=== PATIENT | female | born 1985 | race Caucasian/White ===

== ENCOUNTER 2016-11-19 19:35 | Inpatient (IN) | payer OTHER ==
--- NOTE | 2016-11-19 20:31 | PDOC ---
History of Present Illness - General Chief Complaint: Pain Stated Complaint: LT ARM NUMB/RIGHT WRIST ABCESS/KIDNEY INFECTION Time Seen by Provider: 11/19/16 19:55 History Source: Patient Exam Limitations: No Limitations - History of Present Illness Initial Comments: 11/19/16 22:08 31yo Female patient w/ history of poly substance abuse, Epilepsy, CVA, Recurrent UTI w/ admission, IV drug use w/ abscess formation presents to ED c/o abscess to right wrist x 5 days getting worse, and Lt arm weakness today. Patient currently on Methadone treatment: 100mg daily. Last IV drug use reported 6 months ago, Last drug use Tuesday (Heroin-intra nasally). Patient reports she had normal ROM to Lt arm 4 days ago, when she woke up today with weakness. She told Methadone clinic staff about her symptoms and was directed to ED for evaluation. Patient reports night sweats and chills. Patient reports 8 /10 right wrist pain at this time. Last admission to this hospital Oct 12 for UTI. LNMP: "1.5 years." Denies blurred vision, vision changes, n/v/d, fever, back pain, dysuria, hematuria, CP, Abd pain, Diff breathing, rash, difficulty walking or any other complaints. Patient denies recent trauma, injury, fall to left shoulder. Timing/Duration: getting worse Severity: moderate Modifying Factors: worse with: cold therapy, eating, immobilization, medication , movement, rest, other Associated Symptoms: reports: fever/chills, weakness. denies: chest pain, cough , diaphoresis, headaches, loss of appetite, malaise, nausea/vomiting, rash, seizure, shortness of breath, syncope NIH Stroke Scale - Last Known Well Date/Time & Onset Date Last Known Well: 11/18/16 Time Last Known Well: 21:00 - Initial Evaluation Level of consciousness: Alert Ask patient the month and their age: Answers both correctly Ask patient to open & close eyes; make fist and let go: Obeys both correctly Best gaze (horizontal eye movement): Normal Visual field testing: No visual field loss Facial paresis (Show teeth/raise eyebrows/close eyes tight): Normal symmetrical movement Motor Function: Left Arm: No effort against gravity Motor Function: Right Arm: Normal (extends arm 90 (or 45) degrees for 10 seconds without drift Motor Function: Left Leg: Normal (extends leg 30 degrees for 5 seconds without drift) Motor Function: Right Leg: Normal (extends leg 30 degrees for 5 seconds without drift) Limb Ataxia: No ataxia Sensory(Use pinprick test arms,legs,trunk,face/side to side): Normal Best language (Describe picture, name items, read sentences): No Aphasia Dysarthria (read several words): Normal articulation Extinction and Inattention: No abnormality - Total Score NIH Stroke Scale Score: 3 Past History - Travel Traveled outside of the country in the last 30 days: No Close contact w/someone who was outside of country & ill: No - Past Medical History Allergies/Adverse Reactions: Allergies Allergy/AdvReac Type Severity Reaction Status Date / Time metoclopramide HCl Allergy Severe Swelling Verified 11/19/16 19:41 [From Reglan] Sulfa (Sulfonamide Allergy Intermediate Rash Verified 11/19/16 19:41 Antibiotics) Home Medications: Ambulatory Orders Gabapentin [Neurontin] 800 mg PO TID 05/21/15 Lamotrigine [Lamictal -] 50 mg PO BID #60 tablet 12/11/15 Methadone [Dolophine -] 100 mg PO DAILY 04/09/16 Alprazolam [Xanax] 2 mg PO QID PRN #12 tablet MDD 4 04/19/16 Clonidine HCl [Catapres -] 0.2 mg PO BID tablet 10/12/16 Lurasidone HCl [Latuda -] 40 mg PO DAILY #30 tablet 10/12/16 Mirtazapine [Remeron -] 45 mg PO HS tablet 10/12/16 Anemia: No Asthma: No Cancer: No Cardiac Disorders: No CVA: Yes (2012) COPD: No CHF: No Dementia: No Diabetes: No GI Disorders: No Disorders: No HTN: Yes Hypercholesterolemia: Yes Kidney Stones: No Liver Disease: No Suicide Attempt (Hx): Yes (DRUG OVER DOSE) Seizures: Yes Thyroid Disease: Yes (HYPOTHYRODISM) - Surgical History Abdominal Surgery: No Appendectomy: Yes Cardiac Surgery: No Cholecystectomy: No Lung Surgery: No Neurologic Surgery: No Orthopedic Surgery: No - Reproductive History PID: No - Immunization History Immunization Up to Date: Yes - Psycho/Social/Smoking Cessation Hx Anxiety: No Suicidal Ideation: No Smoking Status: Yes Smoking History: Current every day smoker Have you smoked in the past 12 months: Yes Number of Cigarettes Smoked Daily: 20 Information on smoking cessation initiated: No 'Breaking Loose' booklet given: 12/10/15 Hx Alcohol Use: No Drug/Substance Use Hx: Yes (PRESCRIBED) Substance Use Type: None Hx Substance Use Treatment: Yes Review of Systems - Review of Systems Able to Perform ROS?: Yes Is the patient limited Mongolian proficient: No Constitutional: Yes: Chills, Night Sweats. No: Fever, Loss of Appetite, Malaise , Weakness HEENTM: No: Blurred Vision, Recent change in vision, Double Vision, Nose Congestion, Nose Bleeding, Dental Problems Respiratory: No: Cough, Orthopnea, Shortness of Breath, SOB at Rest, Stridor, Wheezing, Productive cough Cardiac (ROS): No: Chest Pain, Edema, Irregular Heart Rate, Lightheadedness, Palpitations, Syncope, Chest Tightness ABD/GI: No: Constipated, Diarrhea, Difficulty Swallowing, Nausea, Poor Appetite , Poor Fluid Intake, Rectal Bleeding, Vomiting, Abdominal cramping, Tarry Stools : No: Burning, Dysuria, Discharge, Frequency, Flank Pain, Hematuria, Pain, Urgency Musculoskeletal: Yes: Muscle Weakness. No: Back Pain, Joint Pain, Joint Swelling, Neck Pain, Joint Stiffness Integumentary: Yes: Erythema, Lumps (Abscess to right wrist.). No: Bruising, Dryness, Pruritus, Rash, Sweating Neurological: Yes: Weakness. No: Headache, Numbness, Paresthesia, Seizure, Tingling, Tremors, Unsteady Gait, Ataxia, Dizziness Psychiatric: No: Anxiety, Depression, Sleep Pattern Change Hematologic/Lymphatic: No: Blood Clots, Easy Bleeding All Other Systems: Reviewed and Negative *Physical Exam - Vital Signs Last Vital Signs Temp Pulse Resp BP Pulse Ox 97.8 F 98 H 20 116/70 95 11/19/16 19:43 11/19/16 19:43 11/19/16 19:43 11/19/16 19:43 11/19/16 19:43 - Physical Exam General Appearance: Yes: Nourished, Disheveled. No: Mild Distress, Moderate Distress, Severe Distress HEENT: positive: EOMI, UBALDO, Normal ENT Inspection, Normal Voice, Symmetrical, TMs Normal, Pharynx Normal, Other (Poor Dentition). negative: Nasal Congestion , Rhinorrhea, Sinus Tenderness, TM Bulging, TM Dull, TM Erythema, Excessive drooling Neck: positive: Trachea midline, Supple. negative: Tender, Decreased range of motion, Stridor, Lymphadenopathy (R), Lymphadenopathy (L) Respiratory/Chest: positive: Lungs Clear, Normal Breath Sounds. negative: Respiratory Distress, Accessory Muscle Use, Labored Respiration, Rapid RR, Rhonchi, Stridor, Wheezing, Hyperresonant, Dullness Cardiovascular: positive: Regular Rhythm, Regular Rate. negative: Edema, JVD, Murmur Vascular Pulses: Femoral (R): 2+ (Wrist), Femoral (L): 2+ (Wrist) Gastrointestinal/Abdominal: positive: Normal Bowel Sounds, Soft. negative: Increased Bowel Sounds, Distended, Guarding, Rebound, Tenderness Lymphatic: negative: Adenopathy Musculoskeletal: positive: Normal Inspection. negative: CVA Tenderness, CVA Tenderness (R), CVA Tenderness (L), Decreased Range of Motion Extremity: positive: Normal Capillary Refill, Normal Inspection. negative: Normal Range of Motion (Decrease ROM to Lt arm), Pedal Edema, Swelling, Erythema , Inflammation Integumentary: positive: Normal Color, Dry, Warm, Erythema, Other (Abscess to right wrist). negative: Hives, Petechiae, Rash, Swelling Neurologic: positive: internal revenue service agent II-XII NML intact, Fully Oriented, Alert, Normal Mood/ Affect, Normal Response. negative: Motor Strength 5/5 (Decreased strength to Lt Arm.) Heart Score/ECG Review - ECG Impressions Normal ECG: Yes Non-specific ST Elevation: No Ischemic Changes: No Bradycardia: No Torsades saima Pointes: No WPW: No ED Treatment Course - LABORATORY CBC & Chemistry Diagram: 11/19/16 20:45 11/19/16 20:45 - RADIOLOGY Radiology Studies Ordered: Category Date Time Status HEAD CT WITHOUT CONTRAST [CT] Stat CT Scan 11/19/16 20:28 Ordered CHEST PA & LAT [RAD] Stat Radiology 11/19/16 20:28 Ordered SHOULDER-LEFT [RAD] Stat Radiology 11/19/16 20:28 Ordered *DC/Admit/Observation/Transfer Diagnosis at time of Disposition: Transient cerebral ischemia Qualifiers: Transient cerebral ischemia type: unspecified Qualified Code(s): G45.9 - Transient cerebral ischemic attack, unspecified - Discharge Dispostion Condition at time of disposition: Fair Admit: Yes
[2016-11-19 20:37] LABS: URINE APPEARANCE SLCLOUDY; URINE BILIRUBIN NEGATIVE (NEGATIVE); URINE BLOOD NEGATIVE (NEGATIVE); URINE COLOR YELLOW; URINE GLUCOSE (UA) NEGATIVE (NEGATIVE); URINE KETONE NEGATIVE (NEGATIVE); URINE NITRITE NEGATIVE (NEGATIVE); URINE UROBILINOGEN 4.0 E.U/dl E.U./dl (0.2-1.0)
[2016-11-19] MEDS ORDERED: LIDOCAINE HCL 1%, 10 MG/ML (50 mL VIAL) INF ONE (20:37)
[2016-11-19 20:39] LABS: URINE LEUK ESTERASE TRACE (NEGATIVE); URINE PROTEIN 1+ (NEGATIVE)
[2016-11-19 20:42] LABS: URINE MARIJUANA THC POSITIVE ng/ml (CUTOFF=50)
[2016-11-19] MEDS ORDERED: LIDOCAINE HCL/PF 1% SDV 5ML VIAL ONE (20:43)
[2016-11-19 20:46] LABS: URINE BACTERIA FEW /hpf (NONE SEEN); URINE HYALINE CAST 1 /lpf; URINE MUCUS RARE; URINE RBC 1 /hpf (0-3); URINE WBC 5 /hpf (3-5)
--- NOTE | 2016-11-19 21:04 | PDOC ---
*Physical Exam - Vital Signs Last Vital Signs Temp Pulse Resp BP Pulse Ox 97.8 F 98 H 20 116/70 95 11/19/16 19:43 11/19/16 19:43 11/19/16 19:43 11/19/16 19:43 11/19/16 19:43 ED Treatment Course - LABORATORY CBC & Chemistry Diagram: 11/23/16 08:55 11/21/16 08:10 - ADDITIONAL ORDERS Additional order review: Laboratory Results 11/19/16 11/19/16 19:45 19:45 Urine Color Yellow Urine Appearance Slcloudy Urine pH 6.0 Ur Specific Lawrence 1.011 Urine Protein 1+ H Urine Glucose (UA) Negative Urine Ketones Negative Urine Blood Negative Urine Nitrite Negative Urine Bilirubin Negative Urine Urobilinogen 4.0 e.u/dl H Ur Leukocyte Esterase Trace H D Urine RBC 1 Urine WBC 5 Ur Epithelial Cells Few Urine Bacteria Few Hyaline Casts 1 Urine Mucus Rare Urine HCG, Qual Negative Opiates Screen Positive Methadone Screen Positive Barbiturate Screen Negative Phencyclidine Screen Negative Ur Amphetamines Screen Negative MDMA (Ecstasy) Screen Negative Benzodiazepines Screen Positive Cocaine Screen Negative U Marijuana (THC) Screen Positive - Medications Given in the ED: ED Medications Discontinued Medications Generic Name Dose Route Start Last Admin Trade Name Freq PRN Reason Stop Dose Admin Lidocaine HCl 10 ml 11/19/16 20:37 11/19/16 20:54 Xylocaine 1% INF 11/19/16 20:38 10 ml ONCE ONE Administration Medical Decision Making - Medical Decision Making 11/19/16 21:04 Pt seen by the Advanced Practice Provider under my direct supervision Ancillary studies reviewed I agree with plan as outlined by the Advanced Practice Provider CYNTHIA Engel *DC/Admit/Observation/Transfer Diagnosis at time of Disposition: TIA (transient ischemic attack) - Discharge Dispostion Condition at time of disposition: Fair
[2016-11-19 21:43] LABS: BASOPHIL 0.4 % (0-2.0); EOSINOPHIL 1.1 % (0-4.5); MCH 27.1 pg (25.7-33.7); MCHC 33.9 g/dl (32.0-36.0); MEAN CELL VOLUME 80.1 fl (80-96); MEAN PLT VOLUME 8.1 fl (7.5-11.1); PLATELET COUNT 236 K/MM3 (134-434); RDW 17.7 % (11.6-15.6); WHITE BLOOD COUNT 5.3 K/mm3 (4.0-10.0)
[2016-11-19 21:58] LABS: INR 1.22 (0.82-1.09); PROTHROMBIN TIME (PATIENT) 13.5 SEC (9.98-11.88)
[2016-11-19 22:09] LABS: ALBUMIN 3.6 g/dl (3.4-5.0); ANION GAP 11 (8-16); CALCIUM 8.9 mg/dL (8.5-10.1); CO2 28 mmol/L (21-32); CREATININE 0.9 mg/dL (0.55-1.02)
[2016-11-19 22:11] LABS: ALK PHOS 303 U/L (45-117); BILIRUBIN,TOTAL 0.5 mg/dL (0.2-1.0); SGOT/AST 52 U/L (15-37); SGPT/ALT 28 U/L (12-78); TOT PROT 8.3 g/dl (6.4-8.2)
[2016-11-19 22:13] LABS: GLUCOSE,RANDOM 102 mg/dL (74-106)
[2016-11-19 22:56] LABS: TROPONIN I < 0.02 ng/ml (0.00-0.05)
[2016-11-20] MEDS ORDERED: SODIUM CHLORIDE 1,000 ML IV STA (00:13)
[2016-11-20] MEDS ORDERED: ceFAZolin 2 GRAM PREMIX BAG IVPB ONE (00:30)
--- NOTE | 2016-11-20 02:37 | HP ---
<Tonia Mauricio - Last Filed: 11/20/16 02:37> Visit type - Emergency Visit Emergency Visit: Yes Care time: The patient presented to the Emergency Department on the above date and was hospitalized for further evaluation of their emergent condition. - New Patient This patient is new to me today: Yes Date on this admission: 11/20/16 - Critical Care Critical Care patient: No <Keri Ahuja - Last Filed: 11/20/16 04:07> CHIEF COMPLAINT: L arm and L shoulder pain PCP: HISTORY OF PRESENT ILLNESS: The patient is a 31 yo F with a PMHx of TIA (w R sided facial droop and slurred speech) who presented to the ED with L arm pain and R arm wound. The patient reports that her arm pain began 4 days ago while getting up from bed. The patient reports she has never felt this pain before and is concerned for possible stroke. The patient also reports R arm wound, that has been increasingly erythematous for the past 2 days. The patient states when she relapses, she intranasally snorts heroin and however denies using this arm for injection. She denies chest pain, headache and dizziness. She denies fever, chills, nausea, vomit, diarrhea and constipation. She denies dysuria, frequency , urgency and hematuria. PMHx: HTN, Hypothyroidism, HLD, IVDA Recent Travel: No PAST MEDICAL HISTORY: See above PAST SURGICAL HISTORY: None Social History: Smoking: Daily Cigarette smoker (5 daily) Alcohol: None Drugs: Heroin, Methadone, Marijuana, Benzos Family History: Grandfather and Grandmother- CVA/TIA Allergies metoclopramide HCl [From Reglan] Allergy (Severe, Verified 11/19/16 19:41) Swelling Sulfa (Sulfonamide Antibiotics) Allergy (Intermediate, Verified 11/19/16 19:41) Rash HOME MEDICATIONS: Medication Instructions Recorded Gabapentin [Neurontin] 800 mg PO TID 05/21/15 Lamotrigine [Lamictal -] 50 mg PO BID #60 tablet 12/11/15 Methadone [Dolophine -] 100 mg PO DAILY 04/09/16 Alprazolam [Xanax] 2 mg PO QID PRN #12 tablet MDD 4 04/19/16 Clonidine HCl [Catapres -] 0.2 mg PO BID tablet 10/12/16 Lurasidone HCl [Latuda -] 40 mg PO DAILY #30 tablet 10/12/16 Mirtazapine [Remeron -] 45 mg PO HS tablet 10/12/16 REVIEW OF SYSTEMS CONSTITUTIONAL: Absent: fever, chills, diaphoresis, generalized weakness, malaise, loss of appetite, weight change HEENT: Absent: rhinorrhea, nasal congestion, throat pain, throat swelling, difficulty swallowing, mouth swelling, ear pain, eye pain, visual changes CARDIOVASCULAR: Absent: chest pain, syncope, palpitations, irregular heart rate, lightheadedness , peripheral edema RESPIRATORY: Absent: cough, shortness of breath, dyspnea with exertion, orthopnea, wheezing, stridor, hemoptysis GASTROINTESTINAL: Absent: abdominal pain, abdominal distension, nausea, vomiting, diarrhea, constipation, melena, hematochezia GENITOURINARY: Absent: dysuria, frequency, urgency, hesitancy, hematuria, flank pain, genital pain MUSCULOSKELETAL: + L arm pain + L shoulder pain. Absent: myalgia, arthralgia, joint swelling, back pain, neck pain SKIN: + abscess and swelling to the R hand Absent: rash, itching, pallor HEMATOLOGIC/IMMUNOLOGIC: Absent: easy bleeding, easy bruising, lymphadenopathy, frequent infections ENDOCRINE: Absent: unexplained weight gain, unexplained weight loss, heat intolerance, cold intolerance NEUROLOGIC: Absent: headache, focal weakness or paresthesias, dizziness, unsteady gait, seizure, mental status changes, bladder or bowel incontinence PSYCHIATRIC: Absent: anxiety, depression, suicidal or homicidal ideation, hallucinations. PHYSICAL EXAMINATION GENERAL: Awake, alert, and fully oriented, in no acute distress. HEAD: Normal with no signs of trauma. EYES: Pupils equal, round and reactive to light, extraocular movements intact, sclera anicteric, conjunctiva clear. No lid lag. EARS, NOSE, THROAT: Poor oral hygiene. Missing multiple teeth. Ears normal, nares patent, oropharynx clear without exudates. Moist mucous membranes. NECK: Normal range of motion, supple without lymphadenopathy, JVD, or masses. LUNGS: Breath sounds equal, clear to auscultation bilaterally. No wheezes, and no crackles. No accessory muscle use. HEART: Regular rate and rhythm, normal S1 and S2 without murmur, rub or gallop. ABDOMEN: Soft, nontender, not distended, normoactive bowel sounds, no guarding, no rebound, no masses. No hepatomegaly or splenomegaly. MUSCULOSKELETAL: L arm with limited ROM to 30 degrees on extension. Normal tone and hand prenatal genetic counselor 5/5. Motor function 3/5. Normal range of motion at all joints. No bony deformities or tenderness. No CVA tenderness. UPPER EXTREMITIES: 2+ pulses, warm, well-perfused. No cyanosis. No clubbing. Cap refill <2 seconds. No peripheral edema. LOWER EXTREMITIES: 2+ pulses, warm, well-perfused. No calf tenderness. No peripheral edema. NEUROLOGICAL: Cranial nerves II-XII intact. Normal speech. Normal gait. PSYCHIATRIC: Cooperative. Good eye contact. Appropriate mood and affect. SKIN: + R hand multiple abscesses and erythema at wrist. + Multiple track frazier. Warm, dry, normal turgor. ASSESSMENT/PLAN: The patient is a 31 yo F with TIA, HTN, Hypothyroidism, HLD who presents with L arm pain and R wrist wound. 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
[2016-11-20] MEDS: GABAPENTIN 400 MG CAPSULE (FP) PO SCH ×3 (06:44→22:14)
[2016-11-20] MEDS: HEPARIN NA (PORCINE) 5,000 UNITS/ML 1ML VIAL SQ SCH ×3 (06:44→22:15)
[2016-11-20] MEDS ORDERED: HEPARIN NA (PORCINE) 5,000 UNITS/ML 1ML VIAL ONE ×2 (06:46→14:05)
[2016-11-20] MEDS ORDERED: GABAPENTIN 100 MG CAPSULE (FP) ONE (06:46)
--- NOTE | 2016-11-20 09:26 | EKG ---
Test Reason : Blood Pressure : / mmHG Vent. Rate : 090 BPM Atrial Rate : 090 BPM P-R Int : 160 ms QRS Dur : 086 ms QT Int : 394 ms P-R-T Axes : 047 039 043 degrees QTc Int : 481 ms POOR DATA QUALITY, INTERPRETATION MAY BE ADVERSELY AFFECTED NORMAL SINUS RHYTHM POSSIBLE LEFT ATRIAL ENLARGEMENT WHEN COMPARED WITH ECG OF 08-OCT-2016 04:53, NO SIGNIFICANT CHANGE WAS FOUND Confirmed by SAVANNAH HUTCHISON MD ([id number]) on 11/20/2016 9:26:30 AM Referred By: Confirmed By:SAVANNAH HUTCHISON MD
[2016-11-20] MEDS: LURASIDONE HCL 40 MG TABLET PO SCH (09:50)
[2016-11-20] MEDS: ASPIRIN COATED 81 MG TABLET.EC PO SCH (09:50)
[2016-11-20] MEDS: lamoTRIgine 25 MG TABLET PO SCH ×2 (09:50→22:14)
[2016-11-20] MEDS: cloNIDine HCL 0.1 MG TABLET PO SCH ×2 (09:50→22:18)
[2016-11-20] MEDS: METHADONE 80 MG, METHADONE 20 MG PO SCH (09:50)
[2016-11-20] MEDS ORDERED: METHADONE HCL 40 MG DISPERSABLE TABLET ONE (09:51)
[2016-11-20] MEDS ORDERED: METHADONE HCL 10 MG TABLET ONE (09:51)
[2016-11-20] MEDS ORDERED: cloNIDine HCL 0.1 MG TABLET ONE (09:52)
[2016-11-20] MEDS ORDERED: METHADONE HCL 40 MG DISPERSABLE TABLET PO SCH (10:00)
[2016-11-20] MEDS: NICOTINE 7 MG/24 HOURS TOPICAL PATCH TD SCH (10:03)
--- NOTE | 2016-11-20 11:10 | PN ---
Physical Exam: SUBJECTIVE: Patient seen and examined Since tuesday has been having left arm weakness, felt she may have slept on it incorrectly and thought it would go away. After having complained about it to nurses at [facility], she was referred to ED for further evaluation. Has been having difficulty sleeping for past few nights, unable to sleep last night. Oct 15 2013, says she had a stroke, woke up on vent after being transferred at that time from [facility]. since then has had slurred speech and flattened left nasolabial fold. OBJECTIVE: Vital Signs Period Temp Pulse Resp BP Sys/Nash Pulse Ox Last 24 Hr 76-89 18-20 122-148/72-78 96-98 GENERAL: The patient is awake, wavering alertness, and fully oriented, in no acute distress. HEAD: Normal with no signs of trauma. EYES: PERRL, extraocular movements intact, sclera anicteric, conjunctiva clear. No ptosis. ENT: Ears normal, nares patent, oropharynx clear without exudates, moist mucous membranes. poor dentition. flattening of nasolabial fold of left side. no facial droop. NECK: Trachea midline, full range of motion, supple. LUNGS: Breath sounds equal, clear to auscultation bilaterally, no wheezes, no crackles, no accessory muscle use. HEART: Regular rate and rhythm, S1, S2 without murmur, rub or gallop. ABDOMEN: Soft, nontender, nondistended, normoactive bowel sounds EXTREMITIES: 2+ pulses, warm, well-perfused, no edema. NEUROLOGICAL: Right UE: 2+ pulse, dorsum of wrist with erythematous, nonfluctuating raised swelling extending across wrist, smaller area on ulnar medial side. no discharge , mild tenderness. strength 4/5 on landscape artist, decreased ROM with extension at shoulder. sensation and motor at hand/fingers intact. unable to illicit biceps or brachoradialis reflex. Left UE: shoulder with small area of erythema, ttp, unable to shrug, unable to adduct or extend at shoulder. strength 4/5 on landscape artist. sensation decreased on forearm, anterior and lateral part of upper arm, axiall and medial upper arm sensation intact, sensation in hand intact. Right LE: sensation intact throughout leg, patellar reflex 2+, strength intact at hip, knee and foot on extension and flexion. DP 2+ pulse Left LE: sensation intact throughout leg, patellar reflex 2+, strength intact at hip, knee and foot on extension and flexion. DP 2+ pulse PSYCH: Normal mood, normal affect., cooperative Active Medications Generic Name Dose Route Start Last Admin Trade Name Narinder PRN Reason Stop Dose Admin Alprazolam 2 mg 11/20/16 03:45 Xanax - PO QID PRN ANXIETY Aspirin 81 mg 11/20/16 10:00 11/20/16 09:50 Ecotrin - PO 81 mg DAILY JAMEEL Administration Clonidine 0.2 mg 11/20/16 10:00 11/20/16 09:50 Catapres - PO 0.2 mg BID JAMEEL Administration Gabapentin 800 mg 11/20/16 06:00 11/20/16 06:44 Neurontin - PO 800 mg TID JAMEEL Administration Heparin Sodium (Porcine) 5,000 unit 11/20/16 06:00 11/20/16 06:44 Heparin - SQ 5,000 unit TID JAMEEL Administration Lamotrigine 50 mg 11/20/16 10:00 11/20/16 09:50 Lamictal - PO 50 mg BID JAMEEL Administration Lurasidone HCl 40 mg 11/20/16 10:00 11/20/16 09:50 Latuda - PO 40 mg DAILY JAMEEL Administration Methadone HCl 80 mg/ Methadone 100 mg 11/20/16 09:45 11/20/16 09:50 HCl 20 mg PO 100 mg DAILY@0600 JAMEEL Administration Mirtazapine 45 mg 11/20/16 22:00 Remeron - PO HS JAMEEL Nicotine 7 mg 11/20/16 10:00 11/20/16 10:03 Nicoderm Patch - TD Not Given DAILY JAMEEL ASSESSMENT/PLAN: 31 yr old woman with hx of polysubstance abuse, IVDU, hx of recurrent UTI, on methadone maintenance, seizure disorder, MRSA postive cellulitis, presented with left shoulder weakness for 6 days and right hand cellutitis. #Left arm weakness with neurological deficits - MRI of cervical spine to r/o nerve impingement - MRI w/o contrast to r/o lesion - HbA1c to r/o DM neuropathy - lyme titer given deer in [place] - consider monospot test if repeat CBC with continued elevated monocytosis to r/ o EBV #Right wrist cellulitis - Dr. muller consulted - Vanco 1gm daily -- start 11/20 - bld cx pending #hx of recurrent UTI, u/a with trace leuc +, however to complaints of dysuria, no indication for treatment at this time #Polysubstance abuse - on methadone maintenance 100mg daily - cautious with pain medications #seizure d/o - remeron 45mg po - lamictal 50mg #Current everyday smoker - 7mg nicotine patch TP daily - will provide counseling and information on cessation at discharge if amenable continue home medications, clonidine 0.2mg bid, latuda 40mg po bid #Diet: low sodium #DVT: heparin TID Visit type - Emergency Visit Emergency Visit: No - New Patient This patient is new to me today: Yes Date on this admission: 11/20/16 - Critical Care Critical Care patient: No
--- NOTE | 2016-11-20 11:14 | PN ---
Teaching Attending Note Name of Resident: Aida Olmedo ATTENDING PHYSICIAN STATEMENT I saw and evaluated the patient. I reviewed the resident's note and discussed the case with the resident. I agree with the resident's findings and plan as documented. SUBJECTIVE: Reports chills and sweats at home , reports nasal heroin use 3 days ago. denies abd pain or backpain . has weakness in L shoulder x 5 days ago. with loss of sensation in upper arm. denies any BRIZUELA , or visual changes. OBJECTIVE: AND , AAOx3 HEENT: MMM, poor dentition, nl oropharynx . no facial droop, EOMI, round equal pupils, reactive to light . no LAP in neck CV: RRR, no MRG Lungs : CATB Ext : no edema or erythema over LE . enduration /erythema /tenderness noted on dorsum of R wrist , with no discharge ( 5x5 cm ) . small similar lesion ( 1x1 cm ) seen on dorsum or same hand. old scars at IV injection sites . erythema and TTP over L shoulder ( Lateral clavicular process) Neuro : no facial droop, EOMI, round equal pupils, reactive to light , uvula and tongue at mid line, nl facial sensation . no nystagmus . strength : LUE: 1/5 shoulder abduction , 2/5 shoulder adduction, 4/5 biceps , 5/5 triceps , 4/5 hand cash clerk , 4/5 at wrist RUE : 5/5 shoulder abduction , 5/5 shoulder adduction,5/5 biceps , 5/5 triceps , 5/5 hand cash clerk , 5/5 at wrist LLE, RLE: 5/5 proximally and distally . Sensation to light touch : decrease over posterior L upper arm, absent over lateral and anterior L arm, upper shoulder and upper lateral corner of chest wall . normal sensation otherwise A/P 31 y/o lady with h/o IVDU, on methadone , seizure disorder, cellulitis , HTN, possible fatty liver , recent admission for lower Ext cellulitis , who presented with L upper ext proximal weakness and was found to have R wrist cellulitis. 1- L upper extremity proximal weakness, and sensory loss. likely from brachial plexus pathology ( compression , neuritis , inflammation . ...) . unlikely stroke. Of note , she reported having stroke in 2013 in this hospital, but there is no report of that in our records . - check L shoulder xray due to tenderness and erythema over the shoulder - MRI of C spine - might need EMG - neuro c/s pending - check A1c - MRI of brain ( last MRI in 10/08 no abnormality ) 2- cellulitis of the R wrist : has h/o MRSA from L wrist wound cx before. will start vanco . was given one dose of cefazolin in ER blood 2- h/o IVDU , now nasal heroin 3 days ago . cont methadone . dose confirmed 3- HTN ; cont clonidine 4- h/o seizures. cont home meds dispo : HLOC .
[2016-11-20] MEDS ORDERED: VANCOMYCIN 1 GRAM (PRE-DOCKED) 1,000 MG/250 ML BAG IVPB ONE (12:30)
--- NOTE | 2016-11-20 12:49 | CONSULT ---
Consult Consult Specialty:: Neurology Reason for Consultation:: Stroke versus cervical radiculopathy - History of Present Illness History of Present Illness: 31 year old woman with history of drug abuse, TIA (right side facial droop and dysarthria), presents to ED with left arm pain and right arm wound. She reports four days ago noting left arm pain and numbness. Discussed her findings at methadone clinic and was told to be evaluated. She is concerned for stroke and would like stroke ruled out. Reports some neck pain. Denies weakness other than left arm, dysarthria or vision changes. 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 Unable to obtain surgical history.) - Alcohol/Substance Use Hx Alcohol Use: No History of Substance Use: reports: Cocaine, Heroin, Marijuana, Tranquilizers Date of Last Use: 09/14/16 (also crystal meth. 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 History of Recent Travel: No Home Medications - Allergies Allergies/Adverse Reactions: Allergies Allergy/AdvReac Type Severity Reaction Status Date / Time metoclopramide HCl Allergy Severe Swelling Verified 11/19/16 19:41 [From Reglan] Sulfa (Sulfonamide Allergy Intermediate Rash Verified 11/19/16 19:41 Antibiotics) - Home Medications Home Medications: Ambulatory Orders Gabapentin [Neurontin] 800 mg PO TID 05/21/15 Lamotrigine [Lamictal -] 50 mg PO BID #60 tablet 12/11/15 Methadone [Dolophine -] 100 mg PO DAILY 04/09/16 Alprazolam [Xanax] 2 mg PO QID PRN #12 tablet MDD 4 04/19/16 Clonidine HCl [Catapres -] 0.2 mg PO BID tablet 10/12/16 Lurasidone HCl [Latuda -] 40 mg PO DAILY #30 tablet 10/12/16 Mirtazapine [Remeron -] 45 mg PO HS tablet 10/12/16 Family Disease History - Family Disease History Family Disease History: Diabetes: Mother (HTN,DM), Heart Disease: Father (HTN, etoh, cocaine), Mother, Other: Father, Brother (drug use, HCV) Review of Systems - Review of Systems Constitutional: reports: No Symptoms Eyes: reports: No Symptoms Cardiovascular: reports: No Symptoms Respiratory: reports: No Symptoms Neurological: reports: Other (left arm pain) Physical Exam Vital Signs: Vital Signs Temperature 97.8 F 11/19/16 19:43 Pulse Rate 76 11/20/16 09:19 Respiratory Rate 20 11/20/16 09:19 Blood Pressure 148/78 11/20/16 09:19 O2 Sat by Pulse Oximetry (%) 96 11/20/16 09:19 Constitutional: Yes: No Distress Eyes: Yes: Conjunctiva Clear, EOM Intact HENT: Yes: Atraumatic, Normocephalic Neurological: Yes: Alert, Oriented, Cran Nerves II-XII Intact (left arm 4/5 deltoid, bicep, tricep remainder 5/5 left arm sensory loss no particular nerve distribution) Assessment/Plan 31 year old woman with history of drug abuse, TIA (right side facial droop and dysarthria), presents to ED with left arm pain and right arm wound. She reports four days ago noting left arm pain and numbness. Discussed her findings at methadone clinic and was told to be evaluated. She is concerned for stroke and would like stroke ruled out. Reports some neck pain. Denies weakness other than left arm, dysarthria or vision changes. Left arm limited movement, unable to lift above head Recommend MRI brain without contrast MRI Cervical spine to rule out radiculopathy
[2016-11-20] MEDS ORDERED: SODIUM CHLORIDE 500 ML IV STA (15:29)
[2016-11-20 16:07] LABS: THYROID STIMULATING HORMONE 4.24 uIU/ml (0.358-3.74)
[2016-11-20] MEDS ORDERED: SODIUM CHLORIDE 1,000 ML IV SCH (16:30)
--- NOTE | 2016-11-20 17:55 | CONSULT ---
Consult Consult Specialty:: infectious diseases Referred by:: Reason for Consultation:: shoulder and hand swelling - History of Present Illness Chief Complaint: pain in the left shoulder,inability to lift the hand up History of Present Illness: The patient is a 31 yo F with a PMHx of TIA (w R sided facial droop and slurred speech) who presented to the ED with L arm pain and R arm wound. The patient reports that her arm pain began 4 days ago while getting up from bed. The patient reports she has never felt this pain before and is concerned for possible stroke. The patient also reports R arm wound, that has been increasingly erythematous for the past 2 days. The patient states when she relapses, she intranasally snorts heroin and however denies using this arm for injection. She denies chest pain, headache and dizziness. She denies fever, chills, nausea, vomit, diarrhea and constipation. She denies dysuria, frequency , urgency and hematuria. 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 Unable to obtain surgical history.) - Alcohol/Substance Use Hx Alcohol Use: No History of Substance Use: reports: Cocaine, Heroin, Marijuana, Tranquilizers Date of Last Use: 09/14/16 (also crystal meth. 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 History of Recent Travel: No Home Medications - Allergies Allergies/Adverse Reactions: Allergies Allergy/AdvReac Type Severity Reaction Status Date / Time metoclopramide HCl Allergy Severe Swelling Verified 11/19/16 19:41 [From Reglan] Sulfa (Sulfonamide Allergy Intermediate Rash Verified 11/19/16 19:41 Antibiotics) - Home Medications Home Medications: Ambulatory Orders Gabapentin [Neurontin] 800 mg PO TID 05/21/15 Lamotrigine [Lamictal -] 50 mg PO BID #60 tablet 12/11/15 Methadone [Dolophine -] 100 mg PO DAILY 04/09/16 Alprazolam [Xanax] 2 mg PO QID PRN #12 tablet MDD 4 04/19/16 Clonidine HCl [Catapres -] 0.2 mg PO BID tablet 10/12/16 Lurasidone HCl [Latuda -] 40 mg PO DAILY #30 tablet 10/12/16 Mirtazapine [Remeron -] 45 mg PO HS tablet 10/12/16 Family Disease History - Family Disease History Family Disease History: Diabetes: Mother (HTN,DM), Heart Disease: Father (HTN, etoh, cocaine), Mother, Other: Father, Brother (drug use, HCV) Review of Systems - Review of Systems Constitutional: reports: No Symptoms Eyes: reports: No Symptoms HENT: reports: No Symptoms Neck: reports: No Symptoms Cardiovascular: reports: No Symptoms Respiratory: reports: No Symptoms Gastrointestinal: reports: No Symptoms Genitourinary: reports: No Symptoms Musculoskeletal: reports: Joint Swelling, Muscle Pain, Muscle Weakness, Other ( unable to lift up the left hand) Neurological: reports: No Symptoms Endocrine: reports: No Symptoms Hematology/Lymphatic: reports: No Symptoms Physical Exam Vital Signs: Vital Signs Temperature 97.5 F L 11/20/16 15:29 Pulse Rate 54 L 11/20/16 16:40 Respiratory Rate 19 11/20/16 16:40 Blood Pressure 116/72 11/20/16 17:00 O2 Sat by Pulse Oximetry (%) 96 11/20/16 16:40 Constitutional: Yes: Well Nourished, No Distress, Calm Eyes: Yes: Conjunctiva Clear HENT: Yes: Atraumatic Neck: Yes: Supple, Trachea Midline Cardiovascular: Yes: Regular Rate and Rhythm Respiratory: Yes: Regular, CTA Bilaterally Gastrointestinal: Yes: Normal Bowel Sounds, Soft Musculoskeletal: Yes: Other (cannot lift up the shoulder) Extremities: Yes: Erythema (small area of erythema left shoulder swelling of the rt hand) Integumentary: Yes: Erythema, Other Wound/Incision: Yes: Open to air Neurological: Yes: Alert, Oriented Psychiatric: Yes: Alert, Oriented Imaging - Results Chest X-ray: Report Reviewed, Image Reviewed X-ray: Report Reviewed, Image Reviewed Cat Scan: Report Reviewed, Image Reviewed Assessment/Plan The patient is a 31 yo F with TIA, HTN, Hypothyroidism, HLD who presents with L arm pain and R wrist wound. 1.) Abcsess secondary to IVDA 2.) L arm radiculopathy vs CVA 3.) Tobacco dependance methadone dependance the swelling on the right hand was tried to be drained but it seems only blood was obtained plan will start on vanco and zosyn continue as per neuro do not know why patient cannot lift the shoulder await for mri of the spine and shoulder i think we should get physio to prevent frozen shoulder
[2016-11-20] MEDS: PIPERACILLIN/TAZOB 3.375 GM 50 ML IVPB SCH (18:17)
[2016-11-20 18:33] VITALS: BMI 26.4
[2016-11-20] MEDS: MIRTAZAPINE 15 MG TABLET (FP) PO SCH (22:15)
[2016-11-21] MEDS ORDERED: VANCOMYCIN 1 GRAM (PRE-DOCKED) 250 ML IVPB SCH (01:00)
[2016-11-21] MEDS: PIPERACILLIN/TAZOB 3.375 GM 50 ML IVPB SCH ×3 (01:32→18:13)
[2016-11-21] MEDS ORDERED: METHADONE HCL 10 MG TABLET ONE (05:48)
[2016-11-21] MEDS ORDERED: METHADONE HCL 40 MG DISPERSABLE TABLET ONE (05:49)
[2016-11-21] MEDS ORDERED: METHADONE 80 MG, METHADONE 20 MG PO SCH (06:00)
[2016-11-21] MEDS: GABAPENTIN 400 MG CAPSULE (FP) PO SCH ×3 (06:47→22:06)
[2016-11-21] MEDS: HEPARIN NA (PORCINE) 5,000 UNITS/ML 1ML VIAL SQ SCH ×4 (06:48→22:14)
[2016-11-21] MEDS: ALPRAZolam 2 MG TABLET PO PRN ×3 (06:52→22:09)
[2016-11-21] MEDS: METHADONE 80 MG, METHADONE 20 MG PO SCH (06:56)
[2016-11-21 08:31] LABS: BASOPHIL 0.6 % (0-2.0); EOSINOPHIL 2.7 % (0-4.5); MCH 27.1 pg (25.7-33.7); MCHC 33.5 g/dl (32.0-36.0); MEAN CELL VOLUME 80.7 fl (80-96); MEAN PLT VOLUME 7.5 fl (7.5-11.1); NEUTROPHILS 38.8 % (42.8-82.8); PLATELET COUNT 190 K/MM3 (134-434); RDW 17.3 % (11.6-15.6); WHITE BLOOD COUNT 3.4 K/mm3 (4.0-10.0)
[2016-11-21 08:58] LABS: ANION GAP 8 (8-16); BILIRUBIN,TOTAL 0.3 mg/dL (0.2-1.0); CALCIUM 8.4 mg/dL (8.5-10.1); CO2 24 mmol/L (21-32); CREATININE 0.9 mg/dL (0.55-1.02); GLUCOSE,RANDOM 106 mg/dL (74-106); SGOT/AST 41 U/L (15-37); SGPT/ALT 26 U/L (12-78)
[2016-11-21 08:59] LABS: ALK PHOS 252 U/L (45-117)
[2016-11-21] MEDS ORDERED: PT OWN MED DRAWER 7, Y5N ONE ×3 (09:23→23:05)
[2016-11-21] MEDS: ASPIRIN COATED 81 MG TABLET.EC PO SCH (09:30)
[2016-11-21] MEDS: cloNIDine HCL 0.1 MG TABLET PO SCH ×3 (09:30→22:14)
[2016-11-21] MEDS: lamoTRIgine 25 MG TABLET PO SCH ×2 (09:30→22:06)
[2016-11-21] MEDS: LURASIDONE HCL 40 MG TABLET PO SCH (09:31)
[2016-11-21] MEDS: SODIUM CHLORIDE 1,000 ML IV SCH (09:40)
[2016-11-21] MEDS: NICOTINE 7 MG/24 HOURS TOPICAL PATCH TD SCH (12:02)
--- NOTE | 2016-11-21 12:32 | PN ---
Progress Note (short form) - Note Progress Note: History of Present Illness: 11/21 Denies any new complaints Continues to experience numbness and weakness of the left arm Underwent MRI C spine and MRI Upper extremity 31 year old woman with history of drug abuse, TIA (right side facial droop and dysarthria), presents to ED with left arm pain and right arm wound. She reports four days ago noting left arm pain and numbness. Discussed her findings at methadone clinic and was told to be evaluated. She is concerned for stroke and would like stroke ruled out. Reports some neck pain. Denies weakness other than left arm, dysarthria or vision changes. 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 Unable to obtain surgical history.) - Alcohol/Substance Use Hx Alcohol Use: No History of Substance Use: reports: Cocaine, Heroin, Marijuana, Tranquilizers Date of Last Use: 09/14/16 (also crystal meth. 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 History of Recent Travel: No Home Medications - Allergies Allergies/Adverse Reactions: Allergies Allergy/AdvReac Type Severity Reaction Status Date / Time metoclopramide HCl Allergy Severe Swelling Verified 11/19/16 19:41 [From Reglan] Sulfa (Sulfonamide Allergy Intermediate Rash Verified 11/19/16 19:41 Antibiotics) - Home Medications Home Medications: Ambulatory Orders Gabapentin [Neurontin] 800 mg PO TID 05/21/15 Lamotrigine [Lamictal -] 50 mg PO BID #60 tablet 12/11/15 Methadone [Dolophine -] 100 mg PO DAILY 04/09/16 Alprazolam [Xanax] 2 mg PO QID PRN #12 tablet MDD 4 04/19/16 Clonidine HCl [Catapres -] 0.2 mg PO BID tablet 12/20/16 Lurasidone HCl [Latuda -] 40 mg PO DAILY #30 tablet 10/12/16 Mirtazapine [Remeron -] 45 mg PO HS tablet 10/12/16 Family Disease History - Family Disease History Family Disease History: Diabetes: Mother (HTN,DM), Heart Disease: Father (HTN, etoh, cocaine), Mother, Other: Father, Brother (drug use, HCV) Review of Systems - Review of Systems Constitutional: reports: No Symptoms Eyes: reports: No Symptoms Cardiovascular: reports: No Symptoms Respiratory: reports: No Symptoms Neurological: reports: Other (left arm pain) Physical Exam Constitutional: Yes: No Distress Eyes: Yes: Conjunctiva Clear, EOM Intact HENT: Yes: Atraumatic, Normocephalic Neurological: Yes: Alert, Oriented, Cran Nerves II-XII Intact (left arm 4/5 deltoid, bicep, tricep remainder 5/5 left arm sensory loss no particular nerve distribution) Assessment/Plan 31 year old woman with history of drug abuse, TIA (right side facial droop and dysarthria), presents to ED with left arm pain and right arm wound. She reports four days ago noting left arm pain and numbness. Discussed her findings at methadone clinic and was told to be evaluated. She is concerned for stroke and would like stroke ruled out. Reports some neck pain. Denies weakness other than left arm, dysarthria or vision changes. Left arm limited movement, unable to lift above head, same as yesterday MRI C spine no disc herniation MRI UE- proximal humeral hyperintensity, hyperplastic marrow? MRI brain pending MRI upper extremity findings as per medicine Will follow
[2016-11-21] MEDS: VANCOMYCIN 1 GRAM (PRE-DOCKED) 250 ML IVPB SCH (12:37)
--- NOTE | 2016-11-21 14:25 | PN ---
Progress Note (short form) - Note Progress Note: Subjective: No fever or chills. still has L shoulder weakness. and L upper arm numbness . no fever or chills Objective: Vital Signs: Last Vital Signs Temp Pulse Resp BP Pulse Ox 97.5 F L 67 20 99/56 98 11/21/16 10:00 11/21/16 10:00 11/21/16 10:00 11/21/16 10:00 11/20/16 23:00 Laboratory Results - last 24 hr 11/20/16 11/20/16 11/20/16 15:00 15:00 15:00 WBC RBC Hgb Hct MCV MCHC RDW Plt Count MPV Neutrophils % Lymphocytes % Monocytes % Eosinophils % Basophils % ESR 40 H Sodium Potassium Chloride Carbon Dioxide Anion Gap BUN Creatinine Creat Clearance w eGFR Random Glucose Hemoglobin A1c % 5.1 Calcium Total Bilirubin AST ALT Alkaline Phosphatase Total Protein Albumin Triglycerides 200 H Cholesterol 110 Total LDL Cholesterol 70 HDL Cholesterol 22 L TSH 4.24 H D 11/20/16 11/21/16 11/21/16 15:00 08:10 08:10 WBC 3.4 L D RBC 4.03 Hgb 10.9 D Hct 32.5 MCV 80.7 MCHC 33.5 RDW 17.3 H Plt Count 190 MPV 7.5 Neutrophils % 38.8 L D Lymphocytes % 46.0 H D Monocytes % 11.9 H Eosinophils % 2.7 D Basophils % 0.6 ESR Sodium 139 Potassium 3.8 Chloride 107 Carbon Dioxide 24 Anion Gap 8 BUN 9 D Creatinine 0.9 Creat Clearance w eGFR > 60 Random Glucose 106 Hemoglobin A1c % Calcium 8.4 L Total Bilirubin 0.3 D AST 41 H D ALT 26 Alkaline Phosphatase 252 H Total Protein 7.0 Albumin 3.0 L Triglycerides Cancelled Cholesterol Cancelled Total LDL Cholesterol Cancelled HDL Cholesterol Cancelled TSH Physical Exam: AND , AAOx3 HEENT: MMM, poor dentition. CV: RRR, no MRG Lungs: CATB Ext : no edema or erythema over LE . Enduration /erythema /tenderness noted on dorsum of R wrist , with no discharge ( 5x5 cm ) . small similar lesion ( 1x1 cm ) seen on dorsum or same hand. Old scars at IV injection sites . Erythema and TTP over L shoulder ( Lateral clavicular process) Neuro : no facial droop, EOMI, round equal pupils, reactive to light , uvula and tongue at mid line, nl facial sensation . no nystagmus . strength : LUE: 1/5 shoulder abduction , 2/5 shoulder adduction, 4/5 biceps , 5/5 triceps , 4/5 hand manager managed backup services , 4/5 at wrist RUE : 5/5 shoulder abduction , 5/5 shoulder adduction,5/5 biceps , 5/5 triceps , 5/5 hand manager managed backup services , 5/5 at wrist LLE, RLE: 5/5 proximally and distally . Sensation to light touch : decrease over posterior L upper arm, absent over lateral and anterior L arm, upper shoulder and upper lateral corner of chest wall . normal sensation otherwise A/P 31 y/o lady with h/o IVDU, on methadone , seizure disorder, cellulitis , HTN, possible fatty liver , recent admission for lower Ext cellulitis , who presented with L upper ext proximal weakness and was found to have R wrist cellulitis. 1- L upper extremity proximal weakness, and sensory loss. Likely from brachial plexus pathology ( compression , neuritis , inflammation . ...) . unlikely stroke. I did not appreciate any extra rib on xrays to indicate thoracic outlet syndrome . MRI of the C spine with no etiology . The picture does not fit Dx of myositis or dermatomyositis - MRI of brain is pending . my suspicion for a stroke is low. - MRI of shoulder showed increased BM signal in L humerus head, indicating probably OM . This might or might not be contributing to her presentation - might need EMG and nerve conduction studies - lyme pending - check ALdolase 2- Cellulitis of the R wrist : Improved. - cont vanco and zosyn. - follow blood cx . - vanco trough before 4th dose ( on Tuesday ) 3- Possible OM of L Humerus head. - cont vanco and zosyn. - need PT of shoulder. - echo pending 4- h/o IVDU , now nasal heroin 3 days prior to presentation . cont methadone . 5- HTN ; cont clonidine 6- h/o seizures. cont home meds dispo : HLOC . Visit type - Emergency Visit Emergency Visit: Yes ED Registration Date: 11/20/16 Care time: The patient presented to the Emergency Department on the above date and was hospitalized for further evaluation of their emergent condition. - New Patient This patient is new to me today: No - Critical Care Critical Care patient: No
--- NOTE | 2016-11-21 16:44 | PN ---
Progress Note, Physician History of Present Illness: patients erythema has definitely improved from the shoulder hand still swollen on the right patient still cannot lift her left hand up no findings noted - Current Medication List Current Medications: Active Medications Alprazolam (Xanax -) 2 mg PO QID PRN PRN Reason: ANXIETY Last Admin: 11/21/16 16:25 Dose: 2 mg Aspirin (Ecotrin -) 81 mg PO DAILY [facility] Last Admin: 11/21/16 09:30 Dose: 81 mg Clonidine (Catapres -) 0.2 mg PO BID [facility] Last Admin: 11/21/16 15:33 Dose: 0.2 mg Gabapentin (Neurontin -) 800 mg PO TID [facility] Last Admin: 11/21/16 15:33 Dose: 800 mg Heparin Sodium (Porcine) (Heparin -) 5,000 unit SQ TID [facility] Last Admin: 11/21/16 15:33 Dose: 5,000 unit Vancomycin HCl (Vancomycin (Pre-Docked)) 250 mls @ 250 mls/hr IVPB DAILY@1300 [facility] Last Admin: 11/21/16 12:37 Dose: 250 mls/hr Piperacillin Sod/Tazobactam Sod (Zosyn 3.375gm Ivpb (Pre-Docked)) 50 mls @ 100 mls/hr IVPB Q8H-IV [facility] Last Admin: 11/21/16 09:39 Dose: 100 mls/hr Sodium Chloride (Normal Saline -) 1,000 mls @ 75 mls/hr IV ASDIR [facility] Last Admin: 11/21/16 09:40 Dose: 75 mls/hr Lamotrigine (Lamictal -) 50 mg PO BID [facility] Last Admin: 11/21/16 09:30 Dose: 50 mg Lurasidone HCl (Latuda -) 40 mg PO DAILY [facility] Last Admin: 11/21/16 09:31 Dose: 40 mg Methadone HCl 80 mg/ Methadone (HCl 20 mg) 100 mg PO DAILY@0600 [facility] Last Admin: 11/21/16 06:56 Dose: 100 mg Mirtazapine (Remeron -) 45 mg PO [facility] Last Admin: 11/20/16 22:15 Dose: 45 mg Nicotine (Nicoderm Patch -) 7 mg TD DAILY [facility] Last Admin: 11/21/16 12:02 Dose: 7 mg - Objective Vital Signs: Vital Signs Temperature 98.4 F 11/21/16 14:22 Pulse Rate 82 11/21/16 14:22 Respiratory Rate 18 11/21/16 14:22 Blood Pressure 123/58 11/21/16 14:22 O2 Sat by Pulse Oximetry (%) 98 11/20/16 23:00 Constitutional: Yes: No Distress, Calm Cardiovascular: Yes: Regular Rate and Rhythm Respiratory: Yes: Regular, CTA Bilaterally Gastrointestinal: Yes: Normal Bowel Sounds, Soft Musculoskeletal: Yes: Other Extremities: Yes: Erythema (minimal on the shoulder) Wound/Incision: Yes: Clean/Dry, Open to air (on the hand) Neurological: Yes: Alert, Oriented Psychiatric: Yes: Alert Labs: CBC, BMP 11/21/16 08:10 11/21/16 08:10 INR, PTT INR 1.22 (0.82-1.09) H 11/19/16 20:45 - ....Imaging MRI: Report Reviewed, Image Reviewed (images) Assessment/Plan The patient is a 31 yo F with TIA, HTN, Hypothyroidism, HLD who presents with L arm pain and R wrist wound. 1.) Abcsess secondary to IVDA 2.) L arm radiculopathy vs CVA 3.) Tobacco dependance methadone dependance the swelling on the right hand was tried to be drained but it seems only blood was obtained plan continue abx for now will check what is neurology opinion physio rest continue monitoring
[2016-11-21] MEDS: MIRTAZAPINE 15 MG TABLET (FP) PO SCH (22:06)
[2016-11-22] MEDS: PIPERACILLIN/TAZOB 3.375 GM 50 ML IVPB SCH ×3 (01:33→17:25)
[2016-11-22] MEDS: SODIUM CHLORIDE 1,000 ML IV SCH ×2 (01:34→09:46)
[2016-11-22] MEDS ORDERED: METHADONE HCL 40 MG DISPERSABLE TABLET ONE (05:46)
[2016-11-22] MEDS ORDERED: METHADONE HCL 10 MG TABLET ONE (05:46)
[2016-11-22] MEDS ORDERED: PT OWN MED DRAWER 7, Y5N ONE ×4 (05:47→14:07)
[2016-11-22] MEDS: METHADONE 80 MG, METHADONE 20 MG PO SCH (06:06)
[2016-11-22] MEDS: HEPARIN NA (PORCINE) 5,000 UNITS/ML 1ML VIAL SQ SCH ×3 (06:07→21:53)
[2016-11-22] MEDS: GABAPENTIN 400 MG CAPSULE (FP) PO SCH ×3 (06:07→21:53)
[2016-11-22 09:08] LABS: BASOPHIL 0.8 % (0-2.0); EOSINOPHIL 2.1 % (0-4.5); MCH 26.9 pg (25.7-33.7); MCHC 33.3 g/dl (32.0-36.0); MEAN CELL VOLUME 80.7 fl (80-96); MEAN PLT VOLUME 7.5 fl (7.5-11.1); NEUTROPHILS 33.7 % (42.8-82.8); PLATELET COUNT 172 K/MM3 (134-434); RDW 17.2 % (11.6-15.6); WHITE BLOOD COUNT 2.8 K/mm3 (4.0-10.0)
[2016-11-22] MEDS: lamoTRIgine 25 MG TABLET PO SCH ×2 (09:47→21:53)
[2016-11-22] MEDS: ASPIRIN COATED 81 MG TABLET.EC PO SCH (09:47)
[2016-11-22] MEDS: cloNIDine HCL 0.1 MG TABLET PO SCH ×2 (09:47→21:53)
[2016-11-22] MEDS: LURASIDONE HCL 40 MG TABLET PO SCH (09:48)
[2016-11-22] MEDS: NICOTINE 7 MG/24 HOURS TOPICAL PATCH TD SCH (09:48)
[2016-11-22] MEDS: ALPRAZolam 2 MG TABLET PO PRN ×3 (09:49→21:53)
[2016-11-22 12:14] LABS: HIV 1 & 2 AB NEGATIVE; HIV 1 AGp24 NEGATIVE
[2016-11-22] MEDS: VANCOMYCIN 1 GRAM (PRE-DOCKED) 250 ML IVPB SCH (13:45)
--- NOTE | 2016-11-22 13:52 | PN ---
Progress Note, Physician History of Present Illness: doing well still not bale to lift the shoulder - Current Medication List Current Medications: Active Medications Alprazolam (Xanax -) 2 mg PO QID PRN PRN Reason: ANXIETY Last Admin: 11/22/16 09:49 Dose: 2 mg Aspirin (Ecotrin -) 81 mg PO DAILY [facility] Last Admin: 11/22/16 09:47 Dose: 81 mg Clonidine (Catapres -) 0.2 mg PO BID [facility] Last Admin: 11/22/16 09:47 Dose: 0.2 mg Gabapentin (Neurontin -) 800 mg PO TID [facility] Last Admin: 11/22/16 06:07 Dose: 800 mg Heparin Sodium (Porcine) (Heparin -) 5,000 unit SQ TID [facility] Last Admin: 11/22/16 06:07 Dose: 5,000 unit Vancomycin HCl (Vancomycin (Pre-Docked)) 250 mls @ 250 mls/hr IVPB DAILY@1300 [facility] Last Admin: 11/21/16 12:37 Dose: 250 mls/hr Piperacillin Sod/Tazobactam Sod (Zosyn 3.375gm Ivpb (Pre-Docked)) 50 mls @ 100 mls/hr IVPB Q8H-IV [facility] Last Admin: 11/22/16 09:48 Dose: 100 mls/hr Sodium Chloride (Normal Saline -) 1,000 mls @ 75 mls/hr IV ASDIR [facility] Last Admin: 11/22/16 09:46 Dose: Not Given Lamotrigine (Lamictal -) 50 mg PO BID [facility] Last Admin: 11/22/16 09:47 Dose: 50 mg Lurasidone HCl (Latuda -) 40 mg PO DAILY [facility] Last Admin: 11/22/16 09:48 Dose: 40 mg Methadone HCl 80 mg/ Methadone (HCl 20 mg) 100 mg PO DAILY@0600 [facility] Last Admin: 11/22/16 06:06 Dose: 100 mg Mirtazapine (Remeron -) 45 mg PO HS [facility] Last Admin: 11/21/16 22:06 Dose: 45 mg Nicotine (Nicoderm Patch -) 7 mg TD DAILY [facility] Last Admin: 11/22/16 09:48 Dose: 7 mg - Objective Vital Signs: Vital Signs Temperature 97.8 F 11/22/16 10:00 Pulse Rate 92 H 11/22/16 10:00 Respiratory Rate 20 01/30/17 10:00 Blood Pressure 109/70 11/22/16 10:00 O2 Sat by Pulse Oximetry (%) 96 11/22/16 07:00 Constitutional: Yes: No Distress, Calm HENT: Yes: Atraumatic Cardiovascular: Yes: Regular Rate and Rhythm Respiratory: Yes: Regular, CTA Bilaterally Gastrointestinal: Yes: Normal Bowel Sounds, Soft Extremities: Yes: Other (redness has definately decreased on the rt hand erythema of the shoulder also better) Integumentary: Yes: Erythema Wound/Incision: Yes: Dressing Dry and Intact Neurological: Yes: Alert, Oriented Labs: CBC, BMP 11/22/16 08:15 11/21/16 08:10 INR, PTT INR 1.22 (0.82-1.09) H 11/19/16 20:45 Assessment/Plan The patient is a 31 yo F with TIA, HTN, Hypothyroidism, HLD who presents with L arm pain and R wrist wound. 1.) Abcsess secondary to IVDA 2.) L arm radiculopathy vs CVA 3.) Tobacco dependance methadone dependance the swelling on the right hand has decreased plan continue current abx patient is improving movement still not present neurology on case
--- NOTE | 2016-11-22 14:50 | PN ---
Teaching Attending Note Name of Resident: Aida Olmedo ATTENDING PHYSICIAN STATEMENT I saw and evaluated the patient. I reviewed the resident's note and discussed the case with the resident. I agree with the resident's findings and plan as documented. SUBJECTIVE: no fever or chills , no abd pain , still has weakness in L shoulder which she thinks is worse . decreased sensation in L upper arm is still the same OBJECTIVE: AND , AAOx3 HEENT: MMM, poor dentition. CV: RRR, no MRG Lungs: CATB Ext: no edema or erythema over LE . Enduration /erythema /tenderness noted on dorsum of R wrist getting better. improved small lesion on dorsum of same hand. Old scars at IV injection sites . Erythema and TTp over L distal clavicular end Neuro : no facial droop, EOMI, round equal pupils, reactive to light , uvula and tongue at mid line, nl facial sensation . no nystagmus . Strength : LUE: 1/5 shoulder abduction , 2/5 shoulder adduction, 3/5 biceps , 4/5 triceps , 4/5 hand appliance tester , 4/5 at wrist RUE : 5/5 shoulder abduction , 5/5 shoulder adduction,5/5 biceps , 5/5 triceps , 5/5 hand appliance tester , 5/5 at wrist LLE, RLE: 5/5 proximally and distally . Sensation to light touch : decrease over posterior L upper arm, absent over lateral and anterior L arm, upper shoulder and upper lateral corner of chest wall . normal sensation otherwise Reflexes: 2+ bicpes triceps on both sides . 2+ knee jerk b/l A/P 31 y/o lady with h/o IVDU, on methadone , seizure disorder, cellulitis , HTN, possible fatty liver , recent admission for lower Ext cellulitis , who presented with L upper ext proximal weakness and was found to have R wrist cellulitis. 1- L upper extremity proximal weakness, and sensory loss. Likely from brachial plexus pathology ( compression , neuritis , inflammation . ...) . MRI of the C spine with no etiology. The picture does not fit Dx of myositis or dermatomyositis. no findings to suggest thoracic outlet syndrome. - MRI of shoulder showed increased intensity of BM in humerus head,this finding was discussed with radiologist ( Dr. Valadez), hype-intensity of BM is not specific and does not mean OM - might need EMG and nerve conduction studies - lyme pending , Aldolase pending 2- Cellulitis of the R wrist : Improved. - cont vanco and zosyn. - follow blood cx . - vanco trough before 4th dose ( on Tuesday ) 3-New mild -MOd TR on echo : - need to obtain ILANA to r/o endocarditis . NO bacteremia or fever . - will ask card opinion 4- h/o IVDU , now nasal heroin 3 days prior to presentation . cont methadone . 5- HTN ; cont clonidine 6- h/o seizures. cont home meds dispo : HLOC .
--- NOTE | 2016-11-22 15:22 | PN ---
Progress Note, Physician Chief Complaint: numbness left shoulder History of Present Illness: 31 year old woman with history of drug abuse, TIA (right side facial droop and dysarthria), admitted for four days left arm pain , numbness, right arm abscess continues to complain of numbness left arm. Reports some neck pain. Denies weakness other than left arm, dysarthria or vision changes. - Current Medication List Current Medications: Active Medications Alprazolam (Xanax -) 2 mg PO QID PRN PRN Reason: ANXIETY Last Admin: 11/22/16 09:49 Dose: 2 mg Aspirin (Ecotrin -) 81 mg PO DAILY [facility] Last Admin: 11/22/16 09:47 Dose: 81 mg Clonidine (Catapres -) 0.2 mg PO BID [facility] Last Admin: 11/22/16 09:47 Dose: 0.2 mg Gabapentin (Neurontin -) 800 mg PO TID [facility] Last Admin: 11/22/16 13:46 Dose: 800 mg Heparin Sodium (Porcine) (Heparin -) 5,000 unit SQ TID [facility] Last Admin: 11/22/16 13:45 Dose: 5,000 unit Vancomycin HCl (Vancomycin (Pre-Docked)) 250 mls @ 250 mls/hr IVPB DAILY@1300 [facility] Last Admin: 11/22/16 13:45 Dose: 250 mls/hr Piperacillin Sod/Tazobactam Sod (Zosyn 3.375gm Ivpb (Pre-Docked)) 50 mls @ 100 mls/hr IVPB Q8H-IV [facility] Last Admin: 11/22/16 09:48 Dose: 100 mls/hr Sodium Chloride (Normal Saline -) 1,000 mls @ 75 mls/hr IV ASDIR [facility] Last Admin: 11/22/16 09:46 Dose: Not Given Lamotrigine (Lamictal -) 50 mg PO BID [facility] Last Admin: 11/22/16 09:47 Dose: 50 mg Lurasidone HCl (Latuda -) 40 mg PO DAILY [facility] Last Admin: 11/22/16 09:48 Dose: 40 mg Methadone HCl 80 mg/ Methadone (HCl 20 mg) 100 mg PO DAILY@0600 [facility] Last Admin: 11/22/16 06:06 Dose: 100 mg Mirtazapine (Remeron -) 45 mg PO HS [facility] Last Admin: 11/21/16 22:06 Dose: 45 mg Nicotine (Nicoderm Patch -) 7 mg TD DAILY [facility] Last Admin: 11/22/16 09:48 Dose: 7 mg - Objective Vital Signs: Vital Signs Temperature 98.6 F 11/22/16 14:05 Pulse Rate 80 11/22/16 14:05 Respiratory Rate 16 11/22/16 14:05 Blood Pressure 130/78 11/22/16 14:05 O2 Sat by Pulse Oximetry (%) 96 11/22/16 07:00 Constitutional: Yes: No Distress, Calm Eyes: Yes: Conjunctiva Clear, EOM Intact, PERRL, Ptosis HENT: Yes: Atraumatic, Normocephalic Neck: Yes: Supple, Trachea Midline Cardiovascular: Yes: Regular Rate and Rhythm, S1, S2 Respiratory: Yes: Regular, CTA Bilaterally Gastrointestinal: Yes: Normal Bowel Sounds, Soft Genitourinary: Yes: WNL Breast(s): Yes: WNL Musculoskeletal: Yes: WNL, Joint Swelling (abscess right wrist, right hand) Extremities: Yes: Erythema (RUE) Edema: Yes Edema: LUE: 1+, RUE: 2+ Peripheral Pulses WNL: Yes Peripheral Pulses: Left Radial: 1+, Right Radial: 1+ Integumentary: Yes: Erythema Neurological: Yes: Alert, Oriented, Ataxia, Cran Nerves II-XII Intact, Dysarthria, Pre-Existing Deficit, Tremors ...Motor Strength: WNL, LUE (give away weakness left shoulder abduction.subjective numbness left deltoid, biceps.) Psychiatric: Yes: WNL, Alert, Oriented Labs: INR, PTT INR 1.22 (0.82-1.09) H 11/19/16 20:45 - ....Imaging MRI: Report Reviewed, Image Reviewed Problem List - Problems (1) Cellulitis and abscess of hand Code(s): L03.119 - CELLULITIS OF UNSPECIFIED PART OF LIMB L02.519 - CUTANEOUS ABSCESS OF UNSPECIFIED HAND (2) TIA (transient ischemic attack) Code(s): G45.9 - TRANSIENT CEREBRAL ISCHEMIC ATTACK, UNSPECIFIED Qualifiers: Transient cerebral ischemia type: unspecified Qualified Code(s): G45.9 - Transient cerebral ischemic attack, unspecified (3) Drug-induced mood disorder Code(s): F19.94 - OTH PSYCHOACTIVE SUBSTANCE USE, UNSP W MOOD DISORDER (4) Overdose Code(s): T50.901A - POISONING BY UNSP DRUG/MEDS/BIOL SUBST, ACCIDENTAL, INIT (5) Drug abuse and dependence Code(s): F19.20 - OTHER PSYCHOACTIVE SUBSTANCE DEPENDENCE, UNCOMPLICATED Assessment/Plan 31 year old woman with history of drug abuse, TIA (right side facial droop and dysarthria), admitted for four days left arm pain , numbness, right arm abscess continues to complain of numbness left arm. Reports some neck pain. Denies weakness other than left arm, dysarthria or vision changes. At the neurological exam there is subjective numbness left shoulder and give away weakness in the left shoulder abduction. She also has bilateral eye ptosis , eyes fluttering/myoclonus and asterixis. MRI brain is negative for acute stroke MRI C spine shows mild disc bulging C4-C7. Echocardiogram is wnl. Impression: possible anoxic brain injury in the past -patient has ptosis eyes, myoclonus bilaterally, cervicalgia, cervical radiculopathy. drug abuse. Wernicke Korsakoff sdr. Left radial nerve palsy. Plan: - start NSAIDS Meloxicam 7.5mg. po daily, - start baby ASA daily for her TIA. stroke counseling and education. - to do carotid doppler for complete stroke work up. However in this patient the mechanism of stroke would be embolic infectious most probable. - PT/OT for cervical radiculopathy, stretching exercise. - continues Methadone program. The patient states she didn't use any drug in the last three years, after 10min. she states she used drugs six months ago. To another physician she states she had recently snorted heroin. I suspect she is still using drugs and injecting drugs as her skin abscess and blood cultures results suggest. - consider addiction medicine consult, psychiatry consult - check vit. B12 level, folate level. - banana bag. iv one time - continues ab. iv for abscess per infectious disease. - follow up as outpatient in the Neurology office for EMG/NCV UE testing to rule out radial nerve palsy. Thank you for this consult.
--- NOTE | 2016-11-22 19:37 | PN ---
Physical Exam: SUBJECTIVE: Patient seen and examined Feels that her left arm weakness had gotten worse. she is unable to lift it above the table to cut her pancakes, yesterday she was able. Says her father thinks her speech has gotten more slurred during the last week. Denies vision changes, chest pain, difficulty breathing, headache. OBJECTIVE: Vital Signs Period Temp Pulse Resp BP Sys/Nash Pulse Ox Last 24 Hr 98.6 F 80 16 130/78 GENERAL: The patient is awake, alert, and fully oriented, in no acute distress. HEAD: Normal with no signs of trauma. EYES: PERRL, extraocular movements intact, sclera anicteric, conjunctiva clear. ENT: Ears normal, nares patent, oropharynx clear without exudates, moist mucous membranes. NECK: Trachea midline, full range of motion, supple. LUNGS: Breath sounds equal, clear to auscultation bilaterally, no wheezes, no crackles, no accessory muscle use. HEART: Regular rate and rhythm, S1, S2 without murmur, rub or gallop. ABDOMEN: Soft, nontender, nondistended, normoactive bowel sounds, no guarding, no rebound EXTREMITIES: 2+ pulses, warm, well-perfused, no edema. NEUROLOGICAL: Cranial nerves II-X grossly intact, XI weak on left shoulder, XII intact. slurred speech, gait normal Right UE: 2+ pulse, dorsum of wrist with erythematous, nonfluctuating raised swelling extending across wrist, smaller area on ulnar medial side, nontender, improved. no discharge. strength 4/5 on broth setter, sensation and motor at arm/hand/ fingers intact. Left UE: shoulder with small area of erythema, ttp, unable to shrug, unable to abduct,adduct or extend at shoulder. strength 3/5 on broth setter. sensation decreased on forearm, anterior and lateral part of upper arm, axilla and medial upper arm sensation intact, sensation in hand intact. Right LE: sensation intact throughout leg, patellar reflex 2+, strength intact at hip, knee and foot on extension and flexion. DP 2+ pulse Left LE: sensation intact throughout leg, patellar reflex 2+, strength intact at hip, knee and foot on extension and flexion. DP 2+ pulse PSYCH: Normal mood, normal affect. calm cooperative. SKIN: Warm, dry, normal turgor, no rashes or lesions noted Active Medications Generic Name Dose Route Start Last Admin Trade Name Freq PRN Reason Stop Dose Admin Alprazolam 2 mg 11/20/16 03:45 11/22/16 17:25 Xanax - PO 2 mg QID PRN Administration ANXIETY Aspirin 81 mg 11/20/16 10:00 11/22/16 09:47 Ecotrin - PO 81 mg DAILY [facility] Administration Clonidine 0.2 mg 11/20/16 10:00 11/22/16 09:47 Catapres - PO 0.2 mg BID [facility] Administration Gabapentin 800 mg 11/20/16 06:00 11/22/16 13:46 Neurontin - PO 800 mg TID [facility] Administration Heparin Sodium (Porcine) 5,000 unit 11/20/16 06:00 11/22/16 13:45 Heparin - SQ 5,000 unit TID [facility] Administration Vancomycin HCl 250 mls @ 250 mls/hr 11/21/16 13:00 11/22/16 13:45 Vancomycin (Pre-Docked) IVPB 250 mls/hr DAILY@1300 [facility] Administration Piperacillin Sod/Tazobactam Sod 50 mls @ 100 mls/hr 11/20/16 18:00 11/22/16 17: 25 Zosyn 3.375gm Ivpb (Pre-Docked) IVPB 100 mls/hr Q8H-IV [facility] Administration Lamotrigine 50 mg 11/20/16 10:00 11/22/16 09:47 Lamictal - PO 50 mg BID [facility] Administration Lurasidone HCl 40 mg 11/20/16 10:00 11/22/16 09:48 Latuda - PO 40 mg DAILY [facility] Administration Methadone HCl 80 mg/ Methadone 100 mg 11/20/16 09:45 11/22/16 06:06 HCl 20 mg PO 100 mg DAILY@0600 [facility] Administration Mirtazapine 45 mg 11/20/16 22:00 11/21/16 22:06 Remeron - PO 45 mg HS [facility] Administration Nicotine 7 mg 11/20/16 10:00 11/22/16 09:48 Nicoderm Patch - TD 7 mg DAILY [facility] Administration ASSESSMENT/PLAN: 31 yr old woman with hx of polysubstance abuse, IVDU, hx of recurrent UTI, on methadone maintenance, seizure disorder, MRSA postive cellulitis, presented with left shoulder weakness for 6 days and right hand cellutitis. #r/o valvular vegetations via ILANA, Dr. Villagran consulted - echo with new tricuspid regurg, not present on previous echo 09/2016 #Neutropenia (white bld count 2.8, trending down, neutrophils 33%) - monitor - HIV test pending - will require droplet precautions if continues to trend down #Left arm weakness with neurological deficits - lyme titer given [place] in [place], pending - aldolase to r/o dermatomyosities pending - MRI of cervical spine with mild disc bulge c4-c7 - MRI brain w/o contrast without acute pathology - MRI left shoulder with hyperintense marrow - HbA1c normal, 5.1, unlikely neuropathy. - unlikely to be TIA as head ct, mri negative - Dr. Vazquez/Dr. Gutierrez consulted for neurology. #Right wrist cellulitis - Dr. muller consulted - Vanco 1gm daily -- start 11/20 - bld cx pending #hx of recurrent UTI, u/a with trace leuc +, however to complaints of dysuria, no indication for treatment at this time #Polysubstance abuse - on methadone maintenance 100mg daily - cautious with pain medications #seizure d/o - remeron 45mg po - lamictal 50mg #Current everyday smoker - 7mg nicotine patch TP daily - will provide counseling and information on cessation at discharge if amenable continue home medications, clonidine 0.2mg bid, latuda 40mg po bid #Diet: low sodium #DVT: heparin TID Visit type - Emergency Visit Emergency Visit: No - New Patient This patient is new to me today: No - Critical Care Critical Care patient: No - Discharge Referral Referred to [facility] No
[2016-11-22] MEDS: MIRTAZAPINE 15 MG TABLET (FP) PO SCH (21:53)
[2016-11-23] MEDS: PIPERACILLIN/TAZOB 3.375 GM 50 ML IVPB SCH ×3 (01:58→17:47)
[2016-11-23] MEDS ORDERED: METHADONE HCL 10 MG TABLET ONE (06:36)
[2016-11-23] MEDS ORDERED: METHADONE HCL 40 MG DISPERSABLE TABLET ONE (06:37)
[2016-11-23] MEDS: METHADONE 80 MG, METHADONE 20 MG PO SCH (06:40)
[2016-11-23] MEDS: HEPARIN NA (PORCINE) 5,000 UNITS/ML 1ML VIAL SQ SCH ×3 (06:41→21:48)
[2016-11-23] MEDS: GABAPENTIN 400 MG CAPSULE (FP) PO SCH ×3 (06:41→21:48)
--- NOTE | 2016-11-23 08:57 | PN ---
Physical Exam: SUBJECTIVE: Patient seen and examined no improvement in arm function. denies headache, chest/neck/back pain, sob. OBJECTIVE: Vital Signs Period Temp Pulse Resp BP Sys/Nash Pulse Ox Last 24 Hr 97.5 F-98.6 F 65-80 16-20 103-133/64-78 96 GENERAL: The patient is awake, alert, and fully oriented, in no acute distress. HEAD: Normal with no signs of trauma. EYES: PERRL, extraocular movements intact NECK: Trachea midline, full range of motion, supple. LUNGS: Breath sounds equal, clear to auscultation bilaterally, no wheezes, no crackles, no accessory muscle use. HEART: Regular rate and rhythm, S1, S2 without murmur, rub or gallop. ABDOMEN: Soft, nontender, nondistended, normoactive bowel sounds, no guarding, no rebound EXTREMITIES: 2+ pulses, warm, well-perfused, no edema. NEUROLOGICAL: Cranial nerves II-X grossly intact, XI weak on left shoulder, XII intact. slurred speech, gait normal Right UE: 2+ pulse, dorsum of wrist with erythematous, nonfluctuating raised swelling extending across wrist, smaller area on ulnar medial side, tender on dorsum improved. no discharge. strength 4/5 on computer network specialist, sensation and motor at arm /hand/fingers intact. Left UE: shoulder with small area of erythema, ttp, able to shrug, unable to abduct past 30 degrees, or extend at shoulder. strength 3/5 on computer network specialist. sensation decreased on anterior and lateral part of upper arm, sensation returned on left upper chest, axilla and medial upper arm sensation intact, sensation in hand intact. triceps 5/5, reflex intact. Right LE: sensation intact throughout leg, patellar reflex 2+, strength intact at hip, knee and foot on extension and flexion. DP 2+ pulse Left LE: sensation intact throughout leg, patellar reflex 2+, strength intact at hip, knee and foot on extension and flexion. DP 2+ pulse PSYCH: Normal mood, normal affect. calm cooperative. SKIN: Warm, dry, normal turgor, no rashes or lesions noted Active Medications Generic Name Dose Route Start Last Admin Trade Name Freq PRN Reason Stop Dose Admin Alprazolam 2 mg 11/23/16 08:28 Xanax - PO QID PRN ANXIETY Aspirin 81 mg 11/20/16 10:00 11/22/16 09:47 Ecotrin - PO 81 mg DAILY [facility] Administration Clonidine 0.2 mg 11/20/16 10:00 11/22/16 21:53 Catapres - PO 0.2 mg BID [facility] Administration Gabapentin 800 mg 11/20/16 06:00 11/23/16 06:41 Neurontin - PO 800 mg TID [facility] Administration Heparin Sodium (Porcine) 5,000 unit 11/20/16 06:00 11/23/16 06:41 Heparin - SQ 5,000 unit TID [facility] Administration Vancomycin HCl 250 mls @ 250 mls/hr 11/21/16 13:00 11/22/16 13:45 Vancomycin (Pre-Docked) IVPB 250 mls/hr DAILY@1300 [facility] Administration Piperacillin Sod/Tazobactam Sod 50 mls @ 100 mls/hr 11/20/16 18:00 11/23/16 01: 58 Zosyn 3.375gm Ivpb (Pre-Docked) IVPB 100 mls/hr Q8H-IV [facility] Administration Lamotrigine 50 mg 11/20/16 10:00 11/22/16 21:53 Lamictal - PO 50 mg BID [facility] Administration Lurasidone HCl 40 mg 11/20/16 10:00 11/22/16 09:48 Latuda - PO 40 mg DAILY [facility] Administration Methadone HCl 80 mg/ Methadone 100 mg 11/20/16 09:45 11/23/16 06:40 HCl 20 mg PO 100 mg DAILY@0600 [facility] Administration Mirtazapine 45 mg 11/20/16 22:00 11/22/16 21:53 Remeron - PO 45 mg HS [facility] Administration Nicotine 7 mg 11/20/16 10:00 11/22/16 09:48 Nicoderm Patch - TD 7 mg DAILY [facility] Administration ASSESSMENT/PLAN: 11 yr old woman with hx of polysubstance abuse, IVDU, hx of recurrent UTI, on methadone maintenance, seizure disorder, MRSA postive cellulitis, presented with left shoulder weakness for 6 days and right hand cellutitis. #r/o valvular vegetations via ILANA, Dr. Villagran consulted. ILANA likely , patient drank milk with coffee this AM and could not be sent for ILANA - echo with new tricuspid regurg, not present on previous echo 09/2016 #Neutropenia improved today - monitor - HIV test negative #Left arm weakness with neurological deficits - axillary radiculopathy vs C5 radiculopathy as she has weakness of the deltoid and teres minor, in the distribution of these nerves --EMG to isolate mononeuropathy - aldolase to r/o dermatomyosities pending - MRI of cervical spine with mild disc bulge c4-c7 - MRI brain w/o contrast without acute pathology - MRI left shoulder with hyperintense marrow - HbA1c normal, 5.1, unlikely neuropathy. - unlikely to be TIA as head ct, mri negative - Dr. Vazquez/Dr. Gutierrez consulted for neurology. - lyme titer given deer in [place] negative #Right wrist cellulitis - improving - Dr. muller consulted - Vanco 1gm daily -- start 11/20 - bld cx pending #hx of recurrent UTI, u/a with trace leuc +, however to complaints of dysuria, no indication for treatment at this time #Polysubstance abuse - on methadone maintenance 100mg daily - cautious with pain medications #seizure d/o -stable no seizure for 1 yr - remeron 45mg po - lamictal 50mg - lamictal level in the am, increase dose to 100mg BID for seizure prophylaxis #Current everyday smoker - 7mg nicotine patch TP daily - will provide counseling and information on cessation at discharge if amenable continue home medications, clonidine 0.2mg bid, latuda 40mg po bid #Diet: low sodium #DVT: heparin TID Visit type - Emergency Visit Emergency Visit: No - New Patient This patient is new to me today: No - Critical Care Critical Care patient: No - Discharge Referral Referred to [facility] No
[2016-11-23 08:58] LABS: BASOPHIL 0.3 % (0-2.0); EOSINOPHIL 1.4 % (0-4.5); MCH 27.2 pg (25.7-33.7); MCHC 34.1 g/dl (32.0-36.0); MEAN PLT VOLUME 7.7 fl (7.5-11.1); NEUTROPHILS 43.2 % (42.8-82.8); PLATELET COUNT 222 K/MM3 (134-434); WHITE BLOOD COUNT 4.1 K/mm3 (4.0-10.0)
[2016-11-23] MEDS: cloNIDine HCL 0.1 MG TABLET PO SCH ×2 (09:11→21:46)
[2016-11-23] MEDS: ASPIRIN COATED 81 MG TABLET.EC PO SCH (09:11)
[2016-11-23] MEDS: lamoTRIgine 25 MG TABLET PO SCH ×2 (09:12→21:48)
[2016-11-23] MEDS: NICOTINE 7 MG/24 HOURS TOPICAL PATCH TD SCH (09:12)
[2016-11-23] MEDS: LURASIDONE HCL 40 MG TABLET PO SCH (09:12)
[2016-11-23] MEDS: ALPRAZolam 2 MG TABLET PO PRN ×3 (09:13→23:01)
[2016-11-23] MEDS ORDERED: PT OWN MED DRAWER 7, Y5N ONE ×2 (09:28→14:20)
--- NOTE | 2016-11-23 12:37 | PN ---
Progress Note, Physician History of Present Illness: doing well no issues erythema has decreased - Current Medication List Current Medications: Active Medications Alprazolam (Xanax -) 2 mg PO QID PRN PRN Reason: ANXIETY Last Admin: 11/23/16 09:13 Dose: 2 mg Aspirin (Ecotrin -) 81 mg PO DAILY [facility] Last Admin: 11/23/16 09:11 Dose: 81 mg Clonidine (Catapres -) 0.2 mg PO BID [facility] Last Admin: 11/23/16 09:11 Dose: 0.2 mg Gabapentin (Neurontin -) 800 mg PO TID [facility] Last Admin: 11/23/16 06:41 Dose: 800 mg Heparin Sodium (Porcine) (Heparin -) 5,000 unit SQ TID [facility] Last Admin: 11/23/16 06:41 Dose: 5,000 unit Vancomycin HCl (Vancomycin (Pre-Docked)) 250 mls @ 250 mls/hr IVPB DAILY@1300 [facility] Last Admin: 11/22/16 13:45 Dose: 250 mls/hr Piperacillin Sod/Tazobactam Sod (Zosyn 3.375gm Ivpb (Pre-Docked)) 50 mls @ 100 mls/hr IVPB Q8H-IV [facility] Last Admin: 11/23/16 09:13 Dose: 100 mls/hr Lamotrigine (Lamictal -) 50 mg PO BID [facility] Last Admin: 11/23/16 09:12 Dose: 50 mg Lurasidone HCl (Latuda -) 40 mg PO DAILY [facility] Last Admin: 11/23/16 09:12 Dose: 40 mg Methadone HCl 80 mg/ Methadone (HCl 20 mg) 100 mg PO DAILY@0600 [facility] Last Admin: 11/23/16 06:40 Dose: 100 mg Mirtazapine (Remeron -) 45 mg PO HS [facility] Last Admin: 11/22/16 21:53 Dose: 45 mg Nicotine (Nicoderm Patch -) 7 mg TD DAILY [facility] Last Admin: 11/23/16 09:12 Dose: 7 mg - Objective Vital Signs: Vital Signs Temperature 98.0 F 11/23/16 08:39 Pulse Rate 80 11/23/16 08:39 Respiratory Rate 20 11/23/16 08:39 Blood Pressure 133/74 11/23/16 08:39 O2 Sat by Pulse Oximetry (%) 96 11/23/16 10:00 Constitutional: Yes: No Distress, Calm Cardiovascular: Yes: Regular Rate and Rhythm Respiratory: Yes: Regular, CTA Bilaterally Gastrointestinal: Yes: Normal Bowel Sounds, Soft Musculoskeletal: Yes: Other (still not able to lift her left hand) Neurological: Yes: Alert, Oriented, Other (unable to lift the left hand) Labs: CBC, BMP 11/23/16 08:55 INR, PTT INR 1.22 (0.82-1.09) H 11/19/16 20:45 Assessment/Plan The patient is a 31 yo F with TIA, HTN, Hypothyroidism, HLD who presents with L arm pain and R wrist wound. 1.) Abcsess secondary to IVDA 2.) L arm radiculopathy vs CVA 3.) Tobacco dependance methadone dependance the swelling on the right hand has decreased plan will stop vanco patient is improving movement still not present neurology on case
--- NOTE | 2016-11-23 18:14 | PN ---
Teaching Attending Note Name of Resident: Aida Olmedo ATTENDING PHYSICIAN STATEMENT I saw and evaluated the patient. I reviewed the resident's note and discussed the case with the resident. I agree with the resident's findings and plan as documented. SUBJECTIVE: no fever or chills , no increased weakness, no BRIZUELA , visual changes , or change in speech ( slurred at base line ) OBJECTIVE: AND , AAOx3 HEENT: MMM, poor dentition. CV: RRR, no MRG Lungs: CATB Ext: no edema or erythema over LE . enduration /erythema /tenderness on dorsum of R wrist getting better. Old scars at IV injection sites . Erythema and TTp over L distal clavicular end Neuro : No facial droop, EOMI, round equal pupils, reactive to light , uvula and tongue at mid line, nl facial sensation . no nystagmus . slurred speech Strength : LUE: 1/5 shoulder abduction , 2/5 shoulder adduction, 3/5 biceps , 4/5 triceps , 4/5 hand screen printer , 4/5 at wrist RUE : 5/5 shoulder abduction , 5/5 shoulder adduction,5/5 biceps , 5/5 triceps , 5/5 hand screen printer , 5/5 at wrist LLE, RLE: 5/5 proximally and distally . Sensation to light touch : decrease over posterior L upper arm, and lateral and anterior L arm( improved form Yesterday's exam ) , upper shoulder and upper lateral corner of chest wall . normal sensation otherwise Reflexes: 2+ bicpes on R , 0 on L . 2+ triceps on both sides . 2+ knee jerk b/ l A/P 31 y/o lady with h/o IVDU, on methadone , seizure disorder, cellulitis , HTN, possible fatty liver , recent admission for lower Ext cellulitis , who presented with L upper ext proximal weakness and was found to have R wrist cellulitis. 1- L upper extremity proximal weakness, and sensory loss. Likely from brachial plexus pathology ( compression , neuritis , inflammation . ...) . MRI of the C spine with no etiology. The picture does not fit Dx of myositis or dermatomyositis. no findings to suggest thoracic outlet syndrome. - might need EMG and nerve conduction studies as out pt - lyme Neg , Aldolase pending - No more investigation as in pt - Neuro exam is improving ( sensation improved , motor still the same ) 2- Cellulitis of the R wrist : Improved. - stop vanco , cont zosyn 3-New mild -MOd TR on echo : - plan for ILANA on to r/o endocarditis in setting of IVDU 4- h/o IVDU , now nasal heroin 3 days prior to presentation . cont methadone . 5- HTN ; cont clonidine 6- h/o seizures. cont home meds dispo : HLOC .
[2016-11-23] MEDS: MIRTAZAPINE 15 MG TABLET (FP) PO SCH (21:48)
[2016-11-24] MEDS: PIPERACILLIN/TAZOB 3.375 GM 50 ML IVPB SCH ×3 (01:31→19:36)
[2016-11-24] MEDS ORDERED: METHADONE HCL 10 MG TABLET ONE (05:48)
[2016-11-24] MEDS ORDERED: METHADONE HCL 40 MG DISPERSABLE TABLET ONE (05:48)
[2016-11-24] MEDS: HEPARIN NA (PORCINE) 5,000 UNITS/ML 1ML VIAL SQ SCH ×3 (06:47→21:50)
[2016-11-24] MEDS: METHADONE 80 MG, METHADONE 20 MG PO SCH (06:48)
[2016-11-24] MEDS: GABAPENTIN 400 MG CAPSULE (FP) PO SCH ×3 (06:52→21:48)
[2016-11-24 08:38] LABS: FREE T4 1.43 ng/dl (0.76-1.46)
[2016-11-24 08:41] LABS: FREE T4 1.37 ng/dl (0.76-1.46)
--- NOTE | 2016-11-24 09:24 | PN ---
Teaching Attending Note Name of Resident: Aida Olmedo ATTENDING PHYSICIAN STATEMENT I saw and evaluated the patient. I reviewed the resident's note and discussed the case with the resident. I agree with the resident's findings and plan as documented. SUBJECTIVE: Patient is looking very lethargic states that she is like that every morning since she takes all her meds in am. OBJECTIVE: Vital Signs Temperature 97.4 F L 11/24/16 06:00 Pulse Rate 45 L 11/24/16 06:00 Respiratory Rate 20 11/24/16 06:00 Blood Pressure 97/50 11/24/16 06:00 O2 Sat by Pulse Oximetry (%) 96 11/23/16 22:00 GENERAL: The patient is lying in bed in no acute distress. AAOX3, HEAD: Normal with no signs of trauma. EYES: PERRL, extraocular movements intact NECK: Trachea midline, full range of motion, supple. LUNGS: Breath sounds equal,CTABL, no wheezes, no crackles, no accessory muscle use. HEART: Regular rate and rhythm, S1, S2 without murmur, rub or gallop. ABDOMEN: Soft, nontender, nondistended, normoactive bowel sounds, no guarding, no rebound EXTREMITIES: 2+ pulses, warm, well-perfused, no edema. cellulitis of right wrists NEUROLOGICAL: Cranial nerves II-X grossly intact, Cn2-12 grossly intact. slurred speech, gait normal PSYCH: Normal mood, normal affect. calm cooperative. SKIN: Warm, dry, normal turgor, right wrist cellulitis improving. CBCD WBC 4.1 K/mm3 (4.0-10.0) D 11/23/16 08:55 RBC 4.38 M/mm3 (3.60-5.2) 11/23/16 08:55 Hgb 11.9 GM/dL (10.7-15.3) D 11/23/16 08:55 Hct 35.0 % (32.4-45.2) 11/23/16 08:55 MCV 80.0 fl (80-96) 11/23/16 08:55 MCHC 34.1 g/dl (32.0-36.0) 11/23/16 08:55 RDW 17.0 % (11.6-15.6) H 11/23/16 08:55 Plt Count 222 K/MM3 (134-434) D 11/23/16 08:55 MPV 7.7 fl (7.5-11.1) 11/23/16 08:55 CMP Sodium 139 mmol/L (136-145) 11/21/16 08:10 Potassium 3.8 mmol/L (3.5-5.1) 11/21/16 08:10 Chloride 107 mmol/L (98-107) 11/21/16 08:10 Carbon Dioxide 24 mmol/L (21-32) 11/21/16 08:10 Anion Gap 8 (8-16) 11/21/16 08:10 BUN 9 mg/dL (7-18) D 11/21/16 08:10 Creatinine 0.9 mg/dL (0.55-1.02) 11/21/16 08:10 Creat Clearance w eGFR > 60 (>60) 11/21/16 08:10 Random Glucose 106 mg/dL (74-106) 11/21/16 08:10 Calcium 8.4 mg/dL (8.5-10.1) L 11/21/16 08:10 Total Bilirubin 0.3 mg/dL (0.2-1.0) D 11/21/16 08:10 AST 41 U/L (15-37) H D 11/21/16 08:10 ALT 26 U/L (12-78) 11/21/16 08:10 Alkaline Phosphatase 252 U/L (45-117) H 11/21/16 08:10 Total Protein 7.0 g/dl (6.4-8.2) 11/21/16 08:10 Albumin 3.0 g/dl (3.4-5.0) L 11/21/16 08:10 CARDIAC ENZYMES Creatine Kinase 202 IU/L (26-192) H D 11/19/16 20:45 Troponin I < 0.02 ng/ml (0.00-0.05) 11/19/16 20:45 Current Medications Generic Name Dose Route Start Last Admin Trade Name Freq PRN Reason Stop Dose Admin Alprazolam 2 mg 11/23/16 08:28 11/23/16 23:01 Xanax - PO 2 mg QID PRN Administration ANXIETY Aspirin 81 mg 11/20/16 10:00 11/23/16 09:11 Ecotrin - PO 81 mg DAILY JAMEEL Administration Clonidine 0.2 mg 11/20/16 10:00 11/23/16 21:46 Catapres - PO 0.2 mg BID JAMEEL Administration Gabapentin 800 mg 11/20/16 06:00 11/24/16 06:52 Neurontin - PO 800 mg TID JAMEEL Administration Heparin Sodium (Porcine) 5,000 unit 11/20/16 06:00 11/24/16 06:47 Heparin - SQ Not Given TID JAMEEL Piperacillin Sod/Tazobactam Sod 50 mls @ 100 mls/hr 11/20/16 18:00 11/24/16 01: 31 Zosyn 3.375gm Ivpb (Pre-Docked) IVPB 100 mls/hr Q8H-IV JAMEEL Administration Lamotrigine 50 mg 11/20/16 10:00 11/23/16 21:48 Lamictal - PO 50 mg BID JAMEEL Administration Lurasidone HCl 40 mg 11/20/16 10:00 11/23/16 09:12 Latuda - PO 40 mg DAILY JAME[facility] Administration Methadone HCl 80 mg/ Methadone 100 mg 11/20/16 09:45 11/24/16 06:48 HCl 20 mg PO 100 mg DAILY@0600 JAMEEL Administration Mirtazapine 45 mg 11/20/16 22:00 11/23/16 21:48 Remeron - PO 45 mg HS JAMEEL Administration Nicotine 7 mg 11/20/16 10:00 11/23/16 09:12 Nicoderm Patch - TD 7 mg DAILY JAMEEL Administration Medication Instructions Recorded Gabapentin [Neurontin] 800 mg PO TID 05/21/15 Lamotrigine [Lamictal -] 50 mg PO BID #60 tablet 12/11/15 Methadone [Dolophine -] 100 mg PO DAILY 04/09/16 Alprazolam [Xanax] 2 mg PO QID PRN #12 tablet MDD 4 04/19/16 Clonidine HCl [Catapres -] 0.2 mg PO BID tablet 10/12/16 Lurasidone HCl [Latuda -] 40 mg PO DAILY #30 tablet 10/12/16 Mirtazapine [Remeron -] 45 mg PO HS tablet 10/12/16 ASSESSMENT AND PLAN: The patient is a 31 yo F with TIA, HTN, Hypothyroidism, HLD who presents with L arm pain and R wrist wound. # New mild -Mod TR on echo but no vegetation noted : plan for ILANA on to r/o endocarditis in setting of IVDU #Right wrist Abscess secondary to IVDA on IV antibiotic Zosyn s/p vancomycin ID on the case # L upper extremity proximal weakness, with sensory loss.possible brachial plexus pathology , as per neuro would like to get MRI of brachial plexus to r/o any pathology , EMG and nerve conduction . Neuro on the case # hx of Xanax Dependency on xanax # Hx of Bipolar Patient is on Latuda continue # Tobacco dependance # methadone dependance with h/o IVDU on methadone continue # HTN ; cont clonidine # h/o seizures. cont home meds
[2016-11-24] MEDS: ASPIRIN COATED 81 MG TABLET.EC PO SCH (09:29)
[2016-11-24] MEDS: cloNIDine HCL 0.1 MG TABLET PO SCH ×2 (09:29→21:43)
[2016-11-24] MEDS: LURASIDONE HCL 40 MG TABLET PO SCH (09:29)
[2016-11-24] MEDS: NICOTINE 7 MG/24 HOURS TOPICAL PATCH TD SCH (09:30)
[2016-11-24] MEDS: lamoTRIgine 25 MG TABLET PO SCH ×2 (09:30→21:49)
[2016-11-24] MEDS: ALPRAZolam 2 MG TABLET PO PRN ×3 (09:49→21:52)
[2016-11-24 10:02] LABS: FREE T4 1.09 ng/dl (0.76-1.46); THYROID STIMULATING HORMONE 2.06 uIU/ml (0.358-3.74)
--- NOTE | 2016-11-24 15:07 | PN ---
Progress Note, Physician History of Present Illness: stable no complaints - Current Medication List Current Medications: Active Medications Alprazolam (Xanax -) 2 mg PO QID PRN PRN Reason: ANXIETY Last Admin: 11/24/16 09:49 Dose: 2 mg Aspirin (Ecotrin -) 81 mg PO DAILY [facility] Last Admin: 11/24/16 09:29 Dose: 81 mg Clonidine (Catapres -) 0.2 mg PO BID [facility] Last Admin: 11/24/16 09:29 Dose: 0.2 mg Gabapentin (Neurontin -) 800 mg PO TID [facility] Last Admin: 11/24/16 06:52 Dose: 800 mg Heparin Sodium (Porcine) (Heparin -) 5,000 unit SQ TID [facility] Last Admin: 11/24/16 06:47 Dose: Not Given Piperacillin Sod/Tazobactam Sod (Zosyn 3.375gm Ivpb (Pre-Docked)) 50 mls @ 100 mls/hr IVPB Q8H-IV [facility] Last Admin: 11/24/16 09:29 Dose: 100 mls/hr Lamotrigine (Lamictal -) 50 mg PO BID [facility] Last Admin: 11/24/16 09:30 Dose: 50 mg Lurasidone HCl (Latuda -) 40 mg PO DAILY [facility] Last Admin: 11/24/16 09:29 Dose: 40 mg Methadone HCl 80 mg/ Methadone (HCl 20 mg) 100 mg PO DAILY@0600 [facility] Last Admin: 11/24/16 06:48 Dose: 100 mg Mirtazapine (Remeron -) 45 mg PO HS [facility] Last Admin: 11/23/16 21:48 Dose: 45 mg Nicotine (Nicoderm Patch -) 7 mg TD DAILY [facility] Last Admin: 11/24/16 09:30 Dose: 7 mg - Objective Vital Signs: Vital Signs Temperature 98.0 F 11/24/16 14:07 Pulse Rate 65 11/24/16 14:07 Respiratory Rate 16 11/24/16 14:07 Blood Pressure 100/50 11/24/16 14:07 O2 Sat by Pulse Oximetry (%) 96 11/24/16 10:00 Constitutional: Yes: No Distress, Calm Eyes: Yes: Conjunctiva Clear HENT: Yes: Atraumatic Neck: Yes: Supple Cardiovascular: Yes: Regular Rate and Rhythm Respiratory: Yes: Regular, CTA Bilaterally Gastrointestinal: Yes: Normal Bowel Sounds, Soft Extremities: Yes: Other (improvement in the monility of the arm) Integumentary: Yes: Other (erythema and swelling improvin) Neurological: Yes: Alert, Oriented Psychiatric: Yes: Alert, Oriented Labs: CBC, BMP 11/23/16 08:55 INR, PTT INR 1.22 (0.82-1.09) H 11/19/16 20:45 Assessment/Plan The patient is a 31 yo F with TIA, HTN, Hypothyroidism, HLD who presents with L arm pain and R wrist wound. 1.) Abcsess secondary to IVDA 2.) L arm radiculopathy vs CVA 3.) Tobacco dependance methadone dependance the swelling on the right hand has decreased plan continue abx patient going for karen tomorrow
--- NOTE | 2016-11-24 20:48 | PN ---
Physical Exam: SUBJECTIVE: Patient seen and examined feels that sensation is improving. described the left upper chest sensation as pins and needles where it was absent previously OBJECTIVE: Vital Signs Period Temp Pulse Resp BP Sys/Nash Pulse Ox Last 24 Hr 97.4 F-98.4 F 45-80 16-20 97-120/45-70 96-96 GENERAL: The patient is awake, alert, and fully oriented, in no acute distress. HEAD: Normal with no signs of trauma. EYES: PERRL, extraocular movements intact NECK: Trachea midline, full range of motion, supple. LUNGS: Breath sounds equal, clear to auscultation bilaterally, no wheezes, no crackles, no accessory muscle use. HEART: Regular rate and rhythm, S1, S2 without murmur, rub or gallop. ABDOMEN: Soft, nontender, nondistended, normoactive bowel sounds EXTREMITIES: 2+ pulses, warm, well-perfused, no edema. NEUROLOGICAL: Cranial nerves II-XII intact. slurred speech, gait normal Right UE: 2+ pulse, dorsum of wrist with erythematous, nonfluctuating raised swelling extending across wrist, smaller area on ulnar medial side, tender on dorsum improved. no discharge. strength 4/5 on baler operator, sensation and motor at arm/hand/fingers intact. Left UE: shoulder with small area of erythema, ttp, able to shrug, unable to abduct past 30 degrees, or extend at shoulder. strength 3/5 on baler operator. sensation decreased on anterior and lateral part of upper arm, sensation returned on left upper chest, axilla and medial upper arm sensation intact, sensation in hand intact. triceps 5/5, reflex intact. Right LE: sensation intact throughout leg, patellar reflex 2+, strength intact at hip, knee and foot on extension and flexion. DP 2+ pulse Left LE: sensation intact throughout leg, patellar reflex 2+, strength intact at hip, knee and foot on extension and flexion. DP 2+ pulse PSYCH: Normal mood, normal affect. calm cooperative. SKIN: Warm, dry, normal turgor, no rashes or lesions noted Laboratory Results - last 24 hr 11/24/16 11/24/16 08:05 08:05 ESR 55 H TSH 2.06 D Free T4 1.09 D Active Medications Generic Name Dose Route Start Last Admin Trade Name Freq PRN Reason Stop Dose Admin Alprazolam 2 mg 11/23/16 08:28 11/24/16 15:56 Xanax - PO 2 mg QID PRN Administration ANXIETY Aspirin 81 mg 11/20/16 10:00 11/24/16 09:29 Ecotrin - PO 81 mg DAILY JAMEEL Administration Clonidine 0.2 mg 11/20/16 10:00 11/24/16 09:29 Catapres - PO 0.2 mg BID JAMEEL Administration Gabapentin 800 mg 11/20/16 06:00 11/24/16 15:27 Neurontin - PO 800 mg TID JAMEEL Administration Heparin Sodium (Porcine) 5,000 unit 11/20/16 06:00 11/24/16 15:27 Heparin - SQ 5,000 unit TID JAMEEL Administration Piperacillin Sod/Tazobactam Sod 50 mls @ 100 mls/hr 11/20/16 18:00 11/24/16 19: 36 Zosyn 3.375gm Ivpb (Pre-Docked) IVPB 100 mls/hr Q8H-IV [facility] Administration Lamotrigine 50 mg 11/20/16 10:00 11/24/16 09:30 Lamictal - PO 50 mg BID JAMEEL Administration Lurasidone HCl 40 mg 11/20/16 10:00 11/24/16 09:29 Latuda - PO 40 mg DAILY JAMEEL Administration Methadone HCl 80 mg/ Methadone 100 mg 11/25/16 05:00 HCl 20 mg PO DAILY@0500 JAMEEL Mirtazapine 45 mg 11/20/16 22:00 11/23/16 21:48 Remeron - PO 45 mg HS JAMEEL Administration Nicotine 7 mg 11/20/16 10:00 11/24/16 09:30 Nicoderm Patch - TD 7 mg DAILY JAMEEL Administration ASSESSMENT/PLAN: 31 yr old woman with hx of polysubstance abuse, IVDU, hx of recurrent UTI, on methadone maintenance, seizure disorder, MRSA postive cellulitis, presented with left shoulder weakness for 6 days and right hand cellutitis. #r/o valvular vegetations via ILANA, Dr. Villagran consulted. ILANA likely tomorrow - NPO after midnight - methadone to be given earlier with sip of water. - avoid xanax prior to procedure to avoid over sedation - echo with new tricuspid regurg, not present on previous echo 09/2016 #Left arm weakness with neurological deficits - further imaging ordered: MRI of brachial plexus - axillary radiculopathy vs C5 radiculopathy as she has weakness of the deltoid and teres minor, in the distribution of these nerves. --EMG to isolate mononeuropathy - Dr. Espinoza consulted for EMG as inpatient. - aldolase normal - MRI of cervical spine with mild disc bulge c4-c7 unlikely to be cause of symptoms. - MRI brain w/o contrast without acute pathology - MRI left shoulder with hyperintense marrow - HbA1c normal, 5.1, unlikely neuropathy. - unlikely to be TIA as head ct, mri negative - Dr. Vazquez/Dr. Gutierrez consulted for neurology. - lyme titer negative #Right wrist cellulitis - improving - Dr. muller consulted - zosyn 3.375 q8h - start 11/20 - Vanco 1gm daily -- start 11/20 - 11/22 - bld cx NGTD #hx of recurrent UTI, u/a with trace leuc +, however to complaints of dysuria, no indication for treatment at this time. UCx neg for growth #Polysubstance abuse - on methadone maintenance 100mg daily - cautious with pain medications #seizure d/o -stable no seizure for 1 yr - remeron 45mg po - lamictal 50mg - lamictal level pending increase dose to 100mg BID for seizure prophylaxis #Current everyday smoker - 7mg nicotine patch TP daily - will provide counseling and information on cessation at discharge if amenable #HTN - clonidine 0.2mg bid, #Bipolar d/o - latuda 40mg po bid #Diet: low sodium #DVT: heparin TID Visit type - Emergency Visit Emergency Visit: No - New Patient This patient is new to me today: No - Critical Care Critical Care patient: No - Discharge Referral Referred to [facility] Med [facility] No
[2016-11-24] MEDS ORDERED: PT OWN MED DRAWER 7, Y5N ONE (21:40)
[2016-11-24] MEDS: MIRTAZAPINE 15 MG TABLET (FP) PO SCH (21:44)
[2016-11-25] MEDS: PIPERACILLIN/TAZOB 3.375 GM 50 ML IVPB SCH ×2 (02:04→09:59)
[2016-11-25] MEDS ORDERED: METHADONE HCL 10 MG TABLET ONE (04:54)
[2016-11-25] MEDS ORDERED: METHADONE HCL 40 MG DISPERSABLE TABLET ONE (04:55)
[2016-11-25] MEDS ORDERED: METHADONE 80 MG, METHADONE 20 MG PO SCH (05:00)
[2016-11-25] MEDS: GABAPENTIN 400 MG CAPSULE (FP) PO SCH ×2 (06:05→14:23)
[2016-11-25] MEDS: HEPARIN NA (PORCINE) 5,000 UNITS/ML 1ML VIAL SQ SCH ×2 (06:05→14:25)
[2016-11-25] MEDS ORDERED: PROPOFOL 20 ML ONE ×6 (11:33)
[2016-11-25] MEDS ORDERED: LIDOCAINE HCL/PF 1% SDV 5ML VIAL ONE (11:33)
[2016-11-25] MEDS ORDERED: ePHEDrine SULFATE 50 MG/1 ML AMPULE ONE (11:34)
[2016-11-25] MEDS ORDERED: PHENYLEPHRINE HCL 10 MG/1 ML SINGLE DOSE VIAL ONE (11:34)
[2016-11-25] MEDS ORDERED: LIDOCAINE VISCOUS 2% ORAL/TOP 100 ML BOTTLE MM ONE (11:45)
[2016-11-25 12:29] VITALS: BP 94/50
[2016-11-25] MEDS ORDERED: PT OWN MED DRAWER 7, Y5N ONE (12:35)
[2016-11-25 12:37] VITALS: PULSE 62; TEMP 98.3
--- NOTE | 2016-11-25 12:58 | CON.CARD ---
Cardiology Consult (text) - Consultation Consultation Note: ILANA (Procedure Note): Risks including, but not limited to esophageal injury discussed. Consent obtained. Preliminary result as follows: 1. Overall normal left ventricular systolic function with normal chamber dimension 2. Trace to mild mitral valve regurgitation 3. Mild to moderate tricuspid valve regurgitation 4. No obvious vegetation 5. No mass or thrombus in left atrial appendage 6. No evidence of intracardiac shunt via color Doppler or agitated saline injection 7. No evidence of atherosclerotic plaque in thoracic aorta or aortic arch 8. No pericardial effusion Official report to follow Esvin Armas MD
[2016-11-25] MEDS: ASPIRIN COATED 81 MG TABLET.EC PO SCH (14:23)
[2016-11-25] MEDS: cloNIDine HCL 0.1 MG TABLET PO SCH (14:23)
[2016-11-25] MEDS: lamoTRIgine 25 MG TABLET PO SCH (14:23)
[2016-11-25] MEDS: NICOTINE 7 MG/24 HOURS TOPICAL PATCH TD SCH (14:24)
[2016-11-25] MEDS: LURASIDONE HCL 40 MG TABLET PO SCH (14:24)
[2016-11-25] MEDS: ALPRAZolam 2 MG TABLET PO PRN (14:35)
--- NOTE | 2016-11-25 14:42 | PN ---
Progress Note, Physician History of Present Illness: patient stable no new issues hand movement improving - Current Medication List Current Medications: Active Medications Alprazolam (Xanax -) 2 mg PO QID PRN PRN Reason: ANXIETY Last Admin: 11/25/16 14:35 Dose: 2 mg Aspirin (Ecotrin -) 81 mg PO DAILY [facility] Last Admin: 11/25/16 14:23 Dose: 81 mg Clonidine (Catapres -) 0.2 mg PO BID [facility] Last Admin: 11/25/16 14:23 Dose: 0.2 mg Gabapentin (Neurontin -) 800 mg PO TID [facility] Last Admin: 11/25/16 14:23 Dose: 800 mg Heparin Sodium (Porcine) (Heparin -) 5,000 unit SQ TID [facility] Last Admin: 11/25/16 14:25 Dose: 5,000 unit Piperacillin Sod/Tazobactam Sod (Zosyn 3.375gm Ivpb (Pre-Docked)) 50 mls @ 100 mls/hr IVPB Q8H-IV [facility] Last Admin: 11/25/16 09:59 Dose: 100 mls/hr Lamotrigine (Lamictal -) 50 mg PO BID [facility] Last Admin: 11/25/16 14:23 Dose: 50 mg Lurasidone HCl (Latuda -) 40 mg PO DAILY [facility] Last Admin: 11/25/16 14:24 Dose: 40 mg Methadone HCl 80 mg/ Methadone (HCl 20 mg) 100 mg PO DAILY@0500 [facility] Last Admin: 11/25/16 04:59 Dose: 100 mg Mirtazapine (Remeron -) 45 mg PO HS [facility] Last Admin: 11/24/16 21:44 Dose: 45 mg Nicotine (Nicoderm Patch -) 7 mg TD DAILY [facility] Last Admin: 11/25/16 14:24 Dose: 7 mg - Objective Vital Signs: Vital Signs Temperature 98.3 F 11/25/16 12:29 Pulse Rate 62 11/25/16 12:29 Respiratory Rate 18 11/25/16 12:29 Blood Pressure 94/50 11/25/16 12:29 O2 Sat by Pulse Oximetry (%) 92 L 11/25/16 12:29 Constitutional: Yes: No Distress, Calm Neck: Yes: Supple, Trachea Midline Cardiovascular: Yes: Regular Rate and Rhythm Respiratory: Yes: Regular, CTA Bilaterally Gastrointestinal: Yes: Normal Bowel Sounds, Soft Musculoskeletal: Yes: Other Extremities: Yes: Other (swelling and erythema of the hand rt resolving) Integumentary: Yes: Erythema (minimal) Wound/Incision: Yes: Clean/Dry Neurological: Yes: Alert, Oriented Psychiatric: Yes: Alert Labs: CBC, BMP 11/23/16 08:55 INR, PTT INR 1.22 (0.82-1.09) H 11/19/16 20:45 Assessment/Plan The patient is a 31 yo F with TIA, HTN, Hypothyroidism, HLD who presents with L arm pain and R wrist wound. 1.) Abcsess secondary to IVDA 2.) L arm radiculopathy vs CVA 3.) Tobacco dependance methadone dependance the swelling on the right hand has decreased plan patient can be switched to oral clind 300mg q6hrly for another 7 days rest as per the teams
--- NOTE | 2016-11-25 16:08 | PN ---
Progress Note, Physician Chief Complaint: numbness left shoulder History of Present Illness: 31 year old woman with history of drug abuse, TIA (right side facial droop and dysarthria), admitted for four days left arm pain , numbness, right arm abscess continues to complain of numbness left arm. Reports some neck pain. Denies weakness other than left arm, dysarthria or vision changes. - Current Medication List Current Medications: Active Medications Alprazolam (Xanax -) 2 mg PO QID PRN PRN Reason: ANXIETY Last Admin: 11/25/16 14:35 Dose: 2 mg Aspirin (Ecotrin -) 81 mg PO DAILY [facility] Last Admin: 11/25/16 14:23 Dose: 81 mg Clonidine (Catapres -) 0.2 mg PO BID [facility] Last Admin: 11/25/16 14:23 Dose: 0.2 mg Gabapentin (Neurontin -) 800 mg PO TID [facility] Last Admin: 11/25/16 14:23 Dose: 800 mg Heparin Sodium (Porcine) (Heparin -) 5,000 unit SQ TID [facility] Last Admin: 11/25/16 14:25 Dose: 5,000 unit Piperacillin Sod/Tazobactam Sod (Zosyn 3.375gm Ivpb (Pre-Docked)) 50 mls @ 100 mls/hr IVPB Q8H-IV [facility] Last Admin: 11/25/16 09:59 Dose: 100 mls/hr Lamotrigine (Lamictal -) 50 mg PO BID [facility] Last Admin: 11/25/16 14:23 Dose: 50 mg Lurasidone HCl (Latuda -) 40 mg PO DAILY [facility] Last Admin: 11/25/16 14:24 Dose: 40 mg Methadone HCl 80 mg/ Methadone (HCl 20 mg) 100 mg PO DAILY@0500 [facility] Last Admin: 11/25/16 04:59 Dose: 100 mg Mirtazapine (Remeron -) 45 mg PO HS [facility] Last Admin: 11/24/16 21:44 Dose: 45 mg Nicotine (Nicoderm Patch -) 7 mg TD DAILY [facility] Last Admin: 11/25/16 14:24 Dose: 7 mg - Objective Vital Signs: Vital Signs Temperature 98.3 F 11/25/16 12:29 Pulse Rate 62 11/25/16 12:29 Respiratory Rate 18 11/25/16 12:29 Blood Pressure 94/50 11/25/16 12:29 O2 Sat by Pulse Oximetry (%) 92 L 11/25/16 12:29 Constitutional: Yes: No Distress, Calm Eyes: Yes: Conjunctiva Clear, EOM Intact, PERRL HENT: Yes: Atraumatic, Normocephalic Neck: Yes: Supple, Trachea Midline Cardiovascular: Yes: Regular Rate and Rhythm, S1, S2 Respiratory: Yes: Regular, CTA Bilaterally Gastrointestinal: Yes: Normal Bowel Sounds, Soft Genitourinary: Yes: WNL Edema: Yes Edema: LUE: 1+, RUE: 1+, LLE: Trace, RLE: Trace Peripheral Pulses WNL: Yes Peripheral Pulses: Left Radial: 1+, Right Radial: 1+ Integumentary: Yes: Erythema, Laceration, Rash, Other (skin abscesse) Wound/Incision: Yes: Open to air Neurological: Yes: Alert, Oriented, Cran Nerves II-XII Intact (ptosis eyes bilaterally), Pre-Existing Deficit ...Motor Strength: LUE (mild 4/5 elbow flexion/extension, mild 4+/5 shoulder abduction, adduction), LLE (5/5), RUE (5/5), RLE (5/5) Psychiatric: Yes: Alert, Oriented Labs: CBC, BMP 11/23/16 08:55 INR, PTT INR 1.22 (0.82-1.09) H 11/19/16 20:45 - ....Imaging Cat Scan: Report Reviewed, Image Reviewed Ultrasound: Report Reviewed, Image Reviewed MRI: Report Reviewed, Image Reviewed Problem List - Problems (1) Cellulitis and abscess of hand Code(s): L03.119 - CELLULITIS OF UNSPECIFIED PART OF LIMB L02.519 - CUTANEOUS ABSCESS OF UNSPECIFIED HAND (2) TIA (transient ischemic attack) Code(s): G45.9 - TRANSIENT CEREBRAL ISCHEMIC ATTACK, UNSPECIFIED Qualifiers: Transient cerebral ischemia type: unspecified Qualified Code(s): G45.9 - Transient cerebral ischemic attack, unspecified (3) Drug-induced mood disorder Code(s): F19.94 - OTH PSYCHOACTIVE SUBSTANCE USE, UNSP W MOOD DISORDER (4) Overdose Code(s): T50.901A - POISONING BY UNSP DRUG/MEDS/BIOL SUBST, ACCIDENTAL, INIT (5) Drug abuse and dependence Code(s): F19.20 - OTHER PSYCHOACTIVE SUBSTANCE DEPENDENCE, UNCOMPLICATED (6) Overuse of medication Code(s): Z91.14 - PATIENT'S OTHER NONCOMPLIANCE WITH MEDICATION REGIMEN (7) Mononeuritis arm Code(s): G56.90 - UNSPECIFIED MONONEUROPATHY OF UNSPECIFIED UPPER LIMB (8) Biceps muscle strain Code(s): S46.119A - STRAIN OF MUSC/FASC/TEND LONG HEAD OF BICEPS, UNSP ARM, INIT Assessment/Plan 31 year old woman with history of drug abuse, TIA (right side facial droop and dysarthria), admitted for four days left arm pain , numbness, right arm abscess continues to complain of numbness left arm. Reports some neck pain. Denies weakness other than left arm, dysarthria or vision changes. At the neurological exam there is subjective numbness left shoulder, left arm and very mild weakness left shoulder 4+/5 and left elbow F/E 4+/5, give away weakness in the left shoulder abduction. She also has bilateral eye ptosis, eyes fluttering/myoclonus and asterixis. MRI brain is negative for acute stroke MRI C spine shows mild disc bulging C4-C7. Echocardiogram is wnl. Ultrasound arterial and venous left arm is negative for embolism. MRI left brachial plexus is negative. Impression: possible anoxic brain injury in the past -patient has ptosis eyes, myoclonus bilaterally, cervicalgia, cervical radiculopathy. drug abuse. Wernicke Korsakoff sdr. Possible mononeuropathy left arm Plan: - PT/OT as outpatient - continues Methadone program. The patient states she didn't use any drug in the last three years, after 10min. she states she used drugs six months ago. To another physician she states she had recently snorted heroin. I suspect she is still using drugs and injecting drugs as her skin abscess and blood cultures results suggest. - consider addiction medicine consult, psychiatry consult. This is a chronic drug abuse iv. and overuse heroin patient. - check vit. B12 level, folate level. - banana bag. iv one time - continues ab. for abscess per infectious disease. - follow up as outpatient in the Neurology office for EMG/NCV UE testing to rule out radial nerve palsy or left arm neuropathy. Thank you for this consult.
--- NOTE | 2016-11-25 16:15 | DS ---
Physical Exam: SUBJECTIVE: Patient seen and examined some improvement in motor and sensation of left arm. Requesting xanax presciption and all medications to be refilled as her home medications were all lost. Discussed with PCP's office for follow-up tomorrow at 1pm with Dr. Zacarias for prescription refills. She was provided with one day supply until appointment tomorrow. As medication list from PCP's office did not include xanax, no xanax prescription was given. She received 2mg of xanax in the afternoon prior to discharge. OBJECTIVE: Vital Signs Period Temp Pulse Resp BP Sys/Nash Pulse Ox Last 24 Hr 97.3 F-98.4 F 47-63 18-22 94-147/45-81 90-99 PHYSICAL EXAM GENERAL: The patient is awake, alert, and fully oriented, in no acute distress. HEAD: Normal with no signs of trauma. EYES: PERRL, extraocular movements intact NECK: Trachea midline, full range of motion, supple. LUNGS: Breath sounds equal, clear to auscultation bilaterally, no wheezes, no crackles, no accessory muscle use. HEART: Regular rate and rhythm, S1, S2 without murmur, rub or gallop. ABDOMEN: Soft, nontender, nondistended, normoactive bowel sounds EXTREMITIES: 2+ pulses, warm, well-perfused, no edema. NEUROLOGICAL: Cranial nerves II-XII intact. slurred speech, gait normal Right UE: 2+ pulse, dorsum of wrist with erythematous, nonfluctuating raised swelling extending across wrist, smaller area on ulnar medial side, tender on dorsum improved. no discharge. strength 4/5 on mineral surveyor, sensation and motor at arm/hand/fingers intact. Left UE: shoulder with small area of erythema, ttp, able to shrug, unable to abduct past 30 degrees, or extend at shoulder. strength 3/5 on mineral surveyor. sensation decreased on anterior and lateral part of upper arm, sensation returned on left upper chest, axilla and medial upper arm sensation intact, sensation in hand intact. triceps 5/5, reflex intact. Right LE: sensation intact throughout leg, patellar reflex 2+, strength intact at hip, knee and foot on extension and flexion. DP 2+ pulse Left LE: sensation intact throughout leg, patellar reflex 2+, strength intact at hip, knee and foot on extension and flexion. DP 2+ pulse PSYCH: Normal mood, normal affect. calm cooperative. SKIN: Warm, dry, normal turgor, no rashes or lesions noted LABS Laboratory Tests 11/19/16 11/19/16 11/20/16 20:45 20:45 15:00 ESR 40 H Alkaline Phosphatase 303 H Creatine Kinase 202 H D 11/20/16 11/20/16 11/21/16 15:00 15:00 08:10 Hemoglobin A1c % 5.1 Alkaline Phosphatase 252 H Lyme Screen IgG & IgM <0.91 Lyme IgM (Western Blot) Not Reportable 11/21/16 11/22/16 11/22/16 16:40 07:50 08:15 C-Reactive Protein 0.4 H D Aldolase 9.6 HIV 1&2 Antibody Screen Negative HIV P24 Antigen Negative 11/23/16 11/24/16 11/24/16 08:55 08:05 08:05 WBC 4.1 D Hgb 11.9 D Hct 35.0 Plt Count 222 D ESR 55 H TSH 2.06 D Free T4 1.09 D 11/24/16 11/24/16 08:05 08:05 Lamotrigine Pending PARTH Screen Pending Microbiology 11/19/16 20:45 Blood - Peripheral Venous Blood Culture - Final NO GROWTH AFTER 5 DAYS INCUBATION 11/19/16 20:45 Blood - Peripheral Venous Blood Culture - Final NO GROWTH AFTER 5 DAYS INCUBATION 11/20/16 04:10 Urine - Urine Clean Catch Urine Culture - Final NO GROWTH OBTAINED IMAGIN/1 duplex scan upper extremity: Normal duplex arterial study of the left upper extremity. No evidence of deep venous thrombosis. 11/24 brachial plexuc MRi w, w/o contrast: Limited study, the entire sequences could not be completed patient was unable to continue examination. Symmetrical paraspinal supraclavicular soft tissues. No abnormal signal intensity, or enhancement is seen in the course of the brachioplexus bilaterally. No evidence of paraspinal, epidural enhancing process. Normal signal intensity of the spinal cord without intramedullary enhancement. 11/21 Brain MRI w/o contrast: negative exam. No discrete abnormality is identified. Incidental note is made of mild to moderate mucosal thickening within the left maxillary sinus. There is no MRI evidence of infarction. 11/20 Cervical spine MRI w/o contrast: No discrete disc herniation is seen. Mild disc bulging is noted at levels C4-C7. There is no central or foraminal canal stenosis. No intramedullary or intradural abnormality is seen. The craniocervical junction appears unremarkable. There is no pathologic marrow signal alteration. No vertebral body compression fracture is identified. IMPRESSION: No disc herniation or canal stenosis is visualized. There is a mild reversal of the cervical lordosis 11/20 Upper extremity MRI w/o contrast: No discrete rotator cuff tendon tear or tendinopathy is visualized. A trace amount of fluid is seen within the glenohumeral joint which is probably physiologic in volume. The proximal humerus demonstrates a nonspecific mildly hyperintense marrow appearance which could be on the basis of hyperplastic marrow. Clinical/laboratory correlation is suggested. There is equivocal partial imaging of an enlarged lymph node within the left axilla. Correlate clinically. 11/[address]: Normal CT scan of the head. No evidence of acute intracranial pathology. 11/19 Shoulder xray: no sign of fracture, subluxation bone destruction. The AC joint, scapula, upper ribs and upper humerus are intact. 127 Chest xray: Since 10/08/2016, the congestive changes have cleared. There is some atelectatic changes at the bases with prominent mediastinum. Follow-up recommended. Echo: EF 68.7%, normal LV function, mild to moderate tricuspid regurgitation. right ventricular systolic pressure is elevated to 30-40mmHg, no pericardial effusion ILANA: no thrombus in left atria, normal LV function, trace to mild mitral regurg , mild to moderate tricuspid regurg, normal aortic valve, no atherosclerortic plaque. no obvious vegetations seen. HOSPITAL COURSE: Date of Admission:11/22/16 - Date of Discharge: 11/25/16 31 yr old woman with hx of polysubstance abuse, hx of IVDU, hx of recurrent UTI , on methadone maintenance(100mg daily), seizure disorder(seizure free for 1 year), MRSA postive cellulitis, presented with left shoulder weakness for 6 days and right hand cellutitis. Consideration was given for orthopedic, musculoskeletal, infectious, endocrinological, vascular and neurological causes of left arm weakness. Imaging and laboratory work above. MRI brain w/o contrast without acute pathology, MRI left shoulder with hyperintense marrow with intact rotator cuff, HbA1c normal, 5.1, unlikely neuropathy, unlikely to be TIA as head ct and brain mri negative, lyme titer negative. MRI of the brachial plexus was negative for lesions. Given distribution of sensory and motor function deficit is in the distribution of C5 vs axillary nerve, EMG was ordered to differentiate between the two, however patient refused testing. Physical therapy worked with patient for therapy and patient was shown home exercises to be continued daily and she was encouraged to attempt regular daily activities with both arms. Sensation and motor function improved during the last two days of stay and she was stable for outpatient follow-up with neurology for outpatient EMG study and surveyor's assistant for need of continued physical therapy. Sling was provided to used prn to prevent swing injury, continuous use not needed. Her right dorsum wrist cellulitis was treated with zosyn 3.375 q8h 11/20 - 11/25 and discharged with cleocin 300mg TID for 7 days. On echo she was found to have a new triscuspid regurgitation, not found on previous echo. ILANA was negative for vegetations. She remained afebrile and normotensive during stay. At time of discharge, her mother and son were present. She requested all home prescriptions to be refilled, including xanax, as apparently her brother was recently jailed and her father's car was impounded with her medications lost. Explained to patient that she would need to follow up with PCP, arrangements made for 1pm appointment with Dr. Zacarias 11/26/2016 with one day supply of anti- seizure and bipolar medications provided. Medication list with office staff did not include xanax. Information shared with patient and recommended to clarify with PCP regarding xanax precription. At time of discharge Lamotragine level and PARTH screen were pending. Minutes to complete discharge: 55 Discharge Summary Reason For Visit: TIA Current Active Problems Drug abuse and dependence (Acute) Overdose (Acute) TIA (transient ischemic attack) (Acute) Condition: Stable - Instructions Diet, Activity, Other Instructions: Take Clindamyocin 300mg every 6 hours for 7 days for the infection of your wrist. Drink plenty of water. Follow-up with the neurologist in one week regarding further management of your left arm weakness. Contact information for both and have been provided, or your can return to your own neurologist, it is up to you who you choose to go to. Make an appointment with Dr. Gutierrez/ [facility] to have an EMG study for your arm as an outpatient within 2 week period or follow up with ;call his office # [phone] in 2 weeks to set up an appointment. Continue your left arm exercises at home everyday and use the sling as necessary. Resume your home medications. You can have your primary care physician follow- up regarding labs still pending including your lamotragine level and PARTH screen. Continue not smoking and speak to your doctor about continuing to use the nicotine patch to help you quit. You have prescriptions of your home medications sent to the pharmacy for tonight and tomorrow, take as directed. You have appointment with Dr. Zacarias at 1pm, follow-up for refills of your medications. Referrals: Yuliet Gutierrez MD [Staff Physician] - (EMG study) Steven Lucas MD [Staff Physician] - Mookie Brown MD [Staff Physician] - 1 Week Martínez Bradley MD [Staff Physician] - 2 Weeks (physical therapy) Disposition: HOME - Home Medications Comprehensive Discharge Medication List: Ambulatory Orders Gabapentin [Neurontin] 800 mg PO TID 05/21/15 Lamotrigine [Lamictal -] 50 mg PO BID #60 tablet 12/11/15 Methadone [Dolophine -] 100 mg PO DAILY 04/09/16 Alprazolam [Xanax] 2 mg PO QID PRN #12 tablet MDD 4 04/19/16 Clonidine HCl [Catapres -] 0.2 mg PO BID tablet 10/12/16 Lurasidone HCl [Latuda -] 40 mg PO DAILY #30 tablet 10/12/16 Mirtazapine [Remeron -] 45 mg PO HS tablet 10/12/16 Clindamycin [Cleocin -] 300 mg PO Q6HPO #28 capsule 11/25/16 This patient is new to me today: No Emergency Visit: No Critical Care patient: No - Discharge Referral Referred to [facility] No
--- NOTE | 2016-11-25 16:47 | PN ---
Teaching Attending Note Name of Resident: Aida Olmedo ATTENDING PHYSICIAN STATEMENT I saw and evaluated the patient. I reviewed the resident's note and discussed the case with the resident. I agree with the resident's findings and plan as documented. SUBJECTIVE: Patient is feeling better, sensation of the arm is better, Mother and her son is at bedside. OBJECTIVE: Vital Signs Temperature 98.3 F 11/25/16 12:29 Pulse Rate 62 11/25/16 12:29 Respiratory Rate 18 11/25/16 12:29 Blood Pressure 94/50 11/25/16 12:29 O2 Sat by Pulse Oximetry (%) 92 L 11/25/16 12:29 CBCD WBC 4.1 K/mm3 (4.0-10.0) D 11/23/16 08:55 RBC 4.38 M/mm3 (3.60-5.2) 11/23/16 08:55 Hgb 11.9 GM/dL (10.7-15.3) D 11/23/16 08:55 Hct 35.0 % (32.4-45.2) 11/23/16 08:55 MCV 80.0 fl (80-96) 11/23/16 08:55 MCHC 34.1 g/dl (32.0-36.0) 11/23/16 08:55 RDW 17.0 % (11.6-15.6) H 11/23/16 08:55 Plt Count 222 K/MM3 (134-434) D 11/23/16 08:55 MPV 7.7 fl (7.5-11.1) 11/23/16 08:55 CMP Sodium 139 mmol/L (136-145) 11/21/16 08:10 Potassium 3.8 mmol/L (3.5-5.1) 11/21/16 08:10 Chloride 107 mmol/L (98-107) 11/21/16 08:10 Carbon Dioxide 24 mmol/L (21-32) 11/21/16 08:10 Anion Gap 8 (8-16) 11/21/16 08:10 BUN 9 mg/dL (7-18) D 11/21/16 08:10 Creatinine 0.9 mg/dL (0.55-1.02) 11/21/16 08:10 Creat Clearance w eGFR > 60 (>60) 11/21/16 08:10 Random Glucose 106 mg/dL (74-106) 11/21/16 08:10 Calcium 8.4 mg/dL (8.5-10.1) L 11/21/16 08:10 Total Bilirubin 0.3 mg/dL (0.2-1.0) D 11/21/16 08:10 AST 41 U/L (15-37) H D 11/21/16 08:10 ALT 26 U/L (12-78) 11/21/16 08:10 Alkaline Phosphatase 252 U/L (45-117) H 11/21/16 08:10 Total Protein 7.0 g/dl (6.4-8.2) 11/21/16 08:10 Albumin 3.0 g/dl (3.4-5.0) L 11/21/16 08:10 CARDIAC ENZYMES Creatine Kinase 202 IU/L (26-192) H D 11/19/16 20:45 Troponin I < 0.02 ng/ml (0.00-0.05) 11/19/16 20:45 Current Medications Generic Name Dose Route Start Last Admin Trade Name Freq PRN Reason Stop Dose Admin Alprazolam 2 mg 11/23/16 08:28 11/25/16 14:35 Xanax - PO 2 mg QID PRN Administration ANXIETY Aspirin 81 mg 11/20/16 10:00 11/25/16 14:23 Ecotrin - PO 81 mg DAILY JAMEEL Administration Clonidine 0.2 mg 11/20/16 10:00 11/25/16 14:23 Catapres - PO 0.2 mg BID JAMEEL Administration Gabapentin 800 mg 11/20/16 06:00 11/25/16 14:23 Neurontin - PO 800 mg TID JAMEEL Administration Heparin Sodium (Porcine) 5,000 unit 11/20/16 06:00 11/25/16 14:25 Heparin - SQ 5,000 unit TID JAMEEL Administration Piperacillin Sod/Tazobactam Sod 50 mls @ 100 mls/hr 11/20/16 18:00 11/25/16 09: 59 Zosyn 3.375gm Ivpb (Pre-Docked) IVPB 100 mls/hr Q8H-IV JAMEEL Administration Lamotrigine 50 mg 11/20/16 10:00 11/25/16 14:23 Lamictal - PO 50 mg BID JAMEEL Administration Lurasidone HCl 40 mg 11/20/16 10:00 11/25/16 14:24 Latuda - PO 40 mg DAILY JAMEEL Administration Methadone HCl 80 mg/ Methadone 100 mg 11/25/16 05:00 11/25/16 04:59 HCl 20 mg PO 100 mg DAILY@0500 JAMEEL Administration Mirtazapine 45 mg 11/20/16 22:00 11/24/16 21:44 Remeron - PO 45 mg HS JAMEEL Administration Nicotine 7 mg 11/20/16 10:00 11/25/16 14:24 Nicoderm Patch - TD 7 mg DAILY JAMEEL Administration Home Medications Medication Instructions Recorded Gabapentin [Neurontin] 800 mg PO TID 05/21/15 Lamotrigine [Lamictal -] 50 mg PO BID #60 tablet 12/11/15 Methadone [Dolophine -] 100 mg PO DAILY 04/09/16 Alprazolam [Xanax] 2 mg PO QID PRN #12 tablet MDD 4 04/19/16 Clonidine HCl [Catapres -] 0.2 mg PO BID tablet 10/12/16 Lurasidone HCl [Latuda -] 40 mg PO DAILY #30 tablet 10/12/16 Mirtazapine [Remeron -] 45 mg PO HS tablet 10/12/16 Clindamycin [Cleocin -] 300 mg PO Q6HPO #28 capsule 11/25/16 PE per resident. ASSESSMENT AND PLAN: The patient is a 31 yo F with TIA, HTN, Hypothyroidism, HLD who presents with L arm pain and R wrist wound. # New mild -Mod TR on echo but no vegetation noted : ILANA is negative for any vegetation. #Right wrist Abscess secondary to IVDA on IV antibiotic Zosyn s/p vancomycin ID on the case will discharge he on po Clindamycin x 7 days discussed with i d since by Felix Pope # L upper extremity proximal weakness, with sensory loss improving .possible brachial plexus pathology , MRI of brachial plexus is negative for any lesions # hx of Xanax Dependency on xanax # Hx of Bipolar Patient is on Latuda continue # Tobacco dependance # methadone dependance with h/o IVDU on methadone continue # HTN ; cont clonidine # h/o seizures. cont home meds Follow with neurologist for further follow up and w/u as an outpatient. Echo is negative.
--- NOTE | 2016-11-26 09:52 | PN ---
S Progress Note Note: Occurred on 11/25/16 I was asked to see pt. because she is on methadone maintenance. The dose was verified & pt. has been receiving methadone since admission.
--- NOTE | 2016-11-29 12:02 | CONS ---
DATE OF CONSULTATION: 11/25/2016 DATE OF ADMISSION: 11/20/2016 PHYSICAL MEDICINE REHABILITATION CONSULTATION HISTORY OF PRESENT ILLNESS: The patient is a 31-year-old woman who was referred for consultation and possible diagnostic studies after admission with left upper limb weakness, numbness, and pain. Patient evidently is a heroin addict and awoke 4 days prior to admission with left upper extremity weakness, numbness, and pain. She presented to the emergency room and has undergone extensive workup including neurologic evaluation. Most of the history is taken from her medical record as well as the studies that were done on this inpatient stay. She apparently had an MRI of the brain which showed no acute intracranial pathology, MRI of the left shoulder which showed hyperintense marrow, MRI of the cervical spine done here which showed some mild disk bulging but no stenosis. Patient was seen by neurology, Dr. Lucas, on rounds who recommended electrodiagnostic studies; however, the patient was not willing to undergo electrodiagnostic studies. She is improving with both strength and sensation in the left upper extremity and also has been undergoing evaluation for infection involving the right upper extremity; however, she has been cleared for oral antibiotics. She underwent transesophageal echocardiogram which demonstrated no pathology such as vegetations. Chemistry within normal limits last done November 21, except for her albumin was low at 3.0, alkaline phosphatase elevated at 252. CBC showed normal WBCs 4.1, hemoglobin 11.9, platelet count 222 as of November 23. Patient is able to ambulate independently, has been undergoing therapy but has no sling for support of the left upper extremity. Again, she was seen for consideration of electrodiagnostic studies but declined current study. PAST MEDICAL AND SURGICAL HISTORY: As above. Patient has a history of heroin abuse, hypertension, hypothyroidism, hyperlipidemia, IV drug abuse, and possible TIA. SOCIAL HISTORY: Patient is tobacco user, used multiple illicit drugs including heroin, methadone, marijuana, benzodiazepines. REVIEW OF SYSTEMS: No headache. No lightheadedness or dizziness. No blurry vision, double vision. No chest pain, shortness of breath. No fever or chills. No bowel/ bladder incontinence. No gait instability, numbness, tingling, pain involving the left upper extremity proximal more than distal, no left lower extremity involvement, no bowel/bladder dysfunction. PHYSICAL EXAMINATION: General: Patient is seen by sitting, standing, ambulating. HEENT: Normocephalic, atraumatic. Extraocular muscles appear intact. Neck: Supple. Good range of motion. Extremities: She has weakness in the left proximal upper extremity 2/5, distal strength is much improved, 4+/5, normal sensation to pinprick. Good strength and range in the right upper and bilateral lower extremity. Skin: Multiple track frazier involving the right upper extremity. OVERALL IMPRESSION: 1. Left proximal upper extremity weakness more than distal with subjective numbness, tingling. Rule out axillary neuropathy, brachial plexopathy, less likely cervical radiculopathy. 2. Abscess or cellulitis, right upper extremity, on oral antibiotic. 3. History of polysubstance abuse including intravenous drug abuse. 4. Hypoalbuminemia. 5. History of hypertension. 6. Possible bipolar disorder. 7. Tobacco user. PLAN/SUGGESTIONS: 1. Discussed with Dr. Fisher and would recommend sling to the left shoulder. 2. EMG as an outpatient in 1-1/2 to 2 weeks. 3. Outpatient physical therapy. 4. Continue gabapentin 800 mg 3 times a day for pain control. 5. Smoking cessation. 6. Drug rehabilitation. Thank you for this consultation. SEN ALVAREZ M.D. 1 [id number] MTDD
--- NOTE | 2017-01-03 19:07 | HOSP ---
Subjective - Review of Symptoms Events since last encounter: On review of patient MRI of shoulder, an enlarged lymph node was seen in L axilla. I instructed her she needs to see her primary care doctor for breast exam/mammo/US to r/o breast cancer . Pt stated she had nodule in L breast which was removed and pathology was benign. she now had gained most of the function in L UE and the numbness almost resolved. Physical Examination Vital Signs: Vital Signs Temperature 98.3 F 11/25/16 12:29 Pulse Rate 62 11/25/16 12:29 Respiratory Rate 18 11/25/16 12:29 Blood Pressure 94/50 11/25/16 12:29 O2 Sat by Pulse Oximetry (%) 92 L 11/25/16 12:29 Labs: CBC, BMP 11/23/16 08:55
== END 2016-11-25 17:13 | disposition home or self-care (01) | DRG 47 ==
LOC: JER 19:35 → JERBED 11-20 02:50 → J8W 11-20 17:41 → OBSVTOIN 11-22 13:24
PROVIDERS: ADMIT Internal Medicine; ATTEND Internal Medicine
PROC: B245ZZ4 Ultrasonography of Left Heart, Transesophageal (ICD-10-PCS; principal; 2016-11-25 11:00)
DX: G45.9 Transient cerebral ischemic attack, unspecified (principal); L03.113 Cellulitis of right upper limb; I10 Essential (primary) hypertension; F11.20 Opioid dependence, uncomplicated; E03.9 Hypothyroidism, unspecified; E78.5 Hyperlipidemia, unspecified; F17.210 Nicotine dependence, cigarettes, uncomplicated; F19.94 Other psychoactive substance use, unspecified with psychoactive substance-induced mood disorder; F31.9 Bipolar disorder, unspecified; D70.9 Neutropenia, unspecified; R29.703 NIHSS score 3
CPT/HCPCS: 36415; 70450-TC; 70551-TC; 71020-TC; 72141-TC; 72156-TC; 73030-TC-LT; 73218-TC; 80053; 80061; 80175; 80307; 81003; 81015; 82085; 82550; 82553; 83036; 83721; 84439; 84443; 84484; 84703; 85025; 85610; 85651; 86038; 86140; 86618; 87040; 87086; 87389; 93005; 93010; 93306-TC; 93312; 93325; 93931; 93971; 97161-GP; 99284-25; A9576; G0378; G0480; J1644

== ENCOUNTER 2017-05-12 23:12 | Inpatient (IN) | payer OTHER ==
[2017-05-12 23:31] VITALS: BMI 25.0
--- NOTE | 2017-05-12 23:43 | PDOC ---
Attending Attestation - Resident Resident Name: Mack Stokes <Dick Rueda - Last Filed: 05/12/17 23:43> - HPI HPI: 05/13/17 00:37 Patient is a 31 year old female with a significant past medical history of IV drug user, TIA (w R sided facial droop and slurred speech), HTN, Hypothyroidism , HLD who presents to the ED with R arm erythema and edema. Patient states that she relapsed and started using heroin again and reports redness to the right arm for 2 weeks. She denies chest pain, headache and dizziness. She denies fever, chills, nausea , vomit, diarrhea and constipation. She denies dysuria, frequency, urgency and hematuria. - Physicial Exam PE: 05/13/17 00:37 GENERAL: Awake, alert, and fully oriented, in no acute distress HEAD: No signs of trauma EYES: PERRLA, EOMI, sclera anicteric, conjunctiva clear ENT: Auricles normal inspection, hearing grossly normal, nares patent, oropharynx clear without exudates. Moist mucosa NECK: Normal ROM, supple, no lymphadenopathy, JVD, or masses LUNGS: Breath sounds equal, clear to auscultation bilaterally. No wheezes, and no crackles HEART: Regular rate and rhythm, normal S1 and S2, no murmurs, rubs or gallops ABDOMEN: Soft, nontender, normoactive bowel sounds. No guarding, no rebound. No masses EXTREMITIES: Normal range of motion, no edema. No clubbing or cyanosis. No cords, erythema, or tenderness NEUROLOGICAL: Cranial nerves II through XII grossly intact. Normal speech, normal gait SKIN: (+)Multiple track frazier, redness of the right forearm up to the wrist. Warm, Dry, normal turgor, no rashes or lesions noted. - Medical Decision Making 05/13/17 00:38 Plan -Septic work up -IVF -ECG -Vanco IV -Drug screen Documentation prepared by ROMA Lyle, acting as medical delivery driver for Dick Rueda DO. <Mckenna Langston - Last Filed: 05/13/17 00:40>
[2017-05-13] MEDS ORDERED: SODIUM CHLORIDE 0.9% 1000 ML INFUS.BAG IV ONE (00:16)
[2017-05-13] MEDS ORDERED: ONDANSETRON 4 MG/2 ML VIAL IVPUSH ONE (00:25)
--- NOTE | 2017-05-13 00:46 | PDOC ---
History of Present Illness - General Chief Complaint: Redness To Affected Area Stated Complaint: INFECTION Time Seen by Provider: 05/12/17 23:40 History Source: Patient Exam Limitations: No Limitations - History of Present Illness Initial Comments: 05/13/17 00:38 Patient is a 31F with history of IVDA, MRSA cellulitis and tricuspid regurg here today complaining of redness in her right hand for the past 5 days. She also reports that she had a bout of cellulitis in her left arm started two weeks ago, but resolved a few days ago. She reports fevers, chills, nausea and decreased PO intake. She says that she took amoxicillin and doxycycline leftover from a bout of cellulitis in October, without improvement. She also complains of shortness of breath with exertion, and is unable to go up a flight of stairs without being very short of breath. She also complains of burning with urination, dysuria, and blood in her urination. She denies chest pain and abdominal pain. She states that she last used heroin two days ago, intranasally. She states that she tried to use intravenously, but failed to find a vein. She also reports taking alprazolam, methadone and marijuana. She denies alcohol use and smoking. Past History - Past Medical History Allergies/Adverse Reactions: Allergies Allergy/AdvReac Type Severity Reaction Status Date / Time metoclopramide HCl Allergy Severe Swelling Verified 05/12/17 23:27 [From Reglan] Sulfa (Sulfonamide Allergy Intermediate Rash Verified 05/12/17 23:27 Antibiotics) Home Medications: Ambulatory Orders Gabapentin [Neurontin] 800 mg PO TID 05/21/15 Methadone [Dolophine -] 100 mg PO DAILY 04/09/16 Lurasidone HCl [Latuda -] 40 mg PO DAILY #30 tablet 10/12/16 Clonidine HCl [Catapres] 0.2 mg PO BID #2 tablet 11/25/16 Mirtazapine [Remeron -] 30 mg PO HS #1 tablet 11/25/16 Alprazolam [Xanax] 2 mg PO QID PRN 05/13/17 Clonazepam 2 mg PO BID PRN 05/13/17 Clonidine HCl 0.2 mg PO BID 05/13/17 Levothyroxine [Synthroid -] 75 mcg PO DAILY 05/13/17 Quetiapine Fumarate [Seroquel -] 50 mg PO DAILY 05/13/17 Quetiapine Fumarate [Seroquel] 100 mg PO HS 05/13/17 Anemia: No Asthma: No Cancer: No Cardiac Disorders: Yes 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) COPD: No CHF: No Dementia: No Diabetes: No GI Disorders: No Disorders: Yes (UTI) HTN: Yes Hypercholesterolemia: Yes Kidney Stones: No Liver Disease: Yes (LIVER SWOLLEN) Suicide Attempt (Hx): Yes (DRUG OVER DOSE) Seizures: Yes Thyroid Disease: Yes (HYPOTHYRODISM) - Surgical History Abdominal Surgery: No Appendectomy: Yes Cardiac Surgery: No Cholecystectomy: No Lung Surgery: No Neurologic Surgery: No Orthopedic Surgery: No - Reproductive History PID: No - Immunization History Immunization Up to Date: Yes - Psycho/Social/Smoking Cessation Hx Anxiety: No Suicidal Ideation: No Smoking Status: Yes Smoking History: Current every day smoker Have you smoked in the past 12 months: Yes Number of Cigarettes Smoked Daily: 6 Information on smoking cessation initiated: No 'Breaking Loose' booklet given: 11/20/16 Hx Alcohol Use: No Drug/Substance Use Hx: Yes (IV heroin) Substance Use Type: None Hx Substance Use Treatment: Yes Review of Systems - Review of Systems Constitutional: Yes: Chills, Diaphoresis, Fever HEENTM: No: Blurred Vision, Recent change in vision Respiratory: Yes: Cough, Shortness of Breath, SOB with Exertion Cardiac (ROS): Yes: Edema. No: Chest Pain ABD/GI: Yes: Diarrhea, Nausea. No: Constipated, Vomiting : Yes: Burning, Dysuria, Flank Pain, Hematuria Musculoskeletal: Yes: Back Pain, Muscle Pain Integumentary: Yes: Flushing, Rash, Sweating Neurological: Yes: Headache. No: Seizure Endocrine: Yes: Intolerance to Cold. No: Increased Thirst, Increased Urine *Physical Exam - Vital Signs Last Vital Signs Temp Pulse Resp BP Pulse Ox 98.8 F 94 H 20 118/70 97 05/12/17 23:28 05/12/17 23:28 05/12/17 23:28 05/12/17 23:28 05/12/17 23:28 - Physical Exam Comments: 05/13/17 00:47 Gen: Well nourished, mild distress HEENT: Atraumatic normocephalic Mouth: Poor dentition, multiple missing teeth with large defects in remaining teeth CV: RRR, no murmurs rubs or gallops Lungs: Clear to auscultation bilaterally Abd: Soft, nontender, normal bowel sounds L arm/hand: Multiple wounds in various stages of healing from R AC to fingertips. No areas of erythema or warmth. Normal cap refill R hand: Erythematous lesion on right hand (4x4cm) taking up most of posterior hand. Pain with flexion and extension. Tender and warm to touch. Normal cap refill R arm: Erythematous lesion on ventral aspect of right wrist (3x3cm). Tender, warm to the touch. 2+ radial pulse Legs: 2+ pulses in both lower extremities, no wounds noted on leg Back: Tender to palpation in paraspinal areas bilaterally. No midline tenderness. Neuro: Alert, oriented, CN2-12 intact, no focal neuro deficits ED Treatment Course - LABORATORY CBC & Chemistry Diagram: 05/13/17 00:25 05/13/17 00:25 Medical Decision Making - Medical Decision Making 05/13/17 01:05 31F with history of active IVDA, MRSA cellulitis, and tricuspid regurgitation here today complaining of right arm redness. Meets sepsis criteria for suspected source plus SIRS (RR 20, HR 94), will do septic workup. Differential includes, but is not limited to: cellulitis, endocarditis, and UTI. 05/13/17 04:13 CBC normal, UA shows possible UTI, CRP of 1.5. Admitted to medicine for cellulitis. *DC/Admit/Observation/Transfer Diagnosis at time of Disposition: Cellulitis and abscess of hand, UTI (urinary tract infection), Cellulitis - Discharge Dispostion Admit: Yes - Transfer to Acute Care Facility Accepting Physician:: Jessi - Attestations Physician Attestion: 05/13/17 04:16 I, Dr. Mack Stokes, attest that this document has been prepared under my direction and personally reviewed by me in its entirety. I further attest, that it accurately reflects all work, treatment, procedures and medical decision -making performed by me.
[2017-05-13 01:16] LABS: URINE APPEARANCE CLOUDY; URINE BILIRUBIN NEGATIVE (NEGATIVE); URINE BLOOD NEGATIVE (NEGATIVE); URINE COLOR YELLOW; URINE GLUCOSE (UA) NEGATIVE (NEGATIVE); URINE KETONE NEGATIVE (NEGATIVE); URINE NITRITE POSITIVE (NEGATIVE); URINE PROTEIN NEGATIVE (NEGATIVE); URINE UROBILINOGEN NEGATIVE mg/dL (0.2-1.0)
[2017-05-13 01:19] LABS: URINE LEUK ESTERASE 1+ (NEGATIVE)
[2017-05-13 01:21] LABS: URINE BACTERIA MODERATE /hpf (NONE SEEN); URINE RBC 1 /hpf (0-3); URINE WBC 6 /hpf (3-5)
[2017-05-13 01:34] LABS: URINE MARIJUANA THC POSITIVE ng/ml (CUTOFF=50)
[2017-05-13 01:42] LABS: BASOPHIL 0.5 % (0-2.0); EOSINOPHIL 1.6 % (0-4.5); MCH 26.8 pg (25.7-33.7); MCHC 33.5 g/dl (32.0-36.0); MEAN CELL VOLUME 79.8 fl (80-96); NEUTROPHILS 57.7 % (42.8-82.8); PLATELET COUNT 207 K/MM3 (134-434); RDW 13.7 % (11.6-15.6); WHITE BLOOD COUNT 8.9 K/mm3 (4.0-10.0)
[2017-05-13 01:56] LABS: INR 1.24 (0.82-1.09); PROTHROMBIN TIME (PATIENT) 13.7 SEC (9.98-11.88)
[2017-05-13 01:58] LABS: ACTIVATED PTT 40.2 SECONDS (26.9-34.4)
[2017-05-13 02:04] LABS: VENOUS PH 7.42 (7.32-7.42)
[2017-05-13 02:05] LABS: VENOUS BLOOD GAS HCO3 31.4 meq/L (19-25)
[2017-05-13 02:08] LABS: ALBUMIN 3.7 g/dl (3.4-5.0); ANION GAP 6 (8-16); BILIRUBIN,TOTAL 0.3 mg/dL (0.2-1.0); CO2 32 mmol/L (21-32); CREATININE 0.7 mg/dL (0.55-1.02); GLUCOSE,RANDOM 90 mg/dL (74-106); SGOT/AST 22 U/L (15-37); SGPT/ALT 25 U/L (12-78); TOT PROT 7.9 g/dl (6.4-8.2)
[2017-05-13 02:11] LABS: ALK PHOS 139 U/L (45-117); TROPONIN I < 0.02 ng/ml (0.00-0.05)
[2017-05-13] MEDS ORDERED: ONDANSETRON 4 MG/2 ML VIAL ONE (02:21)
--- NOTE | 2017-05-13 02:23 | PDOC ---
*Physical Exam - Vital Signs Last Vital Signs Temp Pulse Resp BP Pulse Ox 98.8 F 94 H 20 118/70 97 05/12/17 23:28 05/12/17 23:28 05/12/17 23:28 05/12/17 23:28 05/12/17 23:28 ED Treatment Course - LABORATORY CBC & Chemistry Diagram: 05/13/17 00:25 05/13/17 00:25 - ADDITIONAL ORDERS Additional order review: Laboratory Results 05/13/17 05/13/17 05/13/17 02:00 00:25 00:25 INR PTT (Actin FS) VBG pH 7.42 POC VBG pCO2 48.9 POC VBG pO2 49.7 H Mixed VBG HCO3 31.4 H Sodium Potassium Chloride Carbon Dioxide Anion Gap BUN Creatinine Creat Clearance w eGFR Random Glucose Lactic Acid Calcium Total Bilirubin AST ALT Alkaline Phosphatase Creatine Kinase Troponin I C-Reactive Protein 1.5 H D Total Protein Albumin Urine Color Urine Appearance Urine pH Urine Protein Urine Glucose (UA) Urine Ketones Urine Blood Urine Nitrite Urine Bilirubin Urine Urobilinogen Ur Leukocyte Esterase Urine RBC Urine WBC Ur Epithelial Cells Urine Bacteria Opiates Screen Positive Methadone Screen Positive Barbiturate Screen Negative Phencyclidine Screen Negative Ur Amphetamines Screen Negative MDMA (Ecstasy) Screen Negative Benzodiazepines Screen Positive Cocaine Screen Negative U Marijuana (THC) Screen Positive 05/13/17 05/13/17 05/13/17 00:25 00:25 00:25 INR PTT (Actin FS) VBG pH POC VBG pCO2 POC VBG pO2 Mixed VBG HCO3 Sodium 134 L Potassium 3.8 Chloride 96 L D Carbon Dioxide 32 D Anion Gap 6 L BUN 13 D Creatinine 0.7 D Creat Clearance w eGFR > 60 Random Glucose 90 Lactic Acid 0.9 Calcium 9.0 Total Bilirubin 0.3 AST 22 D ALT 25 Alkaline Phosphatase 139 H D Creatine Kinase 90 Troponin I < 0.02 C-Reactive Protein Total Protein 7.9 Albumin 3.7 D Urine Color Yellow Urine Appearance Cloudy Urine pH 7.0 Urine Protein Negative Urine Glucose (UA) Negative Urine Ketones Negative Urine Blood Negative Urine Nitrite Positive Urine Bilirubin Negative Urine Urobilinogen Negative Ur Leukocyte Esterase 1+ H Urine RBC 1 Urine WBC 6 Ur Epithelial Cells Rare Urine Bacteria Moderate Opiates Screen Methadone Screen Barbiturate Screen Phencyclidine Screen Ur Amphetamines Screen MDMA (Ecstasy) Screen Benzodiazepines Screen Cocaine Screen U Marijuana (THC) Screen 05/13/17 00:25 INR 1.24 H PTT (Actin FS) 40.2 H D VBG pH POC VBG pCO2 POC VBG pO2 Mixed VBG HCO3 Sodium Potassium Chloride Carbon Dioxide Anion Gap BUN Creatinine Creat Clearance w eGFR Random Glucose Lactic Acid Calcium Total Bilirubin AST ALT Alkaline Phosphatase Creatine Kinase Troponin I C-Reactive Protein Total Protein Albumin Urine Color Urine Appearance Urine pH Urine Protein Urine Glucose (UA) Urine Ketones Urine Blood Urine Nitrite Urine Bilirubin Urine Urobilinogen Ur Leukocyte Esterase Urine RBC Urine WBC Ur Epithelial Cells Urine Bacteria Opiates Screen Methadone Screen Barbiturate Screen Phencyclidine Screen Ur Amphetamines Screen MDMA (Ecstasy) Screen Benzodiazepines Screen Cocaine Screen U Marijuana (THC) Screen 05/13/17 00:25 RBC 4.56 MCV 79.8 L MCHC 33.5 RDW 13.7 D MPV 8.0 Neutrophils % 57.7 D Lymphocytes % 31.0 D Monocytes % 9.2 Eosinophils % 1.6 Basophils % 0.5 *DC/Admit/Observation/Transfer Diagnosis at time of Disposition: Cellulitis and abscess of hand, UTI (urinary tract infection) - Discharge Dispostion Condition at time of disposition: Stable Admit: Yes
[2017-05-13] MEDS ORDERED: VANCOMYCIN 2,000 MG in DEXTROSE 5%-WATER - 500 ML IVPB ONE (02:30)
--- NOTE | 2017-05-13 03:43 | HP ---
CHIEF COMPLAINT: Right wrist red and swllen PCP: HISTORY OF PRESENT ILLNESS: This is a 31 year old female with significant medical history for IVDA, MRSA cellulitis who presented to the ED with redness and pain to right posterior wrist. Pt reports the redness started 2 days ago but became much worse upon awakening this am. She also reports absscess to left antecubital area 2 weeks ago which "popped" after she took a shower. She self treated with amoxicillin and clindamycin that she had at home. Pt also c/o "kidney pain" with burning on urination. She describes the pain along both sides of her spine, mid/lower back. The pain in her right wrist feels like "3 rats moved in and all have heart beats". She denies chest pain but reports SOB especially on exertion. + nausea but denies abdominal pain or diarrhea. Pt reports that she attempted to use heroin IV but was unable to find a vein. She reports she doesn't share needles but does not use a clean needle every time. She denies licking the needles for lubrication. She reports she did not attempt to find a vein in her right arm, only her left inner arm. ER course was notable for: (1) WBC 8.9, CRP 1.5, Lactic acid 0.9 Recent Travel: pt denies PAST MEDICAL HISTORY: HTN HLD Tricuspid regurg on recent ILANA hypothyroid CVA 2012 MRSA cellulitis seizure disorder bipolar d/o, anxiety PAST SURGICAL HISTORY: Appendectomy 2004 Social History: Smokin-7 cig/day Alcohol: pt denies Drugs: heroin 2 days ago intranasally, marijuana daily Family History: father: skin CA, bipolar, prior ETOH, clean x 20 years Mother: alive and well Brother: IV heroin user, current son: 10yo, healthy Allergies metoclopramide HCl [From Reglan] Allergy (Severe, Verified 05/12/17 23:27) Swelling Sulfa (Sulfonamide Antibiotics) Allergy (Intermediate, Verified 05/12/17 23:27) Rash HOME MEDICATIONS: 3 Medication Instructions Recorded clonazepam 2mg PO BID PRN Gabapentin [Neurontin] 800 mg PO TID 05/21/15 Lamotrigine [Lamictal -] 100mg PO BID 12/11/15 Methadone [Dolophine -] 100 mg PO DAILY 04/09/16 Alprazolam [Xanax] 2 mg PO QID PRN #12 tablet MDD 4 04/19/16 Lurasidone HCl [Latuda -] 40 mg PO DAILY 10/12/16 Clonidine HCl [Catapres] 0.2 mg PO BID 11/25/16 Mirtazapine [Remeron -] 30 mg PO HS #1 tablet 11/25/16 SEROQUEL 50mg QAM, 100mg QHS synthroid 75mcg po QAM REVIEW OF SYSTEMS CONSTITUTIONAL: Present: fever, chills Absent: diaphoresis, generalized weakness, malaise, loss of appetite, weight change HEENT: Absent: rhinorrhea, nasal congestion, throat pain, throat swelling, difficulty swallowing, mouth swelling, ear pain, eye pain, visual changes CARDIOVASCULAR: Absent: chest pain, syncope, palpitations, irregular heart rate, lightheadedness , peripheral edema RESPIRATORY: Present: shortness of breath, dyspnea with exertion Absent: cough, orthopnea, wheezing, stridor, hemoptysis GASTROINTESTINAL: Absent: abdominal pain, abdominal distension, nausea, vomiting, diarrhea, constipation, melena, hematochezia GENITOURINARY: Present: dysuria, flank pain Absent: frequency, urgency, hesitancy, hematuria, genital pain MUSCULOSKELETAL: Absent: myalgia, arthralgia, joint swelling, back pain, neck pain SKIN: Present: redness right wrist Absent: rash, itching, pallor HEMATOLOGIC/IMMUNOLOGIC: Absent: easy bleeding, easy bruising, lymphadenopathy, frequent infections ENDOCRINE: Absent: unexplained weight gain, unexplained weight loss, heat intolerance, cold intolerance NEUROLOGIC: Absent: headache, focal weakness or paresthesias, dizziness, unsteady gait, seizure, mental status changes, bladder or bowel incontinence PSYCHIATRIC: Absent: anxiety, depression, suicidal or homicidal ideation, hallucinations. PHYSICAL EXAMINATION 3 05/12/17 23:28 Temperature 98.8 F Pulse Rate 94 H Respiratory 20 Rate Blood Pressure 118/70 O2 Sat by Pulse 97 Oximetry (%) GENERAL: Awake, alert, and fully oriented, in no acute distress. HEAD: Normal with no signs of trauma. EYES: Pupils equal, round and reactive to light, extraocular movements intact, sclera anicteric, conjunctiva clear. No lid lag. EARS, NOSE, THROAT: Ears normal, nares patent, oropharynx clear without exudates. Moist mucous membranes. Poor dentition NECK: Normal range of motion, supple without lymphadenopathy, JVD, or masses. LUNGS: Breath sounds equal, clear to auscultation bilaterally. No wheezes, and no crackles. No accessory muscle use. HEART: Regular rate and rhythm, normal S1 and S2 without murmur, rub or gallop. ABDOMEN: Soft, nontender, not distended, normoactive bowel sounds, no guarding, no rebound, no masses. No hepatomegaly or splenomegaly. MUSCULOSKELETAL: Normal range of motion at all joints. No bony deformities or tenderness. No CVA tenderness. UPPER EXTREMITIES: 2+ pulses, warm, well-perfused. No cyanosis. No clubbing. No peripheral edema. LOWER EXTREMITIES: 2+ pulses, warm, well-perfused. No calf tenderness. No peripheral edema. NEUROLOGICAL: Cranial nerves II-XII intact. Normal speech. Normal gait. PSYCHIATRIC: Cooperative. Good eye contact. Appropriate mood and affect. SKIN: Warm, dry, normal turgor, no rashesnoted, normal capillary refill. right posterior hand/wrist noted with large area erythema, + induration, not fluctuant , patchy erythema noted to inner forearm streaking up to inner upper arm. multiple needle frazier noted left inner arm, abrasion noted to right inner wrist. ECG NSR, vent rate 81, QTC 450 Inverted T wave lead 3, flattened, aVF ASSESSMENT/PLAN: 31yF with PMH IVDA, MRSA cellulitis, hypothyroidism, HTN, HLD, CVA 2012, seizure sdisorder, bipolar disease, anxiety presented to the ED with swelling and redness to right posterior hand/wrist. She is being admitted for cellulitis. Cellulitis to right hand and wrist - xray ordered - vanco given in ED, unasyn ordered x 1 - ID consult ordered. - poor IV access, may need central line or us guided access. HTN/HLD - cont home clonidine - pt reports she previoulsy was on gemfibrozil for elevated triglycerides but her doctors told her she didnt need it anymore Hypothyroidism - cont home syntroid. Bipolar D/O and anxiety - cont home gabapentin, latuda, seroquel, remeron and Clonazepam DVT PPX - heparin 5000u TID FEN - tolerating po fluids - BMP tomorrow am - low sodium diet Dispo: pt currently requires inpatient management of her emergent condition. Visit type - Emergency Visit Emergency Visit: Yes ED Registration Date: 05/12/17 Care time: The patient presented to the Emergency Department on the above date and was hospitalized for further evaluation of their emergent condition. - New Patient This patient is new to me today: Yes Date on this admission: 05/13/17 - Critical Care Critical Care patient: No
[2017-05-13] MEDS ORDERED: PROCHLORPERAZINE MALEATE 25 MG SUPP.RECT PR PRN (03:49)
[2017-05-13] MEDS: QUEtiapine FUMARATE 100 MG TABLET (FP) PO SCH ×2 (03:59→22:04)
[2017-05-13] MEDS ORDERED: AMPICILLIN NA/SULBACTAM NA 100 ML IVPB SCH (04:15)
[2017-05-13] MEDS: GABAPENTIN 400 MG CAPSULE (FP) PO SCH ×3 (06:04→22:03)
[2017-05-13] MEDS: LEVOTHYROXINE NA 75 MCG TABLET (FP) PO SCH (06:04)
[2017-05-13] MEDS: HEPARIN NA (PORCINE) 5,000 UNITS/ML 1ML VIAL SQ SCH ×3 (06:04→22:03)
[2017-05-13] MEDS ORDERED: LEVOTHYROXINE NA 25 MCG TABLET (FP) ONE (06:10)
[2017-05-13] MEDS ORDERED: HEPARIN NA (PORCINE) 5,000 UNITS/ML 1ML VIAL ONE (06:10)
[2017-05-13] MEDS ORDERED: GABAPENTIN 100 MG CAPSULE (FP) ONE (06:10)
[2017-05-13] MEDS ORDERED: METHADONE HCL 40 MG DISPERSABLE TABLET PO SCH (08:15)
[2017-05-13] MEDS ORDERED: METHADONE HCL 10 MG TABLET ONE (09:27)
[2017-05-13] MEDS ORDERED: METHADONE HCL 40 MG DISPERSABLE TABLET ONE (09:27)
[2017-05-13] MEDS: METHADONE 40 MG, METHADONE 30 MG PO SCH (09:33)
[2017-05-13] MEDS: cloNIDine HCL 0.1 MG TABLET PO SCH ×2 (09:34→22:02)
[2017-05-13] MEDS: AMPICILLIN NA/SULBACTAM NA 3 GM in SODIUM CHLORIDE 100 ML IVPB SCH ×2 (09:35→18:04)
[2017-05-13] MEDS ORDERED: VANCOMYCIN 2,000 MG in DEXTROSE 5%-WATER - 500 ML IVPB SCH (10:00)
[2017-05-13] MEDS ORDERED: PATIENT'S OWN MEDICATION (NON-FORMULARY) (Clonidine Hcl [Catapres] 0.2 MG) PO SCH (10:00)
[2017-05-13] MEDS ORDERED: PATIENT'S OWN MEDICATION (NON-FORMULARY) (Clonidine Hcl [Clonidine Hcl] 0.2 MG) PO SCH (10:00)
[2017-05-13] MEDS ORDERED: QUEtiapine FUMARATE 25 MG TABLET (FP) ONE ×2 (10:11→10:20)
[2017-05-13] MEDS ORDERED: PT OWN MED DRAWER 7, Y5N ONE ×3 (10:13→17:59)
--- NOTE | 2017-05-13 10:16 | EKG ---
Test Reason : Blood Pressure : / mmHG Vent. Rate : 081 BPM Atrial Rate : 081 BPM P-R Int : 166 ms QRS Dur : 092 ms QT Int : 388 ms P-R-T Axes : 061 066 031 degrees QTc Int : 450 ms NORMAL SINUS RHYTHM POSSIBLE LEFT ATRIAL ENLARGEMENT BORDERLINE ECG WHEN COMPARED WITH ECG OF 19-NOV-2016 21:15, NO SIGNIFICANT CHANGE WAS FOUND Confirmed by MD KELY, JALEN ([id number]) on 05/13/2017 10:15:35 AM Referred By: Confirmed By:JALEN EDGE MD
[2017-05-13] MEDS: ALPRAZolam 2 MG TABLET PO PRN ×2 (10:17→23:05)
[2017-05-13] MEDS: QUEtiapine FUMARATE 50 MG TABLET PO SCH (10:18)
[2017-05-13] MEDS: lamoTRIgine 100 MG TABLET (FP) PO SCH ×2 (11:22→22:03)
[2017-05-13] MEDS: LURASIDONE HCL 40 MG TABLET PO SCH (11:22)
[2017-05-13 14:43] LABS: HIV 1 & 2 AB NEGATIVE; HIV 1 AGp24 NEGATIVE
--- NOTE | 2017-05-13 14:43 | CONSULT ---
Consult Consult Specialty:: infectious diseases Reason for Consultation:: cellulitis of the rt hand - History of Present Illness Chief Complaint: pain and swelling of the rt hand History of Present Illness: 31 year old female with significant medical history for IVDA, MRSA cellulitis who presented to admitted with redness and pain to right posterior wrist. Pt reports the redness started 2 days ago but became much worse upon awakening this am. She also reports absscess to left antecubital area 2 weeks ago which "popped" after she took a shower. She self treated with amoxicillin and clindamycin that she had at home. she attempted to use heroin IV but was unable to find a vein. She reports she doesn't share needles but does not use a clean needle every time. She denies licking the needles for lubrication. She reports she did not attempt to find a vein in her right arm, only her left inner arm. This patient is known to me from previous admissions - History Source History Provided By: Patient, Medical Record Limitations to Obtaining History: Other (groggy) - Past Medical History [employer]: Yes: Seizure Cardio/Vascular: Yes: HTN, Hyperlipdemia Hepatobiliary: Yes: Other (fatty liver) ...LMP: 05/12/15 ...LMP Comment: no period for 2 yrs ...: No Infectious Disease: Yes: MRSA (UE IVDA infection site ), Other (recurrent UTIs) Endocrine: Yes: Hypothyroidism - Past Surgical History Past Surgical History: Yes: None (Patient intubated and sedated. Unable to obtain surgical history.) - Alcohol/Substance Use Hx Alcohol Use: No History of Substance Use: reports: Cocaine, Heroin, Marijuana, Tranquilizers Date of Last Use: 09/14/16 (also crystal meth. 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 History of Recent Travel: No Home Medications - Allergies Allergies/Adverse Reactions: Allergies Allergy/AdvReac Type Severity Reaction Status Date / Time metoclopramide HCl Allergy Severe Swelling Verified 05/12/17 23:27 [From Reglan] Sulfa (Sulfonamide Allergy Intermediate Rash Verified 05/12/17 23:27 Antibiotics) - Home Medications Home Medications: Ambulatory Orders Gabapentin [Neurontin] 800 mg PO TID 05/21/15 Methadone [Dolophine -] 70 mg PO DAILY 04/09/16 Lurasidone HCl [Latuda -] 40 mg PO DAILY #30 tablet 10/12/16 Mirtazapine [Remeron -] 30 mg PO HS #1 tablet 11/25/16 Alprazolam [Xanax] 2 mg PO QID PRN 05/13/17 Clonidine HCl 0.2 mg PO BID 05/13/17 Levothyroxine [Synthroid -] 75 mcg PO DAILY 05/13/17 Quetiapine Fumarate [Seroquel -] 50 mg PO DAILY 05/13/17 Quetiapine Fumarate [Seroquel] 100 mg PO HS 05/13/17 Family Disease History - Family Disease History Family Disease History: Diabetes: Mother (HTN,DM), Heart Disease: Father (HTN, etoh, cocaine), Mother, Other: Father, Brother (drug use, HCV) Review of Systems - Review of Systems Constitutional: reports: Chills, Fever Eyes: reports: No Symptoms HENT: reports: No Symptoms Neck: reports: No Symptoms Cardiovascular: reports: No Symptoms Respiratory: reports: No Symptoms Gastrointestinal: reports: No Symptoms Genitourinary: reports: Dysuria Musculoskeletal: reports: Back Pain Integumentary: reports: Change in Color, Erythema, Lesions Neurological: reports: Dizziness Endocrine: reports: No Symptoms Hematology/Lymphatic: reports: No Symptoms Psychiatric: reports: No Symptoms Physical Exam Vital Signs: Vital Signs Temperature 97.5 F L 05/13/17 08:18 Pulse Rate 102 H 05/13/17 08:18 Respiratory Rate 18 05/13/17 08:18 Blood Pressure 114/78 05/13/17 08:18 O2 Sat by Pulse Oximetry (%) 97 05/13/17 08:32 Constitutional: Yes: Well Nourished, Mild Distress, Obese, Poor Hygeine Eyes: Yes: Conjunctiva Clear HENT: Yes: Atraumatic, Normocephalic Neck: Yes: Supple, Trachea Midline Cardiovascular: Yes: Regular Rate and Rhythm, S1, S2 Respiratory: Yes: Regular, CTA Bilaterally Gastrointestinal: Yes: Normal Bowel Sounds, Soft Musculoskeletal: Yes: Other Extremities: Yes: Other ( erythema and swelling noted to rt wrist and hand inner forearm streaking up to inner upper arm. multiple needle frazier noted left inner arm, abrasion noted to right inner wrist.) Integumentary: Yes: Erythema, Other Neurological: Yes: Alert Psychiatric: Yes: Alert Imaging - Results X-ray: Report Reviewed, Image Reviewed Assessment/Plan 31yF with PMH IVDA, MRSA cellulitis, hypothyroidism, HTN, HLD, CVA 2012, seizure disorder, bipolar disease, coming to [facility] with cellulitits of the hand and wrist on the right hand Cellulitis to right hand and wrist HTN/HLD Hypothyroidism Bipolar this patient had a recent karen which had TR. patient does come n with fever and all cx have been send we will continue to monitor the patient give abx also we will get a tte on the patient as she continues to be a high risk patient if the swelling increases we should also get hand surgeon involved follow wbc and fevers
[2017-05-13] MEDS: VANCOMYCIN 1,250 MG in DEXTROSE 5%-WATER - 250 ML IVPB SCH (18:05)
[2017-05-13] MEDS ORDERED: MIRTAZAPINE 15 MG TABLET (FP) ONE (20:43)
[2017-05-13] MEDS: MIRTAZAPINE 30 MG TABLET (FP) PO SCH (22:04)
[2017-05-14] MEDS: AMPICILLIN NA/SULBACTAM NA 3 GM in SODIUM CHLORIDE 100 ML IVPB SCH ×4 (01:38→18:21)
[2017-05-14] MEDS ORDERED: METHADONE HCL 10 MG TABLET ONE (05:56)
[2017-05-14] MEDS ORDERED: METHADONE HCL 40 MG DISPERSABLE TABLET ONE (05:56)
[2017-05-14] MEDS: METHADONE 40 MG, METHADONE 30 MG PO SCH (06:24)
[2017-05-14] MEDS: HEPARIN NA (PORCINE) 5,000 UNITS/ML 1ML VIAL SQ SCH ×3 (06:25→21:40)
[2017-05-14] MEDS: GABAPENTIN 400 MG CAPSULE (FP) PO SCH ×3 (06:25→21:39)
[2017-05-14] MEDS: LEVOTHYROXINE NA 75 MCG TABLET (FP) PO SCH (06:26)
[2017-05-14 08:01] LABS: BASOPHIL 0.7 % (0-2.0); EOSINOPHIL 3.3 % (0-4.5); MCH 27.6 pg (25.7-33.7); MEAN CELL VOLUME 81.1 fl (80-96); MEAN PLT VOLUME 8.4 fl (7.5-11.1); NEUTROPHILS 41.9 % (42.8-82.8); PLATELET COUNT 192 K/MM3 (134-434); RDW 13.8 % (11.6-15.6); WHITE BLOOD COUNT 5.4 K/mm3 (4.0-10.0)
[2017-05-14 08:30] LABS: ANION GAP 7 (8-16); CALCIUM 9.3 mg/dL (8.5-10.1); CO2 29 mmol/L (21-32); CREATININE 0.7 mg/dL (0.55-1.02); GLUCOSE,RANDOM 76 mg/dL (74-106)
[2017-05-14 08:31] LABS: MAGNESIUM 2.2 mg/dL (1.8-2.4); PHOSPHOROUS 3.8 mg/dL (2.5-4.9)
[2017-05-14] MEDS ORDERED: PT OWN MED DRAWER 7, Y5N ONE ×4 (09:11→21:02)
[2017-05-14] MEDS ORDERED: QUEtiapine FUMARATE 25 MG TABLET (FP) ONE (09:11)
[2017-05-14] MEDS: lamoTRIgine 100 MG TABLET (FP) PO SCH ×2 (09:14→21:40)
[2017-05-14] MEDS: cloNIDine HCL 0.1 MG TABLET PO SCH ×2 (09:14→21:39)
[2017-05-14] MEDS: LURASIDONE HCL 40 MG TABLET PO SCH (09:14)
[2017-05-14] MEDS: QUEtiapine FUMARATE 50 MG TABLET PO SCH (09:15)
[2017-05-14] MEDS: ALPRAZolam 2 MG TABLET PO PRN ×2 (10:07→21:38)
[2017-05-14] MEDS: VANCOMYCIN 1,250 MG in DEXTROSE 5%-WATER - 250 ML IVPB SCH (15:24)
--- NOTE | 2017-05-14 16:42 | PN ---
Physical Exam: SUBJECTIVE: Patient seen and examined. She has no complaints. She said she expressed some pus from her hand today. No fevers recorded OBJECTIVE: Vital Signs Period Temp Pulse Resp BP Sys/Nash Pulse Ox Last 24 Hr 97.6 F-99 F 70-100 18-20 101-120/63-75 97 PE Neuro: alert, awake, cn -12 intact Pulm: diffuse course rhonchi, otherwise clear CV: s1s2 rrr no mrg Abd: s nt nd + bs Ext: R hand erythema, swelling, no le edema Laboratory Results - last 24 hr 05/14/17 05/14/17 06:00 06:00 WBC 5.4 D RBC 4.53 Hgb 12.5 Hct 36.8 MCV 81.1 MCH 27.6 MCHC 34.0 RDW 13.8 Plt Count 192 MPV 8.4 Neutrophils % 41.9 L D Lymphocytes % 44.4 H D Monocytes % 9.7 Eosinophils % 3.3 D Basophils % 0.7 Sodium 137 Potassium 3.9 Chloride 101 Carbon Dioxide 29 Anion Gap 7 L BUN 10 D Creatinine 0.7 Random Glucose 76 Calcium 9.3 Phosphorus 3.8 D Magnesium 2.2 Active Medications Generic Name Dose Route Start Last Admin Trade Name Freq PRN Reason Stop Dose Admin Alprazolam 2 mg 05/13/17 03:53 05/14/17 10:07 Xanax - PO 2 mg Q12H PRN Administration ANXIETY Clonidine 0.2 mg 05/13/17 10:00 05/14/17 09:14 Catapres - PO 0.2 mg BID JAMEEL Administration Gabapentin 800 mg 05/13/17 06:00 05/14/17 14:16 Neurontin - PO 800 mg TID JAMEEL Administration Heparin Sodium (Porcine) 5,000 unit 05/13/17 06:00 05/14/17 14:16 Heparin - SQ 5,000 unit TID JAMEEL Administration Ampicillin Sodium/Sulbactam 100 mls @ 200 mls/hr 05/13/17 10:00 05/14/17 09:15 Sodium 3 gm/ Sodium Chloride IVPB 200 mls/hr Q8H-IV JAMEEL Administration Vancomycin HCl 1,250 mg/ 250 mls @ 166.667 mls/hr 05/13/17 16:00 05/14/17 15:24 Dextrose IVPB 166.667 mls/hr Q24H JAMEEL Administration Protocol Lamotrigine 100 mg 05/13/17 10:00 05/14/17 09:14 Lamictal - PO 100 mg BID JAMEEL Administration Levothyroxine Sodium 75 mcg 05/13/17 07:00 05/14/17 06:26 Synthroid - PO 75 mcg DAILY@0700 JAMEEL Administration Lurasidone HCl 40 mg 05/13/17 10:00 05/14/17 09:14 Latuda - PO 40 mg DAILY JAMEEL Administration Methadone HCl 40 mg/ Methadone 70 mg 05/13/17 08:45 05/14/17 06:24 HCl 30 mg PO 70 mg DAILY@0600 JAMEEL Administration Mirtazapine 30 mg 05/13/17 22:00 05/13/17 22:04 Remeron - PO 30 mg HS JAMEEL Administration Nicotine 14 mg 05/14/17 16:45 Nicoderm Patch - TD DAILY [facility] Prochlorperazine Maleate 25 mg 05/13/17 03:49 Compazine Suppository - ID BID PRN NAUSEA AND/OR VOMITING Quetiapine Fumarate 100 mg 05/13/17 04:00 05/13/17 22:04 Seroquel - PO 100 mg HS JAMEEL Administration Quetiapine Fumarate 50 mg 05/13/17 10:00 05/14/17 09:15 Seroquel - PO 50 mg DAILY JAMEEL Administration Microbiology 05/13/17 10:26 Cellulitis Gram Stain - Final 05/13/17 10:26 Cellulitis Wound Culture - Preliminary Presumptive Mrsa (Pbp2a Pos) Pending Organism 05/13/17 00:25 Urine - Urine Clean Catch Urine Culture - Preliminary Non Lactose Fermenting Gnb 05/13/17 00:25 Blood - Peripheral Venous Blood Culture - Preliminary Pending Organism 05/13/17 00:25 Blood - Peripheral Venous Blood Culture - Preliminary NO GROWTH OBTAINED AFTER 24 HOURS, INCUBATION TO CONTINUE FOR 4 DAYS. Assessment: 31 year old female with PMH IVDA, MRSA cellulitis, hypothyroidism, HTN, HLD (no longer on gemfibrozil), CVA 2012, seizure sdisorder, bipolar disease, anxiety admitted with cellulitis to right posterior hand/wrist. Plan: 1. Cellulitis to right hand and wrist - Xray negative for soft tissue air - Continue Unysan (day 2) - Continue Vancomycin (day 2) - If worsens consult hand surgeon 2. UTI - Cx prelim NLFgnb - abx as above 3. IVDU - Will need repeat echo 4. HTN - Cont clonidine 5. Hypothyroidism - Continue synthroid 6. Bipolar D/O and anxiety - Gabapentin 800mg tid - Latuda 40mg qd - Seroquel 50mg daily - Seroquel 100mg HS - Remeron 30mg hs - Clonazepam 7. Smoking cessation - Nicotine patch 8. DVT PPX - Heparin q8 Visit type - Emergency Visit Emergency Visit: Yes ED Registration Date: 05/13/17 Care time: The patient presented to the Emergency Department on the above date and was hospitalized for further evaluation of their emergent condition. - New Patient This patient is new to me today: Yes Date on this admission: 05/14/17 - Critical Care Critical Care patient: No
[2017-05-14] MEDS: NICOTINE 14 MG/24 HOURS TOPICAL PATCH TD SCH (17:49)
--- NOTE | 2017-05-14 18:25 | HOSP ---
Physical Examination Vital Signs: Vital Signs Temperature 97.5 F L 05/14/17 17:24 Pulse Rate 58 L 05/14/17 17:24 Respiratory Rate 18 05/14/17 17:24 Blood Pressure 92/52 05/14/17 17:24 O2 Sat by Pulse Oximetry (%) 97 05/14/17 09:00 Labs: CBC, BMP 05/14/17 06:00 05/14/17 06:00 Hospitalist Encounter Assessment: Called to bedside for infiltrated IV site with whole bag of vancomycin RUE is red, warm, tender and swollen PIV removed Cold pack placed due to burning sensation and pain Start oral clinda 300mg q6 Will need EJ placement Monitor site for worsening erythema and swelling, obtain US as needed
--- NOTE | 2017-05-14 19:03 | PN ---
Progress Note, Physician History of Present Illness: Events noted Lab/radiology results noted Pt with no current IV access RUE erythema/warmth Rt hand/wrist swelling improved c/o dysuria No fever/chills - Current Medication List Current Medications: Active Medications Alprazolam (Xanax -) 2 mg PO TID PRN PRN Reason: ANXIETY Clindamycin HCl (Cleocin -) 300 mg PO Q6HPO [facility] Clonidine (Catapres -) 0.2 mg PO BID [facility] Last Admin: 05/14/17 09:14 Dose: 0.2 mg Gabapentin (Neurontin -) 800 mg PO TID [facility] Last Admin: 05/14/17 14:16 Dose: 800 mg Heparin Sodium (Porcine) (Heparin -) 5,000 unit SQ TID [facility] Last Admin: 05/14/17 14:16 Dose: 5,000 unit Ampicillin Sodium/Sulbactam (Sodium 3 gm/ Sodium Chloride) 100 mls @ 200 mls/ hr IVPB Q8H-IV [facility] Last Admin: 05/14/17 18:21 Dose: Not Given Vancomycin HCl 1,250 mg/ (Dextrose) 250 mls @ 166.667 mls/hr IVPB Q24H JAMEEL PRN Reason: Protocol Last Admin: 05/14/17 15:24 Dose: 166.667 mls/hr Lamotrigine (Lamictal -) 100 mg PO BID [facility] Last Admin: 05/14/17 09:14 Dose: 100 mg Levothyroxine Sodium (Synthroid -) 75 mcg PO DAILY@0700 [facility] Last Admin: 05/14/17 06:26 Dose: 75 mcg Lurasidone HCl (Latuda -) 40 mg PO DAILY [facility] Last Admin: 05/14/17 09:14 Dose: 40 mg Methadone HCl 40 mg/ Methadone (HCl 30 mg) 70 mg PO DAILY@0600 [facility] Last Admin: 05/14/17 06:24 Dose: 70 mg Mirtazapine (Remeron -) 30 mg PO HS [facility] Last Admin: 05/13/17 22:04 Dose: 30 mg Nicotine (Nicoderm Patch -) 14 mg TD DAILY [facility] Last Admin: 05/14/17 17:49 Dose: 14 mg Prochlorperazine Maleate (Compazine Suppository -) 25 mg [place] BID PRN PRN Reason: NAUSEA AND/OR VOMITING Quetiapine Fumarate (Seroquel -) 100 mg PO [facility] Last Admin: 05/13/17 22:04 Dose: 100 mg Quetiapine Fumarate (Seroquel -) 50 mg PO DAILY [facility] Last Admin: 05/14/17 09:15 Dose: 50 mg - Objective Vital Signs: Vital Signs Temperature 97.5 F L 05/14/17 17:24 Pulse Rate 58 L 05/14/17 17:24 Respiratory Rate 18 05/14/17 17:24 Blood Pressure 92/52 05/14/17 17:24 O2 Sat by Pulse Oximetry (%) 97 05/14/17 09:00 Constitutional: Yes: No Distress Genitourinary: Yes: Other (mild suprapubic discomfort with palpation) Extremities: Yes: Erythema (Rt wrist/hand mild swelling/tenderness, erythema RUE erythema/mild induration) Peripheral Pulses WNL: Yes Labs: CBC, BMP 05/14/17 06:00 05/14/17 06:00 INR, PTT INR 1.24 (0.82-1.09) H 05/13/17 00:25 Problem List - Problems (1) Cellulitis and abscess of hand Code(s): L03.119 - CELLULITIS OF UNSPECIFIED PART OF LIMB L02.519 - CUTANEOUS ABSCESS OF UNSPECIFIED HAND (2) UTI (urinary tract infection) Code(s): N39.0 - URINARY TRACT INFECTION, SITE NOT SPECIFIED (3) Drug abuse and dependence Code(s): F19.20 - OTHER PSYCHOACTIVE SUBSTANCE DEPENDENCE, UNCOMPLICATED Assessment/Plan No IV access, switched to clindamycin po Add levaquin 250 mg po for now, follow up urine culture result follow up wound culture follow up TTE cold compress to RUE pt currently afebrile/stable
[2017-05-14] MEDS ORDERED: MIRTAZAPINE 15 MG TABLET (FP) ONE (21:02)
[2017-05-14] MEDS: LEVOFLOXACIN 250 MG TABLET (FP) PO SCH (21:38)
[2017-05-14] MEDS: MIRTAZAPINE 30 MG TABLET (FP) PO SCH (21:39)
[2017-05-14] MEDS: QUEtiapine FUMARATE 100 MG TABLET (FP) PO SCH (21:40)
[2017-05-15] MEDS: CLINDAMYCIN HCL 150 MG CAPSULE (FP) PO SCH ×3 (00:05→12:03)
[2017-05-15] MEDS: AMPICILLIN NA/SULBACTAM NA 3 GM in SODIUM CHLORIDE 100 ML IVPB SCH ×3 (01:23→12:04)
[2017-05-15] MEDS ORDERED: METHADONE HCL 10 MG TABLET ONE (06:08)
[2017-05-15] MEDS ORDERED: METHADONE HCL 40 MG DISPERSABLE TABLET ONE (06:08)
[2017-05-15] MEDS: HEPARIN NA (PORCINE) 5,000 UNITS/ML 1ML VIAL SQ SCH ×3 (06:26→22:04)
[2017-05-15] MEDS: ALPRAZolam 2 MG TABLET PO PRN ×3 (06:27→22:03)
[2017-05-15] MEDS: GABAPENTIN 400 MG CAPSULE (FP) PO SCH ×3 (06:27→22:03)
[2017-05-15] MEDS: LEVOTHYROXINE NA 75 MCG TABLET (FP) PO SCH (06:27)
[2017-05-15] MEDS: METHADONE 40 MG, METHADONE 30 MG PO SCH (06:28)
[2017-05-15] MEDS ORDERED: QUEtiapine FUMARATE 25 MG TABLET (FP) ONE (09:10)
[2017-05-15] MEDS ORDERED: PT OWN MED DRAWER 7, Y5N ONE ×3 (09:10→13:48)
[2017-05-15] MEDS: cloNIDine HCL 0.1 MG TABLET PO SCH ×2 (09:15→22:03)
[2017-05-15] MEDS: LURASIDONE HCL 40 MG TABLET PO SCH (09:15)
[2017-05-15] MEDS: lamoTRIgine 100 MG TABLET (FP) PO SCH ×2 (09:16→22:03)
[2017-05-15] MEDS: LEVOFLOXACIN 250 MG TABLET (FP) PO SCH (09:16)
[2017-05-15] MEDS: NICOTINE 14 MG/24 HOURS TOPICAL PATCH TD SCH (09:16)
[2017-05-15] MEDS: QUEtiapine FUMARATE 50 MG TABLET PO SCH (09:17)
--- NOTE | 2017-05-15 10:36 | PN ---
Physical Exam: SUBJECTIVE: Patient seen and examined. Requesting EJ placement. Pain to right upper arm at extravasation site. Denies f/c. OBJECTIVE: Vital Signs 3 Period Temp Pulse Resp BP Sys/Nash Pulse Ox Last 24 Hr 97.5 F-98.3 F 58-88 18-20 92-102/52-68 97 GENERAL: The patient is awake, alert, and fully oriented, in no acute distress. LUNGS: Breath sounds equal, clear to auscultation bilaterally, no wheezes, no crackles, no accessory muscle use. HEART: Regular rate and rhythm, S1, S2 without murmur. ABDOMEN: Soft, nontender, nondistended, normoactive bowel sounds, no guarding. EXTREMITIES: 2+ pulses, warm, well-perfused, no edema. NEUROLOGICAL: Cranial nerves II through XII grossly intact. Normal speech, gait steady. PSYCH: Normal mood, normal affect. SKIN: Warm, dry, normal turgor, no rashes or lesions noted Active Medications 3 Generic Name Dose Route Start Last Admin Trade Name Freq PRN Reason Stop Dose Admin Alprazolam 2 mg 05/14/17 18:21 05/15/17 06:27 Xanax - PO 2 mg TID PRN Administration ANXIETY Clindamycin HCl 300 mg 05/15/17 00:00 05/15/17 06:27 Cleocin - PO 300 mg Q6HPO JAMEEL Administration Clonidine 0.2 mg 05/13/17 10:00 05/15/17 09:15 Catapres - PO 0.2 mg BID JAMEEL Administration Gabapentin 800 mg 05/13/17 06:00 05/15/17 06:27 Neurontin - PO 800 mg TID JAMEEL Administration Heparin Sodium (Porcine) 5,000 unit 05/13/17 06:00 05/15/17 06:26 Heparin - SQ 5,000 unit TID JAMEEL Administration Ampicillin Sodium/Sulbactam 100 mls @ 200 mls/hr 05/13/17 10:00 05/15/17 09:08 Sodium 3 gm/ Sodium Chloride IVPB Not Given Q8H-IV JAMEEL Vancomycin HCl 1,250 mg/ 250 mls @ 166.667 mls/hr 05/13/17 16:00 05/14/17 15:24 Dextrose IVPB 166.667 mls/hr Q24H JAMEEL Administration Protocol Lamotrigine 100 mg 05/13/17 10:00 05/15/17 09:16 Lamictal - PO 100 mg BID JAMEEL Administration Levofloxacin 250 mg 05/14/17 19:15 05/15/17 09:16 Levaquin - PO 05/17/17 19:14 250 mg DAILY JAMEEL Administration Levothyroxine Sodium 75 mcg 05/13/17 07:00 05/15/17 06:27 Synthroid - PO 75 mcg DAILY@0700 [facility] Administration Lurasidone HCl 40 mg 05/13/17 10:00 05/15/17 09:15 Latuda - PO 40 mg DAILY JAMEEL Administration Methadone HCl 40 mg/ Methadone 70 mg 05/13/17 08:45 05/15/17 06:28 HCl 30 mg PO 70 mg DAILY@0600 [facility] Administration Mirtazapine 30 mg 05/13/17 22:00 05/14/17 21:39 Remeron - PO 30 mg HS [facility] Administration Nicotine 14 mg 05/14/17 16:45 05/15/17 09:16 Nicoderm Patch - TD 14 mg DAILY [facility] Administration Prochlorperazine Maleate 25 mg 05/13/17 03:49 Compazine Suppository - MS BID PRN NAUSEA AND/OR VOMITING Quetiapine Fumarate 100 mg 05/13/17 04:00 05/14/17 21:40 Seroquel - PO 100 mg HS [facility] Administration Quetiapine Fumarate 50 mg 05/13/17 10:00 05/15/17 09:17 Seroquel - PO 50 mg DAILY JAMEEL Administration Microbiology 05/13/17 18:00 Nares - Mrsa Screen - Left MRSA Screen - Final Mr S Aureus 05/13/17 10:26 Cellulitis Gram Stain - Final 05/13/17 10:26 Cellulitis Wound Culture - Final Mr S Aureus Pending Organism 05/13/17 00:25 Urine - Urine Clean Catch Urine Culture - Final Escherichia Coli 05/13/17 00:25 Blood - Peripheral Venous Blood Culture - Preliminary Staphylococcus Coagulase Neg 05/13/17 00:25 Blood - Peripheral Venous Blood Culture - Preliminary NO GROWTH OBTAINED AFTER 48 HOURS, INCUBATION TO CONTINUE FOR 3 DAYS. ASSESSMENT/PLAN: A: 31 yo woman with PMH multiple MRSA infections s/p IVDA with MRSA cellulitis and E. coli UTI. COWS-0 P: 1. - wound cx- MRSA with resistance to clindamycin - EJ placed for IV Vancomycin - continue Vanco 2. Extravasation of vesicant - erythema improved with no ulceration present - continue cold packs prn - monitor 3. MRSA- nares - mupirocin IN 4. UTI - urine cx- E. coli - stop Unasyn - continue Levaquin 5. IVDA - repeat echo - Methadone 6. Hypothyroidism -Synthroid 7. Bipolar d/o - Seroquel - Remeron - Latuda - Klonopin - Neurontin 8. Smoking cessation - Counseling offered and refused - nicotine patch 9. F/E/N - Low Na diet - replete PRN 10. PPX - Sqh Dispo- requires continued inpatient care of her acute medical conditions. Will need new PMD on d/c. Visit type - Emergency Visit Emergency Visit: Yes ED Registration Date: 05/13/17 Care time: The patient presented to the Emergency Department on the above date and was hospitalized for further evaluation of their emergent condition. - New Patient This patient is new to me today: Yes Date on this admission: 05/17/17 - Critical Care Critical Care patient: No
[2017-05-15] MEDS: VANCOMYCIN 1,250 MG in DEXTROSE 5%-WATER - 250 ML IVPB SCH (15:19)
--- NOTE | 2017-05-15 15:23 | PN ---
Progress Note, Physician Chief Complaint: INFECTIOUS DISEASE PROGRESS NOTE History of Present Illness: Pt. complains of less dysuria Afebrile, no chills, decreased Rt wrist /RUE pain IV access obtained - Current Medication List Current Medications: Active Medications Alprazolam (Xanax -) 2 mg PO TID PRN PRN Reason: ANXIETY Last Admin: 05/15/17 12:09 Dose: 2 mg Clonidine (Catapres -) 0.2 mg PO BID [facility] Last Admin: 05/15/17 09:15 Dose: 0.2 mg Gabapentin (Neurontin -) 800 mg PO TID [facility] Last Admin: 05/15/17 13:52 Dose: 800 mg Heparin Sodium (Porcine) (Heparin -) 5,000 unit SQ TID [facility] Last Admin: 05/15/17 13:53 Dose: 5,000 unit Vancomycin HCl 1,250 mg/ (Dextrose) 250 mls @ 166.667 mls/hr IVPB Q24H [facility] PRN Reason: Protocol Last Admin: 05/14/17 15:24 Dose: 166.667 mls/hr Lamotrigine (Lamictal -) 100 mg PO BID [facility] Last Admin: 05/15/17 09:16 Dose: 100 mg Levofloxacin (Levaquin -) 250 mg PO DAILY [facility] Stop: 05/17/17 19:14 Last Admin: 05/15/17 09:16 Dose: 250 mg Levothyroxine Sodium (Synthroid -) 75 mcg PO DAILY@0700 [facility] Last Admin: 05/15/17 06:27 Dose: 75 mcg Lurasidone HCl (Latuda -) 40 mg PO DAILY [facility] Last Admin: 05/15/17 09:15 Dose: 40 mg Methadone HCl 40 mg/ Methadone (HCl 30 mg) 70 mg PO DAILY@0600 [facility] Last Admin: 05/15/17 06:28 Dose: 70 mg Mirtazapine (Remeron -) 30 mg PO [facility] Last Admin: 05/14/17 21:39 Dose: 30 mg Nicotine (Nicoderm Patch -) 14 mg TD DAILY [facility] Last Admin: 05/15/17 09:16 Dose: 14 mg Prochlorperazine Maleate (Compazine Suppository -) 25 mg MD BID PRN PRN Reason: NAUSEA AND/OR VOMITING Quetiapine Fumarate (Seroquel -) 100 mg PO [facility] Last Admin: 05/14/17 21:40 Dose: 100 mg Quetiapine Fumarate (Seroquel -) 50 mg PO DAILY [facility] Last Admin: 05/15/17 09:17 Dose: 50 mg - Objective Vital Signs: Vital Signs Temperature 98.0 F 05/15/17 08:47 Pulse Rate 86 05/15/17 08:47 Respiratory Rate 20 05/15/17 08:47 Blood Pressure 102/68 05/15/17 08:47 O2 Sat by Pulse Oximetry (%) 97 05/14/17 21:00 Constitutional: Yes: No Distress Wound/Incision: Yes: Other (Rt hand/wrist edema decreased, less erythema, less d /c) Labs: CBC, BMP 05/14/17 06:00 05/14/17 06:00 INR, PTT INR 1.24 (0.82-1.09) H 05/13/17 00:25 Problem List - Problems (1) Cellulitis and abscess of hand Code(s): L03.119 - CELLULITIS OF UNSPECIFIED PART OF LIMB L02.519 - CUTANEOUS ABSCESS OF UNSPECIFIED HAND (2) UTI (urinary tract infection) Code(s): N39.0 - URINARY TRACT INFECTION, SITE NOT SPECIFIED Assessment/Plan CBC, BMP 05/14/17 06:00 05/14/17 06:00 Microbiology 05/13/17 18:00 Nares - Mrsa Screen - Right MRSA Screen - Final NO MRSA ISOLATED 05/13/17 10:26 Cellulitis Gram Stain - Final 05/13/17 10:26 Cellulitis Wound Culture - Final Mr S Aureus 05/13/17 18:00 Nares - Mrsa Screen - Left MRSA Screen - Final Mr S Aureus 05/13/17 00:25 Urine - Urine Clean Catch Urine Culture - Final Escherichia Coli 05/13/17 00:25 Blood - Peripheral Venous Blood Culture - Preliminary Staphylococcus Coagulase Neg 05/13/17 00:25 Blood - Peripheral Venous Blood Culture - Preliminary NO GROWTH OBTAINED AFTER 48 HOURS, INCUBATION TO CONTINUE FOR 3 DAYS. Rt hand/wrist MRSA cellulitis UTI - symptoms improving - resume Vancomycin IV, plan switch to p.o. - contact precautions, dressing intact - continue levaquin pt stable
[2017-05-15] MEDS: QUEtiapine FUMARATE 100 MG TABLET (FP) PO SCH (22:04)
[2017-05-15] MEDS: MIRTAZAPINE 30 MG TABLET (FP) PO SCH (22:04)
[2017-05-16] MEDS ORDERED: METHADONE HCL 10 MG TABLET ONE (06:25)
[2017-05-16] MEDS ORDERED: METHADONE HCL 40 MG DISPERSABLE TABLET ONE (06:25)
[2017-05-16] MEDS: LEVOTHYROXINE NA 75 MCG TABLET (FP) PO SCH (06:36)
[2017-05-16] MEDS: ALPRAZolam 2 MG TABLET PO PRN ×3 (06:36→22:06)
[2017-05-16] MEDS: GABAPENTIN 400 MG CAPSULE (FP) PO SCH ×3 (06:36→22:07)
[2017-05-16] MEDS: METHADONE 40 MG, METHADONE 30 MG PO SCH (06:36)
[2017-05-16] MEDS: HEPARIN NA (PORCINE) 5,000 UNITS/ML 1ML VIAL SQ SCH ×3 (06:37→22:07)
[2017-05-16 08:20] LABS: EOSINOPHIL 2.5 % (0-4.5); MCH 27.7 pg (25.7-33.7); MCHC 34.2 g/dl (32.0-36.0); MEAN CELL VOLUME 80.8 fl (80-96); MEAN PLT VOLUME 8.5 fl (7.5-11.1); NEUTROPHILS 47.7 % (42.8-82.8); PLATELET COUNT 206 K/MM3 (134-434); RDW 13.8 % (11.6-15.6)
[2017-05-16 08:40] LABS: ANION GAP 7 (8-16); CALCIUM 9.3 mg/dL (8.5-10.1); CO2 29 mmol/L (21-32); CREATININE 0.8 mg/dL (0.55-1.02); GLUCOSE,RANDOM 80 mg/dL (74-106)
[2017-05-16] MEDS ORDERED: QUEtiapine FUMARATE 25 MG TABLET (FP) ONE ×2 (10:31→10:34)
[2017-05-16] MEDS: lamoTRIgine 100 MG TABLET (FP) PO SCH ×2 (10:40→22:05)
[2017-05-16] MEDS: LEVOFLOXACIN 250 MG TABLET (FP) PO SCH (10:40)
[2017-05-16] MEDS: NICOTINE 14 MG/24 HOURS TOPICAL PATCH TD SCH (10:41)
[2017-05-16] MEDS: cloNIDine HCL 0.1 MG TABLET PO SCH ×2 (10:41→22:07)
[2017-05-16] MEDS: QUEtiapine FUMARATE 50 MG TABLET PO SCH (10:42)
[2017-05-16] MEDS: LURASIDONE HCL 40 MG TABLET PO SCH (11:57)
--- NOTE | 2017-05-16 12:46 | PN ---
Physical Exam: SUBJECTIVE: Patient seen and examined. She denies fever. She has a new area erythema and flutuance to LA. Pt said IV was attempted to area, OBJECTIVE: Vital Signs Period Temp Pulse Resp BP Sys/Nash Pulse Ox Last 24 Hr 97.9 F-98.5 F 73-88 18-20 101-122/54-64 98 PE Neuro: alert, awake, cn -12 intact Pulm: CTAB CV: s1s2 rrr no mrg Abd: s nt nd + bs Skin: RUE swelling less, erythema resolved, L AC with reddened blood draw site with proximal fluctuate fluid collection + tenderness : buttock pustuals, dry, not draining, mildly reddened Laboratory Results - last 24 hr 05/16/17 05/16/17 06:00 06:00 WBC 5.0 RBC 4.63 Hgb 12.8 Hct 37.4 MCV 80.8 MCH 27.7 MCHC 34.2 RDW 13.8 Plt Count 206 MPV 8.5 Neutrophils % 47.7 Lymphocytes % 41.2 H Monocytes % 7.6 Eosinophils % 2.5 Basophils % 1.0 Sodium 137 Potassium 4.0 Chloride 101 Carbon Dioxide 29 Anion Gap 7 L BUN 12 Creatinine 0.8 Random Glucose 80 Calcium 9.3 Active Medications Generic Name Dose Route Start Last Admin Trade Name Narinder PRN Reason Stop Dose Admin Alprazolam 2 mg 05/14/17 18:21 05/16/17 06:36 Xanax - PO 2 mg TID PRN Administration ANXIETY Bacitracin 1 applic 05/16/17 12:30 Bacitracin - TP DAILY JAMEEL Clonidine 0.2 mg 05/13/17 10:00 05/16/17 10:41 Catapres - PO 0.2 mg BID JAMEEL Administration Gabapentin 800 mg 05/13/17 06:00 05/16/17 06:36 Neurontin - PO 800 mg TID JAMEEL Administration Heparin Sodium (Porcine) 5,000 unit 05/13/17 06:00 05/16/17 06:37 Heparin - SQ Not Given TID JAMEEL Vancomycin HCl 1,250 mg/ 250 mls @ 166.667 mls/hr 05/13/17 16:00 05/15/17 15:19 Dextrose IVPB 166.667 mls/hr Q24H JAMEEL Administration Protocol Lamotrigine 100 mg 05/13/17 10:00 05/16/17 10:40 Lamictal - PO 100 mg BID JAMEEL Administration Levofloxacin 250 mg 05/14/17 19:15 05/16/17 10:40 Levaquin - PO 05/17/17 19:14 250 mg DAILY [facility]EL Administration Levothyroxine Sodium 75 mcg 05/13/17 07:00 05/16/17 06:36 Synthroid - PO 75 mcg DAILY@0700 J[facility]EL Administration Lurasidone HCl 40 mg 05/13/17 10:00 05/16/17 11:57 Latuda - PO 40 mg DAILY [facility] Administration Methadone HCl 40 mg/ Methadone 70 mg 05/13/17 08:45 05/16/17 06:36 HCl 30 mg PO 70 mg DAILY@0600 [facility] Administration Mirtazapine 30 mg 05/13/17 22:00 05/15/17 22:04 Remeron - PO 30 mg HS JAMEEL Administration Nicotine 14 mg 05/14/17 16:45 05/16/17 10:41 Nicoderm Patch - TD 14 mg DAILY [facility] Administration Prochlorperazine Maleate 25 mg 05/13/17 03:49 Compazine Suppository - MD BID PRN NAUSEA AND/OR VOMITING Quetiapine Fumarate 100 mg 05/13/17 04:00 05/15/17 22:04 Seroquel - PO 100 mg HS JAMEEL Administration Quetiapine Fumarate 50 mg 05/13/17 10:00 05/16/17 10:42 Seroquel - PO 50 mg DAILY JAMEEL Administration Microbiology 05/13/17 00:25 Blood - Peripheral Venous Blood Culture - Final Staphylococcus Epidermidis 05/13/17 00:25 Blood - Peripheral Venous Blood Culture - Preliminary NO GROWTH OBTAINED AFTER 72 HOURS, INCUBATION TO CONTINUE FOR 2 DAYS. 05/13/17 18:00 Nares - Mrsa Screen - Right MRSA Screen - Final NO MRSA ISOLATED 05/13/17 10:26 Cellulitis Gram Stain - Final 05/13/17 10:26 Cellulitis Wound Culture - Final Mr S Aureus 05/13/17 18:00 Nares - Mrsa Screen - Left MRSA Screen - Final Mr S Aureus 05/13/17 00:25 Urine - Urine Clean Catch Urine Culture - Final Escherichia Coli Assessment: 31 year old female with PMH IVDA, MRSA cellulitis, hypothyroidism, HTN, HLD (no longer on gemfibrozil), CVA 2012, seizure sdisorder, bipolar disease, anxiety admitted with cellulitis to right posterior hand/wrist. Plan: 1. MRSA Cellulitis to right hand and wrist - Repeat BC negative - Will need vanco trough before todays dose - Vancomycin (day 4) 2. RUE extravasation - Improved, continue hot compress 3. L AC fluctuance - Due to blood draw/PIV insertion - Elevate with hot compress - Monitor closely 4. E. coli UTI - Stop levaquin - Start augmentin 5. IVDU - Will need repeat echo 6. HTN - Cont clonidine 7. Hypothyroidism - Continue synthroid 8. Bipolar D/O and anxiety - Gabapentin 800mg tid - Latuda 40mg qd - Seroquel 50mg daily - Seroquel 100mg HS - Remeron 30mg hs - Clonazepam 9. Smoking cessation - Nicotine patch 10. DVT PPX - Heparin q8 Visit type - Emergency Visit Emergency Visit: Yes ED Registration Date: 05/13/17 Care time: The patient presented to the Emergency Department on the above date and was hospitalized for further evaluation of their emergent condition. - New Patient This patient is new to me today: No - Critical Care Critical Care patient: No
--- NOTE | 2017-05-16 15:13 | PN ---
Progress Note, Physician History of Present Illness: patient again very sleepy looks like her partner in the room patient cx report noted - Current Medication List Current Medications: Active Medications Alprazolam (Xanax -) 2 mg PO TID PRN PRN Reason: ANXIETY Last Admin: 05/16/17 13:41 Dose: 2 mg Amoxicillin/Clavulanate Potassium (Augmentin - 875mg Tablet) 1 tab PO BID@0800, 1730 [facility] Bacitracin (Bacitracin -) 1 applic TP DAILY [facility] Clonidine (Catapres -) 0.2 mg PO BID [facility] Last Admin: 05/16/17 10:41 Dose: 0.2 mg Gabapentin (Neurontin -) 800 mg PO TID [facility] Last Admin: 05/16/17 06:36 Dose: 800 mg Heparin Sodium (Porcine) (Heparin -) 5,000 unit SQ TID [facility] Last Admin: 05/16/17 06:37 Dose: Not Given Vancomycin HCl 1,250 mg/ (Dextrose) 250 mls @ 166.667 mls/hr IVPB Q24H [facility] PRN Reason: Protocol Last Admin: 05/15/17 15:19 Dose: 166.667 mls/hr Lamotrigine (Lamictal -) 100 mg PO BID [facility] Last Admin: 05/16/17 10:40 Dose: 100 mg Levothyroxine Sodium (Synthroid -) 75 mcg PO DAILY@0700 [facility] Last Admin: 05/16/17 06:36 Dose: 75 mcg Lurasidone HCl (Latuda -) 40 mg PO DAILY [facility] Last Admin: 05/16/17 11:57 Dose: 40 mg Methadone HCl 40 mg/ Methadone (HCl 30 mg) 70 mg PO DAILY@0600 [facility] Last Admin: 05/16/17 06:36 Dose: 70 mg Mirtazapine (Remeron -) 30 mg PO [facility] Last Admin: 05/15/17 22:04 Dose: 30 mg Nicotine (Nicoderm Patch -) 14 mg TD DAILY [facility] Last Admin: 05/16/17 10:41 Dose: 14 mg Prochlorperazine Maleate (Compazine Suppository -) 25 mg RI BID PRN PRN Reason: NAUSEA AND/OR VOMITING Quetiapine Fumarate (Seroquel -) 100 mg PO [facility] Last Admin: 05/15/17 22:04 Dose: 100 mg Quetiapine Fumarate (Seroquel -) 50 mg PO DAILY [facility] Last Admin: 05/16/17 10:42 Dose: 50 mg - Objective Vital Signs: Vital Signs Temperature 98.3 F 05/16/17 14:16 Pulse Rate 89 05/16/17 14:16 Respiratory Rate 18 05/16/17 14:16 Blood Pressure 107/58 05/16/17 14:16 O2 Sat by Pulse Oximetry (%) 98 05/15/17 21:00 Constitutional: Yes: No Distress, Calm Cardiovascular: Yes: Regular Rate and Rhythm Respiratory: Yes: Regular, CTA Bilaterally Gastrointestinal: Yes: Normal Bowel Sounds, Soft Musculoskeletal: Yes: WNL Extremities: Yes: WNL Neurological: Yes: Alert, Other Labs: CBC, BMP 05/16/17 06:00 05/16/17 06:00 INR, PTT INR 1.24 (0.82-1.09) H 05/13/17 00:25 Assessment/Plan 31yF with PMH IVDA, MRSA cellulitis, hypothyroidism, HTN, HLD, CVA 2012, seizure disorder, bipolar disease, coming [facility] with cellulitits of the hand and wrist on the right hand Cellulitis to right hand and wrist HTN/HLD Hypothyroidism Bipolar uti patients echo results noted plan continue vanco check vanco trough stopped levaquin and switched to augmentin rest continue current mgmt
[2017-05-16] MEDS: AMOX TR/POT CLAV 875MG/125MG TABLETS (FP) PO SCH (16:52)
[2017-05-16] MEDS: BACITRACIN 15 GM TUBE TOPICAL OINTMENT TP SCH (16:54)
[2017-05-16] MEDS ORDERED: PT OWN MED DRAWER 7, Y5N ONE ×2 (17:18→21:25)
[2017-05-16] MEDS: VANCOMYCIN 1,250 MG in DEXTROSE 5%-WATER - 250 ML IVPB SCH (17:22)
[2017-05-16] MEDS ORDERED: MIRTAZAPINE 15 MG TABLET (FP) ONE (21:24)
[2017-05-16] MEDS: MIRTAZAPINE 30 MG TABLET (FP) PO SCH (22:06)
[2017-05-16] MEDS: QUEtiapine FUMARATE 100 MG TABLET (FP) PO SCH (22:06)
[2017-05-16] MEDS: DOXYCYCLINE HYCLATE 100 MG CAPSULE PO SCH (22:06)
[2017-05-17] MEDS ORDERED: METHADONE HCL 10 MG TABLET ONE (06:23)
[2017-05-17] MEDS ORDERED: METHADONE HCL 40 MG DISPERSABLE TABLET ONE (06:23)
[2017-05-17] MEDS: METHADONE 40 MG, METHADONE 30 MG PO SCH (06:45)
[2017-05-17] MEDS: LEVOTHYROXINE NA 75 MCG TABLET (FP) PO SCH (06:45)
[2017-05-17] MEDS: GABAPENTIN 400 MG CAPSULE (FP) PO SCH ×3 (06:45→23:23)
[2017-05-17] MEDS: HEPARIN NA (PORCINE) 5,000 UNITS/ML 1ML VIAL SQ SCH ×3 (06:46→23:24)
[2017-05-17] MEDS: ALPRAZolam 2 MG TABLET PO PRN ×3 (06:46→20:41)
[2017-05-17] MEDS ORDERED: QUEtiapine FUMARATE 25 MG TABLET (FP) ONE (09:25)
[2017-05-17] MEDS ORDERED: PT OWN MED DRAWER 7, Y5N ONE (09:25)
[2017-05-17] MEDS: cloNIDine HCL 0.1 MG TABLET PO SCH ×2 (09:32→23:24)
[2017-05-17] MEDS: NICOTINE 14 MG/24 HOURS TOPICAL PATCH TD SCH (09:34)
[2017-05-17] MEDS: DOXYCYCLINE HYCLATE 100 MG CAPSULE PO SCH ×2 (09:34→19:07)
[2017-05-17] MEDS: AMOX TR/POT CLAV 875MG/125MG TABLETS (FP) PO SCH ×2 (09:35→17:06)
[2017-05-17] MEDS: LURASIDONE HCL 40 MG TABLET PO SCH (09:39)
[2017-05-17] MEDS: QUEtiapine FUMARATE 50 MG TABLET PO SCH (09:40)
[2017-05-17] MEDS: lamoTRIgine 100 MG TABLET (FP) PO SCH ×2 (09:42→23:26)
[2017-05-17] MEDS: BACITRACIN 15 GM TUBE TOPICAL OINTMENT TP SCH (09:43)
--- NOTE | 2017-05-17 13:46 | PN ---
Progress Note, Physician History of Present Illness: patient stable lost iv access again wound starting to dry though has some intermittent drainage patient keeps on scratching - Current Medication List Current Medications: Active Medications Alprazolam (Xanax -) 2 mg PO TID PRN PRN Reason: ANXIETY Last Admin: 05/17/17 06:46 Dose: 2 mg Amoxicillin/Clavulanate Potassium (Augmentin - 875mg Tablet) 1 tab PO BID@0800, 1730 [facility] Last Admin: 05/17/17 09:35 Dose: 1 tab Bacitracin (Bacitracin -) 1 applic TP DAILY [facility] Last Admin: 05/17/17 09:43 Dose: 1 applic Clonidine (Catapres -) 0.2 mg PO BID [facility] Last Admin: 05/17/17 09:32 Dose: 0.2 mg Doxycycline Hyclate (Vibramycin -) 100 mg PO BID@1000,1800 [facility] Last Admin: 05/17/17 09:34 Dose: 100 mg Gabapentin (Neurontin -) 800 mg PO TID [facility] Last Admin: 05/17/17 06:45 Dose: 800 mg Heparin Sodium (Porcine) (Heparin -) 5,000 unit SQ TID [facility] Last Admin: 05/17/17 06:46 Dose: Not Given Vancomycin HCl 1,250 mg/ (Dextrose) 250 mls @ 166.667 mls/hr IVPB Q24H [facility] PRN Reason: Protocol Last Admin: 05/16/17 17:22 Dose: 166.667 mls/hr Lamotrigine (Lamictal -) 100 mg PO BID [facility] Last Admin: 05/17/17 09:42 Dose: 100 mg Levothyroxine Sodium (Synthroid -) 75 mcg PO DAILY@0700 [facility] Last Admin: 05/17/17 06:45 Dose: 75 mcg Lurasidone HCl (Latuda -) 40 mg PO DAILY [facility] Last Admin: 05/17/17 09:39 Dose: 40 mg Methadone HCl 40 mg/ Methadone (HCl 30 mg) 70 mg PO DAILY@0600 [facility] Last Admin: 05/17/17 06:45 Dose: 70 mg Mirtazapine (Remeron -) 30 mg PO HS [facility] Last Admin: 05/16/17 22:06 Dose: 30 mg Nicotine (Nicoderm Patch -) 14 mg TD DAILY [facility] Last Admin: 05/17/17 09:34 Dose: 14 mg Ondansetron HCl (Zofran -) 4 mg PO Q6H PRN PRN Reason: NAUSEA Prochlorperazine Maleate (Compazine Suppository -) 25 mg MD BID PRN PRN Reason: NAUSEA AND/OR VOMITING Quetiapine Fumarate (Seroquel -) 100 mg PO HS [facility] Last Admin: 05/16/17 22:06 Dose: 100 mg Quetiapine Fumarate (Seroquel -) 50 mg PO DAILY [facility] Last Admin: 05/17/17 09:40 Dose: 50 mg - Objective Vital Signs: Vital Signs Temperature 98.0 F 05/17/17 09:08 Pulse Rate 76 05/17/17 09:08 Respiratory Rate 20 05/17/17 09:08 Blood Pressure 94/67 05/17/17 09:08 O2 Sat by Pulse Oximetry (%) 95 05/16/17 21:00 Constitutional: Yes: No Distress, Calm Cardiovascular: Yes: Regular Rate and Rhythm Respiratory: Yes: Regular, CTA Bilaterally Gastrointestinal: Yes: Normal Bowel Sounds, Soft Musculoskeletal: Yes: Other Extremities: Yes: Other (cellulitits of the hand improving wound drying minimal draiange) Wound/Incision: Yes: Open to air, Other Neurological: Yes: Alert, Oriented Psychiatric: Yes: Alert Labs: CBC, BMP 05/16/17 06:00 05/16/17 06:00 INR, PTT INR 1.24 (0.82-1.09) H 05/13/17 00:25 Assessment/Plan 31yF with PMH IVDA, MRSA cellulitis, hypothyroidism, HTN, HLD, CVA 2012, seizure disorder, bipolar disease, coming to [facility] with cellulitits of the hand and wrist on the right hand Cellulitis to right hand and wrist HTN/HLD Hypothyroidism Bipolar uti plan changed abx to doxy also continue augmentin incentive janey patient very drowsy
--- NOTE | 2017-05-17 15:02 | PN ---
Physical Exam: SUBJECTIVE: Patient seen and examined. She is lethargic appearing, and vigorously itching her R hand wound site. Events: - Infiltrated L leg PIV site, no erythema noted OBJECTIVE: Vital Signs Period Temp Pulse Resp BP Sys/Nash Pulse Ox Last 24 Hr 97.8 F-98.3 F 59-80 18-20 90-127/50-73 95 PE Neuro: lethargic, awake, cn 2-12intact HEENT: poor dentition Pulm: CTAB CV: s1 s2 rrr no mrg Abd: s nt nd +bs Skin: R hand cellulitis drying, swelling less, mild erythema RUE swelling- improved, no raised skin L AC: reddness improved at site/scar tissue with proximal fluid collection indurated, swelling improved Laboratory Results - last 24 hr 05/16/17 15:00 Vancomycin Pre-Dose 3.687 L* Active Medications Generic Name Dose Route Start Last Admin Trade Name Freq PRN Reason Stop Dose Admin Alprazolam 2 mg 05/14/17 18:21 05/17/17 14:51 Xanax - PO 2 mg TID PRN Administration ANXIETY Amoxicillin/Clavulanate Potassium 1 tab 05/16/17 17:30 05/17/17 09:35 Augmentin - 875mg Tablet PO 1 tab BID@0800,1730 JAMEEL Administration Bacitracin 1 applic 05/16/17 12:30 05/17/17 09:43 Bacitracin - TP 1 applic DAILY [facility] Administration Clonidine 0.2 mg 05/13/17 10:00 05/17/17 09:32 Catapres - PO 0.2 mg BID JAME[facility] Administration Doxycycline Hyclate 100 mg 05/16/17 21:00 05/17/17 09:34 Vibramycin - PO 100 mg BID@1000,1800 J[facility] Administration Gabapentin 800 mg 05/13/17 06:00 05/17/17 06:45 Neurontin - PO 800 mg TID JAMEEL Administration Heparin Sodium (Porcine) 5,000 unit 05/13/17 06:00 05/17/17 14:51 Heparin - SQ Not Given TID JAMEEL Lamotrigine 100 mg 05/13/17 10:00 05/17/17 09:42 Lamictal - PO 100 mg BID [facility] Administration Levothyroxine Sodium 75 mcg 05/13/17 07:00 05/17/17 06:45 Synthroid - PO 75 mcg DAILY@0700 J[facility] Administration Lurasidone HCl 40 mg 05/13/17 10:00 05/17/17 09:39 Latuda - PO 40 mg DAILY [facility] Administration Methadone HCl 40 mg/ Methadone 70 mg 05/13/17 08:45 05/17/17 06:45 HCl 30 mg PO 70 mg DAILY@0600 [facility] Administration Mirtazapine 30 mg 05/13/17 22:00 05/16/17 22:06 Remeron - PO 30 mg HS [facility] Administration Nicotine 14 mg 05/14/17 16:45 05/17/17 09:34 Nicoderm Patch - TD 14 mg DAILY [facility] Administration Ondansetron HCl 4 mg 05/17/17 12:14 Zofran - PO Q6H PRN NAUSEA Prochlorperazine Maleate 25 mg 05/13/17 03:49 Compazine Suppository - [place] BID PRN NAUSEA AND/OR VOMITING Quetiapine Fumarate 100 mg 05/13/17 04:00 05/16/17 22:06 Seroquel - PO 100 mg HS JAMEEL Administration Quetiapine Fumarate 50 mg 05/13/17 10:00 05/17/17 09:40 Seroquel - PO 50 mg DAILY [facility] Administration Abx: - Vancomycin: 4 days Assessment: 31 year old female with PMH IVDA, MRSA cellulitis, hypothyroidism, HTN, HLD (no longer on gemfibrozil), CVA 2012, seizure sdisorder, bipolar disease, anxiety admitted with cellulitis to right posterior hand/wrist. Plan: 1. MRSA Cellulitis to right hand and wrist - IV access lost - Started on doxy 100mg BID - Continue Augmentin 875mg BID 2. RUE extravasation - Resolved 3. L AC fluctuance - Improving - Elevate with hot compress - Obtain US if worsening 4. E. coli UTI - Continue Augmentin BID (day 1) 5. IVDU - Will need repeat echo 6. HTN - Continue clonidine 7. Hypothyroidism - Continue synthroid 8. Bipolar D/O and anxiety - Gabapentin 800mg tid, consider decreasing to 600 if lethargy persists - Latuda 40mg qd - Seroquel 50mg daily - Seroquel 100mg HS - Remeron 30mg hs - Lamictal 100mg BID - xanax 2mg TID PRN 9. Smoking cessation - Nicotine patch 10. DVT PPX - Heparin q8 Visit type - Emergency Visit Emergency Visit: Yes ED Registration Date: 05/13/17 Care time: The patient presented to the Emergency Department on the above date and was hospitalized for further evaluation of their emergent condition. - New Patient This patient is new to me today: No - Critical Care Critical Care patient: No
[2017-05-17] MEDS: ONDANSETRON 4 MG TABLET PO PRN (17:10)
[2017-05-17] MEDS ORDERED: ALPRAZolam 2 MG TABLET PO ONE (19:15)
[2017-05-17] MEDS ORDERED: MIRTAZAPINE 15 MG TABLET (FP) ONE (20:38)
[2017-05-17] MEDS: QUEtiapine FUMARATE 100 MG TABLET (FP) PO SCH (23:23)
[2017-05-17] MEDS: MIRTAZAPINE 30 MG TABLET (FP) PO SCH (23:24)
[2017-05-18] MEDS ORDERED: METHADONE HCL 10 MG TABLET ONE (05:55)
[2017-05-18] MEDS ORDERED: METHADONE HCL 40 MG DISPERSABLE TABLET ONE (05:56)
[2017-05-18] MEDS: GABAPENTIN 400 MG CAPSULE (FP) PO SCH ×2 (06:12→14:51)
[2017-05-18] MEDS: METHADONE 40 MG, METHADONE 30 MG PO SCH (06:12)
[2017-05-18] MEDS: LEVOTHYROXINE NA 75 MCG TABLET (FP) PO SCH (06:13)
[2017-05-18] MEDS: HEPARIN NA (PORCINE) 5,000 UNITS/ML 1ML VIAL SQ SCH ×2 (06:13→14:51)
[2017-05-18] MEDS: ONDANSETRON 4 MG TABLET PO PRN ×2 (06:21→12:57)
[2017-05-18] MEDS: ALPRAZolam 2 MG TABLET PO PRN ×2 (06:39→12:57)
[2017-05-18] MEDS: AMOX TR/POT CLAV 875MG/125MG TABLETS (FP) PO SCH (08:15)
[2017-05-18] MEDS ORDERED: QUEtiapine FUMARATE 25 MG TABLET (FP) ONE (08:49)
[2017-05-18] MEDS ORDERED: PT OWN MED DRAWER 7, Y5N ONE (08:50)
[2017-05-18] MEDS: lamoTRIgine 100 MG TABLET (FP) PO SCH (09:08)
[2017-05-18] MEDS: NICOTINE 14 MG/24 HOURS TOPICAL PATCH TD SCH (09:08)
[2017-05-18] MEDS: cloNIDine HCL 0.1 MG TABLET PO SCH (09:08)
[2017-05-18] MEDS: DOXYCYCLINE HYCLATE 100 MG CAPSULE PO SCH (09:08)
[2017-05-18] MEDS: LURASIDONE HCL 40 MG TABLET PO SCH (09:09)
[2017-05-18] MEDS: QUEtiapine FUMARATE 50 MG TABLET PO SCH (09:09)
--- NOTE | 2017-05-18 13:29 | PN ---
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 pain noted no discharge - Current Medication List Current Medications: Active Medications Alprazolam (Xanax -) 2 mg PO TID PRN PRN Reason: ANXIETY Last Admin: 05/18/17 12:57 Dose: 2 mg Amoxicillin/Clavulanate Potassium (Augmentin - 875mg Tablet) 1 tab PO BID@0800, 1730 [facility] Last Admin: 05/18/17 08:15 Dose: 1 tab Bacitracin (Bacitracin -) 1 applic TP DAILY [facility] Last Admin: 05/17/17 09:43 Dose: 1 applic Clonidine (Catapres -) 0.2 mg PO BID [facility] Last Admin: 05/18/17 09:08 Dose: 0.2 mg Doxycycline Hyclate (Vibramycin -) 100 mg PO BID@1000,1800 [facility] Last Admin: 05/18/17 09:08 Dose: 100 mg Gabapentin (Neurontin -) 800 mg PO TID [facility] Last Admin: 05/18/17 06:12 Dose: 800 mg Heparin Sodium (Porcine) (Heparin -) 5,000 unit SQ TID [facility] Last Admin: 05/18/17 06:13 Dose: Not Given Lamotrigine (Lamictal -) 100 mg PO BID [facility] Last Admin: 05/18/17 09:08 Dose: 100 mg Levothyroxine Sodium (Synthroid -) 75 mcg PO DAILY@0700 [facility] Last Admin: 05/18/17 06:13 Dose: 75 mcg Lurasidone HCl (Latuda -) 40 mg PO DAILY [facility] Last Admin: 05/18/17 09:09 Dose: 40 mg Methadone HCl 40 mg/ Methadone (HCl 30 mg) 70 mg PO DAILY@0600 [facility] Last Admin: 05/18/17 06:12 Dose: 70 mg Mirtazapine (Remeron -) 30 mg PO HS [facility] Last Admin: 05/17/17 23:24 Dose: 30 mg Nicotine (Nicoderm Patch -) 14 mg TD DAILY [facility] Last Admin: 05/18/17 09:08 Dose: 14 mg Ondansetron HCl (Zofran -) 4 mg PO Q6H PRN PRN Reason: NAUSEA Last Admin: 05/18/17 12:57 Dose: 4 mg Prochlorperazine Maleate (Compazine Suppository -) [address] BID PRN PRN Reason: NAUSEA AND/OR VOMITING Quetiapine Fumarate (Seroquel -) 100 mg PO HS [facility] Last Admin: 05/17/17 23:23 Dose: 100 mg Quetiapine Fumarate (Seroquel -) 50 mg PO DAILY [facility] Last Admin: 05/18/17 09:09 Dose: 50 mg - Objective Vital Signs: Vital Signs Temperature 98.7 F 05/18/17 06:00 Pulse Rate 99 H 05/18/17 06:00 Respiratory Rate 20 05/18/17 06:00 Blood Pressure 141/67 05/18/17 06:00 O2 Sat by Pulse Oximetry (%) 95 05/17/17 10:00 Constitutional: Yes: No Distress, Calm Neck: Yes: Supple, Trachea Midline Cardiovascular: Yes: Regular Rate and Rhythm, Murmur, S1, S2 Respiratory: Yes: Regular, CTA Bilaterally Gastrointestinal: Yes: Normal Bowel Sounds, Soft Musculoskeletal: Yes: Other Extremities: Yes: Erythema (resolving), Other Wound/Incision: Yes: Clean/Dry, Open to air Neurological: Yes: Alert, Oriented Psychiatric: Yes: Alert, Oriented Labs: CBC, BMP 05/16/17 06:00 05/16/17 06:00 INR, PTT INR 1.24 (0.82-1.09) H 05/13/17 00:25 Assessment/Plan 31yF with PMH IVDA, MRSA cellulitis, hypothyroidism, HTN, HLD, CVA 2012, seizure disorder, bipolar disease, coming to [facility] with cellulitits of the hand and wrist on the right hand Cellulitis to right hand and wrist HTN/HLD Hypothyroidism Bipolar uti plan continue doxy 100 mg twice a day for 2 weeks monitor the hand avoidance of drugs rest as per primary
--- NOTE | 2017-05-18 13:38 | DS ---
Physical Exam: SUBJECTIVE: Patient seen and examined. She is has no complaints. The antibiotics makes her nauseous. Denies fever. OBJECTIVE: Vital Signs Period Temp Pulse Resp BP Sys/Nash Pulse Ox Last 24 Hr 98.0 F-98.7 F 70-99 16-20 103-141/58-67 PE Neuro: awake, alert, cn 2-12intact HEENT: poor dentition Pulm: CTAB CV: s1 s2 rrr no mrg Abd: s nt nd +bs Skin: R hand cellulitis drying, swelling less, mild erythema, no further drainage L AC: mild redness w/ scar tissue with proximal fluid collection indurated- no changes HOSPITAL COURSE: Date of Admission:05/13/17 Date of Discharge: 05/18/17 Minutes to complete discharge: 36 Discharge Summary Reason For Visit: UTI CELLULITIS AND ABSCESS OF HAND Current Active Problems Cellulitis and abscess of hand (Acute) Mononeuritis arm (Acute) UTI (urinary tract infection) (Acute) Hospital Course: Initial Hospital Course: Briefly, this 31 year old female with significant medical history for IVDA, MRSA cellulitis presented with redness and pain to right posterior wrist. Redness started 2 days. She also reports abscess to left antecubital area 2 weeks ago which "popped" after she took a shower. She self treated with amoxicillin and clindamycin from home. Pt also c/o "kidney pain" with burning on urination. She described the pain along both sides of her spine, mid/lower back. The pain in her right wrist feels like "3 rats moved in and all have heart beats". She denied chest pain but reports SOB especially on exertion. + nausea but denies abdominal pain or diarrhea. She attempted to use heroin IV but was unable to find a vein. She does not share needles but does not use a clean needle every time. She denies licking the needles for lubrication. She reports she did not attempt to find a vein in her right arm, only her left inner arm. Subsequent Hospital Course/Progress Note/Discharge Summary by a/p: Assessment: 31 year old female with PMH IVDA, MRSA cellulitis, hypothyroidism, HTN, HLD (no longer on gemfibrozil), CVA 2012, seizure sdisorder, bipolar disease, anxiety admitted with cellulitis to right posterior hand/wrist. Plan: 1. MRSA Cellulitis to right hand and wrist - IV access lost - Vanco x4 days - Xray negative for free air - Home doxy 100mg BID x14 days 2. RUE extravasation 05/14 - Resolved 3. L AC fluctuance - Improved 4. E. coli UTI - Treated with augmentin and levaquin as inpt 5. IVDU - Methadone 70mg daily 6. HTN - Continue clonidine 7. Hypothyroidism - Continue synthroid 8. Bipolar D/O and anxiety - Gabapentin 800mg tid, consider decreasing to 600 if lethargy persists - Latuda 40mg qd - Seroquel 50mg daily - Seroquel 100mg HS - Remeron 30mg hs - Lamictal 100mg BID - xanax 2mg TID PRN Dispo: - Home with above antibiotics, called insurance for pre approval - To keep appt with psychitrist tomorrow 05/19 @1pm Condition: Stable - Instructions Diet, Activity, Other Instructions: Please return to the ED for any new, persistent, or worsening symptoms. Follow up with your PCP in 1 week Keep scheduled appt with psychiatrist Dr. Jimenez on 05/19 they are expecting you 1pm Continue medications as listed on home medication list Continue antibiotics as directed and until completed Refrain from excessive itching to wound sites and use of needles Disposition: HOME - Home Medications Comprehensive Discharge Medication List: Ambulatory Orders Gabapentin [Neurontin] 800 mg PO TID 05/21/15 Methadone [Dolophine -] 70 mg PO DAILY 04/09/16 Lurasidone HCl [Latuda -] 40 mg PO DAILY #30 tablet 10/12/16 Mirtazapine [Remeron -] 30 mg PO HS #1 tablet 11/25/16 Clonidine HCl 0.2 mg PO BID 05/13/17 Levothyroxine [Synthroid -] 75 mcg PO DAILY 05/13/17 Quetiapine Fumarate [Seroquel -] 50 mg PO DAILY 05/13/17 Quetiapine Fumarate [Seroquel] 100 mg PO HS 05/13/17 Alprazolam [Xanax] 2 mg PO TID PRN #0 tab 05/18/17 Doxycycline Hyclate [Vibramycin -] 100 mg PO BID #14 cap 05/18/17 Problem List - Problems (1) MRSA (methicillin resistant staph aureus) culture positive Code(s): Z22.322 - CARRIER OR SUSPECTED CARRIER OF METHICILLIN RESIS STAPH This patient is new to me today: No Emergency Visit: Yes ED Registration Date: 05/13/17 Care time: The patient presented to the Emergency Department on the above date and was hospitalized for further evaluation of their emergent condition. Critical Care patient: No - Discharge Referral Referred to [facility] Med [facility] No
[2017-05-18 14:38] VITALS: BP 100/64; PULSE 84; TEMP 97.8
[2017-05-18] MEDS: BACITRACIN 15 GM TUBE TOPICAL OINTMENT TP SCH (14:53)
== END 2017-05-18 15:33 | disposition home or self-care (01) | DRG 383 ==
LOC: JER 23:12 → JERBED 05-13 02:23 → UNDOADMIN 05-13 02:32 → J8W 05-13 07:38
PROVIDERS: ADMIT Internal Medicine; ATTEND Nurse Practitioner Acute Care
DX: L03.113 Cellulitis of right upper limb (principal); T80.89XA Other complications following infusion, transfusion and therapeutic injection, initial encounter; L02.519 Cutaneous abscess of unspecified hand; I07.1 Rheumatic tricuspid insufficiency; E03.9 Hypothyroidism, unspecified; F17.210 Nicotine dependence, cigarettes, uncomplicated; I10 Essential (primary) hypertension; E78.5 Hyperlipidemia, unspecified; G40.802 Other epilepsy, not intractable, without status epilepticus; F31.89 Other bipolar disorder; F41.8 Other specified anxiety disorders; K76.0 Fatty (change of) liver, not elsewhere classified; F14.10 Cocaine abuse, uncomplicated; F12.10 Cannabis abuse, uncomplicated; F19.20 Other psychoactive substance dependence, uncomplicated; A49.02 Methicillin resistant Staphylococcus aureus infection, unspecified site; N39.0 Urinary tract infection, site not specified; B96.29 Other Escherichia coli [E. coli] as the cause of diseases classified elsewhere; Z86.73 Personal history of transient ischemic attack (TIA), and cerebral infarction without residual deficits
CPT/HCPCS: 36415; 73110-TC-RT; 73130-TC-RT; 80048; 80053; 80307; 81003; 81015; 82550; 82803; 83605; 83735; 84100; 84484; 84703; 85025; 85610; 85651; 85730; 86140; 86850; 86900; 86901; 87040; 87070; 87081; 87086; 87186; 87205; 87389; 93005; 93010; 93306-TC; 99284-25; G0480; J1644

== ENCOUNTER 2017-10-09 06:42 | Emergency (ER) | payer OTHER ==
--- NOTE | 2017-10-09 07:15 | PDOC ---
History of Present Illness - General Chief Complaint: Nausea/Vomiting Stated Complaint: VOMITING Time Seen by Provider: 10/09/17 07:14 - History of Present Illness Initial Comments: Assessment: 31 year old female with PMH IVDA (on Methadone 70 daily), MRSA cellulitis, hypothyroidism, HTN, HLD (no longer on gemfibrozil), CVA 2012, seizure disorder, bipolar disease, anxiety (on Xanax), and MRSA cellulitis to right posterior hand/wrist presenting with N/V/D for the past 5 days. Patient states that she started having these symptoms after her Xanax and other medications were impound in her father's vehicle. Describes the vomiting as NBNB (2-3 episodes per day) and diarrhea (2-3 episodes per day) as non bloody. She also admits to subjective warmth (none actually measured) but denies new rashes or skin lesions. Although she is on Methadone, she did try to inject heroin a few days prior but had difficulty finding veins and then snorted it for the past few days because she was feeling anxious without her Xanax. Patient also mentioned some having endocarditis in the past but recent notes and recent echocardiogram only demonstrated mild MR, TR, and AR. Denies chest pain, SOB, joint pain, cough, or recent sick contacts. She was recently admitted from 05/12/17-05/18/17 for left antecubatal abscess that was positive for MRSA and treated with Vanc IV. 10/09/17 07:26 Past History - Past Medical History Allergies/Adverse Reactions: Allergies Allergy/AdvReac Type Severity Reaction Status Date / Time metoclopramide HCl Allergy Severe Swelling Verified 10/09/17 07:07 [From Reglan] Sulfa (Sulfonamide Allergy Intermediate Rash Verified 10/09/17 07:07 Antibiotics) Home Medications: Ambulatory Orders Alprazolam [Xanax] 2 mg PO QID 10/09/17 Clonidine HCl 0.2 mg PO BID 10/09/17 Dextroamphetamine/Amphetamine [Adderall Xr 30 mg Capsule] 60 mg PO DAILY Gabapentin [Neurontin] 600 mg PO TID 10/09/17 Methadone [Dolophine -] 70 mg PO DAILY 10/09/17 Ondansetron [Zofran Odt -] 4 mg SL TID PRN #21 od.tablet 10/09/17 Anemia: No Asthma: No Cancer: No Cardiac Disorders: No 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) COPD: No CHF: No Dementia: No Diabetes: No GI Disorders: No Disorders: Yes (UTI) HTN: Yes Hypercholesterolemia: Yes Kidney Stones: No Liver Disease: Yes (LIVER SWOLLEN) Seizures: Yes Thyroid Disease: Yes (HYPOTHYRODISM) - Surgical History Abdominal Surgery: Yes Appendectomy: Yes Cardiac Surgery: No Cholecystectomy: No Lung Surgery: No Neurologic Surgery: No Orthopedic Surgery: No - Reproductive History PID: No - Immunization History Immunization Up to Date: Yes - Suicide/Smoking/Psychosocial Hx Smoking Status: Yes Smoking History: Current every day smoker Have you smoked in the past 12 months: Yes Number of Cigarettes Smoked Daily: 10 Information on smoking cessation initiated: No 'Breaking Loose' booklet given: 05/13/17 Hx Alcohol Use: No Drug/Substance Use Hx: No Substance Use Type: None Hx Substance Use Treatment: Yes Review of Systems - Review of Systems Constitutional: Yes: Loss of Appetite. No: Chills HEENTM: No: Recent change in vision Respiratory: No: Cough, Shortness of Breath Cardiac (ROS): No: Chest Pain, Lightheadedness, Palpitations, Syncope ABD/GI: Yes: Diarrhea, Nausea, Vomiting. No: Constipated : No: Burning, Dysuria, Discharge Musculoskeletal: No: Back Pain, Joint Pain, Joint Swelling, Muscle Pain Integumentary: Yes: Lesions Neurological: Yes: Headache. No: Numbness Psychiatric: Yes: Anxiety, Stressors *Physical Exam - Vital Signs Last Vital Signs Temp Pulse Resp BP Pulse Ox 98.0 F 63 20 135/74 98 10/09/17 07:04 10/09/17 07:04 10/09/17 07:04 10/09/17 07:04 10/09/17 07:04 - Physical Exam General Appearance: Yes: Nourished, Appropriately Dressed. No: Apparent Distress HEENT: positive: EOMI, UBALDO, Normal ENT Inspection, Normal Voice, Pharynx Normal Neck: positive: Trachea midline, Normal Thyroid, Supple. negative: Tender, Rigid Respiratory/Chest: positive: Lungs Clear, Normal Breath Sounds. negative: Chest Tender, Respiratory Distress, Accessory Muscle Use Cardiovascular: positive: Regular Rhythm, Regular Rate. negative: Murmur Gastrointestinal/Abdominal: positive: Normal Bowel Sounds, Flat, Soft. negative : Tender Musculoskeletal: positive: Normal Inspection. negative: CVA Tenderness Extremity: positive: Normal Capillary Refill, Normal Inspection, Normal Range of Motion. negative: Tender Integumentary: positive: Dry, Warm. negative: Normal Color (scars and track frazier in bilateral antecubitals and old scarring on the backs of her hands. No erythema or warmth indicating new infection.), Erythema Neurologic: positive: Fully Oriented, Alert, Normal Mood/Affect, Normal Response ED Treatment Course - LABORATORY CBC & Chemistry Diagram: 10/09/17 08:00 10/09/17 08:00 Medical Decision Making - Medical Decision Making 32 year odl female with PMH of heroin abuse (on methadone but still abusing) and anxiety presenting for N/V/D due to "not using her medications" over the last 5 days. States that her medications were impounded in her father's vehicle. Per the [employer] search she had refills of her Xanax and Adderall on . She states that she attempted to call her psychiatrist (Dr. Yang) who is on vacation and unable re-prescribe her medications. This is likely an episode of infectious gastroenteritis vs. withdrawal vs. drug seeking behavior as her story is slightly suspicious. Furthermore, she has not vomited once without a health child care associate teacher in the room. Her mention of endocarditis is not corroborated by two echos (including one ILANA) performed this year both evidencing mild MR, TR, and AR but no prolapse or evidence of infectious thrombi / nidus. Regardless, given her subjective warmth (although afebrile here) and history of MRSA skin infection + recent IV drug use, some basic screening labs should be sent for endocarditis. The only of the Cervantes criteria that she meets currently is IV drug use as she has no obvious signs of thromboembolic phenomena. I suspect all this workup to return negative and this to be a one of the initial diagnoses. Will get CBC, CMP, RF, CRP, ESR, UA, Upreg, and Lipase. We confirmed her dose of methadone with Brenda Doss at [facility] methadone clinic. 10/09/17 08:14 CBC, CMP, and inflammatory markers all roughly WNL with the exception of serum glucose indicating possible diabetes. Pending Upreg, UA, and xanax/ methadone administration 10/09/17 10:06 Upreg and UA negtive for preg or infection. Toelrated methadone PO and xanax PO. Feels better after 1 NS. No N/V/D noticed in ED after initial two episodes when provider was in the room. Will send home with Zofran SLT. 10/09/17 11:17 *DC/Admit/Observation/Transfer Diagnosis at time of Disposition: Nausea & vomiting Qualifiers: Vomiting type: unspecified Vomiting Intractability: non-intractable Qualified Code(s): R11.2 - Nausea with vomiting, unspecified - Discharge Dispostion Disposition: HOME Condition at time of disposition: Improved Admit: No - Prescriptions Prescriptions: Ondansetron [Zofran Odt -] 4 mg SL TID PRN #21 od.tablet PRN Reason: Nausea And/Or Vomiting - Referrals - Patient Instructions Additional Instructions: You don't have any sign of liver, gallbladder, or other infection. Your urine is clean and you are not . Please take Zofran as needed for nausea/ vomiting. Please avoid using drugs. We gave you your Xanax and Methadone here. Please contact your psychiatrist for a new prescription of your medication. Please return if you ahve new or worsening symptoms. - Post Discharge Activity
[2017-10-09 07:17] VITALS: TEMP 98; BMI 21.9
[2017-10-09] MEDS ORDERED: SODIUM CHLORIDE 0.9% 1000 ML INFUS.BAG IV ONE (07:33)
[2017-10-09] MEDS ORDERED: ONDANSETRON 4 MG/2 ML VIAL IVPUSH ONE (07:35)
[2017-10-09] MEDS ORDERED: ONDANSETRON 4 MG/2 ML VIAL ONE (08:06)
[2017-10-09 08:21] LABS: BASOPHIL 0.6 % (0-2.0); EOSINOPHIL 0.4 % (0-4.5); MCH 27.4 pg (25.7-33.7); MCHC 33.1 g/dl (32.0-36.0); MEAN PLT VOLUME 7.8 fl (7.5-11.1); NEUTROPHILS 67.9 % (42.8-82.8); PLATELET COUNT 282 K/MM3 (134-434); RDW 14.6 % (11.6-15.6); WHITE BLOOD COUNT 10.2 K/mm3 (4.0-10.0)
[2017-10-09 08:42] LABS: ALBUMIN 4.3 g/dl (3.4-5.0); ANION GAP 7 (8-16); BILIRUBIN,TOTAL 0.7 mg/dL (0.2-1.0); CALCIUM 9.4 mg/dL (8.5-10.1); CO2 27 mmol/L (21-32); CREATININE 0.7 mg/dL (0.55-1.02); GLUCOSE,RANDOM 142 mg/dL (74-106); SGOT/AST 16 U/L (15-37); SGPT/ALT 29 U/L (12-78); TOT PROT 8.6 g/dl (6.4-8.2)
[2017-10-09 08:43] LABS: ALK PHOS 104 U/L (45-117)
[2017-10-09] MEDS ORDERED: METHADONE HCL 10 MG TABLET PO ONE (09:51)
[2017-10-09] MEDS ORDERED: ALPRAZolam 2 MG TABLET PO ONE (09:52)
[2017-10-09 10:09] LABS: URINE APPEARANCE SLCLOUDY; URINE BILIRUBIN NEGATIVE (NEGATIVE); URINE BLOOD NEGATIVE (NEGATIVE); URINE COLOR DKYELLOW; URINE GLUCOSE (UA) NEGATIVE (NEGATIVE); URINE KETONE TRACE (NEGATIVE); URINE LEUK ESTERASE TRACE (NEGATIVE); URINE NITRITE NEGATIVE (NEGATIVE); URINE UROBILINOGEN NEGATIVE mg/dL (0.2-1.0)
[2017-10-09] MEDS ORDERED: METHADONE HCL 10 MG TABLET ONE (10:11)
[2017-10-09] MEDS ORDERED: METHADONE HCL 40 MG DISPERSABLE TABLET ONE (10:11)
[2017-10-09] MEDS ORDERED: ALPRAZolam 2 MG TABLET ONE (10:11)
[2017-10-09 10:15] LABS: URINE PROTEIN 1+ (NEGATIVE)
[2017-10-09 10:24] LABS: URINE MUCUS RARE; URINE RBC 9 /hpf (0-3); URINE WBC 2 /hpf (3-5)
--- NOTE | 2017-10-09 10:39 | PDOC ---
Attending Attestation - Resident Resident Name: Williams Bowen - ED Attending Attestation I have performed the following: I have examined & evaluated the patient, The case was reviewed & discussed with the resident, I agree w/resident's findings & plan, Exceptions are as noted - HPI HPI: 10/09/17 10:41 32yo F PMH IVDA (on Methadone 70 daily), hypothyroidism, HTN, HLD, CVA 2013, seizure disorder, bipolar disease, anxiety (on Xanax), and MRSA cellulitis p/w N /V/D after running out of her xanax 1 week ago. Pt also reports diffuse abdominal discomfort. Patient states that she called her psychiatrist who prescribes her Xanax and Ritalin however she is on vacation. She reports she had similar symptoms in the past when she's withdrawn from her Xanax. Denies fevers, chills, chest pain, shortness of breath, headache, focal weakness or numbness, dysuria, urinary frequency or urgency. - Physicial Exam PE: 10/09/17 10:44 GENERAL: Awake, alert, and fully oriented, appears uncomfortable HEAD: No signs of trauma EYES: PERRLA, EOMI, sclera anicteric, conjunctiva clear ENT: Auricles normal inspection, hearing grossly normal, nares patent, oropharynx clear without exudates. Moist mucosa NECK: Normal ROM, supple, no lymphadenopathy, JVD, or masses LUNGS: Breath sounds equal, clear to auscultation bilaterally. No wheezes, and no crackles HEART: Regular rate and rhythm, normal S1 and S2, no murmurs, rubs or gallops ABDOMEN: Soft, nontender, normoactive bowel sounds. No guarding, no rebound. No masses EXTREMITIES: Normal range of motion, no edema. No clubbing or cyanosis. No cords, erythema, or tenderness NEUROLOGICAL: Normal speech, cranial nerves intact, negative pronator drift, 5/ 5 strength in all 4 extremities, normal sensation to light touch in all 4 extremities, normal cerebellar exam, normal gait, normal reflexes and tone SKIN: Warm, Dry, normal turgor, no rashes or lesions noted. - Medical Decision Making 10/09/17 10:45 32-year-old female with multiple medical problems presents to the emergency department with nausea vomiting and diarrhea and abdominal discomfort after running out of her Xanax 1 week ago. Vitals are unremarkable. Exam is unremarkable. Patient does not have any tenderness to palpation in her abdomen. Patient likely has withdrawal symptoms after running out of her Xanax. She states that she was actually able to get a prescription while here in the emergency department. Will give the patient a dose of her Xanax (istop confirmed ) and her daily methadone and provide symptomatic control. Will also check UPT. 10/09/17 11:20 UPT neg. Labs unremarkable. Pt with no vomiting in ED during 4+ hours of observation after initial episode of vomiting on arrival. Pt able to get a refill of her prescriptions. Tolerating PO meds. Tolerated PO chall. Will DC patient to f/u with PMD. Pt initially reluctant to go home as she states she is worried she will vomit again. We reassured the patient that we have sent a prescription for zofran to her pharmacy. We discussed with the patient that her symptoms were likely due to withdrawal from xanax and now that she has a refill of her meds, she should take them as prescribed for her anxiety to avoid withdrawal symptoms. She expressed understanding. I discussed the physical exam findings, ancillary test results and final diagnoses with the patient. I answered all of the patient's questions. The patient was satisfied with the care received and felt comfortable with the discharge plan and treatment plan. The patient will call their primary care physician within 24 hours to arrange follow-up and will return to the Emergency Department with any new, persistent or worsening symptoms.
[2017-10-09] MEDS ORDERED: ONDANSETRON *ODT* 4 MG TABLET SL ONE (10:56)
[2017-10-09] MEDS ORDERED: ONDANSETRON *ODT* 4 MG TABLET ONE (11:01)
[2017-10-09 11:53] VITALS: BP 127/82; PULSE 42
[2017-10-09 19:10] LABS: URINE LEUK ESTERASE Negative (NEGATIVE)
--- NOTE | 2017-10-11 01:37 | EKG ---
Test Reason : Blood Pressure : / mmHG Vent. Rate : 047 BPM Atrial Rate : 047 BPM P-R Int : 156 ms QRS Dur : 088 ms QT Int : 526 ms P-R-T Axes : 026 064 038 degrees QTc Int : 465 ms SINUS BRADYCARDIA MINIMAL VOLTAGE CRITERIA FOR LVH, MAY BE NORMAL VARIANT T WAVE ABNORMALITY, CONSIDER ANTERIOR ISCHEMIA ABNORMAL ECG WHEN COMPARED WITH ECG OF 13-MAY-2017 02:12, VENT. RATE HAS DECREASED BY 34 BPM T WAVE INVERSION NOW EVIDENT IN ANTERIOR LEADS T WAVE AMPLITUDE HAS INCREASED IN LATERAL LEADS Confirmed by AIDAN RAY MD ([id number]) on 10/11/2017 1:37:00 AM Referred By: Confirmed By:AIDAN RAY MD
--- NOTE | 2017-10-11 07:58 | PDOC ---
Patient Follow-up (Call Back) - Post ED Follow - Up Condition at time of discharge: Improved Disposition at time of original discharge: HOME Reason for Call Back: Abnwl. Microbiology (Pt seen on 10/09. u cx + lactose fermenting - bacilli. Pt on no abx. Will await final report.)
== END 2017-10-09 12:00 | disposition home or self-care (01) ==
LOC: JER 06:42
DX: R11.2 Nausea with vomiting, unspecified (principal); I10 Essential (primary) hypertension; E78.00 Pure hypercholesterolemia, unspecified; E03.9 Hypothyroidism, unspecified; G40.909 Epilepsy, unspecified, not intractable, without status epilepticus; F31.9 Bipolar disorder, unspecified; F41.9 Anxiety disorder, unspecified; I69.892 Facial weakness following other cerebrovascular disease; Z86.69 Personal history of other diseases of the nervous system and sense organs; Z86.14 Personal history of Methicillin resistant Staphylococcus aureus infection
CPT/HCPCS: 36415; 80053; 81003; 81015; 83690; 84703; 85025; 85651; 86140; 86431; 87086; 87186; 93005; 93010; 99283-25

== ENCOUNTER 2017-10-25 16:26 | Inpatient (IN) | payer OTHER ==
--- NOTE | 2017-10-25 16:35 | PDOC ---
Rapid Medical Evaluation Chief Complaint: Burn Time Seen by Provider: 10/25/17 16:30 Medical Evaluation: Allergies Allergy/AdvReac Type Severity Reaction Status Date / Time metoclopramide HCl Allergy Severe Swelling Verified 10/25/17 16:29 [From Reglan] Sulfa (Sulfonamide Allergy Intermediate Rash Verified 10/25/17 16:29 Antibiotics) 10/25/17 16:32 I have performed a brief in-person evaluation of this patient. The patient presents with a chief complaint of: Infected sanford to RUE. States she fell in bathroom yesterday and struck R arm against "heating pole". H/o anxiety, bipolar, ADHD, on methadone but relapsed and snorted heroin today 2/2 pain, HTN, CVA. States tetanus UTD Pertinent physical exam findings:Large burn wounds w/ surrounding erythema to RLE I have ordered the following:labs The patient will proceed to the ED for further evaluation.
[2017-10-25 16:36] VITALS: BMI 23.5
--- NOTE | 2017-10-25 17:39 | PDOC ---
Attending Attestation - Resident Resident Name: Eduin Gaines - ED Attending Attestation I have performed the following: I have examined & evaluated the patient, The case was reviewed & discussed with the resident, I agree w/resident's findings & plan, Exceptions are as noted - HPI HPI: 32 yo F history IVDA, hypothyroid, HTN, HL, CVA, seizure disorder, bipolar , anxiety presents with burn to R arm. She states the burn occurred 2 days ago, she had a mechanical fall onto a steam pipe in her bathroom. She states she was on it for 2 minutes before she got off of the pole. She sustained sanford to RUE and R forearm. She started having pain the next day and has been using heroin for her pain. - Physicial Exam PE: GENERAL: Awake, alert, and fully oriented, in no acute distress HEAD: No signs of trauma EYES: PERRLA, EOMI, sclera anicteric, conjunctiva clear ENT: Auricles normal inspection, hearing grossly normal, nares patent, oropharynx clear without exudates. Moist mucosa NECK: Normal ROM, supple, no lymphadenopathy, JVD, or masses LUNGS: Breath sounds equal, clear to auscultation bilaterally. No wheezes, and no crackles HEART: Regular rate and rhythm, normal S1 and S2, no murmurs, rubs or gallops ABDOMEN: Soft, nontender, normoactive bowel sounds. No guarding, no rebound. No masses EXTREMITIES: Normal range of motion, no edema. No clubbing or cyanosis. No cords, erythema, or tenderness NEUROLOGICAL: Cranial nerves II through XII grossly intact. Normal speech, normal gait SKIN: Warm, Dry. +Multiple sanford to RUE with brown eschar formation. Sanford are dry with no drainage. +Surrounding erythema. - Medical Decision Making Pt appears intoxicated in ED, and her sanford appear older than her stated history would suggest. Will treat for cellulitis, admit based on history of IVDA with MRSA.
[2017-10-25] MEDS ORDERED: VANCOMYCIN 1,000 MG in DEXTROSE 5%-WATER - 250 ML IVPB ONE (17:49)
--- NOTE | 2017-10-25 18:05 | PDOC ---
History of Present Illness - General Chief Complaint: Burn Stated Complaint: BURN Time Seen by Provider: 10/25/17 16:30 History Source: Patient Exam Limitations: Clinical Condition - History of Present Illness Initial Comments: 10/25/17 17:52 The patient is a 32F with a PMH of IVDA (on Methadone 70 daily), MRSA cellulitis , hypothyroidism, HTN, HLD (no longer on gemfibrozil), CVA 2012, seizure disorder, bipolar disease, anxiety (on Xanax), and MRSA cellulitis who presents to the ED with complaints of a burn on her R arm. The patient states that she was getting out of the shower 2 nights ago and tripped on a rug in her bathroom , then hit a heat pole in her bathroom and stayed on there for 2 minutes. She burned her RUE, arm and forearm. She says there was no initial pain but the pain started today and she relapsed to doing heroine to relieve the pain. She states that it quickly healed but the outside of the burn still hurts. She denies any other symptoms of fever, chills, nausea, vomiting, CP, SOB, numbness , tingling, weakness, or other areas of burn. Past History - Past Medical History Allergies/Adverse Reactions: Allergies Allergy/AdvReac Type Severity Reaction Status Date / Time metoclopramide HCl Allergy Severe Swelling Verified 10/25/17 16:29 [From Reglan] Sulfa (Sulfonamide Allergy Intermediate Rash Verified 10/25/17 16:29 Antibiotics) Home Medications: Ambulatory Orders Gabapentin [Neurontin] 600 mg PO TID 10/09/17 Clonazepam [Klonopin] 2 mg PO TID PRN 10/26/17 Lamotrigine 200 mg PO DAILY 10/26/17 Lurasidone HCl [Latuda] 40 mg PO BID 10/26/17 Mirtazapine 30 mg PO HS 10/26/17 Quetiapine Fumarate [Seroquel] 100 mg PO HS 10/26/17 Acetaminophen [Tylenol .Regular Strength -] 650 mg PO Q4H PRN tablet 10/28/17 Amox-Tr/K Cl [Augmentin 875-125mg Tablet -] 1 tab PO Q12H #22 tablet 10/28/17 Clindamycin [Cleocin -] 300 mg PO Q8H #33 capsule 10/28/17 Collagenase Clostridium Hist. 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) COPD: No CHF: No DVT: No Dementia: No Diabetes: No GI Disorders: No Disorders: Yes (UTI) HTN: Yes Hypercholesterolemia: Yes Kidney Stones: No Liver Disease: Yes (LIVER SWOLLEN) Psychiatric Problems: Yes (adhd,anxeity,bipolar) Seizures: Yes Thyroid Disease: Yes (HYPOTHYRODISM) - Surgical History Abdominal Surgery: Yes Appendectomy: Yes Cardiac Surgery: No Cholecystectomy: No Lung Surgery: No Neurologic Surgery: No Orthopedic Surgery: No - Reproductive History PID: No - Immunization History Immunization Up to Date: Yes - Suicide/Smoking/Psychosocial Hx Smoking Status: Yes Smoking History: Current every day smoker Have you smoked in the past 12 months: Yes Number of Cigarettes Smoked Daily: 10 Information on smoking cessation initiated: Yes 'Breaking Loose' booklet given: 10/25/17 Hx Alcohol Use: No Drug/Substance Use Hx: Yes (heroin) Substance Use Type: Heroin, Marijuana Hx Substance Use Treatment: Yes Review of Systems - Review of Systems Able to Perform ROS?: Yes Comments:: 10/25/17 18:05 GENERAL/CONSTITUTIONAL: No fever or chills. No weakness. HEAD, EYES, EARS, NOSE AND THROAT: No change in vision. No ear pain or discharge. No sore throat. GASTROINTESTINAL: No nausea, vomiting, diarrhea, constipation, or abdominal pain. GENITOURINARY: No dysuria, frequency, hematuria, or change in urination. CARDIOVASCULAR: No chest pain, palpitations, or lightheadedness. RESPIRATORY: No cough, wheezing, shortness of breath, or hemoptysis. MUSCULOSKELETAL: No joint or muscle swelling or pain. No neck or back pain. SKIN: Positive for burn on R arm. No rash or lesions. NEUROLOGIC: No headache, numbness, tingling, weakness, loss of consciousness, or change in strength/sensation. ENDOCRINE: No increased thirst. No abnormal weight change. HEMATOLOGIC/LYMPHATIC: No anemia, easy bleeding, or history of blood clots. ALLERGIC/IMMUNOLOGIC: No hives or skin allergy. Is the patient limited Kenyan proficient: No *Physical Exam - Vital Signs Last Vital Signs Temp Pulse Resp BP Pulse Ox 98.7 F 90 18 119/73 100 10/25/17 16:31 10/25/17 16:31 10/25/17 16:31 10/25/17 16:31 10/25/17 16:31 - Physical Exam Comments: 10/25/17 18:05 GENERAL: Well developed, well nourished. Awake and alert. No acute distress. HEENT: Normocephalic, atraumatic. Hearing grossly normal. Moist mucous membranes. NECK: Supple. Full ROM. No JVD. CARDIOVASCULAR: Regular rate and rhythm. No murmurs, rubs, or gallops. PULMONARY: No evidence of respiratory distress. Lungs clear to auscultation bilaterally. No wheezing, rales or rhonchi. ABDOMINAL: Soft. Non-tender. Non-distended. No rebound or guarding. GENITOURINARY: No CVA tenderness bilaterally. MUSCULOSKELETAL: Normal range of motion at all joints. No bony deformities or tenderness. EXTREMITIES: 5 cm x 3 cm burn in R arm, cellulitic on edges and eschar well formed in the middle. [id number] burn with cellulitis and eschar on distal elbow. 1cmx.5cm burn, scabbed with cellulitis on edge. No cyanosis. No clubbing. No edema. No calf tenderness. SKIN: Warm and dry. Normal capillary refill. No rashes. No jaundice. NEUROLOGICAL: Alert, awake, appropriate. Cranial nerves 2-12 intact. Neurovascularly intact in UE. Differences in sensation in arms (R is tingling/ pricks and L is normal). No motor deficits in the in face, upper extremities and lower extremities. Normal speech. Gait is normal without ataxia. PSYCHIATRIC: Cooperative. Good eye contact. Appropriate mood and affect. ED Treatment Course - LABORATORY CBC & Chemistry Diagram: 10/28/17 06:00 10/28/17 06:00 Medical Decision Making - Medical Decision Making 10/25/17 18:09 The patient is a 32F with an extensive PMH which includes IVDA who used heroine today and is presenting with a 1 day history of a burn. The patient's burn is well healed with an eschar and cellulitis forming around it. Will do blood cultures, CBC, CMP, and administer antibiotics. 10/25/17 19:16 Patient signed out to Dr. Stokes, [facility] team. *DC/Admit/Observation/Transfer Diagnosis at time of Disposition: Cellulitis Qualifiers: Site of cellulitis: unspecified site Qualified Code(s): L03.90 - Cellulitis, unspecified - Discharge Dispostion Disposition: HOME Condition at time of disposition: Stable - Prescriptions - Referrals - Patient Instructions - Post Discharge Activity
[2017-10-25] MEDS ORDERED: VANCOMYCIN 1 GRAM (PRE-DOCKED) 1,000 MG/250 ML BAG IVPB ONE (19:09)
[2017-10-25] MEDS ORDERED: CEFEPIME HCL 2 GM VIAL (RESTRICTED TO ID) IVPB ONE (20:30)
--- NOTE | 2017-10-25 20:35 | PDOC ---
*Physical Exam - Vital Signs Last Vital Signs Temp Pulse Resp BP Pulse Ox 98.7 F 90 18 119/73 100 10/25/17 16:31 10/25/17 16:31 10/25/17 16:31 10/25/17 16:31 10/25/17 16:31 - Physical Exam Comments: 10/25/17 20:31 GENERAL: Awake, alert, and fully oriented, in no acute distress HEAD: No signs of trauma, normocephalic, atraumatic EYES: PERRLA, EOMI, sclera anicteric, conjunctiva clear ENT: Auricles normal inspection, hearing grossly normal, nares patent, oropharynx clear without exudates. Moist mucosa NEUROLOGICAL: Cranial nerves II through XII grossly intact. Normal speech, normal gait, no focal sensorimotor deficits SKIN: 12x8cm skin defect with surrounding erythema, 3x9cm skin defect with surrounding erythema, on right arm. ED Treatment Course - LABORATORY CBC & Chemistry Diagram: 10/25/17 21:00 10/25/17 22:10 - ADDITIONAL ORDERS Additional order review: 10/25/17 20:00 RBC Cancelled MCV Cancelled MCHC Cancelled RDW Cancelled MPV Cancelled Neutrophils % Cancelled Lymphocytes % Cancelled Monocytes % Cancelled Eosinophils % Cancelled Basophils % Cancelled - Medications Given in the ED: ED Medications Discontinued Medications Generic Name Dose Route Start Last Admin Trade Name Narinder PRN Reason Stop Dose Admin Vancomycin HCl 1,000 mg/ 250 mls @ 250 mls/hr 10/25/17 17:49 10/25/17 20:06 Dextrose IVPB 10/25/17 18:48 250 mls/hr ONCE ONE Administration Protocol Medical Decision Making - Medical Decision Making 10/25/17 20:[address] Gaines. Patient is 32F with history of heroin IVDA here today with cellulitis of right arm. EJ placed, labs pending to be drawn. Patient has been nearly impossible to draw blood from, as right arm is not available for use and left arm has seen heavy iv drug use. One set of cultures drawn, unable to obtain second. Will expand treatment from vanc to vanc/ cefepime for better coverage. Patient does not appear toxic. Will admit. 10/25/17 23:22 Dr Bowen accepted admission to [facility]. *DC/Admit/Observation/Transfer Diagnosis at time of Disposition: Cellulitis - Discharge Dispostion Condition at time of disposition: Stable Admit: Yes - Referrals - Patient Instructions - Post Discharge Activity
[2017-10-25 21:11] LABS: URINE APPEARANCE CLOUDY; URINE BILIRUBIN NEGATIVE (NEGATIVE); URINE BLOOD NEGATIVE (NEGATIVE); URINE COLOR YELLOW; URINE GLUCOSE (UA) NEGATIVE (NEGATIVE); URINE KETONE NEGATIVE (NEGATIVE); URINE NITRITE NEGATIVE (NEGATIVE); URINE PROTEIN NEGATIVE (NEGATIVE)
[2017-10-25 21:19] LABS: URINE LEUK ESTERASE 1+ (NEGATIVE)
[2017-10-25 21:38] LABS: BASO % 0.6 % (0-2.0); EOS % 1.9 % (0-4.5); HEMATOCRIT 33.9 % (32.4-45.2); HEMOGLOBIN 11.3 GM/dL (10.7-15.3); LYMPH % 40.6 % (8-40); MCH 27.9 pg (25.7-33.7); MCHC 33.4 g/dl (32.0-36.0); MEAN CELL VOLUME 83.6 fl (80-96); MEAN PLT VOLUME 8.6 fl (7.5-11.1); MONO % 15.3 % (3.8-10.2); NEUT % 41.6 % (42.8-82.8); PLATELET COUNT 194 K/MM3 (134-434); RBC 4.05 M/mm3 (3.60-5.2); RDW 13.8 % (11.6-15.6); WHITE BLOOD COUNT 6.3 K/mm3 (4.0-10.0)
[2017-10-25 21:48] LABS: EPI CELLS MANY /HPF (FEW); URINE BACTERIA RARE /hpf (NONE SEEN); URINE MUCUS RARE; YEAST RARE
[2017-10-25 22:54] LABS: ALBUMIN 3.5 g/dl (3.4-5.0); ALK PHOS 120 U/L (45-117); ANION GAP 6 (8-16); BILIRUBIN,TOTAL 0.5 mg/dL (0.2-1.0); BLOOD UREA NITROGEN 9 mg/dL (7-18); CALCIUM 8.3 mg/dL (8.5-10.1); CHLORIDE 104 mmol/L (98-107); CO2 27 mmol/L (21-32); CREATININE 0.7 mg/dL (0.55-1.02); GLUCOSE,RANDOM 114 mg/dL (74-106); POTASSIUM 4.1 mmol/L (3.5-5.1); SGOT/AST 27 U/L (15-37); SGPT/ALT 34 U/L (12-78); SODIUM 137 mmol/L (136-145); TOT PROT 6.9 g/dl (6.4-8.2)
[2017-10-25] MEDS ORDERED: CEFEPIME 2 GM/100 ML BAG IVPB ONE (22:57)
[2017-10-26] MEDS ORDERED: SODIUM CHLORIDE 1,000 ML IV SCH (01:45)
--- NOTE | 2017-10-26 02:03 | PN ---
Teaching Attending Note Name of Resident: Samuel Contreras ATTENDING PHYSICIAN STATEMENT I saw and evaluated the patient. I reviewed the resident's note and discussed the case with the resident. I agree with the resident's findings and plan as documented. SUBJECTIVE: 41 F with hx of herion abuse who states she fell in the bathroom while taking a hot shower and landed on a hot pipe. States she was on Methadone, but took heroin to help her with the pain. Pmhx HTN HLD Tricuspid regurg on recent ILANA hypothyroid CVA 2012 MRSA cellulitis seizure disorder bipolar d/o, anxiety OBJECTIVE: Physical: VS: Vital Signs Period Temp Pulse Resp BP Sys/Nash Pulse Ox Last 24 Hr 98.7 F 90 18 119/73 100 GEN: NAD, Resting in bed, AA0X3 HEENT: Poor Dentition, NCAT, PERRL, Throat without erythema or exudates CARD: RRR S1, S2 RESP: CTAB ABD: BSx4, NTD to palpation EXT: RUE 12X8 cm lesions with eschar surrounding oval lesions, surrounding lesions with erythema and warmth, CBCD WBC 6.3 K/mm3 (4.0-10.0) D 10/25/17 21:00 RBC 4.05 M/mm3 (3.60-5.2) 10/25/17 21:00 Hgb 11.3 GM/dL (10.7-15.3) D 10/25/17 21:00 Hct 33.9 % (32.4-45.2) D 10/25/17 21:00 MCV 83.6 fl (80-96) 10/25/17 21:00 MCHC 33.4 g/dl (32.0-36.0) 10/25/17 21:00 RDW 13.8 % (11.6-15.6) 10/25/17 21:00 Plt Count 194 K/MM3 (134-434) D 10/25/17 21:00 MPV 8.6 fl (7.5-11.1) D 10/25/17 21:00 CMP Sodium 137 mmol/L (136-145) 10/25/17 22:10 Potassium 4.1 mmol/L (3.5-5.1) 10/25/17 22:10 Chloride 104 mmol/L (98-107) 10/25/17 22:10 Carbon Dioxide 27 mmol/L (21-32) 10/25/17 22:10 Anion Gap 6 (8-16) L 10/25/17 22:10 BUN 9 mg/dL (7-18) D 10/25/17 22:10 Creatinine 0.7 mg/dL (0.55-1.02) 10/25/17 22:10 Creat Clearance w eGFR > 60 (>60) 10/25/17 22:10 Random Glucose 114 mg/dL (74-106) H 10/25/17 22:10 Calcium 8.3 mg/dL (8.5-10.1) L 10/25/17 22:10 Total Bilirubin 0.5 mg/dL (0.2-1.0) D 10/25/17 22:10 AST 27 U/L (15-37) D 10/25/17 22:10 ALT 34 U/L (12-78) 10/25/17 22:10 Alkaline Phosphatase 120 U/L (45-117) H 10/25/17 22:10 Total Protein 6.9 g/dl (6.4-8.2) 10/25/17 22:10 Albumin 3.5 g/dl (3.4-5.0) 10/25/17 22:10 ASSESSMENT AND PLAN: 41 F with hx of herion abuse who states she fell in the bathroom while taking a hot shower and landed on a hot pipe, who presents with RUE erythema and warmth being admitted for cellulitis 1.) RUE Cellulitis - Hx. OF MRSA - C/W Vanco/Cefepime - ID consult - Blood cx - Wound care for burn 2.) Heroin Abuse - C/W Methadone in Am, after dose confirmation - Monitor QtC - Chk. EKG 3.) HTN - C/W home meds 4.) Hypothyriodism - C/W Synthroid 5.) Dvt Ppx - Heparin [address] in Obs
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
[2017-10-26] MEDS ORDERED: HEPARIN NA (PORCINE) 5,000 UNITS/ML 1ML VIAL SQ SCH (06:00)
[2017-10-26] MEDS ORDERED: GABAPENTIN 300 MG CAPSULE (FP) PO SCH (06:00)
[2017-10-26] MEDS ORDERED: HEPARIN NA (PORCINE) 5,000 UNITS/ML 1ML VIAL ONE (06:08)
[2017-10-26] MEDS ORDERED: CEFEPIME 2 GM in DEXTROSE 5%-WATER - 100 ML IVPB ONE (08:00)
[2017-10-26] MEDS ORDERED: CEFEPIME HCL 2 GM VIAL (RESTRICTED TO ID) IVPB ONE (08:00)
[2017-10-26] MEDS ORDERED: CEFEPIME 2 GM/100 ML BAG IVPB ONE (08:16)
[2017-10-26] MEDS ORDERED: VANCOMYCIN 1 GRAM (PRE-DOCKED) 1,000 MG/250 ML BAG IVPB ONE (08:16)
[2017-10-26] MEDS: VANCOMYCIN 1,000 MG in DEXTROSE 5%-WATER - 250 ML IVPB ONE ×2 (08:29→09:53)
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
[2017-10-26 10:15] LABS: INR 1.1 (0.82-1.09); PROTHROMBIN TIME (PATIENT) 12.4 SEC (9.98-11.88)
[2017-10-26] MEDS ORDERED: METHADONE HCL 10 MG TABLET PO ONE (10:17)
[2017-10-26 10:31] LABS: ANION GAP 6 (8-16); BILIRUBIN,TOTAL 0.7 mg/dL (0.2-1.0); BLOOD UREA NITROGEN 7 mg/dL (7-18); CALCIUM 9.1 mg/dL (8.5-10.1); CHLORIDE 103 mmol/L (98-107); CO2 28 mmol/L (21-32); CREATININE 0.8 mg/dL (0.55-1.02); GLUCOSE,RANDOM 96 mg/dL (74-106); SGOT/AST 31 U/L (15-37); SGPT/ALT 40 U/L (12-78); SODIUM 137 mmol/L (136-145)
[2017-10-26] MEDS ORDERED: MIDAZOLAM HCL 2 MG/2 ML SINGLE DOSE VIAL ONE ×2 (10:32)
[2017-10-26] MEDS ORDERED: ceFAZolin SODIUM 1 GM VIAL IVPB ONE (10:35)
[2017-10-26 10:39] LABS: ALK PHOS 130 U/L (45-117)
[2017-10-26] MEDS ORDERED: PROPOFOL 20 ML ONE (10:39)
[2017-10-26] MEDS ORDERED: SUCCINYLCHOLINE CHLORIDE 200 MG/10 ML VIAL ONE (10:40)
[2017-10-26] MEDS ORDERED: LIDOCAINE HCL 2% 100 MG/5 ML DISP.SYRIN ONE (10:40)
[2017-10-26] MEDS ORDERED: ceFAZolin SODIUM 1 GM VIAL ONE (10:48)
[2017-10-26] MEDS ORDERED: LIDOCAINE HCL 1%, 10 MG/ML (20ML VIAL) INF ONE (11:00)
[2017-10-26] MEDS ORDERED: METHADONE 40 MG, METHADONE 30 MG PO ONE ×3 (11:00→15:00)
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
[2017-10-26] MEDS ORDERED: ONDANSETRON 4 MG/2 ML VIAL IVPUSH PRN (12:34)
[2017-10-26] MEDS ORDERED: LACTATED RINGERS SOLUTION 1,000 ML IV SCH (12:45)
--- NOTE | 2017-10-26 13:19 | EKG ---
Test Reason : Blood Pressure : / mmHG Vent. Rate : 066 BPM Atrial Rate : 066 BPM P-R Int : 000 ms QRS Dur : 096 ms QT Int : 454 ms P-R-T Axes : 000 128 127 degrees QTc Int : 475 ms NORMAL SINUS RHYTHM INCOMPLETE RIGHT BUNDLE BRANCH BLOCK LEFT POSTERIOR FASCICULAR BLOCK NONSPECIFIC ST ABNORMALITY ABNORMAL ECG WHEN COMPARED WITH ECG OF 09-OCT-2017 08:14, LEFT POSTERIOR FASCICULAR BLOCK IS NOW PRESENT Confirmed by ANTONI FULTON MD ([id number]) on 10/26/2017 1:18:47 PM Referred By: Confirmed By:ANTONI FULTON MD
[2017-10-26] MEDS: SODIUM CHLORIDE 1,000 ML IV SCH (13:22)
[2017-10-26] MEDS: HEPARIN NA (PORCINE) 5,000 UNITS/ML 1ML VIAL SQ SCH ×3 (13:55→21:29)
[2017-10-26] MEDS: GABAPENTIN 300 MG CAPSULE (FP) PO SCH ×3 (14:57→21:27)
[2017-10-26] MEDS ORDERED: METHADONE HCL 10 MG TABLET ONE (15:00)
[2017-10-26] MEDS ORDERED: METHADONE HCL 40 MG DISPERSABLE TABLET ONE (15:01)
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
[2017-10-26] MEDS ORDERED: ONDANSETRON *ODT* 4 MG TABLET SL PRN (16:53)
[2017-10-26] MEDS ORDERED: clonazePAM 2 MG TABLET PO PRN (16:53)
--- NOTE | 2017-10-26 16:59 | PN ---
Physical Exam: SUBJECTIVE: Patient seen and examined at bedside. Patient is agitated but answers questions. Patient denies pain in the area of the burn but states that the surrounding area causes her pain. OBJECTIVE: Vital Signs Period Temp Pulse Resp BP Sys/Nash Pulse Ox Last 24 Hr 98.9 F-99.2 F 72-83 14-20 91-109/51-66 95-100 GENERAL: Somnolent. Intermittently conscious. A&Ox3 HEAD: Normal with no signs of trauma. EYES: Pinpoint pupils, poorly reactive to light. L eye w/ lateral deviation at rest. Otherwise EOMI. sclera anicteric, conjunctiva clear. No lid lag. EARS, NOSE, THROAT: Poor dentition. Ears normal, nares patent, oropharynx clear without exudates. Moist mucous membranes. NECK: Normal range of motion, supple without lymphadenopathy, JVD, or masses. LUNGS: Breath sounds equal, clear to auscultation bilaterally. No wheezes, and no crackles. No accessory muscle use. HEART: Regular rate and rhythm, normal S1 and S2 without murmur, rub or gallop. ABDOMEN: Soft, nontender, not distended, normoactive bowel sounds, no guarding, no rebound, no masses. No hepatomegaly or splenomegaly. MUSCULOSKELETAL: Normal range of motion at all joints. No bony deformities or tenderness. No CVA tenderness. UPPER EXTREMITIES: Large, circular burn on R shoulder with healing eschar and surround erythema. Smaller well-healing burn on distal lateral elbow with eschar and surrounding erythema. Additional small burn on lateral forearm, same appearance as others. BL track frazier on forearms. Multiple healed scars and excoriations. 2+ pulses, warm, well-perfused. No cyanosis. No clubbing. No peripheral edema. LOWER EXTREMITIES: 2+ pulses, warm, well-perfused. No calf tenderness. No peripheral edema. NEUROLOGICAL: Cranial nerves II-XII intact. Normal speech. Gait not evaluated. 5/5 strength grossly in all extremities. Sensation to light touch preserved in all extremities. Speech is PSYCHIATRIC: Cooperative. Poor eye contact. Very somnolent, intermittently conscious SKIN: Lesions on R arm as noted above and BL scars/excoriations on forearms. Laboratory Results - last 24 hr 10/25/17 10/25/17 10/25/17 20:00 20:55 21:00 WBC Cancelled 6.3 D Corrected WBC (auto) Cancelled RBC Cancelled 4.05 Hgb Cancelled 11.3 D Hct Cancelled 33.9 D MCV Cancelled 83.6 MCH Cancelled 27.9 MCHC Cancelled 33.4 RDW Cancelled 13.8 Plt Count Cancelled 194 D MPV Cancelled 8.6 D Neutrophils % Cancelled 41.6 L D Lymphocytes % Cancelled 40.6 H D Monocytes % Cancelled 15.3 H D Eosinophils % Cancelled 1.9 D Basophils % Cancelled 0.6 Nucleated RBC % Cancelled Platelet Estimate Cancelled Platelet Comment Cancelled PT with INR INR Sodium Potassium Chloride Carbon Dioxide Anion Gap BUN Creatinine Creat Clearance w eGFR Random Glucose Calcium Total Bilirubin AST ALT Alkaline Phosphatase Total Protein Albumin TSH Serum , Qual Urine Color Yellow Urine Appearance Cloudy Urine pH 6.0 Ur Specific [place] 1.013 Urine Protein Negative Urine Glucose (UA) Negative Urine Ketones Negative Urine Blood Negative Urine Nitrite Negative Urine Bilirubin Negative Urine Urobilinogen 2.0 H Ur Leukocyte Esterase Negative Urine WBC (Auto) 3 Urine RBC (Auto) 2 Ur Epithelial Cells Many Urine Bacteria Rare Urine Mucus Rare Urine Yeast Rare Blood Type Antibody Screen 10/25/17 10/25/17 10/26/17 22:10 22:10 09:35 WBC Corrected WBC (auto) RBC Hgb Hct MCV MCH MCHC RDW Plt Count MPV Neutrophils % Lymphocytes % Monocytes % Eosinophils % Basophils % Nucleated RBC % Platelet Estimate Platelet Comment PT with INR 12.40 H INR 1.10 Sodium 137 Potassium 4.1 Chloride 104 Carbon Dioxide 27 Anion Gap 6 L BUN 9 D Creatinine 0.7 Creat Clearance w eGFR > 60 Random Glucose 114 H Calcium 8.3 L Total Bilirubin 0.5 D AST 27 D ALT 34 Alkaline Phosphatase 120 H Total Protein 6.9 Albumin 3.5 TSH Serum , Qual Negative Urine Color Urine Appearance Urine pH Ur Specific [place] Urine Protein Urine Glucose (UA) Urine Ketones Urine Blood Urine Nitrite Urine Bilirubin Urine Urobilinogen Ur Leukocyte Esterase Urine WBC (Auto) Urine RBC (Auto) Ur Epithelial Cells Urine Bacteria Urine Mucus Urine Yeast Blood Type Antibody Screen 10/26/17 10/26/17 09:35 10:07 WBC Corrected WBC (auto) RBC Hgb Hct MCV MCH MCHC RDW Plt Count MPV Neutrophils % Lymphocytes % Monocytes % Eosinophils % Basophils % Nucleated RBC % Platelet Estimate Platelet Comment PT with INR INR Sodium 137 Potassium 4.0 Chloride 103 Carbon Dioxide 28 Anion Gap 6 L BUN 7 D Creatinine 0.8 Creat Clearance w eGFR > 60 Random Glucose 96 Calcium 9.1 Total Bilirubin 0.7 D AST 31 ALT 40 Alkaline Phosphatase 130 H Total Protein 8.0 Albumin 4.0 TSH 1.59 D Serum , Qual Urine Color Urine Appearance Urine pH Ur Specific [place] Urine Protein Urine Glucose (UA) Urine Ketones Urine Blood Urine Nitrite Urine Bilirubin Urine Urobilinogen Ur Leukocyte Esterase Urine WBC (Auto) Urine RBC (Auto) Ur Epithelial Cells Urine Bacteria Urine Mucus Urine Yeast Blood Type O POSITIVE Antibody Screen Negative Active Medications Generic Name Dose Route Start Last Admin Trade Name Freq PRN Reason Stop Dose Admin Clonazepam 2 mg 10/26/17 16:53 Klonopin - PO TID PRN ANXIETY Collagenase 1 applic 10/27/17 10:00 Santyl - TP DAILY [facility] Fentanyl 50 mcg 10/26/17 12:34 Sublimaze Injection - IVPUSH [id number] PRN PAIN Gabapentin 600 mg 10/26/17 14:00 10/26/17 15:18 Neurontin - PO 600 mg TID JAMEEL Administration Heparin Sodium (Porcine) 5,000 unit 10/26/17 14:00 10/26/17 14:58 Heparin - SQ Not Given TID JAMEEL Sodium Chloride 1,000 mls @ 83 mls/hr 10/26/17 12:29 10/26/17 13:22 Normal Saline - IV 83 mls/hr ASDIR JAMEEL Administration Lamotrigine 200 mg 10/27/17 10:00 Lamictal - PO DAILY [facility] Lurasidone HCl 40 mg 10/26/17 22:00 Latuda - PO BID [facility] Methadone HCl 70 mg 10/27/17 10:00 Dolophine - PO DAILY JAMEEL Mirtazapine 30 mg 10/26/17 22:00 Remeron - PO HS [facility] Ondansetron HCl 4 mg 10/26/17 12:34 Zofran Injection IVPUSH Q6H PRN NAUSEA AND/OR VOMITING Quetiapine Fumarate 100 mg 10/26/17 22:00 Seroquel - PO HS [facility] ASSESSMENT/PLAN: 41 yo woman w/ pmh IVDA (heroin), Bipolar disorder, anxiety, MRSA cellulitis, and hypothyroidism who presented with multiple R arm sanford of two days duration following pt reporting falling against a "heat pole" in bathroom. #RUE Sanford: no white count or fever -Hx of MRSA cellulitis -pt is s/p debridement of burn areas of RUE x3 with Dr. Gusman -ID consulted, recs appreciated -f/u blood culture -Vanc/Cefepime for empiric coverage. Adjust based on ID recs -Trend WBC, fever -IVFs -Monitor for worsening cellulitis of RUE wound #Drug abuse (heroin, marijuana) -continue methadone 70mg QD -QTC 475. Monitor on psych meds, repeat EKG in AM -hold additional medications that prolong QTC -Monitor for detox symptoms -Appreciate detox consult #HTN - no home meds -Monitor for HTN #Hypothyroidism - confirm if taking synthroid -TSH normal -confirm TSH dose in AM #Anxiety -continue psych meds #Bipolar Disorder -QTC 475 -continue psych meds, monitor QTC in Am #Prophylaxis Heparin subq TID #FEN NS 83cc/hr Daily BMPs Regular diet #Disposition -Admit to Med-Surg Visit type - Emergency Visit Emergency Visit: No - New Patient This patient is new to me today: Yes Date on this admission: 10/26/17 - Critical Care Critical Care patient: No
--- NOTE | 2017-10-26 17:52 | PN ---
Teaching Attending Note Name of Resident: Reuben Ma ATTENDING PHYSICIAN STATEMENT Time of evaluation: 10:10 AM I saw and evaluated the patient. I reviewed the resident's note and discussed the case with the resident. I agree with the resident's findings and plan as documented. SUBJECTIVE: Patient seen and examined. seen iN ED when asking for her xanax and methadone. Right arm pain, no complaints otherwise OBJECTIVE: Vital Signs Period Temp Pulse Resp BP Sys/Nash Pulse Ox Last 24 Hr 98.9 F-99.2 F 72-83 14-20 91-109/51-66 95-100 Intake & Output 10/23/17 10/24/17 10/25/17 10/26/17 23:59 23:59 23:59 23:59 Intake Total 400 Output Total 50 Balance 350 Weight 150 lb General: sitting in stretcher anxious and angry but comfortable Arm: right arm 7x6 cm burn with eschar and mild surround erythema over proxmal right arm below shoulder, second simila rmark upper right forearm with some surrounding erythema, small burn left forearm, multiple track frazier Home Medication List Medication Instructions Recorded Confirmed Type Alprazolam [Xanax] 2 mg PO QID 10/09/17 10/09/17 History Dextroamphetamine/Amphetamine 60 mg PO DAILY 10/09/17 10/09/17 History [Adderall Xr 30 mg Capsule] Gabapentin [Neurontin] 600 mg PO TID 10/09/17 10/26/17 History Methadone [Dolophine -] 70 mg PO DAILY 10/09/17 10/26/17 History Clonazepam [Klonopin] 2 mg PO TID PRN 10/26/17 10/26/17 History Lamotrigine 200 mg PO DAILY 10/26/17 10/26/17 History Lurasidone HCl [Latuda] 40 mg PO BID 10/26/17 10/26/17 History Mirtazapine 30 mg PO HS 10/26/17 10/26/17 History Quetiapine Fumarate [Seroquel] 100 mg PO HS 10/26/17 10/26/17 History Active Medications Generic Name Dose Route Start Last Admin Trade Name Freq PRN Reason Stop Dose Admin Clonazepam 2 mg 10/26/17 16:58 Klonopin - PO Q8H PRN ANXIETY Collagenase 1 applic 10/27/17 10:00 Santyl - TP DAILY JAMEEL Fentanyl 50 mcg 10/26/17 12:34 Sublimaze Injection - IVPUSH [id number] PRN PAIN Gabapentin 600 mg 10/26/17 14:00 10/26/17 15:18 Neurontin - PO 600 mg TID JAMEEL Administration Heparin Sodium (Porcine) 5,000 unit 10/26/17 14:00 10/26/17 14:58 Heparin - SQ Not Given TID [facility] Sodium Chloride 1,000 mls @ 83 mls/hr 10/26/17 12:29 10/26/17 13:22 Normal Saline - IV 83 mls/hr ASDIR JAMEEL Administration Lamotrigine 200 mg 10/27/17 10:00 Lamictal - PO DAILY [facility] Lurasidone HCl 40 mg 10/26/17 22:00 Latuda - PO BID [facility] Methadone HCl 70 mg 10/27/17 10:00 Dolophine - PO DAILY [facility] Mirtazapine 30 mg 10/26/17 22:00 Remeron - PO HS [facility] Ondansetron HCl 4 mg 10/26/17 12:34 Zofran Injection IVPUSH Q6H PRN NAUSEA AND/OR VOMITING Quetiapine Fumarate 100 mg 10/26/17 22:00 Seroquel - PO HS [facility] Laboratory Results - last 24 hr 10/25/17 10/25/17 10/25/17 20:00 20:55 21:00 WBC Cancelled 6.3 D Corrected WBC (auto) Cancelled RBC Cancelled 4.05 Hgb Cancelled 11.3 D Hct Cancelled 33.9 D MCV Cancelled 83.6 MCH Cancelled 27.9 MCHC Cancelled 33.4 RDW Cancelled 13.8 Plt Count Cancelled 194 D MPV Cancelled 8.6 D Neutrophils % Cancelled 41.6 L D Lymphocytes % Cancelled 40.6 H D Monocytes % Cancelled 15.3 H D Eosinophils % Cancelled 1.9 D Basophils % Cancelled 0.6 Nucleated RBC % Cancelled Platelet Estimate Cancelled Platelet Comment Cancelled PT with INR INR Sodium Potassium Chloride Carbon Dioxide Anion Gap BUN Creatinine Creat Clearance w eGFR Random Glucose Calcium Total Bilirubin AST ALT Alkaline Phosphatase Total Protein Albumin TSH Serum , Qual Urine Color Yellow Urine Appearance Cloudy Urine pH 6.0 Ur Specific [place] 1.013 Urine Protein Negative Urine Glucose (UA) Negative Urine Ketones Negative Urine Blood Negative Urine Nitrite Negative Urine Bilirubin Negative Urine Urobilinogen 2.0 H Ur Leukocyte Esterase Negative Urine WBC (Auto) 3 Urine RBC (Auto) 2 Ur Epithelial Cells Many Urine Bacteria Rare Urine Mucus Rare Urine Yeast Rare Blood Type Antibody Screen 10/25/17 10/25/17 10/26/17 22:10 22:10 09:35 WBC Corrected WBC (auto) RBC Hgb Hct MCV MCH MCHC RDW Plt Count MPV Neutrophils % Lymphocytes % Monocytes % Eosinophils % Basophils % Nucleated RBC % Platelet Estimate Platelet Comment PT with INR 12.40 H INR 1.10 Sodium 137 Potassium 4.1 Chloride 104 Carbon Dioxide 27 Anion Gap 6 L BUN 9 D Creatinine 0.7 Creat Clearance w eGFR > 60 Random Glucose 114 H Calcium 8.3 L Total Bilirubin 0.5 D AST 27 D ALT 34 Alkaline Phosphatase 120 H Total Protein 6.9 Albumin 3.5 TSH Serum , Qual Negative Urine Color Urine Appearance Urine pH Ur Specific [place] Urine Protein Urine Glucose (UA) Urine Ketones Urine Blood Urine Nitrite Urine Bilirubin Urine Urobilinogen Ur Leukocyte Esterase Urine WBC (Auto) Urine RBC (Auto) Ur Epithelial Cells Urine Bacteria Urine Mucus Urine Yeast Blood Type Antibody Screen 10/26/17 10/26/17 09:35 10:07 WBC Corrected WBC (auto) RBC Hgb Hct MCV MCH MCHC RDW Plt Count MPV Neutrophils % Lymphocytes % Monocytes % Eosinophils % Basophils % Nucleated RBC % Platelet Estimate Platelet Comment PT with INR INR Sodium 137 Potassium 4.0 Chloride 103 Carbon Dioxide 28 Anion Gap 6 L BUN 7 D Creatinine 0.8 Creat Clearance w eGFR > 60 Random Glucose 96 Calcium 9.1 Total Bilirubin 0.7 D AST 31 ALT 40 Alkaline Phosphatase 130 H Total Protein 8.0 Albumin 4.0 TSH 1.59 D Serum , Qual Urine Color Urine Appearance Urine pH Ur Specific [place] Urine Protein Urine Glucose (UA) Urine Ketones Urine Blood Urine Nitrite Urine Bilirubin Urine Urobilinogen Ur Leukocyte Esterase Urine WBC (Auto) Urine RBC (Auto) Ur Epithelial Cells Urine Bacteria Urine Mucus Urine Yeast Blood Type O POSITIVE Antibody Screen Negative ASSESSMENT AND PLAN: 32 yof with IVDU (heroine), anxiety, bipolar disorder, MRSA cellulitis, hypothyroidism admitted with multiple sanford with cellulitis more on right forearm. -Right forearm sanford with cellulitis -IVDU -Anxiety/Bipolar disorder -h/o MRSA cellulitis -Hypothyroidism Plan: / traci's input noted. S/P excisional debridement of the burn wounds 1/3 2018. Cefepime/vancomycin received on admission. Follow up ID consult with Dr. Washington Follow up blood cultures. Methadon dose confirmed, resume home meds, toradol for pain. Detox consult with Dr. Daniels. DVTPPX, Dispo planning pending surgical and ID input.
--- NOTE | 2017-10-26 17:59 | CON.ID ---
Consult Consult Specialty:: infectious diseases Reason for Consultation:: wound infection rt arm. drug abuse - History of Present Illness Chief Complaint: pain and swelling of the rt hand History of Present Illness: 41 yo woman w/ pmh IVDA (heroin), Bipolar disorder, anxiety, MRSA cellulitis, and hypothyroidism who admitted with multiple R arm sanford of two days duration following pt reporting falling against a "heat pole" in bathroom. Per pt, she states she was exiting the shower when she tripped on a bathroom mat and fell again a ?hot water pipe in her bathroom and remained in physical contact with it for multiple minutes. Pt suffered contact sanford to her upper arm and forearm , but states there was no initial pain. Per pt, she was taking home methadone for her drug abuse, but relapsed to using heroin for pain control. Pt endorses the wound healed quickly, but still with residual pain. Denies any fever/chills , BRIZUELA/dizziness, CP, SOB, cough, N/V, abdominal pain, dysuria, diarrhea, rashes or new neuro symptoms. Pt admitted to using heroin earlier today and was notably altered and somnolent during interview. the above was the patient history on admission,patient known to me from previous multiple admissions patient was seen by surgery and taken to the operating room and the wounds were debrided currently patients main complaints is anxiousness and pain as she is used to taking high doses of pain medications - History Source History Provided By: Patient, Medical Record Limitations to Obtaining History: Poor Historian - Past Medical History MAT WEAVER: Yes: Seizure Cardio/Vascular: Yes: HTN, Hyperlipdemia Hepatobiliary: Yes: Other (fatty liver) ...LMP: 05/12/15 Infectious Disease: Yes: MRSA (UE IVDA infection site ), Other (recurrent UTIs) Endocrine: Yes: Hypothyroidism - Past Surgical History Past Surgical History: Yes: None (Patient intubated and sedated. Unable to obtain surgical history.) - Alcohol/Substance Use Hx Alcohol Use: No History of Substance Use: reports: Cocaine, Heroin, Marijuana, Tranquilizers Date of Last Use: 09/14/16 (also crystal meth. 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 History of Recent Travel: No Home Medications - Allergies Allergies/Adverse Reactions: Allergies Allergy/AdvReac Type Severity Reaction Status Date / Time metoclopramide HCl Allergy Severe Swelling Verified 10/25/17 16:29 [From Reglan] Sulfa (Sulfonamide Allergy Intermediate Rash Verified 10/25/17 16:29 Antibiotics) - Home Medications Home Medications: Ambulatory Orders Alprazolam [Xanax] 2 mg PO QID 10/09/17 Dextroamphetamine/Amphetamine [Adderall Xr 30 mg Capsule] 60 mg PO DAILY Gabapentin [Neurontin] 600 mg PO TID 10/09/17 Methadone [Dolophine -] 70 mg PO DAILY 10/09/17 Ondansetron [Zofran Odt -] 4 mg SL TID PRN #21 od.tablet 10/09/17 Clonazepam [Klonopin] 2 mg PO TID PRN 10/26/17 Lamotrigine 200 mg PO DAILY 10/26/17 Lurasidone HCl [Latuda] 40 mg PO BID 10/26/17 Mirtazapine 30 mg PO HS 10/26/17 Quetiapine Fumarate [Seroquel] 100 mg PO HS 10/26/17 Family Disease History - Family Disease History Family Disease History: Diabetes: Mother (HTN,DM), Heart Disease: Father (HTN, etoh, cocaine), Mother, Other: Father, Brother (drug use, HCV) Review of Systems - Review of Systems Constitutional: reports: No Symptoms Eyes: reports: No Symptoms HENT: reports: No Symptoms Neck: reports: No Symptoms Cardiovascular: reports: No Symptoms Respiratory: reports: No Symptoms Gastrointestinal: reports: No Symptoms Genitourinary: reports: No Symptoms Musculoskeletal: reports: Muscle Pain, Other Integumentary: reports: Blister, Erythema, Wound, Other (sanford) Neurological: reports: No Symptoms Endocrine: reports: No Symptoms Hematology/Lymphatic: reports: No Symptoms Psychiatric: reports: No Symptoms Physical Exam Vital Signs: Vital Signs Temperature 99.2 F 10/26/17 13:55 Pulse Rate 78 10/26/17 13:55 Respiratory Rate 18 10/26/17 13:55 Blood Pressure 98/66 10/26/17 13:55 O2 Sat by Pulse Oximetry (%) 100 10/26/17 13:55 Constitutional: Yes: Well Nourished, Moderate Distress, Obese Eyes: Yes: Conjunctiva Clear Cardiovascular: Yes: Regular Rate and Rhythm Respiratory: Yes: Regular, CTA Bilaterally Gastrointestinal: Yes: Normal Bowel Sounds, Soft Musculoskeletal: Yes: Other Extremities: Yes: Other Wound/Incision: Yes: Dressing Dry and Intact Neurological: Yes: Alert, Oriented Psychiatric: Yes: Alert, Oriented Labs: CBC, BMP 10/25/17 21:00 10/26/17 10:07 Assessment/Plan i know this patient from previous admission patient has history of mrsa cellulitits in the past patient has receive dose of vanco and cefepime 41 yo woman w/ pmh IVDA (heroin), Bipolar disorder, anxiety, MRSA cellulitis, and hypothyroidism who presented with multiple R arm sanford of two days duration following pt reporting falling against a "heat pole" in bathroom. rue sanford drug abuse htn anxiety bipolar disorder plan will start patient on zosyn will continue vanco await for cx reports pls get an xray of the chest also consider doing echo on the patient
[2017-10-26] MEDS: PIPERACILLIN/TAZOB 3.375 GM 3.375 GM in DEXTROSE 5%-WATER - 100 ML IVPB SCH (18:40)
[2017-10-26] MEDS: clonazePAM 0.5 MG TABLET PO PRN (19:14)
[2017-10-26] MEDS ORDERED: ALPRAZolam 2 MG TABLET PO ONE (20:06)
[2017-10-26] MEDS ORDERED: PT OWN MED DRAWER 7, Y5N ONE (20:47)
[2017-10-26] MEDS ORDERED: ACETAMINOPHEN 325 MG TABLET (FP) PO PRN (21:15)
[2017-10-26] MEDS: QUEtiapine FUMARATE 100 MG TABLET (FP) PO SCH (21:27)
[2017-10-26] MEDS: MIRTAZAPINE 30 MG TABLET (FP) PO SCH (21:27)
[2017-10-26] MEDS: LURASIDONE HCL 40 MG TABLET PO SCH (21:51)
[2017-10-27] MEDS: PIPERACILLIN/TAZOB 3.375 GM 3.375 GM in DEXTROSE 5%-WATER - 100 ML IVPB SCH ×2 (01:56→09:31)
[2017-10-27] MEDS: GABAPENTIN 300 MG CAPSULE (FP) PO SCH (05:57)
[2017-10-27] MEDS: HEPARIN NA (PORCINE) 5,000 UNITS/ML 1ML VIAL SQ SCH ×3 (05:57→21:45)
[2017-10-27] MEDS: clonazePAM 0.5 MG TABLET PO PRN (05:57)
[2017-10-27] MEDS ORDERED: METHADONE 40 MG, METHADONE 30 MG PO ONE (06:45)
[2017-10-27] MEDS ORDERED: METHADONE HCL 40 MG DISPERSABLE TABLET ONE (06:46)
[2017-10-27] MEDS ORDERED: METHADONE HCL 10 MG TABLET ONE ×4 (06:46→21:27)
[2017-10-27] MEDS ORDERED: PT OWN MED DRAWER 7, Y5N ONE ×3 (07:22→09:46)
[2017-10-27 08:33] LABS: HEMATOCRIT 34.4 % (32.4-45.2); HEMOGLOBIN 11.3 GM/dL (10.7-15.3); MCH 27.7 pg (25.7-33.7); MEAN CELL VOLUME 84.1 fl (80-96); MEAN PLT VOLUME 8.3 fl (7.5-11.1); PLATELET COUNT 166 K/MM3 (134-434); RBC 4.09 M/mm3 (3.60-5.2); RDW 13.8 % (11.6-15.6); WHITE BLOOD COUNT 3.1 K/mm3 (4.0-10.0)
[2017-10-27 08:49] LABS: ANION GAP 6 (8-16); BLOOD UREA NITROGEN 6 mg/dL (7-18); CALCIUM 8.3 mg/dL (8.5-10.1); CHLORIDE 107 mmol/L (98-107); CO2 28 mmol/L (21-32); CREATININE 0.8 mg/dL (0.55-1.02); GLUCOSE,RANDOM 103 mg/dL (74-106); MAGNESIUM 2.2 mg/dL (1.8-2.4); POTASSIUM 3.4 mmol/L (3.5-5.1); SODIUM 141 mmol/L (136-145)
[2017-10-27] MEDS ORDERED: diazePAM 5 MG TABLET PO ONE (08:51)
[2017-10-27] MEDS ORDERED: diazePAM 5 MG TABLET PO PRN (08:51)
[2017-10-27] MEDS ORDERED: POTASSIUM CHLORIDE TABS 20 MEQ TABLET.ER (FP) PO ONE (08:51)
[2017-10-27] MEDS ORDERED: ZOLPIDEM TARTRATE 5 MG TABLET PO PRN (08:52)
[2017-10-27] MEDS ORDERED: GABAPENTIN 300 MG CAPSULE (FP) PO SCH (08:53)
[2017-10-27] MEDS: lamoTRIgine 100 MG TABLET (FP) PO SCH (09:29)
[2017-10-27] MEDS: PANTOPRAZOLE 40 MG TABLET (FP) PO SCH (09:29)
[2017-10-27] MEDS: LURASIDONE HCL 40 MG TABLET PO SCH ×2 (09:30→21:36)
[2017-10-27] MEDS ORDERED: NICOTINE POLACRILEX 4 MG GUM BUC PRN (09:41)
[2017-10-27] MEDS: NICOTINE 21 MG/24 HOURS TOPICAL PATCH TD SCH (09:53)
[2017-10-27] MEDS ORDERED: METHADONE HCL 40 MG DISPERSABLE TABLET PO SCH (10:00)
[2017-10-27] MEDS ORDERED: VANCOMYCIN 1,250 MG in DEXTROSE 5%-WATER - 250 ML IVPB SCH (10:00)
--- NOTE | 2017-10-27 10:45 | PN ---
Progress Note (short form) - Note Progress Note: Post op day#1.S/P RUE debredment under Ga uneventful.Patient stable.No any anesthesia related problem.Patient DC from the anesthesia care.
--- NOTE | 2017-10-27 10:52 | PATH ---
Surgical Pathology Report Patient Name: MUKUL LEAL Med. Rec. #: [id number] /Age/Gender: 1985 (Age: 32) / F Account: [id number] Location: [address] [place] [address]/[facility] Taken: 10/26/2017 Received: 10/26/2017 Reported: 10/27/2017 Physicians: Julio Gusman Specimen(s) Received ESCHAR RIGHT ARM WOUND Clinical History Parson right arm Final Diagnosis SKIN AND SOFT TISSUE, RIGHT ARM, DEBRIDEMENT: GANGRENOUS NECROSIS. Electronically Signed Gurwinder De Los Santos M.D. Gross Description Received in formalin labeled "eschar right arm wound," are 2 franklin, elliptical, unoriented portions of ulcerated skin measuring 7.5 x 3.0 cm and 12.5 x 6.7 cm. Lining [place] sections are submitted in one cassette. /10/26/201710/26/2017
[2017-10-27] MEDS: POTASSIUM CHLORIDE TABS 20 MEQ TABLET.ER (FP) PO SCH ×2 (10:59→21:46)
[2017-10-27] MEDS: PRENATAL VITAMINS W/ FOLIC ACID TABLET (FP) PO SCH (11:29)
[2017-10-27] MEDS: NAPROXEN 500 MG TABLET (FP) PO SCH ×2 (11:30→21:48)
[2017-10-27] MEDS: cloNIDine HCL 0.1 MG TABLET PO SCH ×2 (11:30→21:45)
--- NOTE | 2017-10-27 12:27 | EKG ---
Test Reason : Blood Pressure : / mmHG Vent. Rate : 103 BPM Atrial Rate : 103 BPM P-R Int : 152 ms QRS Dur : 088 ms QT Int : 342 ms P-R-T Axes : 048 059 033 degrees QTc Int : 448 ms SINUS TACHYCARDIA POSSIBLE LEFT ATRIAL ENLARGEMENT BORDERLINE ECG WHEN COMPARED WITH ECG OF 26-OCT-2017 01:17, VENT. RATE HAS INCREASED BY 37 BPM LEFT POSTERIOR FASCICULAR BLOCK IS NO LONGER PRESENT T WAVE INVERSION NO LONGER EVIDENT IN LATERAL LEADS Confirmed by MELVI CLEMENTE MD ([id number]) on 10/27/2017 12:27:03 PM Referred By: Confirmed By:MELVI CLEMENTE MD
--- NOTE | 2017-10-27 13:43 | PN ---
Progress Note (short form) - Note Progress Note: surgery POD #1 right UE burn debridement, patient seen and examined at bedside. resting comfortably and pain controlled. Vital Signs Temp 98.6 F 10/27/17 08:09 Pulse 93 H 10/27/17 08:09 Resp 20 10/27/17 08:09 BP 115/71 10/27/17 08:09 Pulse Ox 99 10/26/17 20:00 Intake & Output 10/26/17 10/27/17 10/27/17 23:59 11:59 23:59 Intake Total 850 600 Balance 850 600 Weight 150 lb Intake: IV 350 Normal Saline - 1,000 ml 350 @ 83 mls/hr IV ASDIR JAMEEL Rx#:[id number] Oral 500 600 Other: Voiding Method Toilet Toilet # Unmeasured Voids Void 2 Height 5 ft 7 in Body Mass Index (BMI) 23.5 CBC, BMP 10/27/17 07:30 10/27/17 07:30 PE. Right UE wounds- edges clean, bleeding base over fatty SQ tissue over all three sites, Slight halo of erythema surrounding wound over lateral forearm and elbow without tracking. No evidence of d/c, or collection at wound sties. Diffuse edema throughout UE, appropriate to status. ROM at elbow from 0-120 degrees with full supination and pronation. Able to range wrist and all digits without limitation or restriction. NVID. Wounds redressed with saytal and xeroform. Assessment: POD #1 wound debridement x 3 Right UE doing well Plan: 1) continue daily wound care as ordered 2) Abx per medicine 3) DVT prophylaxis 4) pain control
[2017-10-27] MEDS ORDERED: METHADONE HCL 10 MG TABLET PO SCH (14:00)
[2017-10-27] MEDS ORDERED: METHADONE HCL 5 MG TABLET ONE ×3 (14:10→21:27)
[2017-10-27] MEDS: COLLAGENASE CLOSTRIDIUM HIST. 30 GRAMS TUBE TP SCH (14:22)
[2017-10-27] MEDS: SODIUM CHLORIDE 1,000 ML IV SCH (14:23)
[2017-10-27] MEDS: CYCLOBENZAPRINE HCL 10 MG TABLET (FP) PO SCH ×3 (14:24→21:35)
[2017-10-27] MEDS: METHADONE 20 MG, METHADONE 5 MG PO SCH ×3 (14:24→21:34)
[2017-10-27] MEDS: diazePAM 5 MG TABLET PO SCH ×3 (14:25→21:34)
[2017-10-27] MEDS: GABAPENTIN 400 MG CAPSULE (FP) PO SCH ×3 (14:25→21:34)
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
[2017-10-27] MEDS: AMOX TR/POT CLAV 875MG/125MG TABLETS (FP) PO SCH (17:13)
[2017-10-27] MEDS: CLINDAMYCIN HCL 150 MG CAPSULE (FP) PO SCH (17:13)
[2017-10-27] MEDS: ONDANSETRON *ODT* 4 MG TABLET SL PRN (21:32)
[2017-10-27] MEDS: MIRTAZAPINE 30 MG TABLET (FP) PO SCH (21:34)
[2017-10-27] MEDS: QUEtiapine FUMARATE 100 MG TABLET (FP) PO SCH (21:36)
[2017-10-27] MEDS ORDERED: THIAMINE HCL 100 MG TABLET (FP) PO SCH (22:00)
[2017-10-28] MEDS: CLINDAMYCIN HCL 150 MG CAPSULE (FP) PO SCH ×2 (00:11→06:21)
[2017-10-28] MEDS ORDERED: METHADONE 40 MG, METHADONE 30 MG PO SCH (06:00)
[2017-10-28] MEDS ORDERED: METHADONE HCL 5 MG TABLET ONE (06:18)
[2017-10-28] MEDS ORDERED: METHADONE HCL 10 MG TABLET ONE (06:18)
[2017-10-28] MEDS: METHADONE 20 MG, METHADONE 5 MG PO SCH (06:20)
[2017-10-28] MEDS: CYCLOBENZAPRINE HCL 10 MG TABLET (FP) PO SCH (06:21)
[2017-10-28] MEDS: GABAPENTIN 400 MG CAPSULE (FP) PO SCH (06:21)
[2017-10-28] MEDS: diazePAM 5 MG TABLET PO SCH (06:22)
[2017-10-28] MEDS: HEPARIN NA (PORCINE) 5,000 UNITS/ML 1ML VIAL SQ SCH (06:45)
[2017-10-28 08:13] VITALS: BP 142/73; PULSE 94; TEMP 97.8
[2017-10-28] MEDS ORDERED: PT OWN MED DRAWER 7, Y5N ONE ×2 (08:35→09:11)
[2017-10-28 08:38] LABS: HEMOGLOBIN 12.4 GM/dL (10.7-15.3); MCH 27.5 pg (25.7-33.7); MCHC 32.6 g/dl (32.0-36.0); MEAN CELL VOLUME 84.5 fl (80-96); MEAN PLT VOLUME 8.1 fl (7.5-11.1); PLATELET COUNT 172 K/MM3 (134-434); RDW 14.3 % (11.6-15.6); WHITE BLOOD COUNT 3.6 K/mm3 (4.0-10.0)
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
[2017-10-28] MEDS: ONDANSETRON *ODT* 4 MG TABLET SL PRN (09:01)
[2017-10-28] MEDS: AMOX TR/POT CLAV 875MG/125MG TABLETS (FP) PO SCH (09:02)
[2017-10-28] MEDS: cloNIDine HCL 0.1 MG TABLET PO SCH (09:03)
[2017-10-28] MEDS: LURASIDONE HCL 40 MG TABLET PO SCH (09:04)
[2017-10-28] MEDS: NAPROXEN 500 MG TABLET (FP) PO SCH (09:05)
[2017-10-28 09:19] LABS: ANION GAP 10 (8-16); BLOOD UREA NITROGEN 7 mg/dL (7-18); CALCIUM 9.2 mg/dL (8.5-10.1); CHLORIDE 106 mmol/L (98-107); CO2 26 mmol/L (21-32); CREATININE 0.6 mg/dL (0.55-1.02); GLUCOSE,RANDOM 104 mg/dL (74-106); POTASSIUM 4.1 mmol/L (3.5-5.1); SODIUM 142 mmol/L (136-145)
[2017-10-28] MEDS: NICOTINE 21 MG/24 HOURS TOPICAL PATCH TD SCH (09:26)
[2017-10-28] MEDS: PANTOPRAZOLE 40 MG TABLET (FP) PO SCH (09:26)
[2017-10-28] MEDS: lamoTRIgine 100 MG TABLET (FP) PO SCH (09:27)
[2017-10-28] MEDS: POTASSIUM CHLORIDE TABS 20 MEQ TABLET.ER (FP) PO SCH (09:27)
[2017-10-28] MEDS: COLLAGENASE CLOSTRIDIUM HIST. 30 GRAMS TUBE TP SCH (09:27)
[2017-10-28] MEDS: PRENATAL VITAMINS W/ FOLIC ACID TABLET (FP) PO SCH (09:27)
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
[2017-10-28] MEDS ORDERED: METHADONE HCL 10 MG TABLET PO SCH (10:15)
--- NOTE | 2017-10-28 10:18 | PN ---
[facility] Progress Note Note: called by medical administrative - patent does nto want methadone in dividied doses for mello or benzodiazepine detox with valium. Claims methadone dose was too low and that was why she was still using heroin. will d/c methadone for pain and increase daily methadone dose to 80mg can give 1 dose stat today. continue detox while hosptialized. When patient is discharged she shoudl return to [facility] for after care and can restar benzodiazepiens she has prescribed if that is her choice.k supplemented wnl will d/c kcl.
[2017-10-28] MEDS ORDERED: METHADONE HCL 10 MG TABLET PO ONE (11:00)
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
[2017-10-28 14:00] LABS: COCAINE, UR NEGATIVE ng/ml (CUTOFF=300); METHADONE, UR POSITIVE ng/ml (CUTOFF=300); OPIATES, URI POSITIVE ng/ml (CUTOFF=300); PHENCYCLIDINE,URINE NEGATIVE ng/ml (CUTOFF=25); URINE AMPHETAMINES NEGATIVE ng/ml (CUTOFF=500); URINE BARBITURATES NEGATIVE ng/ml (CUTOFF=200); URINE BENZODIAZEPINES POSITIVE ng/ml (CUTOFF=200)
[2017-10-29] MEDS ORDERED: METHADONE HCL 40 MG DISPERSABLE TABLET PO SCH (06:00)
[2017-10-29] MEDS ORDERED: diazePAM 5 MG TABLET PO SCH (10:00)
[2017-10-31] MEDS ORDERED: diazePAM 5 MG TABLET PO SCH (10:00)
== END 2017-10-28 13:09 | disposition home health service (06) | DRG 844 ==
LOC: JER 16:26 → JERBED 23:29 → OBSVTOIN 10-26 07:52 → J6S 10-26 14:20
PROVIDERS: ADMIT Internal Medicine; ATTEND Hospitalist
PROC: 0JBD0ZX Excision of Right Upper Arm Subcutaneous Tissue and Fascia, Open Approach, Diagnostic (ICD-10-PCS; principal; 2017-10-26 12:30)
DX: T22.00XA Burn of unspecified degree of shoulder and upper limb, except wrist and hand, unspecified site, initial encounter (principal); Z22.322 Carrier or suspected carrier of Methicillin resistant Staphylococcus aureus; F11.20 Opioid dependence, uncomplicated; E03.9 Hypothyroidism, unspecified; L03.113 Cellulitis of right upper limb; F31.9 Bipolar disorder, unspecified; Z86.73 Personal history of transient ischemic attack (TIA), and cerebral infarction without residual deficits
CPT/HCPCS: 36415; 71045-TC; 80048; 80053; 80307; 81003; 81015; 83735; 84100; 84443; 84703; 85025; 85027; 85610; 86850; 86900; 86901; 87040; 88304-TC; 93005; 93010; 93306-TC; 94760; 99285-25; G0378; J1644

== ENCOUNTER 2018-05-26 11:28 | Observation (INO) | payer OTHER ==
[2018-05-26 11:54] VITALS: BMI 26.6
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
[2018-05-26] MEDS ORDERED: ONDANSETRON 4 MG/2 ML VIAL IVPUSH ONE (12:58)
[2018-05-26] MEDS ORDERED: SODIUM CHLORIDE 0.9% 1000 ML INFUS.BAG IV ONE (12:58)
[2018-05-26] MEDS ORDERED: VANCOMYCIN 1,000 MG in DEXTROSE 5%-WATER - 250 ML IVPB ONE (13:04)
[2018-05-26] MEDS ORDERED: SODIUM CHLORIDE 1,000 ML IV STA (13:05)
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
[2018-05-26] MEDS ORDERED: ONDANSETRON 4 MG/2 ML VIAL ONE (14:18)
[2018-05-26] MEDS ORDERED: VANCOMYCIN 1 GRAM (PRE-DOCKED) 1,000 MG/250 ML BAG IVPB ONE (14:18)
[2018-05-26 14:21] LABS: BASO % 0.7 % (0-2.0); EOS % 2.4 % (0-4.5); HEMATOCRIT 40.3 % (32.4-45.2); HEMOGLOBIN 13.5 GM/dL (10.7-15.3); LYMPH % 31.2 % (8-40); MCH 29.1 pg (25.7-33.7); MCHC 33.6 g/dl (32.0-36.0); MEAN CELL VOLUME 86.6 fl (80-96); MEAN PLT VOLUME 7.9 fl (7.5-11.1); MONO % 9.6 % (3.8-10.2); NEUT % 56.1 % (42.8-82.8); PLATELET COUNT 268 K/MM3 (134-434); RBC 4.65 M/mm3 (3.60-5.2); RDW 14.2 % (11.6-15.6); WHITE BLOOD COUNT 6.4 K/mm3 (4.0-10.0)
[2018-05-26 14:54] LABS: ALBUMIN 4.2 g/dl (3.4-5.0); ANION GAP 6 (8-16); BLOOD UREA NITROGEN 12 mg/dL (7-18); CALCIUM 9.8 mg/dL (8.5-10.1); CHLORIDE 101 mmol/L (98-107); CO2 29 mmol/L (21-32); CREATININE 0.5 mg/dL (0.55-1.02); GLUCOSE,RANDOM 82 mg/dL (74-106); SGPT/ALT 119 U/L (12-78); SODIUM 136 mmol/L (136-145)
[2018-05-26 14:56] LABS: ALK PHOS 103 U/L (45-117); BILIRUBIN,TOTAL 0.6 mg/dL (0.2-1.0); TOT PROT 8.5 g/dl (6.4-8.2)
[2018-05-26 16:10] LABS: POTASSIUM 4.5 mmol/L (3.5-5.1); SGOT/AST 144 U/L (15-37)
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
[2018-05-26] MEDS ORDERED: AMOX TR/POT CLAV 875MG/125MG TABLETS (FP) PO ONE (17:56)
[2018-05-26] MEDS ORDERED: CLINDAMYCIN HCL 300 MG CAPSULE PO ONE (18:00)
[2018-05-26] MEDS ORDERED: CLINDAMYCIN HCL 150 MG CAPSULE (FP) ONE (18:02)
[2018-05-26] MEDS ORDERED: MUPIROCIN 2% TOPICAL OINTMENT 22 GM TUBE TP STA (18:06)
--- NOTE | 2018-05-26 18:18 | DS ---
Physical Exam: SUBJECTIVE: Patient seen and examined OBJECTIVE: Vital Signs Period Temp Pulse Resp BP Sys/Nsah Pulse Ox Last 24 Hr 98.5 F 87 16 123/63 99 PHYSICAL EXAM GENERAL: The patient is awake, alert, and fully oriented, in no acute distress. HEAD: Normal with no signs of trauma. EYES: PERRL, extraocular movements intact, sclera anicteric, conjunctiva clear. ENT: Ears normal, nares patent, oropharynx clear without exudates, moist mucous membranes. NECK: Trachea midline, full range of motion, supple. LUNGS: Breath sounds equal, clear to auscultation bilaterally, no wheezes, no crackles, no accessory muscle use. HEART: Regular rate and rhythm, S1, S2 without murmur, rub or gallop. ABDOMEN: Soft, nontender, nondistended, normoactive bowel sounds, no guarding, no rebound, no hepatosplenomegaly, no masses. EXTREMITIES: 2+ pulses, warm, well-perfused, no edema. NEUROLOGICAL: Cranial nerves II through XII grossly intact. Normal speech, gait not observed. PSYCH: Normal mood, normal affect. SKIN: Warm, dry, normal turgor, no rashes or lesions noted. LABS Laboratory Results - last 24 hr 05/26/18 05/26/18 14:06 14:06 WBC 6.4 RBC 4.65 Hgb 13.5 Hct 40.3 MCV 86.6 MCH 29.1 MCHC 33.6 RDW 14.2 Plt Count 268 D MPV 7.9 Absolute Neuts (auto) 3.6 Neutrophils % 56.1 D Lymphocytes % 31.2 D Monocytes % 9.6 Eosinophils % 2.4 Basophils % 0.7 Nucleated RBC % 0 Sodium 136 Potassium 4.5 Chloride 101 Carbon Dioxide 29 Anion Gap 6 L BUN 12 Creatinine 0.5 L Creat Clearance w eGFR > 60 Random Glucose 82 Calcium 9.8 Total Bilirubin 0.6 AST 144 H ALT 119 H Alkaline Phosphatase 103 Total Protein 8.5 H Albumin 4.2 HOSPITAL COURSE: Date of Admission:05/26/18 Date of Discharge: 05/26/18 Minutes to complete discharge: 35 Discharge Summary Reason For Visit: PAIN, RT ARM BURN (8 MONTHS AGO) Current Active Problems Cellulitis (Acute) Opioid dependence (Chronic) Condition: Improved - Instructions Diet, Activity, Other Instructions: You are being discharged to home. Four prescriptions have been called to your pharmacy. 1. Clindamycin - antibiotic 2. Augmentin - antibiotic 3. Mupirocin - anti-bacterial ointment 4. Gauze pads Take the antibiotic pills as directed. Change the bandage on your right upper arm daily. Apply the mupirocin ointment and cover with the sterile gauze. [facility] with [facility] on Tuesday. The number is [phone]. Call Tuesday morning to make an appointment. Referrals: Julio Gusman MD [Non Staff, Medical] - Disposition: HOME - Home Medications Comprehensive Discharge Medication List: Ambulatory Orders Gabapentin [Neurontin] 600 mg PO TID 10/09/17 Clonazepam [Klonopin] 2 mg PO TID PRN 10/26/17 Lamotrigine 200 mg PO DAILY 10/26/17 Lurasidone HCl [Latuda] 40 mg PO BID 10/26/17 Mirtazapine 30 mg PO HS 10/26/17 Quetiapine Fumarate [Seroquel] 100 mg PO HS 10/26/17 Acetaminophen [Tylenol .Regular Strength -] 650 mg PO Q4H PRN tablet 10/28/17 Collagenase Clostridium Hist. [Santyl -] 1 applic TP DAILY #1 tube 10/28/17 Methadone [Dolophine -] 80 mg PO DAILY@0600 tablet MDD 80mg 10/28/17 Ondansetron [Zofran Odt -] 4 mg SL TID PRN #10 od.tablet 10/28/17 Amoxicillin/Potassium Clav [Augmentin 875-125 Tablet] 1 each PO BID #20 tablet 05/26/18 Clindamycin [Cleocin -] 300 mg PO TID #30 capsule 05/26/18 Gauze Bandage [Gauze Dressing] 1 each TP DAILY #1 box 05/26/18 Mupirocin Ointment [Bactroban 2% Ointment -] 1 applic TP DAILY #1 tube 05/26/18 This patient is new to me today: Yes Date on this admission: 05/26/18 Emergency Visit: Yes Care time: The patient presented to the Emergency Department on the above date and was hospitalized for further evaluation of their emergent condition. Critical Care patient: No - Discharge Referral Referred to [facility] Med P.C.: Yes Physician Referral: Julio Gusman DO ([facility])
[2018-05-26 18:36] VITALS: BP 122/77; PULSE 77; TEMP 98.6
--- NOTE | 2018-05-27 09:06 | EKG ---
Test Reason : Blood Pressure : / mmHG Vent. Rate : 064 BPM Atrial Rate : 064 BPM P-R Int : 150 ms QRS Dur : 086 ms QT Int : 484 ms P-R-T Axes : -85 084 065 degrees QTc Int : 499 ms UNUSUAL P AXIS, POSSIBLE ECTOPIC ATRIAL RHYTHM VOLTAGE CRITERIA FOR LEFT VENTRICULAR HYPERTROPHY ST ELEVATION, CONSIDER EARLY REPOLARIZATION, PERICARDITIS, OR INJURY PROLONGED QT ABNORMAL ECG WHEN COMPARED WITH ECG OF 27-OCT-2017 09:35, ECTOPIC ATRIAL RHYTHM HAS REPLACED SINUS RHYTHM VENT. RATE HAS DECREASED BY [address] ELEVATION NOW PRESENT IN INFERIOR LEADS ST ELEVATION NOW PRESENT IN LATERAL LEADS Confirmed by KIMBERLEE HUNT, AUSTIN ([id number]) on 05/27/2018 9:06:33 AM Referred By: Confirmed By:AUSTIN MOHAN MD
== END 2018-05-26 18:35 | disposition home or self-care (01) | DRG 383 ==
LOC: JER 11:28 → JERBED 15:27 → INTOOBSV 15:27
PROVIDERS: ADMIT Internal Medicine; ATTEND Internal Medicine
PROC: 3E03329 Introduction of Other Anti-infective into Peripheral Vein, Percutaneous Approach (ICD-10-PCS; principal; 2018-05-26)
PROC: 3E033GC Introduction of Other Therapeutic Substance into Peripheral Vein, Percutaneous Approach (ICD-10-PCS; 2018-05-26)
PROC: 3E0337Z Introduction of Electrolytic and Water Balance Substance into Peripheral Vein, Percutaneous Approach (ICD-10-PCS; 2018-05-26)
DX: L03.113 Cellulitis of right upper limb (principal); F11.20 Opioid dependence, uncomplicated; G40.89 Other seizures; E03.9 Hypothyroidism, unspecified; F31.9 Bipolar disorder, unspecified; I10 Essential (primary) hypertension; F41.9 Anxiety disorder, unspecified; F12.10 Cannabis abuse, uncomplicated; I69.392 Facial weakness following cerebral infarction; E78.5 Hyperlipidemia, unspecified; F17.210 Nicotine dependence, cigarettes, uncomplicated; F13.10 Sedative, hypnotic or anxiolytic abuse, uncomplicated; Z88.2 Allergy status to sulfonamides
CPT/HCPCS: 36415; 80053; 85025; 87040; 93005; 93010; 99285-25; G0378; J7030

== ENCOUNTER 2018-12-12 16:32 | Inpatient (IN) | payer OTHER ==
[2018-12-12 17:02] VITALS: BMI 18.8
--- NOTE | 2018-12-12 17:20 | PDOC ---
Attending Attestation - HPI HPI: 12/12/18 18:17 The patient is a 33 year old female with a significant past medical history of seizure disorder, heroin & methadone use, hypertension, hypothyroidism, bipolar disorder and anxiety who presents to the emergency department via ems from home with weakness. As per EMS, the patient was found down on the floor at home by her boyfriend. The patient was noted to be soiled in dried feces and vaginal bleeding. At bedside, the patient is non-verbal. Patient history is limited secondary to patient status. Documentation prepared by Mignon Madden, acting as curator medical museum for Jessy Giron MD. <Mignon Madden - Last Filed: 12/12/18 18:17> - Resident Resident Name: Brady Krause - ED Attending Attestation I have performed the following: I have examined & evaluated the patient, The case was reviewed & discussed with the resident, I agree w/resident's findings & plan, Exceptions are as noted - Physicial Exam PE: 12/12/18 18:24 disheveled 33 yo female is on the gurney head ncat, no scalp lacerations eyes katt eomi, she volitionally is keeping her eyes closed tight dental poor dentition with grossly carious teeth, many fractures off at gumline dry mucus membranes neck no jvd, no bruits lungs no wheezing cvs tachycardia abd soft,no guarding ext no edema, scattered needle tracks to legs and hands , no cellulitis skin warm and dry neuro she is moving all her extremities,she is squeezing her eyelids closed tightly,she is not answering questions - Medical Decision Making 12/13/18 02:14 pt had not become alert for many hours and I became concerned about possible head trauma and ordered a ct scan . At that time she started a twitching movement , and she was given ativan for concern for szs. Surprisingly she sat up and became very alert and conversant HOWEVER she is not making any sense stating that she has been her for 4 days . She has very pressured speech . We will admit for AMS 12/13/18 02:48 12/13/18 02:51 <Jessy Giron - Last Filed: 12/13/18 02:51>
--- NOTE | 2018-12-12 17:30 | PDOC ---
History of Present Illness <Jessy Giron - Last Filed: 12/12/18 18:30> - General History Source: Patient, EMS, Old Records Exam Limitations: Clinical Condition - History of Present Illness Initial Comments: HPI: 33 y/o female BIBEMS to [facility] ER with an altered mental status. EMS reports pt was found by boyfriend covered in feces and possible vaginal blood. Crew noted needles and straws on scene. Pt has long history of polysubstance substance abuse. Pt unable or unwilling to speak. 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) COPD: No CHF: No DVT: No Dementia: No Diabetes: No GI Disorders: No Disorders: Yes (UTI) HTN: Yes Hypercholesterolemia: Yes Kidney Stones: No Liver Disease: Yes (LIVER SWOLLEN) Psychiatric Problems: Yes (adhd,anxeity,bipolar) Seizures: Yes Thyroid Disease: Yes (HYPOTHYRODISM) - Surgical History Abdominal Surgery: Yes Appendectomy: Yes Cardiac Surgery: No Cholecystectomy: No Lung Surgery: No Neurologic Surgery: No Orthopedic Surgery: No - Reproductive History PID: No - Immunization History Immunization Up to Date: Yes - Suicide/Smoking/Psychosocial Hx Smoking Status: Yes Smoking History: Never smoked Have you smoked in the past 12 months: No Number of Cigarettes Smoked Daily: 20 Information on smoking cessation initiated: No 'Breaking Loose' booklet given: 05/26/18 Hx Alcohol Use: No Drug/Substance Use Hx: No Substance Use Type: Heroin, Marijuana Hx Substance Use Treatment: Yes <Brady Krause - Last Filed: 12/15/18 16:46> - Past Medical History Allergies/Adverse Reactions: Allergies Allergy/AdvReac Type Severity Reaction Status Date / Time metoclopramide HCl Allergy Severe Swelling Verified 12/12/18 16:57 [From Reglan] Sulfa (Sulfonamide Allergy Intermediate Rash Verified 12/12/18 16:57 Antibiotics) Home Medications: Ambulatory Orders Gabapentin [Neurontin] 600 mg PO TID 10/09/17 Lurasidone HCl [Latuda] 40 mg PO BID 10/26/17 Mirtazapine 30 mg PO HS 10/26/17 Quetiapine Fumarate [Seroquel] 100 mg PO HS 10/26/17 Clotrimazole [Gyne-Lotrimin -] 1 applic VG HS #1 tube 12/14/18 Lamotrigine [Lamictal -] 100 mg PO BID #60 tablet 12/14/18 Methadone [Dolophine -] 70 mg PO DAILY #1 tab.disper MDD 70 mg 12/14/18 levETIRAcetam [Keppra -] 500 mg PO BID #600 tablet 12/14/18 Review of Systems - Review of Systems Able to Perform ROS?: No (Pt condition) <Brady Krause - Last Filed: 12/15/18 16:46> *Physical Exam - Vital Signs Last Vital Signs Temp Pulse Resp BP Pulse Ox 100.4 F H 110 H 28 H 120/76 98 12/12/18 16:54 12/12/18 16:54 12/12/18 16:54 12/12/18 16:54 12/12/18 17:28 <Jessy Giron - Last Filed: 12/12/18 18:30> - Vital Signs Last Vital Signs Temp Pulse Resp BP Pulse Ox 100.4 F H 110 H 28 H 120/76 100 12/12/18 16:54 12/12/18 16:54 12/12/18 16:54 12/12/18 16:54 12/12/18 16:54 - Physical Exam Comments: Constitutional: Adult female in no acute life threat. Found semi-fowlers on hospital bed. Alert to painful stimuli with nonspecific word answers. Speech slurred. Head: Normocephalic. No obvious external signs of trauma. Eyes: Pupils 5mm and PERRL bilaterally. Unable to assess EOMI. Sclerae white. Conjunctiva dry and not injected. Nose: No nasal discharge. Throat: Pt would not open mouth. Very poor dentition visible. Neck: No JVD or thyromegaly. Cardiovascular / Chest: Tachycardic rate and regular rhythm. No murmur, rubs, clicks, or gallops. Peripheral pulses: radial pulses full. Diffuse erythema on upper chest. Respiratory: Breathing tachypneic but unlabored. Equal chest rise and fall. Clear to auscultation bilaterally. No stridor, no wheezing, no rhonchi. Gastrointestinal: abdomen is soft and non-distended. No grimace or withdrawl. Neuro: Eyes open to painful stimuli. No clonus. Would not participate in full neurologic exam. Skin: Warm and dry. Bruising and tack frazier on R and L hands. Multiple small ecchymotic lesions on R and L thighs. No cellulitic or pustular lesions. <Brady Krause - Last Filed: 12/15/18 16:46> Moderate Sedation - Procedure Monitoring Vital Signs: Procedure Monitoring Vital Signs Temperature 100.4 F H 12/12/18 16:54 Pulse Rate 110 H 12/12/18 16:54 Respiratory Rate 28 H 12/12/18 16:54 Blood Pressure 120/76 12/12/18 16:54 O2 Sat by Pulse Oximetry (%) 98 12/12/18 17:28 <Jessy Giron - Last Filed: 12/12/18 18:30> - Procedure Monitoring Vital Signs: Procedure Monitoring Vital Signs Temperature 100.4 F H 12/12/18 16:54 Pulse Rate 110 H 12/12/18 16:54 Respiratory Rate 28 H 12/12/18 16:54 Blood Pressure 120/76 12/12/18 16:54 O2 Sat by Pulse Oximetry (%) 100 12/12/18 16:54 <Brady Krause - Last Filed: 12/15/18 16:46> Procedures - Additional Procedures Progress: Ultrasound Guided IV Line Placement PROCEDURE NOTE: IV Placement under Ultrasound Guidance PROCEDURE OIL PROSPECTING OBSERVER: Brady Krause M.D. Resident Indication: IV access required. Multiple attempts at peripheral IV placement were made by the nursing staff without success Procedure: The area was prepped in the usual fashion. The L basilic vein was cannulated with a 20 gauge angiocath with use of dynamic ultrasound to identify the vein. The patient tolerated the procedure well. Complications: none <Brady Krause - Last Filed: 12/15/18 16:46> ED Treatment Course - LABORATORY CBC & Chemistry Diagram: 12/12/18 18:20 12/12/18 17:50 - ADDITIONAL ORDERS Additional order review: 12/12/18 18:20 RBC 5.75 H MCV 85.8 MCHC 34.3 RDW 13.7 MPV 8.3 Neutrophils % 71.6 D Lymphocytes % 20.1 D Monocytes % 7.2 Eosinophils % 0.1 D Basophils % 1.0 - Medications Given in the ED: ED Medications Discontinued Medications Generic Name Dose Route Start Last Admin Trade Name Freq PRN Reason Stop Dose Admin Sodium Chloride 2,000 ml 12/12/18 17:48 12/12/18 18:11 Normal Saline - IV 12/12/18 17:49 2,000 ml ONCE ONE Administration <Jessy Giron - Last Filed: 12/12/18 18:30> - LABORATORY CBC & Chemistry Diagram: 12/14/18 07:00 12/14/18 07:00 <Brady Krause - Last Filed: 12/15/18 16:46> Medical Decision Making - Medical Decision Making 12/12/18 18:30 plan for this 33 yo female found down at her residence covered in feces included IVfluids,tox screen, sprg,cbc,comp,ekg,ct head <Jessy Giron - Last Filed: 12/12/18 18:30> - Medical Decision Making *Reviewed vital signs, nursing notes, and prior visit documentation (if available). 33 y/o female with AMS and documented h/o of substance abuse. EMS crew report drug parafanial found on scene. Pt is unaccompanied. Protecting airway and breathing spontaneously. Mildly tachycardic at triage that resolved with IVFB. Afebrile. Suspect opiate versus benzodiazepine intoxication. Basic labs, UA, and UTox ordered. Pt placed on continuous pulse oximetry monitoring. Leukocytosis suspect to be reactive. CMP unremarkable for electrolyte derangement. LFTs not elevated. BUN and Cr at baseline. eGFR >60. UA unremarkable for pyuria, leukocyte esterase, or nitrites. Low suspicion for UTI. UTox positive for opiates, methadone, cocaine, and THC. Pt reassessed and found to be alert to verbal stimuli and restless. Continued to breathe spontaneously and maintain airway. Placed on ED obs for further evaluation. Continue to suspect substance intoxication. <Brady Krause - Last Filed: 12/15/18 16:46> *DC/Admit/Observation/Transfer <Jessy Giron - Last Filed: 12/12/18 18:30> - Discharge Dispostion Decision to Admit order: Yes <Brady Krause - Last Filed: 12/15/18 16:46> Diagnosis at time of Disposition: Altered mental status, unspecified Qualifiers: Altered mental status type: stupor Qualified Code(s): R40.1 - Stupor - Discharge Dispostion Disposition: HOME Condition at time of disposition: Improved
[2018-12-12] MEDS ORDERED: SODIUM CHLORIDE 0.9% 500 ML INFUS.BAG IV ONE (17:48)
[2018-12-12 18:26] LABS: EOS % 0.1 % (0-4.5); HEMATOCRIT 49.3 % (32.4-45.2); HEMOGLOBIN 16.9 GM/dL (10.7-15.3); LYMPH % 20.1 % (8-40); MCH 29.4 pg (25.7-33.7); MCHC 34.3 g/dl (32.0-36.0); MEAN CELL VOLUME 85.8 fl (80-96); MEAN PLT VOLUME 8.3 fl (7.5-11.1); MONO % 7.2 % (3.8-10.2); NEUT % 71.6 % (42.8-82.8); PLATELET COUNT 422 K/MM3 (134-434); RBC 5.75 M/mm3 (3.60-5.2); RDW 13.7 % (11.6-15.6); WHITE BLOOD COUNT 24.2 K/mm3 (4.0-10.0)
[2018-12-12 18:39] LABS: INR 1.51 (0.83-1.09); PROTHROMBIN TIME (PATIENT) 17.9 SEC (9.7-13.0)
[2018-12-12 18:53] LABS: URINE APPEARANCE SLCLOUDY; URINE BILIRUBIN NEGATIVE (<2.0 mg/dL); URINE COLOR DKYELLOW; URINE GLUCOSE (UA) NEGATIVE (NEGATIVE); URINE KETONE 2+ (NEGATIVE); URINE LEUK ESTERASE NEGATIVE (NEGATIVE); URINE NITRITE NEGATIVE (NEGATIVE); URINE PROTEIN 3+ (NEGATIVE); URINE UROBILINOGEN NEGATIVE mg/dL (0.2-1.0)
[2018-12-12 18:57] LABS: EPI CELLS RARE /HPF (FEW); URINE MUCUS FEW
[2018-12-12 19:05] LABS: PLATELET ESTIMATE ADEQUATE
[2018-12-12 19:08] LABS: ALK PHOS 102 U/L (45-117); ANION GAP 12 MMOL/L (8-16); BILIRUBIN,TOTAL 0.8 mg/dL (0.2-1); BLOOD UREA NITROGEN 33 mg/dL (7-18); CALCIUM 10.2 mg/dL (8.5-10.1); CHLORIDE 108 mmol/L (98-107); CO2 21 mmol/L (21-32); CREATININE 0.8 mg/dL (0.55-1.3); GLUCOSE,RANDOM 100 mg/dL (74-106); POTASSIUM 3.5 mmol/L (3.5-5.1); SGOT/AST 11 U/L (15-37); SGPT/ALT 12 U/L (13-61); SODIUM 142 mmol/L (136-145)
[2018-12-12 19:09] LABS: PHENCYCLIDINE,URINE NEGATIVE ng/ml (CUTOFF=25); URINE BARBITURATES NEGATIVE ng/ml (CUTOFF=200); URINE BENZODIAZEPINES NEGATIVE ng/ml (CUTOFF=200)
[2018-12-12 19:10] LABS: URINE AMPHETAMINES NEGATIVE ng/ml (CUTOFF=500)
[2018-12-12 19:12] LABS: COCAINE, UR POSITIVE ng/ml (CUTOFF=300); METHADONE, UR POSITIVE ng/ml (CUTOFF=300); OPIATES, URI POSITIVE ng/ml (CUTOFF=300)
[2018-12-12 19:38] LABS: HCG,QUALITATIVE URINE Negative
[2018-12-12] MEDS ORDERED: CLOTRIMAZOLE 1% VAGINAL CREAM WITH APPLICATOR 45 GM TUBE VG SCH (22:00)
[2018-12-13] MEDS ORDERED: LORazepam 2 MG/ML SDV VIAL ONE (00:54)
[2018-12-13] MEDS ORDERED: SODIUM CHLORIDE 1,000 ML IV STA (01:46)
[2018-12-13 03:00] LABS: BASO % 0.9 % (0-2.0); EOS % 0.2 % (0-4.5); HEMATOCRIT 39.3 % (32.4-45.2); HEMOGLOBIN 13.6 GM/dL (10.7-15.3); LYMPH % 25.1 % (8-40); MCH 29.8 pg (25.7-33.7); MCHC 34.6 g/dl (32.0-36.0); MEAN CELL VOLUME 86.1 fl (80-96); MEAN PLT VOLUME 7.9 fl (7.5-11.1); MONO % 7.2 % (3.8-10.2); NEUT % 66.6 % (42.8-82.8); PLATELET COUNT 287 K/MM3 (134-434); RBC 4.57 M/mm3 (3.60-5.2); RDW 13.3 % (11.6-15.6); WHITE BLOOD COUNT 17.7 K/mm3 (4.0-10.0)
--- NOTE | 2018-12-13 04:33 | PN ---
Teaching Attending Note Name of Resident: Stephanie Mitchell ATTENDING PHYSICIAN STATEMENT I saw and evaluated the patient. I reviewed the resident's note and discussed the case with the resident. I agree with the resident's findings and plan as documented. SUBJECTIVE: Patient is a 33 year old female with a significant past medical history of seizure disorder, heroin & methadone use, hypertension, hypothyroidism, bipolar disorder and anxiety who presents to the ER via ems from home with weakness. As per EMS, the patient was found down on the floor at home by her boyfriend. The patient was noted to be soiled in dried feces and vaginal bleeding. At bedside, the patient is non-verbal. Patient history is limited secondary to patient status. While in the ER she had not become alert for many hours and subsequently was noted to have a twitching movement , and she was given ativan for concern for seizures. After ativan she sat up and became very alert and conversant. She however is confused and disoriented - not making any sense stating that she has been her for 4 days . disheveled 33 yo female is on the gurney head ncat, no scalp lacerations eyes katt eomi, she volitionally is keeping her eyes closed tight dry mucus membranes neck no jvd, no bruits lungs no wheezing cvs tachycardia abd soft,no guarding ext no edema, , no cellulitis skin warm and dry neuro she is moving all her extremities,she is squeezing her eyelids closed tightly,she is not answering questions - Medical Decision Making OBJECTIVE: Alert and confused Vital Signs Period Temp Pulse Resp BP Sys/Nash Pulse Ox Last 24 Hr 99.1 F-100.4 F 70-110 20-28 120-140/76-92 95-100 HEENT: No Jaundice, eye redness or discharge, PERRLA, EOMI. Normocephalic, atraumatic. Very poor dentition with grossly carious teeth, many fractures off at gum line. External ears are normal and hearing is grossly intact. No nasal discharge. Neck: Supple, nontender. No palpable adenopathy or thyromegaly. No JVD Chest: Good effort. Clear to auscultation and percussion. Heart: Regular. No S3, rub or murmur Abdomen: Not distended, soft, nontender and no HSM. No rebound or guarding. Normoactive bowel sounds. Ext: Scattered needle tracks to legs and hands. Peripheral pulses intact. No leg edema. Skin: Warm and dry. No petechiae, rash or ecchymosis. Neuro: Alert. Disoriented. Moving all extremities. Wont follow commands so cannot check cranial nerves. Asking for xanax. Gait not tested for safety reasons. Current Medications Generic Name Dose Route Start Last Admin Trade Name Freq PRN Reason Stop Dose Admin Clotrimazole 1 applic 12/12/18 22:00 12/12/18 23:21 Gyne-Lotrimin - VG 1 applic [facility] Administration Enoxaparin Sodium 40 mg 12/13/18 10:00 Lovenox - SQ DAILY [facility] Sodium Chloride 1,000 mls @ 100 mls/hr 12/13/18 04:15 Normal Saline - IV ASDIR [facility] Quetiapine Fumarate 100 mg 12/13/18 22:00 Seroquel - PO [facility] Home Medications Medication Instructions Recorded Gabapentin [Neurontin] 600 mg PO TID 10/09/17 Clonazepam [Klonopin] 2 mg PO TID PRN 10/26/17 Lamotrigine 200 mg PO DAILY 10/26/17 Lurasidone HCl [Latuda] 40 mg PO BID 10/26/17 Mirtazapine 30 mg PO HS 10/26/17 Quetiapine Fumarate [Seroquel] 100 mg PO HS 10/26/17 Acetaminophen [Tylenol .Regular 650 mg PO Q4H PRN tablet 10/28/17 Strength -] Collagenase Clostridium Hist. 1 applic TP DAILY #1 tube 10/28/17 [Santyl -] Methadone [Dolophine -] 80 mg PO DAILY@0600 tablet MDD 10/28/17 80mg Ondansetron [Zofran Odt -] 4 mg SL TID PRN #10 od.tablet 10/28/17 Amoxicillin/Potassium Clav 1 each PO BID #20 tablet 05/26/18 [Augmentin 875-125 Tablet] Clindamycin [Cleocin -] 300 mg PO TID #30 capsule 05/26/18 Gauze Bandage [Gauze Dressing] 1 each TP DAILY #1 box 05/26/18 Mupirocin Ointment [Bactroban 2% 1 applic TP DAILY #1 tube 05/26/18 Ointment -] Abnormal Lab Results 12/12/18 12/12/18 12/12/18 17:50 18:15 18:15 WBC RBC Hgb Hct Absolute Neuts (auto) PT with INR INR Chloride 108 H BUN 33 H Calcium 10.2 H AST 11 L ALT 12 L Total Protein 10.0 H Urine Protein 3+ H Urine Ketones 2+ H Salicylates Opiates Screen Positive A* Methadone Screen Positive A* Acetaminophen < 2.0 L Cocaine Screen Positive A* U Marijuana (THC) Screen Positive A* 12/12/18 12/12/18 12/12/18 18:15 18:20 18:20 WBC 24.2 H RBC 5.75 H Hgb 16.9 H Hct 49.3 H D Absolute Neuts (auto) 17.3 H PT with INR 17.90 H INR 1.51 H Chloride BUN Calcium AST ALT Total Protein Urine Protein Urine Ketones Salicylates 1.9 L Opiates Screen Methadone Screen Acetaminophen Cocaine Screen U Marijuana (THC) Screen 12/13/18 02:51 WBC 17.7 H RBC Hgb Hct Absolute Neuts (auto) 11.8 H PT with INR INR Chloride BUN Calcium AST ALT Total Protein Urine Protein Urine Ketones Salicylates Opiates Screen Methadone Screen Acetaminophen Cocaine Screen U Marijuana (THC) Screen ASSESSMENT AND PLAN: 1. AMS due to polysubstance abuse - Urine toxicology showed opiates, marijuana, methadone and cocaine. Leukocytosis likely reactive - no other evidence of infection. No acute pathology on CXR. Repeat CBC in the morning. Results of head CT pending. EKG pending. Will admit to telemetry as observation case. Continue IV NS to enhance excretion of illicit drugs. 2. Polysubstance abuse - Implement neurochecks, fall, seizure and aspiration precautions. Monitor for withdrawal symptoms. Rotary Cutter patient about abstaining from drug use and refer to Detox upon discharge. Consult nurse specialist and Psychiatrist. 3. DVT prophylaxis - Lovenox 40 mg SQ q 24 hours. 4. Advance directives - Full code
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
[2018-12-13] MEDS: SODIUM CHLORIDE 1,000 ML IV SCH ×2 (04:40→20:01)
[2018-12-13 05:51] LABS: BASO % 0.8 % (0-2.0); EOS % 0.2 % (0-4.5); HEMATOCRIT 42.3 % (32.4-45.2); HEMOGLOBIN 14.5 GM/dL (10.7-15.3); LYMPH % 24.8 % (8-40); MCH 29.5 pg (25.7-33.7); MCHC 34.3 g/dl (32.0-36.0); MEAN CELL VOLUME 85.9 fl (80-96); NEUT % 67.2 % (42.8-82.8); PLATELET COUNT 369 K/MM3 (134-434); RBC 4.93 M/mm3 (3.60-5.2); RDW 13.4 % (11.6-15.6); WHITE BLOOD COUNT 21.5 K/mm3 (4.0-10.0)
[2018-12-13 06:17] LABS: ANION GAP 11 MMOL/L (8-16); BLOOD UREA NITROGEN 20 mg/dL (7-18); CHLORIDE 117 mmol/L (98-107); CO2 18 mmol/L (21-32); CREATININE 0.6 mg/dL (0.55-1.3); GLUCOSE,RANDOM 103 mg/dL (74-106); MAGNESIUM 2.3 mg/dL (1.8-2.4); POTASSIUM 3.4 mmol/L (3.5-5.1); SODIUM 146 mmol/L (136-145)
[2018-12-13] MEDS ORDERED: POTASSIUM CHLORIDE TABS 20 MEQ TABLET.ER (FP) PO ONE ×2 (09:08→10:55)
[2018-12-13] MEDS ORDERED: METHADONE HCL 10 MG TABLET PO ONE (09:54)
[2018-12-13] MEDS ORDERED: LURASIDONE HCL 40 MG TABLET PO SCH (10:00)
[2018-12-13] MEDS ORDERED: FLUCONAZOLE 150 MG TABLET PO ONE (10:15)
[2018-12-13] MEDS ORDERED: METHADONE HCL 10 MG TABLET ONE (10:40)
[2018-12-13] MEDS ORDERED: METHADONE HCL 40 MG DISPERSABLE TABLET ONE (10:40)
[2018-12-13] MEDS ORDERED: METHADONE 40 MG, METHADONE 30 MG PO ONE (10:45)
[2018-12-13] MEDS: ENOXAPARIN NA (PORCINE) 40 MG/0.4 ML DISP.SYRIN SQ SCH (10:52)
[2018-12-13] MEDS ORDERED: LURASIDONE HCL 40 MG TABLET PO ONE (11:00)
[2018-12-13] MEDS: GABAPENTIN 300 MG CAPSULE (FP) PO SCH ×2 (14:07→22:09)
--- NOTE | 2018-12-13 14:29 | CON.PSY ---
Psychiatry Consult Chief Complaint: 33 year old with extensive history of Mixed substance abuse camr to ER with multiple substance intoxication. patient woke up and wants to go home. DEnies any suciodal or Homicidal thoughts. Symptoms: reports: Anxiety - Previous Psychiatric Treatment Outpatient: Less than 6 mos ago Inpatient: One prior admission - Previous Substance Abuse Treatment Outpatient: None Inpatient: One prior admission - Reason for Previous Treatment Reason for Previous Treatment: Cocaine, Heroin or Other Narcotics, Prescription Drug - Current Medications Current Medications: Active Medications Clotrimazole (Gyne-Lotrimin -) 1 applic VG HS [facility] Last Admin: 12/12/18 23:21 Dose: 1 applic Enoxaparin Sodium (Lovenox -) 40 mg SQ DAILY [facility] Last Admin: 12/13/18 10:52 Dose: 40 mg Gabapentin (Neurontin -) 600 mg PO TID [facility] Last Admin: 12/13/18 14:07 Dose: 600 mg Sodium Chloride (Normal Saline -) 1,000 mls @ 100 mls/hr IV ASDIR [facility] Last Admin: 12/13/18 04:40 Dose: 100 mls/hr Lamotrigine (Lamictal -) 200 mg PO DAILY [facility] Lurasidone HCl (Latuda -) 40 mg PO BID [facility] Mirtazapine (Remeron -) 30 mg PO HS [facility] Quetiapine Fumarate (Seroquel -) 100 mg PO [facility] - Allergies Allergies: Allergies Allergy/AdvReac Type Severity Reaction Status Date / Time metoclopramide HCl Allergy Severe Swelling Verified 12/12/18 16:57 [From Reglan] Sulfa (Sulfonamide Allergy Intermediate Rash Verified 12/12/18 16:57 Antibiotics) - Current Living Status Usual Living Arrangement: With Parent - Current Mental Status Evaluation Appearance: Disheveled Attitude: Cooperative - Affect Affect: Constrictive Appropriateness: Appropriate to Content - Mood Mood: Euthymic - Speech/Language Expressive: Coherent - Psychomotor Activity Psychomotor Activity: Normal - Thought Process Thought Process: Intact - Thought Content Hallucinations: Absent Delusions: Absent - Self Perception Self Perception: No Impairment - Cognition Attention: Alert Orientation: Time Memory, Immediate Recall: Intact Memory, Short Term: 3/3 Memory, Remote with Promptin/3 - Concentration Serial Sevens Intact: No Simple Calculations Intact: Yes - Abstraction Proverb Interpretation: Intact Judgement: Minimally Impaired - Insight Insight: Intact - Impulse Control Impulse Control: Good Control - Suicidal Ideation Suicidal Ideation: No - Homicidal Ideation Homicidal Ideation: No Assessment/Plan 1) Patient is not suicidal or Homicidal at this time. 2) She can leave on AMA or discharged, 3) will see her pvt Psych.
--- NOTE | 2018-12-13 15:04 | PN ---
Teaching Attending Note Name of Resident: Hortensia Miramontes ATTENDING PHYSICIAN STATEMENT I saw and evaluated the patient. I reviewed the resident's note and discussed the case with the resident. I agree with the resident's findings and plan as documented. SUBJECTIVE: No fever or chills . she feels aches and pains all over. denies having a period in many years. denies rectal bleeding. NO SOB. wants her meds and want s ot leave home . denies any Si or previous suicidal attempts . denies any alcohol use reports non compliance with her meds OBJECTIVE:examined with dr. miramontes NAD. restless. CV: RRR Lungs: CTAB Abd: soft, Nt, Nd , NL Bs Ext: No edema. tremor in hands . tracks frazier on upper extremities : erythema in groin area. white secretions at vaginal area. neuro: EOMI, no nystagmus , no facial droop, tongue at mid line , strenght 5/5 in uper and lwoer extremities proximally and distally. reflexes 2+ knee jerk and biceps b/l. rectal , by Dr. miramontes. no masses , or hemorrrhoids. no stool on examiner finger. rectal fluid smear neg for Occult blood ASSESSMENT AND PLAN: 33 y/o lady with h/o polysubstance abuse, and seizures, HTN, hypothyroidism, and bipolar. she was brought in with AMS. 1- AMS: due to drug use, and also possible postictal state . witnessed having twitching in ER. Now awake. - reports not taking her lamictal as she had side effects. only takes her neuontin - cont meds pending neuro eval - No SI and was deemed to be able to make decision by Psych 2- Opioid Withdrawal , give a dose of methadone pending substance abuse eval. - Rn called and confirmed htat patient has not taken her 70 mg of methadone in few days . - will decide on resumption of her regular dose VS methadone taper when evaluated - alcohol level neg, and she denies alcohol, but jamey monitor for any signs of withdrawal 3- Seizures, not compliant with meds. reports EPS with lamictal , so she stopped it . - cont neurontin pending neuro eval - neuro exam normal 4- fungal vaginitis : give difllucan 150 mg x 1. rpeat in 72 hr if needed. if no resolution , then [facility] eval 5- per ER notes, she was found bleeding . no signs of bleeding. rectal exam with OB neg . will monitor for any bleed . and work it up further 6- Leukocytosis . no signs of infection . hold off abx and monitor and follow cx.
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
[2018-12-13 15:43] LABS: TEAR DROP CELLS 1+
[2018-12-13] MEDS ORDERED: PT OWN MED DRAWER 7, Y5N ONE (21:37)
[2018-12-13] MEDS ORDERED: MIRTAZAPINE 30 MG TABLET (FP) PO SCH (22:00)
[2018-12-13] MEDS ORDERED: QUEtiapine FUMARATE 100 MG TABLET (FP) PO SCH ×2 (22:00)
--- NOTE | 2018-12-14 02:40 | EKG ---
Test Reason : Blood Pressure : / mmHG Vent. Rate : 110 BPM Atrial Rate : 110 BPM P-R Int : 114 ms QRS Dur : 084 ms QT Int : 414 ms P-R-T Axes : 075 075 059 degrees QTc Int : 560 ms SINUS TACHYCARDIA BIATRIAL ENLARGEMENT LEFT VENTRICULAR HYPERTROPHY WITH REPOLARIZATION ABNORMALITY PROLONGED QT ABNORMAL ECG WHEN COMPARED WITH ECG OF 26-MAY-2018 14:25, SIGNIFICANT CHANGES HAVE OCCURRED Confirmed by ANTONI FULTON MD ([id number]) on 12/14/2018 2:39:57 AM Referred By: Confirmed By:ANTOIN FULTON MD
[2018-12-14] MEDS ORDERED: METHADONE HCL 10 MG TABLET ONE (05:17)
[2018-12-14] MEDS ORDERED: METHADONE HCL 40 MG DISPERSABLE TABLET ONE (05:18)
[2018-12-14] MEDS: GABAPENTIN 300 MG CAPSULE (FP) PO SCH ×2 (05:33→14:21)
[2018-12-14] MEDS ORDERED: METHADONE HCL 10 MG TABLET PO SCH (06:00)
[2018-12-14] MEDS ORDERED: METHADONE 40 MG, METHADONE 30 MG PO SCH (06:00)
[2018-12-14 07:14] LABS: HEMATOCRIT 39.5 % (32.4-45.2); HEMOGLOBIN 13.6 GM/dL (10.7-15.3); MCH 29.6 pg (25.7-33.7); MCHC 34.4 g/dl (32.0-36.0); MEAN PLT VOLUME 7.9 fl (7.5-11.1); PLATELET COUNT 254 K/MM3 (134-434); RBC 4.59 M/mm3 (3.60-5.2); RDW 13.4 % (11.6-15.6); WHITE BLOOD COUNT 9.5 K/mm3 (4.0-10.0)
[2018-12-14 07:41] LABS: ANION GAP 8 MMOL/L (8-16); BLOOD UREA NITROGEN 16 mg/dL (7-18); CALCIUM 8.8 mg/dL (8.5-10.1); CHLORIDE 112 mmol/L (98-107); CO2 26 mmol/L (21-32); CREATININE 0.6 mg/dL (0.55-1.3); GLUCOSE,RANDOM 99 mg/dL (74-106); POTASSIUM 3.2 mmol/L (3.5-5.1); SODIUM 146 mmol/L (136-145)
[2018-12-14] MEDS ORDERED: POTASSIUM CHLORIDE TABS 20 MEQ TABLET.ER (FP) PO ONE (08:00)
[2018-12-14] MEDS ORDERED: ACETAMINOPHEN 500 MG TABLET (FP) PO ONE (08:30)
[2018-12-14] MEDS: ENOXAPARIN NA (PORCINE) 40 MG/0.4 ML DISP.SYRIN SQ SCH (10:00)
--- NOTE | 2018-12-14 12:34 | CONSULT ---
Consult - text type - Consultation Consultation Note: NEUROLOGY CONSULT APPRECIATED: Events reviewed and discussed with staff. Psychiatry consult read and appreciated. This 39 yo RH F with pmhx of seizures and polysubstance abuse lives with her father and brother. She is here after recent generalized seizure activity, reportedly two days ago witnessed by bystanders while seated on a park bench. She does not recall any pre-ictal symptoms or events surrounding the seizure. She reports she is maintained on gabapentin 800 mg TID (followed by Dr. Garcia ) and ran out of her medications the night prior. She reports previously being trialed on Depakote, however did not like her levels being drawn and there was concern about "fatty liver." She reports many years prior to that, being trialed on keppra and gabapentin with good control of her seizures. PMHX: Bipolar disorder, CHIDI, HTN, hypothyroid, nicotine dependence Medications: gabapentin 600 mg TID, klonopin 2 mg TID prn, lamotrigine 200 mg daily, latuda 40 mg, mirtazapine, quetiapine 100, methadone 80 mg daily, Augmentin, Clindamycin She is followed on outpatient Methadone program at [facility] and reports her last drug use was IV heroin one week ago. She is also followed by psychiatry for her anxiety and reports being prescribed Xanax 4 mg QID for many years and Clonidine. (Dr. Lew Yang). She admits to drug misuse within the household. Last [facility] records indicate 11/24/18 prescription for xanax 2 mg BID and Adderall [address]: normal study Labs: WBC 24.2 -> 9.5 Tox positive for opiates, methadone, cocaine, THC, neg for benzos; Blood cult x 2 neg; UA/C/S neg; Chest xray neg REAL: On admission, T=100.4, p110, 120/76, rr28 -> 98.6 p 119, 103/75 No evidence of head trauma scarring to R forearm, multiple areas of ecchymosis on arms and hands, poor dentition NEURO EXAM: Mentation/Speech: Pressured. Tangential. Ox [facility]. November TRUMP-> PMURT 2/3 recall CN II-XII: EOMI without nystagmus. Pupils 3 mm equally and reactive. Motor: No tremor. Strength normal. Reflexes normal. Toes downgoing. Coordination: Mild FTN R > L. Romberg - Gait: Normal including heels, toes, tandem. Impression: Likely Generalized Seizures (worsened by poor compliance, med efficacy and possibly benzo withdrawal) Bipolar Disorder Polysubstance Abuse Plan: Continue gabapentin 600 mg TID Change lamictal 200 mg qd to 100 mg q12 hrs to adjunct for seizures Add leveteracitam 500 mg po q12H While seizure may have been induced by benzodiazepine withdrawal, do not resume benzos at this time Follow up outpatient with Dr. Martinez and Dr. Lew Yang Thank you very much, Steven Lucas MD
--- NOTE | 2018-12-14 13:13 | PN ---
Physical Exam: SUBJECTIVE: Patient seen and examined at bedside- no acute events overnight; patient satets she is feeling better not having anymore nausea/vomiting however is complainign of a cough OBJECTIVE: Vital Signs Period Temp Pulse Resp BP Sys/Nash Pulse Ox Last 24 Hr 98.2 F-99.1 F 80-119 2-20 103-148/69-91 97-98 GENERAL: The patient is awake, alert, slightly tremulous. EYES: PEERLA; EOMI; no scleral icterus NECK: no JVD; no lymphadenopathy LUNGS:coarse rhonchi B/L. HEART: Regular rate and rhythm, S1, S2 without murmur, rub or gallop. ABDOMEN: Soft, nontender, nondistended, normoactive bowel sounds, no guarding, no rebound, no hepatosplenomegaly, no masses. EXTREMITIES: 2+ pulses, warm, well-perfused, no edema. PSYCH: Normal mood, normal affect. SKIN: Warm, dry, normal turgor, no rashes or lesions noted Laboratory Results - last 24 hr 12/13/18 12/14/18 12/14/18 05:20 07:00 07:00 WBC 9.5 RBC 4.59 Hgb 13.6 Hct 39.5 MCV 86.0 MCH 29.6 MCHC 34.4 RDW 13.4 Plt Count 254 D MPV 7.9 Total Counted 100 Neutrophils % (Manual) 70.0 Band Neutrophils % 0.0 Lymphocytes % (Manual) 21.0 Monocytes % (Manual) 7 Polychromasia 1+ Poikilocytosis 1+ Tear Drop Cells 1+ [place] Cells 1+ Sodium 146 H Potassium 3.2 L Chloride 112 H Carbon Dioxide 26 Anion Gap 8 BUN 16 Creatinine 0.6 Creat Clearance w eGFR > 60 Random Glucose 99 Calcium 8.8 Active Medications Generic Name Dose Route Start Last Admin Trade Name Freq PRN Reason Stop Dose Admin Enoxaparin Sodium 40 mg 12/13/18 10:00 12/14/18 10:00 Lovenox - SQ 40 mg DAILY JAMEEL Administration Gabapentin 600 mg 12/13/18 14:00 12/14/18 05:33 Neurontin - PO 600 mg TID JAMEEL Administration Lamotrigine 200 mg 12/13/18 10:00 Lamictal - PO DAILY JAMEEL Lurasidone HCl 40 mg 12/13/18 10:00 Latuda - PO BID JAMEEL Methadone HCl 40 mg/ Methadone 70 mg 12/14/18 06:00 12/14/18 05:31 HCl 30 mg PO 70 mg DAILY@0600 JAMEEL Administration Mirtazapine 30 mg 12/13/18 22:00 12/13/18 22:09 Remeron - PO 30 mg HS JAMEEL Administration Quetiapine Fumarate 100 mg 12/13/18 22:00 12/13/18 22:09 Seroquel - PO 100 mg HS JAMEEL Administration ASSESSMENT/PLAN: Patient is a 33 year old female with past medical history of seizure disorder, HTN, Hypothyroidism, Bipolar disorder, anxiety, polysubstance abuse, presented with altered mental status for 1 day. #Acute metabolic encephalopathy likely 2/2 drug intoxication -Urine toxicology - opiates, methadone, cocaine, marijuana -Leukocytosis -resolved -Head CT done, -IV NS @100cc/hr #seizure disorder -patient takes gabapentin 600 TID; stopped taking lamictal -lamictal level pending -neuro consult -recs appreciated #vaginitis given fluconazole 150 X1 #Polysubstance abuse mwas taking methadone 72 however has not had it in a few days -fall precaution -seizure precaution -monitor for withdrawal symptoms -Dr Moise consulted #FEN -IV NS @100cc/hr -Electrolytes wnl, routine bmp monitoring -sodium restricted diet #Prophylaxis -Lovenox 40mg sq daily #Disposition -full code -tele obs, MRSA isolation Problem List - Problems (1) Altered mental status, unspecified Code(s): R41.82 - ALTERED MENTAL STATUS, UNSPECIFIED Qualifiers: Altered mental status type: stupor Qualified Code(s): R40.1 - Stupor (2) Nausea & vomiting Code(s): R11.2 - NAUSEA WITH VOMITING, UNSPECIFIED Qualifiers: Vomiting type: unspecified Vomiting Intractability: non-intractable Qualified Code(s): R11.2 - Nausea with vomiting, unspecified
--- NOTE | 2018-12-14 14:33 | PN ---
Teaching Attending Note Name of Resident: Hortensia Miramontes ATTENDING PHYSICIAN STATEMENT I saw and evaluated the patient. I reviewed the resident's note and discussed the case with the resident. I agree with the resident's findings and plan as documented. SUBJECTIVE: No fever or chills. No abd pain. No BRIZUELA , nO CP. request clonidine and klonopin OBJECTIVE: NAD. calm and comfortable CV: RRR Lungs: CTAb Ext: No edema. no tremor in hands . track frazier on upper extremities ASSESSMENT AND PLAN: 33 y/o lady with h/o polysubstance abuse, and seizures, HTN, hypothyroidism, and bipolar. she was brought in with AMS. 1- AMS/encephalopathy : resolved . back to [place] 2- Opioid Withdrawal ,resolved. cont methadone. d/w dr. Moise, she will cont to follow with methadone clinic for her doses . she is interested in rehab bu hio beds available 3- Seizures, not compliant with meds. - seen by neuro : cont lower dose of lamictal, start keppra and cont neurontin . f/u as out p t 4- fungal vaginitis : received diflucan x 1. topical antifungal x 1 week for grons . f/u with [facility] 5- leukocytosis, resolved . off Abx dispo : dc home no benzos. her psych meds were not confirmed as she does not remember name or phone of her psychiatrist. spoke to [facility] and they don't have any recs for her previously. also called [facility] , no records for her as well.
[2018-12-14 15:03] VITALS: BP 123/76; PULSE 80; TEMP 98.1
--- NOTE | 2018-12-14 15:11 | DS ---
Physical Exam: SUBJECTIVE: Patient seen and examined at bedside- pateint states she feels better no longer having anymore nausea/vomiting; feels less tremulous this AM OBJECTIVE: Vital Signs Period Temp Pulse Resp BP Sys/Nash Pulse Ox Last 24 Hr 98.1 F-99.1 F 80-119 2-20 103-148/69-91 97-98 PHYSICAL EXAM GENERAL: The patient is awake, alert, and fully oriented, in no acute distress. EYES: PEERLA; EOMI; no scleral icterus NECK: no JVD; no lymphadenopathy LUNGS:coarse bre[place] sounds B/L. HEART: Regular rate and rhythm, S1, S2 without murmur, rub or gallop. ABDOMEN: Soft, nontender, nondistended, normoactive bowel sounds, no guarding, no rebound, no hepatosplenomegaly, no masses. EXTREMITIES: 2+ pulses, warm, well-perfused, no edema. PSYCH: Normal mood, normal affect. SKIN: Warm, dry, normal turgor, no rashes or lesions noted. LABS Laboratory Results - last 24 hr 12/13/18 12/14/18 12/14/18 05:20 07:00 07:00 WBC 9.5 RBC 4.59 Hgb 13.6 Hct 39.5 MCV 86.0 MCH 29.6 MCHC 34.4 RDW 13.4 Plt Count 254 D MPV 7.9 Total Counted 100 Neutrophils % (Manual) 70.0 Band Neutrophils % 0.0 Lymphocytes % (Manual) 21.0 Monocytes % (Manual) 7 Polychromasia 1+ Poikilocytosis 1+ Tear Drop Cells 1+ [place] Cells 1+ Sodium 146 H Potassium 3.2 L Chloride 112 H Carbon Dioxide 26 Anion Gap 8 BUN 16 Creatinine 0.6 Creat Clearance w eGFR > 60 Random Glucose 99 Calcium 8.8 Microbiology 12/12/18 18:15 Urine - Urine - Catheterized Urine Culture - Final NO GROWTH OBTAINED 12/12/18 18:15 Blood - Peripheral Venous Blood Culture - Preliminary NO GROWTH OBTAINED AFTER 24 HOURS, INCUBATION TO CONTINUE FOR 4 DAYS. 12/12/18 18:15 Blood - Peripheral Venous Blood Culture - Preliminary NO GROWTH OBTAINED AFTER 24 HOURS, INCUBATION TO CONTINUE FOR 4 DAYS. Imaging: head CT: no acute pathology Chest XRAY: no acute pulmonary processes HOSPITAL COURSE: Date of Admission:02/21/19 33 y/o female with PMH of polysubstance abuse, seziures, depression presented to the ED after she was found down by her boyfriend apparently covered in feces and vaginal blood.her utox was positive for opiates, methadone, cocaine, marijuana. it was unclear whether or not she suffered from a seizure at home. she has not had her medications in a couple of weeks in [facility] she had not taken her methadone in a few days and was withdrawing. she might have suffered a seizure before receiving a CT scan of the head and then once she received ativan she awoke and was responsive. she needed to be placed on one to one as she was very aggressive. PAtient was also found to have vulvovaginitis and is being treated with clotrimazole ( received 1 dose prior to discharge) she was seen by psychiatrist who deemed her not suicidal or homicidal; she was also seen by neurology who thinks she might have had a seizure due to her medication non compliance. she was counseled on the importance of drug cessation and patient states she is willing to go to a detox/rehab program. she was dishcarged home on her home seizure medications in [facility] to given another dose of the clotrimazole. was also given follow up to see her neurologist and PCP within the week Date of Discharge: 12/14/18 Minutes to complete discharge: 39 Discharge Summary Reason For Visit: ALTERED MENTAL STATUS Current Active Problems Altered mental status, unspecified (Acute) Seizure (Chronic) Condition: Improved - Instructions Diet, Activity, Other Instructions: you presented to the hospital with altered mental status due to drug use and withdrawal. you also had a seizure in ER Please [facility] . Please follow up with your primary within one week Please follow up with Dr Garcia Neurologist within one week for seizure follow with your psychiatrist for anxiety disorder Levetercitam 500 mg twice daily has been added to your meds Change lamictal 200 mg to 100 mg twice daily to adjunct for seizures Please stop using any benzodiazpin (kolonpin or any other types of Benzo) meds Please resume other home meds as before admission you were found to have fungal infection in genital area please use clotrimazole cream topical daily for one week only .and follow up with your og/obstetrics and gynecology professor. please apply clotrimazole only on the outside in your groin. do not put on mucus membrane or inside your vagina If you develop fever, chills, chest pain or shortness of breath or your symptoms worsen please return to Emergency room . avoid using any drugs . Referrals: Kike Virgen MD [Staff Physician] - 1 Week Michael Garcia MD [Staff Physician] - 1 Week Disposition: HOME - Home Medications Comprehensive Discharge Medication List: Ambulatory Orders Gabapentin [Neurontin] 600 mg PO TID 10/09/17 Lurasidone HCl [Latuda] 40 mg PO BID 10/26/17 Mirtazapine 30 mg PO HS 10/26/17 Quetiapine Fumarate [Seroquel] 100 mg PO HS 10/26/17 Clotrimazole [Gyne-Lotrimin -] 1 applic VG HS #1 tube 12/14/18 Lamotrigine [Lamictal -] 100 mg PO BID #60 tablet 12/14/18 Methadone [Dolophine -] 70 mg PO DAILY #1 tab.disper MDD 70 mg 12/14/18 levETIRAcetam [Keppra -] 500 mg PO BID #600 tablet 12/14/18 Problem List - Problems (1) Altered mental status, unspecified Code(s): R41.82 - ALTERED MENTAL STATUS, UNSPECIFIED Qualifiers: Altered mental status type: stupor Qualified Code(s): R40.1 - Stupor (2) Nausea & vomiting Code(s): R11.2 - NAUSEA WITH VOMITING, UNSPECIFIED Qualifiers: Vomiting type: unspecified Vomiting Intractability: non-intractable Qualified Code(s): R11.2 - Nausea with vomiting, unspecified This patient is new to me today: No Emergency Visit: Yes ED Registration Date: 12/14/18 Care time: The patient presented to the Emergency Department on the above date and was hospitalized for further evaluation of their emergent condition. Critical Care patient: No - Discharge Referral Referred to [facility] No
[2018-12-14] MEDS ORDERED: levETIRAcetam 500 MG TABLET (FP) PO SCH (22:00)
== END 2018-12-14 18:09 | disposition home or self-care (01) | DRG 773 ==
LOC: JER 16:32 → JERBED 21:42 → J6S 12-13 17:01 → OBSVTOIN 12-14 11:39
PROVIDERS: ADMIT Internal Medicine; ATTEND Internal Medicine
PROC: 05HC33Z Insertion of Infusion Device into Left Basilic Vein, Percutaneous Approach (ICD-10-PCS; principal; 2018-12-12)
PROC: B54NZZA Ultrasonography of Left Upper Extremity Veins, Guidance (ICD-10-PCS; 2018-12-12)
DX: F11.23 Opioid dependence with withdrawal (principal); G93.41 Metabolic encephalopathy; F31.9 Bipolar disorder, unspecified; T40.5X1A Poisoning by cocaine, accidental (unintentional), initial encounter; F14.220 Cocaine dependence with intoxication, uncomplicated; G40.909 Epilepsy, unspecified, not intractable, without status epilepticus; I10 Essential (primary) hypertension; E03.9 Hypothyroidism, unspecified; F41.9 Anxiety disorder, unspecified; N76.0 Acute vaginitis; K02.9 Dental caries, unspecified; I69.392 Facial weakness following cerebral infarction; E78.00 Pure hypercholesterolemia, unspecified; F90.9 Attention-deficit hyperactivity disorder, unspecified type; F12.10 Cannabis abuse, uncomplicated; L98.8 Other specified disorders of the skin and subcutaneous tissue; F14.10 Cocaine abuse, uncomplicated; F17.210 Nicotine dependence, cigarettes, uncomplicated; D72.829 Elevated white blood cell count, unspecified
CPT/HCPCS: 36415; 70450-TC; 71045-TC-FY; 80048; 80053; 80175; 80307; 81003; 81015; 82550; 83605; 83735; 84100; 84443; 84484; 84703; 85025; 85027; 85610; 87040; 87081; 87086; 93005; 93010; 99285-25; G0378; J7030

== ENCOUNTER 2019-07-14 15:21 | Emergency (ER) | payer OTHER ==
[2019-07-14 15:53] VITALS: BP 144/95; PULSE 71; TEMP 98.3; BMI 25.0
--- NOTE | 2019-07-14 16:10 | PDOC ---
History of Present Illness - General Chief Complaint: Nausea/Vomiting Stated Complaint: WITHDRAWAL History Source: Patient Exam Limitations: No Limitations - History of Present Illness Initial Comments: 07/14/19 16:13 33 year old female with past medical history of seizure disorder, HTN, Hypothyroidism, Bipolar disorder, anxiety, polysubstance abuse (hx of IV heroin abuse; last use 4 days ago via injection; last use of benzos 4 days ago; last use of methadone (80 mg daily via [facility] # [id number])) presents to the emergency department with N/V with generalized abdominal pain with malaise. Per the patient, she states her symptoms are consistent with her previous withdrawal episodes from benzos and opiates but is "10x worse". Denies focal abdominal pain. Endorses dysuria and urinary frequency. Endorses constipation. Denies the following: fevers, chills, SOB, chest pain, lightheadedness, leg pain/swelling, and vaginal bleeding/discharge. Allergies: reglan, sulfa, and haldol Past History - Past Medical History Allergies/Adverse Reactions: Allergies Allergy/AdvReac Type Severity Reaction Status Date / Time metoclopramide HCl Allergy Severe Swelling Verified 07/14/19 15:41 [From Reglan] Sulfa (Sulfonamide Allergy Intermediate Rash Verified 07/14/19 15:41 Antibiotics) Home Medications: Ambulatory Orders Gabapentin [Neurontin] 600 mg PO TID 10/09/17 Lurasidone HCl [Latuda] 40 mg PO BID 10/26/17 Mirtazapine 30 mg PO HS 10/26/17 Quetiapine Fumarate [Seroquel -] 100 mg PO HS 10/26/17 Clotrimazole [Gyne-Lotrimin -] 1 applic VG HS #1 tube 12/14/18 Lamotrigine [Lamictal -] 100 mg PO BID #60 tablet 12/14/18 Methadone [Dolophine -] 70 mg PO DAILY #1 tab.disper MDD 70 mg 12/14/18 levETIRAcetam [Keppra -] 500 mg PO BID #600 tablet 12/14/18 Cephalexin Monohydrate [Keflex -] 500 mg PO BID #14 capsule 07/14/19 Ondansetron [Zofran *Odt*] 4 mg SL TID #21 od.tablet 07/14/19 Anemia: No Asthma: No Cancer: No Cardiac Disorders: No 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) COPD: No CHF: No DVT: No Dementia: No Diabetes: No GI Disorders: No Disorders: Yes (UTI) HTN: Yes Hypercholesterolemia: Yes Kidney Stones: No Liver Disease: Yes (LIVER SWOLLEN) Psychiatric Problems: Yes (adhd,anxeity,bipolar) Seizures: Yes Thyroid Disease: Yes (HYPOTHYRODISM) - Surgical History Abdominal Surgery: Yes Appendectomy: Yes Cardiac Surgery: No Cholecystectomy: No Lung Surgery: No Neurologic Surgery: No Orthopedic Surgery: No - Reproductive History PID: No - Immunization History Immunization Up to Date: Yes - Suicide/Smoking/Psychosocial Hx Smoking Status: Yes Smoking History: Never smoked Have you smoked in the past 12 months: No Number of Cigarettes Smoked Daily: 20 'Breaking Loose' booklet given: 05/26/18 Hx Alcohol Use: No Drug/Substance Use Hx: No Substance Use Type: Heroin, Marijuana Hx Substance Use Treatment: Yes Review of Systems - Review of Systems Able to Perform ROS?: Yes Is the patient limited Albanian proficient: No Constitutional: Yes: Weakness. No: Chills, Diaphoresis, Fever HEENTM: No: Eye Pain, Ear Pain, Nose Pain, Throat Pain, Mouth Pain Respiratory: No: Cough, Shortness of Breath, Hemoptysis Cardiac (ROS): No: Chest Pain, Lightheadedness, Palpitations ABD/GI: Yes: Constipated, Nausea, Vomiting, Abdominal cramping. No: Diarrhea, Rectal Bleeding, Tarry Stools : No: Burning, Dysuria, Hematuria, Incontinence Musculoskeletal: No: Back Pain, Joint Pain, Neck Pain Integumentary: No: Bruising, Erythema, Rash Neurological: No: Headache, Numbness Psychiatric: Yes: Anxiety Endocrine: No: Unexplained Weight Gain Hematologic/Lymphatic: No: Anemia *Physical Exam - Vital Signs Last Vital Signs Temp Pulse Resp BP Pulse Ox 98.3 F 71 18 144/95 100 07/14/19 15:41 07/14/19 15:41 07/14/19 15:41 07/14/19 15:41 07/14/19 15:41 - Physical Exam General Appearance: Yes: Nourished, Appropriately Dressed. No: Apparent Distress, Intoxicated HEENT: positive: EOMI, UBALDO, Normal Voice, Symmetrical, Hearing Grossly Normal. negative: Pharynx Normal (multiple missing teeth, decaying manible teeth.), Pale Conjunctivae, Scleral Icterus (R), Scleral Icterus (L), Muffled/Hoarse voice, Pharyngeal Erythema, Tonsillar Exudate, Tonsillar Erythema, Excessive drooling Neck: positive: Trachea midline, Supple. negative: Tender, Lymphadenopathy (R) , Lymphadenopathy (L), Tender lateral, Tender midline Respiratory/Chest: positive: Lungs Clear, Normal Breath Sounds. negative: Chest Tender, Respiratory Distress, Accessory Muscle Use Cardiovascular: positive: Regular Rhythm, Regular Rate, S1, S2. negative: Systolic Murmur Gastrointestinal/Abdominal: positive: Normal Bowel Sounds, Tender (diffuse tenderness. no rebound. no gaurding. no rashes. ) Lymphatic: negative: Adenopathy Musculoskeletal: positive: Normal Inspection. negative: CVA Tenderness, Vertebral Tenderness Extremity: positive: Normal Capillary Refill, Normal Range of Motion. negative : Normal Inspection (large previous abscess scar located on the right shoulder and right elbow. ), Tender Integumentary: positive: Normal Color, Dry, Warm Neurologic: positive: swing saw operator II-XII NML intact, Fully Oriented, Alert, Normal Mood/ Affect ED Treatment Course - LABORATORY CBC & Chemistry Diagram: 07/14/19 17:32 07/14/19 17:32 Medical Decision Making - Medical Decision Making 33 year old female with past medical history of seizure disorder, HTN, Hypothyroidism, Bipolar disorder, anxiety, polysubstance abuse (hx of IV heroin abuse; last use 4 days ago via injection; last use of benzos 4 days ago; last use of methadone (80 mg daily via [facility] # [id number])) presents to the emergency department with N/V with generalized abdominal pain with malaise. Initial vitals: Initial Vital Signs Temp Pulse Resp BP Pulse Ox 98.3 F 71 18 144/95 100 07/14/19 15:41 07/14/19 15:41 07/14/19 15:41 07/14/19 15:41 07/14/19 15:41 Work up: ddx: patient presents with symptoms consistent with opiate and benzo withdrawal. per the patient, her father "accidentally threw out my xanax 4 days ago" and she has been unable to take her methadone for the last 2 days due to the uncontrollable N/V. will obtain labs to assess electrolyte abnormality. will obtain UA, urine culture, and drug screen. in addition, will provide NS 1 L , tylenol for pain, 4 mg of zofran, 1 mg of ativan (Istop used to verify she takes 2 mg of ativan BID) and 70 mg of methadone (patient states she takes 80 mg , but unable to reach methadone clinic as it is after hours and [facility] emergency department is unable to access this information; patient does not have her methadone card). A call was placed to [facility] [place] to assess if there is a bed open. no bed available. Laboratory Tests 07/14/19 07/14/19 07/14/19 17:00 17:00 17:32 WBC 7.6 RBC 4.83 Hgb 13.8 Hct 41.1 MCV 85.2 MCH 28.6 MCHC 33.6 RDW 14.1 Plt Count 358 D MPV 8.7 D Absolute Neuts (auto) 6.0 Neutrophils % 78.4 Lymphocytes % 15.6 D Monocytes % 5.0 Eosinophils % 0.1 Basophils % 0.9 Nucleated RBC % 0 Sodium Potassium Chloride Carbon Dioxide Anion Gap BUN Creatinine Est GFR (CKD-EPI)AfAm Est GFR (CKD-EPI)NonAf Random Glucose Calcium Magnesium Total Bilirubin AST ALT Alkaline Phosphatase Total Protein Albumin Lipase Urine Color Dk yellow Urine Appearance Turbid Urine pH 8.5 H D Ur Specific [place] 1.023 Urine Protein 1+ H Urine Glucose (UA) Negative Urine Ketones Trace H Urine Blood Negative Urine Nitrite Positive H Urine Bilirubin Negative Urine Urobilinogen 1.0 Ur Leukocyte Esterase Negative Urine WBC (Auto) 4 Urine RBC (Auto) 4 Urine Casts (Auto) 9 U Epithel Cells (Auto) 14.5 U Sm Round Cell (Auto) None Urine Bacteria (Auto) 5325.7 Opiates Screen Positive A* Methadone Screen Positive A* Barbiturate Screen Negative Phencyclidine Screen Negative Ur Amphetamines Screen Negative MDMA (Ecstasy) Screen Negative Benzodiazepines Screen Positive A* Cocaine Screen Positive A* U Marijuana (THC) Screen Positive A* 07/14/19 07/14/19 17:32 17:32 WBC RBC Hgb Hct MCV MCH MCHC RDW Plt Count MPV Absolute Neuts (auto) Neutrophils % Lymphocytes % Monocytes % Eosinophils % Basophils % Nucleated RBC % Sodium 136 Potassium 3.6 Chloride 100 Carbon Dioxide 26 Anion Gap 10 BUN 14.7 Creatinine 0.6 Est GFR (CKD-EPI)AfAm 140.77 Est GFR (CKD-EPI)NonAf 121.46 Random Glucose 115 H Calcium 10.2 H Magnesium 2.3 Total Bilirubin 0.4 AST 17 ALT 21 Alkaline Phosphatase 117 Total Protein 8.8 H Albumin 4.7 Lipase 34 L Urine Color Urine Appearance Urine pH Ur Specific [place] Urine Protein Urine Glucose (UA) Urine Ketones Urine Blood Urine Nitrite Urine Bilirubin Urine Urobilinogen Ur Leukocyte Esterase Urine WBC (Auto) Urine RBC (Auto) Urine Casts (Auto) U Epithel Cells (Auto) U Sm Round Cell (Auto) Urine Bacteria (Auto) Opiates Screen Methadone Screen Barbiturate Screen Phencyclidine Screen Ur Amphetamines Screen MDMA (Ecstasy) Screen Benzodiazepines Screen Cocaine Screen U Marijuana (THC) Screen urine drug screen positive for marijuana, cocaine, methadone, and opiates. patient to be discharged with zofran prescription and keflex sent due to UTI. She significantly improved with the medications. Dispo; Discharge *DC/Admit/Observation/Transfer Diagnosis at time of Disposition: Opioid dependence, Nausea & vomiting, UTI (urinary tract infection) - Discharge Dispostion Disposition: HOME Condition at time of disposition: Stable Decision to Admit order: No - Prescriptions Prescriptions: Cephalexin Monohydrate [Keflex -] 500 mg PO BID #14 capsule Ondansetron [Zofran *Odt*] 4 mg SL TID #21 od.tablet - Referrals Referrals: [facility] [place] [Provider Group] - Patient Instructions Printed Discharge Instructions: DI for Urinary Tract Infection (UTI), DI for Vomiting -- Adult Additional Instructions: You were seen for your urinary tract infection. Please follow up with the primary medical doctor referred to you. Please take the medications as prescribed. Please abstain from all drugs. Please follow up with the methadone clinic. Thank you. - Post Discharge Activity
[2019-07-14] MEDS ORDERED: ACETAMINOPHEN 1000 MG/100 ML VIAL (NON FORMULARY) IVPB ONE (16:33)
[2019-07-14] MEDS ORDERED: SODIUM CHLORIDE 1,000 ML IV STA (16:33)
[2019-07-14] MEDS ORDERED: ONDANSETRON 4 MG/2 ML VIAL IVPUSH ONE (16:33)
[2019-07-14] MEDS ORDERED: LORazepam 2 MG/ML SDV VIAL ONE (16:38)
[2019-07-14] MEDS ORDERED: ACETAMINOPHEN INJECTION 100 ML IVPB ONE (16:39)
[2019-07-14] MEDS ORDERED: ONDANSETRON 4 MG/2 ML VIAL ONE (16:39)
[2019-07-14] MEDS ORDERED: METHADONE HCL 10 MG TABLET PO ONE (16:49)
[2019-07-14 17:18] LABS: EPI CELLS 14.5 /HPF (0-5/HPF); HYALINE CASTS 9 /lpf (0-8); PH,URINE 8.5 (5.0-8.0); URINE APPEARANCE TURBID; URINE BACTERIA 5325.7 /hpf (NEGATIVE); URINE BILIRUBIN NEGATIVE (NEGATIVE); URINE COLOR DK YELLOW; URINE GLUCOSE (UA) NEGATIVE (NEGATIVE); URINE KETONE TRACE (NEGATIVE); URINE LEUK ESTERASE NEGATIVE (NEGATIVE); URINE NITRITE POSITIVE (NEGATIVE); URINE PROTEIN 1+ (NEGATIVE); URINE RBC 4 /hpf (0-4); URINE WBC 4 /hpf (0-5)
--- NOTE | 2019-07-14 17:26 | PDOC ---
Documentation entered by Cassidy Baldwin SCRIBE, acting as scribe for Jessy Giron MD. Jessy Giron MD: This documentation has been prepared by the sueibe, Cassidy Baldwin SCRIBE, under my direction and personally reviewed by me in its entirety. I confirm that the documentation accurately reflects all work, treatment, procedures, and medical decision making performed by me. Attending Attestation - Resident Resident Name: ClaraYfn - ED Attending Attestation I have performed the following: I have examined & evaluated the patient, The case was reviewed & discussed with the resident, I agree w/resident's findings & plan, Exceptions are as noted - HPI HPI: 07/14/19 17:21 33 yo female with PMH of polysubstance abuse ,seizures,bipolar syndrome p/e nasuea,vomrintg and feels she is in withdrawal since her last opiate and benzodiazepine use was 4 days ago 07/14/19 18:44 - Physicial Exam PE: 07/14/19 17:23 abdominal exam mp rebound.no guarding,+bs - Medical Decision Making 07/14/19 17:24 diff diagnosis includes benzo /opiate withdrawal,gastritis we called [facility] to see if they have beds available and they do not 07/14/19 17:26 07/14/19 19:13 pt's symptoms resolved and she was discharged home
[2019-07-14 17:40] LABS: PHENCYCLIDINE,URINE NEGATIVE ng/ml (CUTOFF=25); URINE AMPHETAMINES NEGATIVE ng/ml (CUTOFF=500); URINE BARBITURATES NEGATIVE ng/ml (CUTOFF=200)
[2019-07-14 17:42] LABS: COCAINE, UR POSITIVE ng/ml (CUTOFF=300); METHADONE, UR POSITIVE ng/ml (CUTOFF=300); OPIATES, URI POSITIVE ng/ml (CUTOFF=300); URINE BENZODIAZEPINES POSITIVE ng/ml (CUTOFF=200)
[2019-07-14 17:47] LABS: BASO % 0.9 % (0-2.0); EOS % 0.1 % (0-4.5); HEMATOCRIT 41.1 % (32.4-45.2); HEMOGLOBIN 13.8 GM/dL (10.7-15.3); LYMPH % 15.6 % (8-40); MCH 28.6 pg (25.7-33.7); MCHC 33.6 g/dl (32.0-36.0); MEAN CELL VOLUME 85.2 fl (80-96); MEAN PLT VOLUME 8.7 fl (7.5-11.1); NEUT % 78.4 % (42.8-82.8); PLATELET COUNT 358 K/MM3 (134-434); RBC 4.83 M/mm3 (3.60-5.2); RDW 14.1 % (11.6-15.6); WHITE BLOOD COUNT 7.6 K/mm3 (4.0-10.0)
[2019-07-14] MEDS ORDERED: METHADONE HCL 40 MG DISPERSABLE TABLET ONE (17:48)
[2019-07-14] MEDS ORDERED: METHADONE HCL 10 MG TABLET ONE (17:48)
[2019-07-14 18:07] LABS: MAGNESIUM 2.3 mg/dL (1.8-2.4)
[2019-07-14 18:15] LABS: ALBUMIN 4.7 g/dl (3.4-5.0); BILIRUBIN,TOTAL 0.4 mg/dL (0.2-1); BLOOD UREA NITROGEN 14.7 mg/dL (7-18); CALCIUM 10.2 mg/dL (8.5-10.1); CREATININE 0.6 mg/dL (0.55-1.3); POTASSIUM 3.6 mmol/L (3.5-5.1); TOT PROT 8.8 g/dl (6.4-8.2)
[2019-07-14] MEDS ORDERED: CEPHALEXIN MONOHYDRATE 500 MG CAPSULE (UD) PO ONE (18:23)
[2019-07-14] MEDS ORDERED: CEPHALEXIN MONOHYDRATE 500 MG CAPSULE (UD) ONE (18:25)
== END 2019-07-14 19:08 | disposition home or self-care (01) ==
LOC: JER 15:21
PROC: 3E033NZ Introduction of Analgesics, Hypnotics, Sedatives into Peripheral Vein, Percutaneous Approach (ICD-10-PCS; principal; 2019-07-14)
DX: F11.23 Opioid dependence with withdrawal (principal); F13.230 Sedative, hypnotic or anxiolytic dependence with withdrawal, uncomplicated; N39.0 Urinary tract infection, site not specified; I10 Essential (primary) hypertension; E03.9 Hypothyroidism, unspecified; G40.909 Epilepsy, unspecified, not intractable, without status epilepticus; F31.9 Bipolar disorder, unspecified; F41.9 Anxiety disorder, unspecified; I69.854 Hemiplegia and hemiparesis following other cerebrovascular disease affecting left non-dominant side
CPT/HCPCS: 36415; 80053; 80307; 81003; 83690; 83735; 84703; 85025; 87086; 87186; 96374; 96375; 99283-25; J0131; J7030

== ENCOUNTER 2019-11-26 11:57 | Inpatient (IN) | payer OTHER ==
[2019-11-26 13:03] VITALS: BMI 26.3
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
[2019-11-26] MEDS ORDERED: MENTHOL/PHENOL 1 EACH UD MM PRN (14:32)
[2019-11-26] MEDS ORDERED: guaiFENesin 200 MG/10 ML 10 ML UNIT-DOSE CUPS PO PRN (14:32)
[2019-11-26] MEDS ORDERED: P-EPHED 60MG/TRIPROLIDI 2.5MG TABLET PO PRN (14:32)
[2019-11-26] MEDS ORDERED: IBUPROFEN 400 MG TABLET (FP) PO PRN (14:32)
[2019-11-26] MEDS ORDERED: MAGNESIUM HYDROX 2400MG/30ML ORAL SUSPENSION 30 ML CUP PO PRN (14:32)
[2019-11-26] MEDS ORDERED: ACETAMINOPHEN 325 MG TABLET (FP) PO PRN (14:32)
[2019-11-26] MEDS ORDERED: MAGNESIUM CITRATE 300 ML BOTTLE PO PRN (14:32)
[2019-11-26] MEDS ORDERED: LOPERAMIDE HCL 2 MG CAPSULE PO PRN (14:32)
[2019-11-26] MEDS ORDERED: MAG HYDROX/AL HYDROX/SIMETH 30 ML UNIT-DOSE CUP PO PRN (14:32)
--- NOTE | 2019-11-26 15:37 | PN ---
Teaching Attending Note Name of Resident: Mindy Aaron ATTENDING PHYSICIAN STATEMENT I saw and evaluated the patient. I reviewed the resident's note and discussed the case with the resident. I agree with the resident's findings and plan as documented. SUBJECTIVE: Polysubstance use disorder OBJECTIVE: cellulits, track frazier ASSESSMENT AND PLAN: Admit Rehab
[2019-11-26 16:30] LABS: HEMATOCRIT 38.1 % (32.4-45.2); HEMOGLOBIN 12.7 GM/dL (10.7-15.3); MCH 29.3 pg (25.7-33.7); MCHC 33.3 g/dl (32.0-36.0); MEAN CELL VOLUME 87.9 fl (80-96); MEAN PLT VOLUME 8.2 fl (7.5-11.1); PLATELET COUNT 207 K/MM3 (134-434); RBC 4.33 M/mm3 (3.60-5.2); RDW 14.2 % (11.6-15.6)
[2019-11-26 16:46] LABS: ALBUMIN 4.1 g/dl (3.4-5.0); BILIRUBIN,TOTAL 0.3 mg/dL (0.2-1); BLOOD UREA NITROGEN 14.9 mg/dL (7-18); CALCIUM 9.7 mg/dL (8.5-10.1); CREATININE 0.6 mg/dL (0.55-1.3); POTASSIUM 3.9 mmol/L (3.5-5.1); TOT PROT 8.1 g/dl (6.4-8.2)
[2019-11-26] MEDS: GABAPENTIN 300 MG CAPSULE PO SCH (17:45)
[2019-11-26] MEDS: THIAMINE HCL 100 MG TABLET (FP) PO SCH (21:56)
[2019-11-26] MEDS: MELATONIN 5 MG TABLETS PO PRN (21:56)
[2019-11-26] MEDS: levETIRAcetam 500 MG TABLET (FP) PO SCH ×2 (21:56→21:58)
[2019-11-26] MEDS: CEPHALEXIN MONOHYDRATE 500 MG CAPSULE (UD) PO SCH (21:56)
[2019-11-27] MEDS: METHADONE HCL 40 MG DISPERSABLE TABLET PO SCH (06:34)
--- NOTE | 2019-11-27 09:29 | EKG ---
Test Reason : Blood Pressure : / mmHG Vent. Rate : 097 BPM Atrial Rate : 097 BPM P-R Int : 146 ms QRS Dur : 084 ms QT Int : 366 ms P-R-T Axes : 048 063 035 degrees QTc Int : 464 ms NORMAL SINUS RHYTHM POSSIBLE LEFT ATRIAL ENLARGEMENT BORDERLINE ECG Confirmed by Sander Alcazar MD ([id number]) on 11/27/2019 9:28:01 AM Referred By: Confirmed By:Sander Alcazar MD
[2019-11-27] MEDS: NICOTINE 14 MG/24 HOURS TOPICAL PATCH TD SCH (09:46)
[2019-11-27] MEDS: CEPHALEXIN MONOHYDRATE 500 MG CAPSULE (UD) PO SCH ×2 (09:46→21:27)
[2019-11-27] MEDS: GABAPENTIN 300 MG CAPSULE PO SCH ×2 (09:47→21:29)
[2019-11-27] MEDS: levETIRAcetam 500 MG TABLET (FP) PO SCH (09:47)
[2019-11-27] MEDS: PRENATAL VITAMINS W/ FOLIC ACID TABLET (FP) PO SCH (09:48)
--- NOTE | 2019-11-27 10:36 | CONSULT ---
[facility] Psychiatric Consult - Data Date of interview: 11/27/19 Admission source: [facility] Identifying data: Patient is a 34 year old single white female, mother of one, unemployed, resides with dad and brother, and is financially supported by relatives. This is one of multiple admissions for rehab. Patient admitted to for alcohol, cocaine, opiate, and marijuana dependence. Substance Abuse History: Smoking Cessation. Smoking history: Current every day smoker. Have you smoked in the past 12 months: No. Aproximately how many cigarettes per day: 20. Hx Chewing Tobacco Use: Yes. Initiated information on smoking cessation: Yes. 'Breaking Loose' booklet given: 11/26/19. - Substances abused. Alprazolam (Xanax). Substance route: Oral. Frequency: Daily. Amount used: 8 mg. Age of first use: 15. Date of last use: 11/25/19. Cocaine. Substance route: Injection. Frequency: Daily. Amount used: 15 bags. Age of first use: 17. Date of last use: 11/25/19. Heroin. Substance route: Injection. Frequency: Daily. Amount used: 10-15 bags. Age of first use: 17. Date of last use: 11/26/19 Medical History: hypertension, hyperlipidmia, fatty liver, lumbar disc disease, CVA, hypothyroism Psychiatric History: Patient's first psychiatric contact was at 15 years of age at an outpatient clinic in [facility] due to her history of self mutilation ( cutting). She was diagnosed with bipolar disorder and panic disorder and was prescribed klonopin 0.25mg BID and other psychotropic agents she can't recall. Ms. Cuevas saw the psychiatrist intermittently for four years before discontinuing treatment due to her increase use of substance abuse. Then at 21 years of age Ms Alatorre was hospitalized at [facility] psychiatric unit after a suicide attempt via overdose (reports having three overdoses in two days). While at [facility] she was prescribed haldol (d/c after EPS reaction , acute dystonia of the neck), Ativan, Seroquel, + suboxone (patient unaware of doses). After discharged she followed up with Dr. Lew Yang in [place], [place] which she continues to see today. Her diagnosis was revised to Bipolar II Disorder, ADHD, Agorphobia, + Panic attacks. Pharmacy list faxed to [facility] (please review faxed sheet for additional information). Prescriptions for 11/09/19 are as followed: Adderall 30mg ( patient states she does not want to take adderall while in rehab as she does not need it during treatment), Xanax 2mg (as per patient its prescribed QID), Gabapentin 900mg (as per patient its TID for seizures), Mirtzapine 45mg HS, Clonidine 0.2mg ( as per patient its BID for hypertension and secondary use for anxiety) +Latuda 80mg daily but as per pharmacist its prescribed BID. Patient reports poor compliance to Latuda). As per pharmacist a prescription of seroquel 400mg HS + Lexapro 5mg was sent to pharmacy on 11/27/19 but has yet to be picked up. Patient denies suicidal/ homicidal ideation. Medications to be adjusted due to sub-optimal adherence. Physical/Sexual Abuse/Trauma History: denies. 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 Rehab in progress. Patient's psychiatrist, Dr. Yang contacted at [phone]. As per Dr. Yang patient has a diagnosis of Bipolar I disorder, agoraphobia and panic disorder. Dr. Yang stated that patient is prescribed Lexapro 5mg daily + Latuda 160mg HS + Seroquel 400mg ER HS +Mirtzapine 45mg HS +Gabapentin 900mg TID + Adderall 30mg + Xanax 2mg QID PRN + Clonidine 0.2mg BID. Dr. Yang stated that the gabapentin is prescribed for mood and anxiety, and clonidine is prescribed for anxiety. Will order Lexapro 5mg daily +Seroquel 200mg ER (as per patient she has been taking her father's seroquel 300mg ER HS as she reports completing her prescription)+ Mirtzapine 45mg HS +Gabapentin 900mg TID. Latuda will not be ordered at this time as patient reports noncompliance. Clonidine 0.1mg BID PRN ordered by JOSTIN Burris. Benefits and side effects discussed. Verbal consent given.
--- NOTE | 2019-11-27 13:06 | PN ---
[facility] Progress Note Note: Pt is a 34 y/o female with a hx of DIANA-alcohol,xanax,heroin,cocaine,alcohol admitted to rehab on 11/26/19 through [facility]. [facility] 80 mg po daily. Pt is currently on administrative detox protocol per Dr. Weber( Corporate Development Analyst). PMHx:Seizures d/o, HTN,Hypothyroidism, s/p CVA(2012 w/ residual left facial weakness). Psych Hx; Bipolar d/o and Anxiety d/o. Pt has a primary care provider Lew Cordero in [place], [place]. Ph: . Spoke to staff at pt's clinic who reports pt is not on Seizure medication that they are aware. however, she reports that pt is on Gabapentin 900 mg po TID for Dx of Bipolar Disorder. Medication list was previously faxed to [facility] from her pharmacy and administrative underwriter spoke to the pharmacist to verify Gabapentin as well and also comfirmed with originating prescriber's Dr. Yang's office. Copies of faxed medications from pt's pharmacy and provider in pt's chart. Pt reports she has been with Dr. Yang as her primary care doctor for 8 years. Vital Signs - 24 hr 11/26/19 11/27/19 11/27/19 16:15 00:30 03:30 Temperature 98.5 F Pulse Rate 103 H Respiratory 18 18 Rate Blood Pressure 130/85 11/27/19 11/27/19 06:55 09:01 Temperature 97.6 F Pulse Rate 110 H 114 H Respiratory 18 18 Rate Blood Pressure 123/83 116/72 Alert o x 3, denies s/h/i nad oob ambulating with steady gait A/P new pt to rehab DIANA Maintain safety follow up with psych consult D/w Dr. Birch re; pt's Keppra status and follow up. Follow up with your provider after rehab treatment D/w Dr. Weber, pt will be referred back to [facility] for CD aftercare after discharge from Rehab.
--- NOTE | 2019-11-27 15:43 | PN ---
S Progress Note Note: Ms. Alatorre had a seizure ~ one year ago. Was on Keppra at that time. Pharmacy was contacted. Pt not on Keppra at least since August. Will d/c Keppra.
[2019-11-27] MEDS: cloNIDine HCL 0.1 MG TABLET PO PRN (16:49)
[2019-11-27] MEDS: MELATONIN 5 MG TABLETS PO PRN (21:28)
[2019-11-27] MEDS ORDERED: MIRTAZAPINE 30 MG TABLET (FP) PO ONE (21:29)
[2019-11-27] MEDS ORDERED: MIRTAZAPINE 15 MG TABLET (FP) ONE (21:29)
[2019-11-27] MEDS: MIRTAZAPINE 30 MG, MIRTAZAPINE 15 MG PO SCH (21:30)
[2019-11-27] MEDS: THIAMINE HCL 100 MG TABLET (FP) PO SCH (21:31)
[2019-11-27] MEDS ORDERED: MIRTAZAPINE 30 MG TABLET (FP) PO SCH (22:00)
[2019-11-28] MEDS: METHADONE HCL 40 MG DISPERSABLE TABLET PO SCH (06:41)
[2019-11-28] MEDS: GABAPENTIN 300 MG CAPSULE PO SCH ×3 (06:42→21:27)
[2019-11-28] MEDS: ESCITALOPRAM OXALATE 10 MG TABLET PO SCH (09:09)
[2019-11-28] MEDS: PRENATAL VITAMINS W/ FOLIC ACID TABLET (FP) PO SCH (09:10)
[2019-11-28] MEDS: CEPHALEXIN MONOHYDRATE 500 MG CAPSULE (UD) PO SCH ×2 (09:10→21:27)
[2019-11-28] MEDS: NICOTINE 14 MG/24 HOURS TOPICAL PATCH TD SCH (09:10)
[2019-11-28] MEDS: cloNIDine HCL 0.1 MG TABLET PO PRN ×2 (09:26→17:38)
[2019-11-28] MEDS ORDERED: cloNIDine HCL 0.1 MG TABLET PO PRN (11:01)
[2019-11-28] MEDS ORDERED: PATIENT'S OWN MEDICATION (NON-FORMULARY) (Clonidine Hcl [Clonidine Hcl] 0.2 MG) PO PRN (11:52)
[2019-11-28] MEDS ORDERED: ERYTHROMYCIN 0.5% OPHTHALMIC OINTMENT 3.5 GM TUBE OD SCH (12:00)
--- NOTE | 2019-11-28 12:03 | PN ---
[facility] Progress Note Note: Pt c/o pain and swelling to right lower eyelid. Pt reports feeling tired, intermittent sleep last night because tossing and turning but fell asleep later for 2 hours. Pt denies any current suicidal ideations. Requesting to get back on home Rx Clonidine 0.2 mg po bid. Pt reports she has own Clonidine Rx and will not be needing script on discharge. Pt states will follow up with Dr. Yang who manages her medications after discharge from rehab. Today, pt also reports increased and will like to follow up with psych consult for re-eval. Vital Signs - 24 hr 11/28/19 11/28/19 11/28/19 00:36 03:32 06:40 Temperature 97.4 F L Pulse Rate 99 H Respiratory 18 18 18 Rate Blood Pressure 118/80 11/28/19 09:21 Temperature 97.8 F Pulse Rate 114 H Respiratory 18 Rate Blood Pressure 105/69 Laboratory Tests 11/26/19 11/26/19 11/26/19 12:39 14:00 14:00 WBC 7.0 RBC 4.33 Hgb 12.7 Hct 38.1 MCV 87.9 MCH 29.3 MCHC 33.3 RDW 14.2 Plt Count 207 D MPV 8.2 Sodium Potassium Chloride Carbon Dioxide Anion Gap BUN Creatinine Est GFR (CKD-EPI)AfAm Est GFR (CKD-EPI)NonAf Random Glucose Calcium Total Bilirubin AST ALT Alkaline Phosphatase Total Protein Albumin POC Urine HCG, Qual Negative RPR Titer HIV 1&2 Antibody Screen Negative HIV P24 Antigen Negative 11/26/19 11/26/19 14:00 14:00 WBC RBC Hgb Hct MCV MCH MCHC RDW Plt Count MPV Sodium 141 Potassium 3.9 Chloride 107 Carbon Dioxide 24 Anion Gap 9 BUN 14.9 Creatinine 0.6 Est GFR (CKD-EPI)AfAm 139.78 Est GFR (CKD-EPI)NonAf 120.61 Random Glucose 102 Calcium 9.7 Total Bilirubin 0.3 AST 19 ALT 18 Alkaline Phosphatase 92 Total Protein 8.1 Albumin 4.1 POC Urine HCG, Qual RPR Titer Nonreactive HIV 1&2 Antibody Screen HIV P24 Antigen Alert o x 3,denies s/h/i nad oob ambulating with steady gait. Heent:Lower eyelid with papular rash and redness, no pus;katt,eomi;sclera anicteric. extremities/Skin:no edema;right hand with resolving abscess; left hand with redness and swelling(r/t IVD Inj. day before arrival to treatment per patient). A/P Sty of right eye Abscess left hand Labs reviewed with patient increase po fluids reorder clonidine 0.2 mg po BID prn with parameters Erythromycin topical eye ointment 0.5% apply BID x 7 days warm compress apply to left hand abscess site. bacitracin ointment apply bid as directed psych consult for re-eval for anxiety.
[2019-11-28] MEDS: BACITRACIN 15 GM TUBE TOPICAL OINTMENT TP SCH ×2 (12:33→21:28)
[2019-11-28] MEDS: ERYTHROMYCIN 0.5% OPHTHALMIC OINTMENT 3.5 GM TUBE OD SCH ×2 (12:55→21:28)
[2019-11-28] MEDS: ONDANSETRON *ODT* 4 MG TABLET SL PRN (17:39)
[2019-11-28] MEDS ORDERED: MIRTAZAPINE 30 MG TABLET (FP) PO ONE (19:01)
[2019-11-28] MEDS ORDERED: MIRTAZAPINE 15 MG TABLET (FP) ONE (19:01)
[2019-11-28] MEDS ORDERED: PT OWN MED DRAWER 7, Y5N ONE (21:09)
[2019-11-28] MEDS: THIAMINE HCL 100 MG TABLET (FP) PO SCH (21:26)
[2019-11-28] MEDS: MIRTAZAPINE 30 MG, MIRTAZAPINE 15 MG PO SCH (21:27)
[2019-11-29] MEDS: METHADONE HCL 40 MG DISPERSABLE TABLET PO SCH (06:45)
[2019-11-29] MEDS: GABAPENTIN 300 MG CAPSULE PO SCH ×3 (06:46→21:31)
[2019-11-29] MEDS: ESCITALOPRAM OXALATE 10 MG TABLET PO SCH (10:43)
[2019-11-29] MEDS: BACITRACIN 15 GM TUBE TOPICAL OINTMENT TP SCH ×2 (10:43→21:34)
[2019-11-29] MEDS: CEPHALEXIN MONOHYDRATE 500 MG CAPSULE (UD) PO SCH ×2 (10:43→21:31)
[2019-11-29] MEDS: ERYTHROMYCIN 0.5% OPHTHALMIC OINTMENT 3.5 GM TUBE OD SCH ×2 (10:43→21:34)
[2019-11-29] MEDS ORDERED: PT OWN MED DRAWER 7, Y5N ONE (10:44)
[2019-11-29] MEDS: NICOTINE 14 MG/24 HOURS TOPICAL PATCH TD SCH (10:44)
[2019-11-29] MEDS: PRENATAL VITAMINS W/ FOLIC ACID TABLET (FP) PO SCH (10:45)
[2019-11-29] MEDS: ONDANSETRON *ODT* 4 MG TABLET SL PRN (10:46)
[2019-11-29] MEDS: cloNIDine HCL 0.1 MG TABLET PO PRN (11:48)
--- NOTE | 2019-11-29 12:16 | PN ---
Psychiatric Progress Note Vital Signs: Vital Signs Period Temp Pulse Resp BP Sys/Nash Pulse Ox Last 24 Hr 97.5 F 86-114 18-18 105-120/69-78 Date of Session: 11/29/19 Chief Complaint:: " I feel anxious." HPI: Patient admitted to for alcohol, cocaine, opiate, and marijuana dependence. Consultation ordered due to patient reporting anxiety. ROS: Patient presents as mildly fatigue but is alert + oriented X3. Current Medications: Active Medications Generic Name Dose Route Start Last Admin Trade Name Freq PRN Reason Stop Dose Admin Acetaminophen 650 mg 11/26/19 14:32 Tylenol - PO Q4H PRN FEVER Al Hydroxide/Mg Hydroxide 30 ml 11/26/19 14:32 Mylanta Oral Suspension - PO Q6H PRN DYSPEPSIA Bacitracin 1 applic 11/28/19 11:45 11/29/19 10:43 Bacitracin - TP 1 applic BID JAMEEL Administration Cephalexin HCl 500 mg 11/26/19 22:00 11/29/19 10:43 Keflex - PO 11/30/19 23:00 500 mg BID JAMEEL Administration Clonidine 0.2 mg 11/28/19 11:59 11/29/19 11:48 Catapres - PO 0.2 mg BID PRN Administration HYPERTENSION Erythromycin 1 applic 11/28/19 12:15 11/29/19 10:43 Erythromycin 0.5% Eye Ointment OD 1 applic BID JAMEEL Administration Escitalopram Oxalate 5 mg 11/28/19 10:00 11/29/19 10:43 Lexapro - PO 5 mg DAILY JAMEEL Administration Eucalyptus/Menthol/Phenol/Sorbitol 1 each 11/26/19 14:32 Cepastat Lozenge - MM Q4H PRN SORE THROAT Gabapentin 900 mg 11/27/19 22:00 11/29/19 06:46 Neurontin - PO 900 mg TID JAMEEL Administration Guaifenesin 10 ml 11/26/19 14:32 Robitussin - PO Q6H PRN COUGH Ibuprofen 400 mg 11/26/19 14:32 Motrin - PO Q6H PRN Pain level 4-6 Loperamide HCl 4 mg 11/26/19 14:32 Imodium - PO Q6H PRN DIARRHEA Magnesium Citrate 300 ml 11/26/19 14:32 Citroma - PO Q48H PRN CONSTIPATION Magnesium Hydroxide 30 ml 11/26/19 14:32 Milk Of Magnesia - PO DAILY PRN CONSTIPATION Melatonin 5 mg 11/26/19 22:00 11/27/19 21:28 Melatonin PO 5 mg HS PRN Administration INSOMNIA Methadone HCl 80 mg 11/27/19 06:00 11/29/19 06:45 Dolophine - PO 12/03/19 05:59 80 mg DAILY@0600 JAMEEL Administration Mirtazapine 30 mg/ Mirtazapine 45 mg 11/27/19 22:00 11/28/19 21:27 15 mg PO 45 mg HS JAMEEL Administration Nicotine 14 mg 11/27/19 10:00 11/29/19 10:44 Nicoderm Patch - TD 14 mg DAILY JAMEEL Administration Ondansetron HCl 4 mg 11/27/19 15:49 11/29/19 10:46 Zofran Odt - SL 4 mg Q8H PRN Administration NAUSEA AND/OR VOMITING Multivit/Folic Acid/Iron 1 tab 11/27/19 10:00 11/29/19 10:45 Vitamins (Sjr) - PO Not Given DAILY [facility] Pseudoephedrine/Triprolidine 1 combo 11/26/19 14:32 Actifed - PO TID PRN NASAL CONGESTION Quetiapine Fumarate 200 mg 11/27/19 20:00 11/28/19 21:29 Seroquel Xr - PO 200 mg HS@2000 JAMEEL Administration Thiamine HCl 100 mg 11/26/19 22:00 11/28/19 21:26 Vitamin B1 - PO 100 mg HS JAMEEL Administration Medication(s) Change(s): No. Current Side Effect: No Lab tests ordered: No Lab tests reviewed: Yes Provider note:: Patient reports feeling sick from not receiving xanax for several days. As per patient and her psychiatrist Dr. Yang, patient is prescribed xanax 2mg QID PRN. Patient reports experiencing nausea, shakes, and increased in anxiety. Patient has not had xanax since her admission to rehab. Additional medications will not be ordered by insurance underwriter sales as 2:00pm gabapentin 900mg was held yesterday as patient appeared lethagic and fatigue. Case discussed with MD Weber concerning patient's prescription of xanax 2mg QID PRN. Dr. Weber will order patient klonopin 0.5mg BID. Patient informed and satisfied with outcome. Total face to face time:: 20 Mental Status Exam - Mental Status Exam Alert and Oriented to: Time, Place, Person Cognitive Function: Good Patient Appearance: Well Groomed Mood: Withdrawn, Anxious Affect: Mood Congruent Patient Behavior: Fatigued, Cooperative Speech Pattern: Clear Voice Loudness: Mildly Soft/Quiet Thought Process: Intact, Goal Oriented Thought Disorder: Not Present Hallucinations: Denies Suicidal Ideation: Denies Homicidal Ideation: Denies Insight/Judgement: Poor Sleep: Fair Appetite: Fair Muscle strength/Tone: Normal Gait/Station: Normal Psychiatric Treatment Plan - Problem List (1) Methadone maintenance therapy patient Comment: .. (2) Alcohol abuse Comment: .. (3) Cocaine abuse Comment: .. (4) Heroin abuse Comment: .. (5) Bipolar 1 disorder Comment: .. (6) Agoraphobia Comment: .. (7) Panic disorder Comment: ..
[2019-11-29 14:43] LABS: EPI CELLS 31.9 /HPF (0-5/HPF); HYALINE CASTS 39 /lpf (0-8); URINE APPEARANCE CLOUDY; URINE BACTERIA 117.3 /hpf (NEGATIVE); URINE BILIRUBIN NEGATIVE (NEGATIVE); URINE COLOR YELLOW; URINE GLUCOSE (UA) NEGATIVE (NEGATIVE); URINE KETONE NEGATIVE (NEGATIVE); URINE LEUK ESTERASE 2+ (NEGATIVE); URINE NITRITE NEGATIVE (NEGATIVE); URINE PROTEIN NEGATIVE (NEGATIVE); URINE RBC 2 /hpf (0-4); URINE UROBILINOGEN 0.2 mg/dL (0.2-1.0); URINE WBC 72 /hpf (0-5)
[2019-11-29 15:02] LABS: YEAST NON SEEN (NEGATIVE)
[2019-11-29] MEDS: clonazePAM 0.5 MG TABLET PO PRN (18:02)
[2019-11-29] MEDS ORDERED: MIRTAZAPINE 15 MG TABLET (FP) ONE (19:32)
[2019-11-29] MEDS ORDERED: MIRTAZAPINE 30 MG TABLET (FP) PO ONE (19:32)
[2019-11-29] MEDS: MIRTAZAPINE 30 MG, MIRTAZAPINE 15 MG PO SCH (21:30)
[2019-11-29] MEDS: THIAMINE HCL 100 MG TABLET (FP) PO SCH (21:33)
[2019-11-30] MEDS: GABAPENTIN 300 MG CAPSULE PO SCH ×3 (06:52→21:38)
[2019-11-30] MEDS: METHADONE HCL 40 MG DISPERSABLE TABLET PO SCH (06:53)
[2019-11-30] MEDS ORDERED: PT OWN MED DRAWER 7, Y5N ONE ×2 (08:27→19:54)
[2019-11-30] MEDS: ERYTHROMYCIN 0.5% OPHTHALMIC OINTMENT 3.5 GM TUBE OD SCH ×2 (10:01→21:41)
[2019-11-30] MEDS: cloNIDine HCL 0.1 MG TABLET PO PRN (10:01)
[2019-11-30] MEDS: BACITRACIN 15 GM TUBE TOPICAL OINTMENT TP SCH ×2 (10:01→21:41)
[2019-11-30] MEDS: ESCITALOPRAM OXALATE 10 MG TABLET PO SCH (10:02)
[2019-11-30] MEDS: CEPHALEXIN MONOHYDRATE 500 MG CAPSULE (UD) PO SCH ×2 (10:02→21:39)
[2019-11-30] MEDS: PRENATAL VITAMINS W/ FOLIC ACID TABLET (FP) PO SCH (10:02)
[2019-11-30] MEDS: clonazePAM 0.5 MG TABLET PO PRN ×2 (10:04→21:39)
[2019-11-30] MEDS: NICOTINE 14 MG/24 HOURS TOPICAL PATCH TD SCH (10:11)
[2019-11-30] MEDS: ONDANSETRON *ODT* 4 MG TABLET SL PRN (11:07)
[2019-11-30] MEDS ORDERED: MIRTAZAPINE 15 MG TABLET (FP) ONE (19:51)
[2019-11-30] MEDS ORDERED: MIRTAZAPINE 30 MG TABLET (FP) PO ONE (19:52)
[2019-11-30] MEDS: MIRTAZAPINE 30 MG, MIRTAZAPINE 15 MG PO SCH (21:39)
[2019-11-30] MEDS: THIAMINE HCL 100 MG TABLET (FP) PO SCH (21:44)
[2019-12-01] MEDS: METHADONE HCL 40 MG DISPERSABLE TABLET PO SCH (06:36)
[2019-12-01] MEDS: GABAPENTIN 300 MG CAPSULE PO SCH ×2 (06:37→13:44)
[2019-12-01] MEDS: ONDANSETRON *ODT* 4 MG TABLET SL PRN (09:04)
[2019-12-01] MEDS: clonazePAM 0.5 MG TABLET PO PRN ×2 (10:10→18:53)
[2019-12-01] MEDS: ESCITALOPRAM OXALATE 10 MG TABLET PO SCH (10:10)
[2019-12-01] MEDS: PRENATAL VITAMINS W/ FOLIC ACID TABLET (FP) PO SCH (10:10)
[2019-12-01] MEDS: ERYTHROMYCIN 0.5% OPHTHALMIC OINTMENT 3.5 GM TUBE OD SCH (10:11)
[2019-12-01] MEDS: BACITRACIN 15 GM TUBE TOPICAL OINTMENT TP SCH (10:11)
[2019-12-01] MEDS: NICOTINE 14 MG/24 HOURS TOPICAL PATCH TD SCH (10:11)
[2019-12-01] MEDS: cloNIDine HCL 0.1 MG TABLET PO PRN (11:16)
[2019-12-01 18:55] VITALS: BP 109/70; PULSE 84; TEMP 98.2
--- NOTE | 2019-12-01 19:56 | DS ---
[facility] Rehab Discharge Summary - [facility] Rehab Discharge Summary Admission Date: 11/26/19 Discharge Date: 12/01/19 - Discharge Physical Exam Vital Signs: Vital Signs Temperature 98.2 F 12/01/19 18:54 Pulse Rate 84 12/01/19 18:54 Respiratory Rate 18 12/01/19 18:54 Blood Pressure 109/70 12/01/19 18:54 O2 Sat by Pulse Oximetry (%) Pertinent Admission Physical Exam Findings: Laboratory Last Values WBC 7.0 K/mm3 (4.0-10.0) 11/26/19 14:00 RBC 4.33 M/mm3 (3.60-5.2) 11/26/19 14:00 Hgb 12.7 GM/dL (10.7-15.3) 11/26/19 14:00 Hct 38.1 % (32.4-45.2) 11/26/19 14:00 MCV 87.9 fl (80-96) 11/26/19 14:00 MCH 29.3 pg (25.7-33.7) 11/26/19 14:00 MCHC 33.3 g/dl (32.0-36.0) 11/26/19 14:00 RDW 14.2 % (11.6-15.6) 11/26/19 14:00 Plt Count 207 K/MM3 (134-434) D 11/26/19 14:00 MPV 8.2 fl (7.5-11.1) 11/26/19 14:00 Sodium 141 mmol/L (136-145) 11/26/19 14:00 Potassium 3.9 mmol/L (3.5-5.1) 11/26/19 14:00 Chloride 107 mmol/L (98-107) 11/26/19 14:00 Carbon Dioxide 24 mmol/L (21-32) 11/26/19 14:00 Anion Gap 9 MMOL/L (8-16) 11/26/19 14:00 BUN 14.9 mg/dL (7-18) 11/26/19 14:00 Creatinine 0.6 mg/dL (0.55-1.3) 11/26/19 14:00 Est GFR (CKD-EPI)AfAm 139.78 11/26/19 14:00 Est GFR (CKD-EPI)NonAf 120.61 11/26/19 14:00 Random Glucose 102 mg/dL (74-106) 11/26/19 14:00 Calcium 9.7 mg/dL (8.5-10.1) 11/26/19 14:00 Total Bilirubin 0.3 mg/dL (0.2-1) 11/26/19 14:00 AST 19 U/L (15-37) 11/26/19 14:00 ALT 18 U/L (13-61) 11/26/19 14:00 Alkaline Phosphatase 92 U/L (45-117) 11/26/19 14:00 Total Protein 8.1 g/dl (6.4-8.2) 11/26/19 14:00 Albumin 4.1 g/dl (3.4-5.0) 11/26/19 14:00 Urine Color Yellow 11/29/19 11:00 Urine Appearance Cloudy 11/29/19 11:00 Urine pH 5.0 (5.0-8.0) D 11/29/19 11:00 Ur Specific [place] 1.024 (1.010-1.035) 11/29/19 11:00 Urine Protein Negative (NEGATIVE) 11/29/19 11:00 Urine Glucose (UA) Negative (NEGATIVE) 11/29/19 11:00 Urine Ketones Negative (NEGATIVE) 11/29/19 11:00 Urine Blood Negative (NEGATIVE) 11/29/19 11:00 Urine Nitrite Negative (NEGATIVE) 11/29/19 11:00 Urine Bilirubin Negative (NEGATIVE) 11/29/19 11:00 Urine Urobilinogen 0.2 mg/dL (0.2-1.0) 11/29/19 11:00 Ur Leukocyte Esterase 2+ (NEGATIVE) H 11/29/19 11:00 Urine WBC (Auto) 72 /hpf (0-5) 11/29/19 11:00 Urine RBC (Auto) 2 /hpf (0-4) 11/29/19 11:00 Urine Casts (Auto) 39 /lpf (0-8) 11/29/19 11:00 U Pathogenic Cast Auto Non seen /lpf (NEGATIVE) 11/29/19 11:00 U Epithel Cells (Auto) 31.9 /HPF (0-5/HPF) 11/29/19 11:00 Urine Bacteria (Auto) 117.3 /hpf (NEGATIVE) 11/29/19 11:00 Urine Yeast (Auto) Non seen (NEGATIVE) 11/29/19 11:00 POC Urine HCG, Qual Negative 11/26/19 12:39 RPR Titer Nonreactive (NONREACTIVE) 11/26/19 14:00 HIV 1&2 Antibody Screen Negative 11/26/19 14:00 HIV P24 Antigen Negative 11/26/19 14:00 - Medication Discharge Medications: Ambulatory Orders Lurasidone HCl [Latuda] 40 mg PO BID 10/26/17 Lamotrigine [Lamictal -] 100 mg PO BID #60 tablet 12/14/18 Cephalexin Monohydrate [Keflex -] 500 mg PO BID #14 capsule 07/14/19 Clonidine HCl 0.1 mg PO BID 11/26/19 Cyclobenzaprine HCl [Flexeril -] 10 mg PO BID 11/26/19 Gabapentin [Neurontin -] 900 mg PO Q8H 11/26/19 Methadone [Dolophine -] 100 mg PO DAILY 11/26/19 Quetiapine Fumarate "Xr" [Seroquel Xr -] 300 mg PO HS 11/26/19 Escitalopram Oxalate [Lexapro -] 5 mg PO DAILY 11/27/19 Mirtazapine 45 mg PO HS 11/27/19 Clonidine HCl 0.2 mg PO BID 11/28/19 - Medication-Assisted Treatment (MAT) Medication-Assisted Treatment (MAT): No - Discharge Instructions Diet, activity, other medical instructions: Diet: Activity: Other medical instructions: - Diagnosis (1) Cocaine abuse Current Visit: Yes Status: Acute (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
== END 2019-12-01 19:35 | disposition left against medical advice (07) | DRG 770 ==
LOC: YASAS 11:57 → Y6N 14:29 → Y3E 14:34
PROVIDERS: ADMIT Allergy & Immunology; ATTEND Allergy & Immunology
PROC: HZ42ZZZ Group Counseling for Substance Abuse Treatment, Cognitive-Behavioral (ICD-10-PCS; principal; 2019-11-26)
DX: F11.20 Opioid dependence, uncomplicated (principal); F13.20 Sedative, hypnotic or anxiolytic dependence, uncomplicated; F14.20 Cocaine dependence, uncomplicated; F10.10 Alcohol abuse, uncomplicated; F17.210 Nicotine dependence, cigarettes, uncomplicated; F40.01 Agoraphobia with panic disorder; F31.89 Other bipolar disorder; I10 Essential (primary) hypertension; G40.909 Epilepsy, unspecified, not intractable, without status epilepticus; H00.012 Hordeolum externum right lower eyelid; L03.114 Cellulitis of left upper limb; L03.113 Cellulitis of right upper limb; E78.5 Hyperlipidemia, unspecified; K76.0 Fatty (change of) liver, not elsewhere classified; E03.9 Hypothyroidism, unspecified; R00.0 Tachycardia, unspecified; Z88.2 Allergy status to sulfonamides; Z88.8 Allergy status to other drugs, medicaments and biological substances; Z86.73 Personal history of transient ischemic attack (TIA), and cerebral infarction without residual deficits
CPT/HCPCS: 36415; 80053; 81003; 81025; 85027; 86593; 87389; 93005; 93010; J0735; Q0162